=== PATIENT | female | born 1945 | race American Indian/Alaskan Native ===

== ENCOUNTER 2017-03-10 18:47 | Inpatient (IN) | payer OTHER ==
[2017-03-10] MEDS ORDERED: Albuterol-Ipratrop 3 mg / 0.5 (3 ml) UD ONE ×2 (18:58→19:31)
[2017-03-10] MEDS ORDERED: Albuterol-Ipratrop 3 mg / 0.5 (3 ml) UD INH STA ×2 (19:08→19:30)
[2017-03-10 19:22] LABS: BASO # 0.1 K/uL (0.0-0.2); BASO % 0.2 % (0.0-2.0); EOS # 0.1 K/uL (0.0-0.7); EOS % 0.3 % (0.0-4.0); HEMOGLOBIN 9.1 g/dL (11.0-16.0); LYMPH # 1.1 K/uL (1.0-4.3); LYMPH % 3.4 % (20.0-40.0); MEAN CELL VOLUME 91.9 fL (81.0-99.0); MEAN CORPUSCULAR HEMOGLOBIN 28.5 pg (27.0-31.0); MEAN CORPUSCULAR HGB CONC 31.1 g/dL (33.0-37.0); MEAN PLATELET VOLUME 8.1 fL (7.2-11.7); MONO # 0.3 K/uL (0.0-0.8); MONO % 0.9 % (0.0-10.0); NEUT # 30.1 K/uL (1.8-7.0); NEUT % 95.2 % (50.0-75.0); PLATELET COUNT 178 K/uL (130-400); RBC 3.19 Mil/uL (3.80-5.20); RED CELL DISTRIBUTION WIDTH 16.4 % (11.5-14.5)
[2017-03-10 19:26] LABS: ALBUMIN 3.5 g/dL (3.5-5.0); WHITE BLOOD COUNT 31.6 K/uL (4.8-10.8)
[2017-03-10 19:29] LABS: ALB/GLOB RATIO 1.3 (1.0-2.1); CALCIUM 8.7 mg/dl (8.6-10.4)
[2017-03-10 19:41] LABS: TROPONIN I 0.013 ng/mL (0.00-0.120)
[2017-03-10 20:24] LABS: ANISOCYTOSIS SLIGHT; BANDS 4 % (0-2); LYMPHOCYTE 3 % (20-40); MONOCYTE 1 % (0-10); NEUTROPHIL 92 % (50-75); PLATELET ESTIMATE NORMAL (NORMAL); TOTAL CELLS COUNTED 100
[2017-03-10 20:26] LABS: HYPOCHROMIC SLIGHT
[2017-03-10] MEDS ORDERED: Sodium Chloride 0.9% 1,000 ML IV ONE (21:30)
[2017-03-10] MEDS ORDERED: Sodium Chloride 0.9% 1,000 ML ONE (21:36)
[2017-03-10] MEDS ORDERED: Iodixanol 320 MG/ML 100 ML BOTTLE IV ONE (23:02)
[2017-03-10 23:21] LABS: SQUAMOUS EPITHIAL < 1 /hpf (0-5); URINE BACTERIA OCC (<OCC); URINE BILIRUBIN NEGATIVE (NEGATIVE); URINE BLOOD NEGATIVE (NEGATIVE); URINE CLARITY Clear (Clear); URINE COLOR Yellow (YELLOW); URINE GLUCOSE (UA) 3+ mg/dL (Normal); URINE LEUKOCYTE ESTERASE 1+ Leu/uL (Negative); URINE NITRATE NEGATIVE (NEGATIVE); URINE PROTEIN NEGATIVE (NEGATIVE); URINE UROBILINOGEN NORMAL mg/dL (0.2-1.0)
--- NOTE | 2017-03-11 00:10 | CT ---
EXAM: CT Angiography Chest With Intravenous Contrast CLINICAL HISTORY: 71 years old, female; Pain; Chest pain; Additional info: R lower lung ca, elev d-dimer, new SOB TECHNIQUE: Axial computed tomographic angiography images of the chest with intravenous contrast using pulmonary embolism protocol. This CT exam was performed using one or more of the following dose reduction techniques: automated exposure control, adjustment of the mA and/or kV according to patient size, and/or use of iterative reconstruction technique. MIP reconstructed images were created and reviewed. Coronal and sagittal reformatted images were created and reviewed. CONTRAST: 100 mL of [id number] administered intravenously. COMPARISON: No relevant prior studies available. FINDINGS: Pulmonary arteries: There is no evidence for large, central pulmonary embolism. Relatively poor opacification and motion artifact limit evaluation of medium and small branches. Aorta: Thoracic aorta is mildly atherosclerotic without aneurysm. Abdominal aorta demonstrates moderate atherosclerotic calcification is visualized. Lungs: There is an ovoid slightly ill-defined groundglass opacity in the right upper lobe measuring approximately 2.4 x 1.5 CM on series 3, image 35. This could represent mass or infiltrate. There are a few smaller ill-defined groundglass lesions that appear similar in the right lower lobe and the left upper lobe. Metastatic disease is not excluded. Please correlate clinically. There is mild to moderate underlying centrilobular emphysema and some paraseptal emphysema in the upper lung zones. There is linear atelectasis or scarring in the bases. Pleural space: No evidence for significant pleural effusion or pneumothorax. Heart: The heart is not enlarged. No significant pericardial effusion. No evidence of RV dysfunction. Mediastinum: The esophagus is normal. Thyroid: The thyroid is normal in size and position. Bones/joints: There are moderate degenerative changes present. There is mild diffuse osteopenia. No acute fracture. No dislocation. Soft tissues: Unremarkable. Lymph nodes: There is no axillary adenopathy. No mediastinal or hilar adenopathy. Adrenals: There is a 1.7 CM left adrenal mass which is incompletely characterized on this postcontrast study. Metastasis is not excluded. Upper abdomen: Scans through the upper abdomen demonstrate no definite acute abnormalities. Tubes, lines and devices: There is a right chemotherapy infusion port with catheter tip extending to the superior vena cava. IMPRESSION: 1. There is no evidence for large, central pulmonary embolism. Relatively poor opacification and motion artifact limit evaluation of medium and small branches. 2. There is an ovoid slightly ill-defined groundglass opacity in the right upper lobe measuring approximately 2.4 x 1.5 CM on series 3, image 35. This could represent mass or infiltrate. There are a few smaller ill-defined groundglass lesions that appear similar in the right lower lobe and the left upper lobe. Metastatic disease is not excluded. Please correlate clinically. 3. There is mild to moderate underlying centrilobular emphysema and some paraseptal emphysema in the upper lung zones. 4. There is a 1.7 CM left adrenal mass which is incompletely characterized on this postcontrast study. Metastasis is not excluded.
--- NOTE | 2017-03-11 00:19 | C.PDOC ---
History Of Present Illness 71 year old female who presents to the ER via EMS with a complaint of increasing SOB and wheezing. Patient has a Hx of COPD and quit smoking in August. Patient reports she has right lower lobe lung CA and states her most recent chemo radiation was earlier this week done by Dr. Ck Nails; her PMD is Dr. Amaya. Denies chest pain, nausea, or vomiting. Time Seen by Provider: 03/10/17 19:00 Chief Complaint (Nursing): Shortness Of Breath History Per: Patient History/Exam Limitations: no limitations Onset/Duration Of Symptoms: Hrs Current Symptoms Are (Timing): Still Present Initiating Event: Other (Not known) Current Respiratory Medications: See Home Med List Associated Symptoms: denies: Fever, Chills, Chest Pain Past Medical History Reviewed: Historical Data, Nursing Documentation, Vital Signs Vital Signs: Last Vital Signs Temp 97.4 F L 03/11/17 01:30 Pulse 99 H 03/11/17 01:30 Resp 20 03/11/17 01:30 BP 126/56 L 03/11/17 01:30 Pulse Ox 97 03/11/17 02:40 - Medical History PMH: Asthma, COPD, Emphysema, HTN Surgical History: No Surg Hx Family History: States: Unknown Family Hx - Social History Hx Alcohol Use: Yes Hx Substance Use: Yes - Immunization History Hx Tetanus Toxoid Vaccination: No Hx Influenza Vaccination: Yes Hx Pneumococcal Vaccination: Yes Review Of Systems Constitutional: Negative for: Fever, Chills Cardiovascular: Negative for: Chest Pain Gastrointestinal: Negative for: Nausea, Vomiting Physical Exam - Physical Exam Appears: Non-toxic Skin: Normal Color, Warm, Dry Head: Atraumatic, Normacephalic Oral Mucosa: Moist Chest: Symmetrical, No Tenderness Cardiovascular: Rhythm Regular, No Murmur Respiratory: Decreased Breath Sounds (Right side), No Rales, Rhonchi (Scattered) , Wheezing (Scattered), Other (Moderate respiratory distress) Gastrointestinal/Abdominal: Soft, No Tenderness Neurological/Psych: Oriented x3, Normal Speech, Normal Cognition ED Course And Treatment - Laboratory Results Result Diagrams: 03/10/17 19:14 03/10/17 19:14 Lab Interpretation: Abnormal (++ leukocytosis, and elev d-dimer 588) ECG: Interpreted By Pa ECG Rhythm: Sinus Tachycardia ECG Interpretation: Abnormal Rate From EC O2 Sat by Pulse Oximetry: 97 Pulse Ox Interpretation: Normal - Radiology CXR: Interpreted by Me CXR Interpretation: Yes: Other (? mass/infiltrate RLL) - CT Scan/US CTA Other Rad Studies (CT/US): Read By Radiologist, Radiology Report Reviewed CT/US Interpretation: IMPRESSION: 1. There is no evidence for large, central pulmonary embolism. Relatively poor opacification and. motion artifact limit evaluation of medium and small branches. 2. There is an ovoid slightly ill- defined groundglass opacity in the right upper lobe measuring. approximately 2.4 x 1.5 CM on series 3, image 35. This could represent mass or infiltrate. There are. a few smaller ill-defined groundglass lesions that appear similar in the right lower lobe and the left. upper lobe. Metastatic disease is not excluded. Please correlate clinically. 3. There is mild to moderate underlying centrilobular emphysema and some paraseptal emphysema. in the upper lung zones. 4. There is a 1.7 CM left adrenal mass which is incompletely characterized on this postcontrast. study. Metastasis is not excluded. Progress Note: IVF, steroids, nebs. Reevaluation Time: 00:18 Reassessment Condition: Unchanged (remains calm, cooperative) - Physician Consult Information Outcome Of Conversation: 0030: d/w Dr. Ramirze, covering Dr. Amaya's pt's, ok to tele obs. Medical Decision Making Medical Decision Making: COPD exacerbation after Chemo 2 days ago significant leukocytosis prob more related to recent chem and not infection as none noted on CTA- abx held. non-neutropenic. Disposition Doctor Will See Patient In The: Hospital Counseled Patient/Family Regarding: Studies Performed, Diagnosis - Disposition Disposition: HOSPITALIZED Disposition Time: 00:23 Condition: GOOD - Clinical Impression Clinical Impression: COPD exacerbation - Scribe Statement The provider has reviewed the documentation as recorded by the Scribkaitlynn De La Vega All medical record entries made by the Scribe were at my direction and personally dictated by me. I have reviewed the chart and agree that the record accurately reflects my personal performance of the history, physical exam, medical decision making, and the department course for this patient. I have also personally directed, reviewed, and agree with the discharge instructions and disposition.
--- NOTE | 2017-03-11 02:58 | CP.PCM.HP ---
<FloydChrissie Luis Armando - Last Filed: 03/11/17 05:11> History of Present Illness - History of Present Illness History of Present Illness: CC:shortness of breath HPI: Patient is a 71 year old female with a past medical history of DM, COPD, asthma, HTN, and lung cancer (diagnosed in 08/2016), who comes to the emergency room because she was having shortness of breath. Patient had an episode of shortness of breath in the morning which was mostly resolved after a nebulizer treatment. Then patient had shortness of breath and cough in the afternoon that was not resolving. Patient was diagnosed with lung cancer in August for which she has been getting chemo treatments since October. Patient had some mild nausea , 1 episode of vomiting water, and one loose bowel movement today which she attributes to the chemo. Patient denies headache, dizziness, chest pain, palpitations, urinary frequency, dysuria, leg pain, leg swelling. PMD: Dr. Eugene Amaya Heme/Onc: Dr. Ck Nails Pmhx: DM, COPD, asthma, HTN, and lung cancer (diagnosed in 08/2016) Fam hx: mother: DM Social: quit smoking cigarettes when she was diagnosed with lung cancer in August, before then smoked 1-1.5 packs a day for 50 years drinks alcohol once every 3-4 months, smokes marijuana, lives alone Present on Admission - Present on Admission Any Indicators Present on Admission: Yes History of DVT/PE: No History of Uncontrolled Diabetes: Yes Urinary Catheter: No Decubitus Ulcer Present: No Review of Systems - Constitutional Constitutional: absent: Chills, Daytime Sleepiness, Fatigue, Fever - EENT Eyes: absent: Blurred Vision, Diplopia Ears: absent: Decreased Hearing Nose/Mouth/Throat: absent: Nasal Congestion, Nasal Discharge, Post Nasal Drip - Cardiovascular Cardiovascular: Dyspnea. absent: Chest Pain, Diaphoresis, Edema - Respiratory Respiratory: Cough, Dyspnea, Wheezing - Gastrointestinal Gastrointestinal: Loose Stools, Vomiting. absent: Abdominal Pain, Constipation , Diarrhea - Genitourinary Genitourinary: absent: Change in Urinary Stream, Difficulty Urinating, Urinary Incontinence, Urinary Hesitance - Musculoskeletal Musculoskeletal: absent: Muscle Cramps, Muscle Weakness - Integumentary Integumentary: absent: Change in Pigmentation, Changing Lesions - Neurological Neurological: absent: Confusion, Dizziness, Numbness - Psychiatric Psychiatric: absent: Behavioral Changes, Confusion, Depression - Endocrine Endocrine: absent: Fatigue, Palpitations - Hematologic/Lymphatic Hematologic: absent: Easy Bleeding, Easy Bruising Past Patient History - Infectious Disease Hx of Infectious Diseases: None - Past Social History Smoking Status: Former Smoker - CARDIAC Hx Hypertension: Yes - PULMONARY Hx Asthma: Yes Hx Chronic Obstructive Pulmonary Disease (COPD): Yes Hx Emphysema: Yes - HEMATOLOGICAL/ONCOLOGICAL Hx Cancer: Yes (RIGHT LUNG LOWER LOBE) Other/Comment: CURRENT CHEMO PATIENT - PSYCHIATRIC Hx Substance Use: Yes - SURGICAL HISTORY Hx Surgeries: Yes Hx Tubal Ligation: Yes Other/Comment: HEMMROIDECOTMY - ANESTHESIA Hx Anesthesia: Yes Hx Anesthesia Reactions: No Meds Allergies/Adverse Reactions: Allergies Allergy/AdvReac Type Severity Reaction Status Date / Time Penicillins Allergy Verified 03/10/17 19:02 Physical Exam - Constitutional Appears: Well, Non-toxic, No Acute Distress - Head Exam Head Exam: ATRAUMATIC, NORMAL INSPECTION, NORMOCEPHALIC - Eye Exam Eye Exam: EOMI, Normal appearance, PERRL - ENT Exam ENT Exam: Mucous Membranes Moist, Normal Exam - Neck Exam Neck exam: Positive for: Normal Inspection Additional comments: right port - Respiratory Exam Respiratory Exam: Rhonchi, Wheezes - Cardiovascular Exam Cardiovascular Exam: REGULAR RHYTHM, RRR - GI/Abdominal Exam GI & Abdominal Exam: Normal Bowel Sounds, Soft. absent: Distended, Firm, Guarding - Extremities Exam Extremities exam: Positive for: normal inspection. Negative for: pedal edema - Back Exam Back exam: NORMAL INSPECTION - Neurological Exam Neurological exam: Alert, Oriented x3 - Psychiatric Exam Psychiatric exam: Normal Affect, Normal Mood - Skin Skin Exam: Intact, Normal Color, Warm Additional comments: right chest chemo port Results - Vital Signs Recent Vital Signs: Last Vital Signs Temp 97.4 F L 03/11/17 01:30 Pulse 99 H 03/11/17 01:30 Resp 20 03/11/17 01:30 BP 126/56 L 03/11/17 01:30 Pulse Ox 97 03/11/17 02:41 - Labs Result Diagrams: 03/10/17 19:14 03/10/17 19:14 Assessment & Plan - Assessment and Plan (Free Text) Assessment: 1. COPD Exacerbation Duoneb 3ml INH q6h Pulmicort .5mg INH q12h Prednisone 40 mg PO daily Doxycycline 100 mg PO q12h in ED CT chest: no evidence for PE, ovoid groundglass opacity in right upper lobe 2.4 x 1.5, few smaller ill defined groundglass lesions that appear similar in the right lower lobe and left upper lobe, mild to moderate underlying centrilobular emphysema and some paraseptal emphysema in upper lung zones, 1.7cm left adrenal mass 2. Diabetes ISS low dose Levemir 16 u SC HS hold metformin because patient received contrast Januvia 50 mg PO daily (lowered from 100 for renal dosing) accuchecks HgA1c 3. HTN Enalapril 2.5 mg PO BID plavix 75 mg- f/u with Dr. Amaya for indication 4. Chronic Anemia Feosol 325mg PO daily 5. Leukocytosis probably secondary to injection after chemo 6. Lung Cancer f/u with Dr. Ck Nails to obtain recent chest CT results 5. Prophylactic Measures Pepcid 20 mg PO daily Colace 100 mg PO daily <David Ramirez P - Last Filed: 03/11/17 06:41> Results - Vital Signs Recent Vital Signs: Last Vital Signs Temp 97.4 F L 03/11/17 01:30 Pulse 99 H 03/11/17 01:30 Resp 20 03/11/17 01:30 BP 126/56 L 03/11/17 01:30 Pulse Ox 97 03/11/17 02:41 - Labs Result Diagrams: 03/10/17 19:14 03/10/17 19:14 Attending/Attestation - Attestation I have personally seen and examined this patient.: Yes I have fully participated in the care of the patient.: Yes I have reviewed all pertinent clinical information: Yes Notes (Text): 03/11/17 06:36 SOB probably COPD exacerbation with improved with steroid, nebs treatment in the hospital, lung lesion noticed on the CT on the right side in mid lung zone likely site of original malignancy, PE negative, leucocytosis probably form post chemo colony proliferating agent, patient clinically not septic. Continue systemic steroid, emperic abx, neb including pulmicort, will try to get information on the lung lesion form the patients oncologist, Dr Ck Nails, continue home meds except metformin due to PE study, probably dc today or tomorrow.
[2017-03-11] MEDS: Albuterol-Ipratrop 3 mg / 0.5 (3 ml) UD INH SCH ×3 (08:00→19:35)
[2017-03-11] MEDS: Budesonide 0.5 mg/2 ml Inhal Susp UD INH SCH ×2 (08:00→19:35)
[2017-03-11] MEDS: (Novolin R) Insulin Human Regular 100 units/ml vial SC SCH ×4 (08:27→21:56)
--- NOTE | 2017-03-11 15:14 | RAD ---
PROCEDURE: CHEST RADIOGRAPH, 1 VIEW HISTORY: Shortness of breath. COMPARISON: This study was read in conjunction with CTA chest 03/10/2017 at 2338 hours. PE FINDINGS: LUNGS: Ovoid ground-glass opacity right upper lobe, mild right basilar atelectasis and centrilobular emphysema upper lobe predominance less well seen on this exam as compared to high-resolution CT scan. PLEURA: No pneumothorax or pleural fluid seen. CARDIOVASCULAR: Heart size normal. OSSEOUS STRUCTURES: No significant abnormalities. VISUALIZED UPPER ABDOMEN: Normal. OTHER FINDINGS: Right IJ MediPort with tip in the SVC again noted IMPRESSION: Ovoid ground-glass opacity right upper lobe, mild right basilar atelectasis and centrilobular emphysema upper lobe predominance less well seen on this exam as compared to high-resolution CT scan.
[2017-03-11] MEDS ORDERED: Albuterol-Ipratrop 3 mg / 0.5 (3 ml) UD INH STA (15:33)
[2017-03-11] MEDS: Insulin Detemir 100 units/ml Vial (Levemir) SC SCH (21:58)
[2017-03-12] MEDS: Albuterol-Ipratrop 3 mg / 0.5 (3 ml) UD INH SCH ×5 (02:34→19:07)
[2017-03-12] MEDS: Budesonide 0.5 mg/2 ml Inhal Susp UD INH SCH ×2 (07:35→19:07)
[2017-03-12] MEDS: (Novolin R) Insulin Human Regular 100 units/ml vial SC SCH ×4 (08:25→21:51)
--- NOTE | 2017-03-12 10:48 | RAD ---
HISTORY: shortness of breath COMPARISON: Comparison chest radiograph and CTA chest both dated 03/10/2017 FINDINGS: LUNGS: . Re- demonstrated is in situ right IJ MediPort tip in the SVC/brachiocephalic junction. Improved right basilar atelectasis. Hyperinflation consistent with underlying emphysema upper lobe predominance and ovoid ground-glass opacity right upper lobe poorly seen on this study as compared to high-resolution CTA chest. PLEURA: No significant pleural effusion identified, no pneumothorax apparent. CARDIOVASCULAR: Heart size is upper limits of normal unchanged. OSSEOUS STRUCTURES: No significant abnormalities. VISUALIZED UPPER ABDOMEN: Normal. OTHER FINDINGS: None. IMPRESSION: Improved right basilar atelectasis. Hyperinflation consistent with underlying emphysema upper lobe predominance and ovoid ground-glass opacity right upper lobe poorly seen on this study as compared to high-resolution CTA chest.
[2017-03-12 10:56] LABS: BASO % 0.1 % (0.0-2.0); EOS # 0.1 K/uL (0.0-0.7); EOS % 0.3 % (0.0-4.0); HEMOGLOBIN 8.2 g/dL (11.0-16.0); LYMPH % 3.7 % (20.0-40.0); MEAN CELL VOLUME 92.3 fL (81.0-99.0); MEAN CORPUSCULAR HEMOGLOBIN 28.8 pg (27.0-31.0); MEAN CORPUSCULAR HGB CONC 31.2 g/dL (33.0-37.0); MEAN PLATELET VOLUME 8.6 fL (7.2-11.7); MONO # 0.2 K/uL (0.0-0.8); MONO % 0.8 % (0.0-10.0); NEUT # 25.6 K/uL (1.8-7.0); NEUT % 95.1 % (50.0-75.0); RBC 2.84 Mil/uL (3.80-5.20); RED CELL DISTRIBUTION WIDTH 15.2 % (11.5-14.5)
[2017-03-12 11:00] LABS: PLATELET COUNT 112 K/uL (130-400)
[2017-03-12 11:02] LABS: ALBUMIN 3.4 g/dL (3.5-5.0)
[2017-03-12 11:05] LABS: ALB/GLOB RATIO 1.2 (1.0-2.1)
[2017-03-12 11:06] LABS: CALCIUM 8.8 mg/dl (8.6-10.4)
[2017-03-12 11:57] LABS: BANDS 2 % (0-2); LYMPHOCYTE 1 % (20-40); MONOCYTE 1 % (0-10); NEUTROPHIL 96 % (50-75); PLATELET ESTIMATE SLIGHTLY DECREASED (NORMAL); TOTAL CELLS COUNTED 100
[2017-03-12 11:58] LABS: ANISOCYTOSIS SLIGHT; HYPOCHROMIC SLIGHT; POLYCHROMIC SLIGHT
[2017-03-12 11:59] LABS: BURR CELLS SLIGHT; LARGE PLATELETS PRESENT; POIKILOCYTOSIS SLIGHT
[2017-03-12 14:20] LABS: ABG ALLEN TEST POS; ARTERIAL BLOOD GAS HCO3 24.6 mmol/L (21-28); ARTERIAL BLOOD GAS HEMOGLOBIN 8.7 g/dL (11.7-17.4); ARTERIAL BLOOD GAS O2 SAT 99.3 % (95-98); ARTERIAL BLOOD GAS PCO2 46 mm/Hg (35-45); ARTERIAL BLOOD GAS PH 7.35 (7.35-7.45); ARTERIAL BLOOD GAS PO2 71 mm/Hg (80-100); ARTERIAL BLOOD GAS TCO2 26.8 mmol/L (22-28)
[2017-03-12] MEDS: Vancomycin 1 gm/NS 200 ml 1 GM/200 ML BAG IVPB SCH ×2 (15:00→16:54)
--- NOTE | 2017-03-12 15:45 | CP.PCM.PN ---
<Clarissa Ness - Last Filed: 03/12/17 15:42> Subjective - Date & Time of Evaluation Date of Evaluation: 03/12/17 Time of Evaluation: 15:42 - Subjective Subjective: PGY2 progress note Pt is seen and examined at bedside. Patient is resting comfortably in bed. she states that she is not currently feeling short of breath. Still c/o productive cough. Denies having any CP, abd pain, N/V/D/C. 12 point ROS are negative except for the above mentioned. Objective - Vital Signs/Intake and Output Vital Signs (last 24 hours): Temp Pulse Resp BP Pulse Ox 98.4 F 84 22 170/65 H 100 03/11/17 15:00 03/12/17 07:05 03/11/17 15:00 03/12/17 09:37 03/11/17 15:00 Intake and Output: 03/12/17 03/12/17 06:59 18:59 Intake Total 600 Balance 600 - Medications Medications: Current Medications Albuterol/Ipratropium (Duoneb 3 Mg/0.5 Mg (3 Ml) Ud) 3 ml INH RQ6 [facility] Last Admin: 03/12/17 13:01 Dose: 3 ml Budesonide (Pulmicort Respules) 0.5 mg INH RQ12 [facility] Last Admin: 03/12/17 07:35 Dose: 0.5 mg Clopidogrel Bisulfate (Plavix) 75 mg PO DAILY [facility] Last Admin: 03/12/17 09:37 Dose: 75 mg Docusate Sodium (Colace) 100 mg PO DAILY [facility] Last Admin: 03/12/17 09:37 Dose: 100 mg Enalapril Maleate (Vasotec) 2.5 mg PO BID [facility] Last Admin: 03/12/17 09:37 Dose: 2.5 mg Famotidine (Pepcid) 20 mg PO DAILY [facility] Last Admin: 03/12/17 09:38 Dose: 20 mg Ferrous Sulfate (Feosol) 325 mg PO DAILY [facility] Last Admin: 03/12/17 09:38 Dose: 325 mg Heparin Sodium (Porcine) (Heparin) 5,000 units SC Q8 [facility] Last Admin: 03/12/17 14:30 Dose: 5,000 units Ceftriaxone Sodium 1 gm/ (Sodium Chloride) 100 mls @ 200 mls/hr IVPB DAILY [facility] Last Admin: 03/12/17 09:42 Dose: 200 mls/hr Vancomycin/Sodium Chloride (Vancocin) 1 gm in 200 mls @ 133.333 mls/hr IVPB Q24H [facility] Insulin Detemir (Levemir) 16 unit SC HS [facility] Last Admin: 03/11/17 21:58 Dose: 16 unit Insulin Human Regular (Novolin R) 0 unit SC ACHS [facility] PRN Reason: Protocol Last Admin: 03/12/17 12:30 Dose: 3 unit Prednisone (Prednisone Tab) 40 mg PO DAILY [facility] Last Admin: 03/12/17 09:38 Dose: 40 mg Sitagliptin Phosphate (Januvia) 50 mg PO DAILY [facility] Last Admin: 03/12/17 09:38 Dose: 50 mg - Labs Labs: 03/12/17 10:30 03/12/17 10:30 - Constitutional Appears: Non-toxic, No Acute Distress - Head Exam Head Exam: ATRAUMATIC - Eye Exam Eye Exam: EOMI - ENT Exam ENT Exam: Mucous Membranes Moist - Respiratory Exam Respiratory Exam: Clear to Ausculation Bilateral, Wheezes. absent: Accessory Muscle Use, Rales, Rhonchi, Respiratory Distress - Cardiovascular Exam Cardiovascular Exam: REGULAR RHYTHM, +S1, +S2. absent: Gallop, Rubs, Murmur - GI/Abdominal Exam GI & Abdominal Exam: Soft, Normal Bowel Sounds. absent: Firm, Guarding, Rigid, Tenderness, Organomegaly - Extremities Exam Extremities Exam: absent: Pedal Edema, Tenderness - Neurological Exam Neurological Exam: Alert, Awake, Oriented x3 - Psychiatric Exam Psychiatric exam: Normal Affect, Normal Mood - Skin Skin Exam: Dry, Intact, Normal Color, Warm Assessment and Plan - Assessment and Plan (Free Text) Assessment: 71 year old female with past medical history of small cell lung cancer on chemo therapy carboplastin, tobracyte and Neulasta is admitted for shortness of breath likely 2/2 COPD exacerbation vs. PNA. CT of chest on admission was negative for PE, ovoid groundglass opacity in right upper lobe 2.4 x 1.5, few smaller ill defined ground glass lesions that appear similar in the right lower lobe and left upper lobe, mild to moderate underlying centrilobular emphysema and some paraseptal emphysema in upper lung zones, 1.7cm left adrenal mass. 1. SOB likely due to COPD exacerbation vs. PNA Blood cultures from port cath site grew gram positive cocci coag negative Will repeat blood cultures today from port cath site and then start patient on vancomycin Continue rocephin 1 gm IV Q24 ID, Dr. Walter is consulted ABG done today showed 99 O2 saturation on RA Duoneb 3ml INH q6h Pulmicort .5mg INH q12h Prednisone 40 mg PO daily on day 2 out of day 5 2. Diabetes ISS low dose Levemir 16 u SC HS hold metformin because patient received contrast Januvia 50 mg PO daily (lowered from 100 for renal dosing) accuchecks HgA1c 3. HTN Enalapril 2.5 mg PO BID plavix 75 mg- f/u with Dr. Amaya for indication 4. Chronic Anemia Feosol 325mg PO daily 5. Leukocytosis Likely due to Neulasta Downtrending. will continue to monitor 6. Small cell lung Cancer - Patient to follow up with heme/onc specialist, Dr. Nails upon discharge. - Discussed the reslts of CT findings with Dr. Nails 5. Prophylactic Measures Pepcid 20 mg PO daily Colace 100 mg PO daily Heparin SC Case discussed with attending, Dr. Pepper <Kaylie Pepper V - Last Filed: 03/12/17 23:17> Objective - Vital Signs/Intake and Output Vital Signs (last 24 hours): Temp Pulse Resp BP Pulse Ox 98.3 F 101 H 20 147/89 99 03/12/17 15:46 03/12/17 16:00 03/12/17 15:46 03/12/17 17:39 03/12/17 15:46 Intake and Output: 03/12/17 03/13/17 18:59 06:59 Intake Total 500 820 Balance 500 820 - Medications Medications: Current Medications Albuterol/Ipratropium (Duoneb 3 Mg/0.5 Mg (3 Ml) Ud) 3 ml INH RQ6 [facility] Last Admin: 03/12/17 19:07 Dose: 3 ml Budesonide (Pulmicort Respules) 0.5 mg INH RQ12 [facility] Last Admin: 03/12/17 19:07 Dose: 0.5 mg Clopidogrel Bisulfate (Plavix) 75 mg PO DAILY [facility] Last Admin: 03/12/17 09:37 Dose: 75 mg Docusate Sodium (Colace) 100 mg PO DAILY [facility] Last Admin: 03/12/17 09:37 Dose: 100 mg Enalapril Maleate (Vasotec) 2.5 mg PO BID [facility] Last Admin: 03/12/17 17:39 Dose: 2.5 mg Famotidine (Pepcid) 20 mg PO DAILY [facility] Last Admin: 03/12/17 09:38 Dose: 20 mg Ferrous Sulfate (Feosol) 325 mg PO DAILY [facility] Last Admin: 03/12/17 09:38 Dose: 325 mg Heparin Sodium (Porcine) (Heparin) 5,000 units SC Q8 [facility] Last Admin: 03/12/17 21:51 Dose: 5,000 units Vancomycin/Sodium Chloride (Vancocin) 1 gm in 200 mls @ 133.333 mls/hr IVPB Q24H [facility] Last Admin: 03/12/17 16:54 Dose: 133.333 mls/hr Cefepime HCl (Maxipime Iv 2 Gm Premix) 2 gm in 100 mls @ 200 mls/hr IVPB Q12H [facility] Stop: 03/17/17 19:31 Last Admin: 03/12/17 20:50 Dose: 200 mls/hr Insulin Detemir (Levemir) 16 unit SC HS [facility] Last Admin: 03/12/17 21:51 Dose: 16 unit Insulin Human Regular (Novolin R) 0 unit SC ACHS [facility] PRN Reason: Protocol Last Admin: 03/12/17 21:51 Dose: 2 unit Prednisone (Prednisone Tab) 40 mg PO DAILY [facility] Last Admin: 03/12/17 09:38 Dose: 40 mg Sitagliptin Phosphate (Januvia) 50 mg PO DAILY [facility] Last Admin: 03/12/17 09:38 Dose: 50 mg - Labs Labs: 03/12/17 10:30 03/12/17 10:30 Attending/Attestation - Attestation I have personally seen and examined this patient.: Yes I have fully participated in the care of the patient.: Yes I have reviewed all pertinent clinical information, including history, physical exam and plan: Yes Notes (Text): Patient seen, examined, and case discussed with day-time resident. Patient has history of small cell lung cancer, had undergone 5 rounds of chemotherapy. Patient reports after her dose of Monday medication (Neuralasta?) she felt like she could not breathing, was panting, and felt like she need oxygen. Patient does not use oxygen normally. Patient is a former smoker, quit this year. CT results were discussed with resident and patient's heme-onc, patient to follow-up outpatient for adrenal lesion. Noted: patient had blood cultures that grew out from port-cath site today. Ordered for repeat culture r/o contaminant. When I saw the patient, there was no discharge, no swelling and plastic dressing over the the port-a cath this morning. Patient currently on Rocephin IV and Doxy PO combination; denies allergy type symptoms. Will ask assistance from ID and repeat cultures from the port-a cath Assessment/Plan 1. Dyspnea * Contributing factors: small cell lung cancer (on chemotherapy), emphysema, and pneumonia, and bactremia * CT chest: no evidence for PE, ovoid groundglass opacity in right upper lobe 2.4 x 1.5, few smaller ill defined groundglass lesions that appear similar in the right lower lobe and left upper lobe, mild to moderate underlying centrilobular emphysema and some paraseptal emphysema in upper lung zones, 1.7cm left adrenal mass * ABG done today showed 99 O2 saturation on RA * Duoneb 3ml INH q6h * Pulmicort .5mg INH q12h * Prednisone 40 mg PO daily on day 2 out of day 5 2. Bacteremia * Blood culture (03/11) from port a cath: gram positive cocci coag negative ( unclear if contaminant or not) * Blood culture (03/11) peripheral: no growth X 24 hours * Repeat blood cultures from the port-cath (prior to vancomycin) and peripheral blood were repeat r/o bactermia * Infectious Disease (Dr. Walter) on the case-->help appreciated * d/c rocephin 1 gm IV Q24 per ID; patient started on Cefepime 2gram IV Q12 hours (active since 03/12/17) * Vancomycin 1gram IVQ 24 hours (active since 03/12/17) * Given dose of Gentamcin by ID * Ordered for echocardiogram by ID * 1/2 NS 50cc/hr * Florastor 250mg PO bid 3. Diabetes * ISS low dose * Levemir 16 u SC HS * hold metformin because patient received contrast * Renal dose Januvia 25 mg PO daily (lowered from 100 for renal dosing) * accuchecks QAC and HS * HgA1c pending * d/c Enalapril 2.5 mg PO BID secondary to BRENDA and hyperkalemia 3. Hypertension * d/c Enalapril 2.5 mg PO BID secondary to BRENDA and hyperkalemia * start Norvasc 5mg PO daily 4. Chronic Anemia * Feosol 325mg PO daily 5. Leukocytosis * Likely due to Neulasta * Downtrending. will continue to monitor * Note plan for Bacteremia and Small cell lung cancer 6. Small cell lung Cancer * CT chest: no evidence for PE, ovoid groundglass opacity in right upper lobe 2.4 x 1.5, few smaller ill defined groundglass lesions that appear similar in the right lower lobe and left upper lobe, mild to moderate underlying centrilobular emphysema and some paraseptal emphysema in upper lung zones, 1.7cm left adrenal mass * Patient to follow up with heme/onc specialist, Dr. Nails upon discharge. * Resident spoke results of CT findings with Dr. Ck Nails, heme-onc * Patient is on active chemo therapy and Neulasta 7. Emphysema * CT chest: no evidence for PE, ovoid groundglass opacity in right upper lobe 2.4 x 1.5, few smaller ill defined groundglass lesions that appear similar in the right lower lobe and left upper lobe, mild to moderate underlying centrilobular emphysema and some paraseptal emphysema in upper lung zones, 1.7cm left adrenal mass * ABG done today; 99 O2 saturation on RA * Duoneb 3ml INH q6h * Pulmicort .5mg INH q12h * Prednisone 40 mg PO daily on day 2 out of day 5 8. Acute Renal Insufficiency * held enalapril secondary to hyperkalemia and BRENDA * Metformin held secondary to contrast CT * Januvia adjusted to renal dose * gentle IV hydration 9. Thrombocytopenia * held Heparin secondary to thrombocytopenia 10. Prophylactic Measures * Pepcid 20 mg PO daily * Colace 100 mg PO daily * d/c Heparin 5000 units SC [id number] secondary to thrombocytopenia * PT eval
[2017-03-12] MEDS ORDERED: Gentamicin 160 MG in Sodium Chloride 0.9% 100 ML IVPB ONE (19:26)
[2017-03-12] MEDS: Cefepime IV 2 gm in Dextrose 2 GM/100 ML BAG IVPB SCH (20:50)
[2017-03-12] MEDS: Insulin Detemir 100 units/ml Vial (Levemir) SC SCH (21:51)
[2017-03-13] MEDS: Sodium Chloride 0.45% 1,000 ML IV SCH (00:06)
[2017-03-13] MEDS: Albuterol-Ipratrop 3 mg / 0.5 (3 ml) UD INH SCH ×4 (01:00→19:10)
[2017-03-13] MEDS: Cefepime IV 2 gm in Dextrose 2 GM/100 ML BAG IVPB SCH ×2 (06:47→19:24)
[2017-03-13 07:36] LABS: ALBUMIN 3.5 g/dL (3.5-5.0)
[2017-03-13 07:39] LABS: ALB/GLOB RATIO 1.2 (1.0-2.1); CALCIUM 9.1 mg/dl (8.6-10.4); MAGNESIUM 1.3 mg/dL (1.6-2.3)
[2017-03-13 07:48] LABS: BASO % 0.2 % (0.0-2.0); EOS # 0.1 K/uL (0.0-0.7); EOS % 0.6 % (0.0-4.0); HEMOGLOBIN 8.3 g/dL (11.0-16.0); LYMPH # 1.6 K/uL (1.0-4.3); LYMPH % 7.8 % (20.0-40.0); MEAN CORPUSCULAR HEMOGLOBIN 29.4 pg (27.0-31.0); MEAN CORPUSCULAR HGB CONC 31.9 g/dL (33.0-37.0); MEAN PLATELET VOLUME 8.9 fL (7.2-11.7); MONO # 0.4 K/uL (0.0-0.8); MONO % 1.8 % (0.0-10.0); NEUT # 18.5 K/uL (1.8-7.0); NEUT % 89.6 % (50.0-75.0); RBC 2.83 Mil/uL (3.80-5.20); RED CELL DISTRIBUTION WIDTH 15.3 % (11.5-14.5); WHITE BLOOD COUNT 20.6 K/uL (4.8-10.8)
[2017-03-13 07:51] LABS: PLATELET COUNT 91 K/uL (130-400)
[2017-03-13] MEDS: (Novolin R) Insulin Human Regular 100 units/ml vial SC SCH ×4 (08:12→21:39)
[2017-03-13 08:36] LABS: BANDS 1 % (0-2); LYMPHOCYTE 7 % (20-40); MONOCYTE 1 % (0-10); NEUTROPHIL 91 % (50-75); TOTAL CELLS COUNTED 100
[2017-03-13 08:37] LABS: ANISOCYTOSIS SLIGHT; HYPOCHROMIC SLIGHT; PLATELET ESTIMATE DECREASED (NORMAL)
[2017-03-13] MEDS: Budesonide 0.5 mg/2 ml Inhal Susp UD INH SCH ×2 (09:51→19:10)
[2017-03-13] MEDS ORDERED: Magnesium Sulfate 1 gm in D5W 1 GM/100 ML BAG IVPB ONE ×2 (10:30→13:10)
[2017-03-13] MEDS ORDERED: Sod Polystyrene Sulf 15 gm/60 ml Oral Susp PO ONE ×3 (10:30→22:37)
[2017-03-13] MEDS: Saccharomyces Boulardi 250 mg Cap PO SCH ×2 (10:44→17:59)
--- NOTE | 2017-03-13 12:32 | CARD ---
APPROVED REPORT EKG Measurement Heart [id number] <Conclusion> Sinus tachycardia with fusion complexes Biatrial enlargement Rightward axis Pulmonary disease pattern Septal infarct, age undetermined Abnormal ECG
[2017-03-13 13:02] LABS: N MENINGITIS ACY/W135 NEGATIVE (NEGATIVE); N MENINGITIS B/ECOLI K1 NEGATIVE (NEGATIVE); STREP PNEUMONIAE NEGATIVE (NEGATIVE); STREPTOCOCCUS B NEGATIVE (NEGATIVE)
[2017-03-13] MEDS: Vancomycin 1 gm/NS 200 ml 1 GM/200 ML BAG IVPB SCH (14:07)
--- NOTE | 2017-03-13 16:04 | CP.PCM.PN ---
<Chrissie Barrientos - Last Filed: 03/13/17 16:01> Subjective - Date & Time of Evaluation Date of Evaluation: 03/13/17 Time of Evaluation: 08:00 - Subjective Subjective: PGY-1 Medicine Note- Dr. Pepper's Service Patient seen and examined at bedside today with complaints of shortness of breath and productive cough. Patient experiences intermittent shortness of breath when walking and when speaking for long periods of time. SOB began this past Monday and states that treatment of oxygen is helpful. Patient complains of intermittent productive cough with white sputum that began last week during a cold. She denies any exacerbating or remitting factors. Complains of night sweats that she has had for an extended period of time, last episode was 5 days ago. Patient denies chest pain, headaches, dizziness, changes in vision and hearing, tinnitus, dysphagia, abdominal pain, nausea, vomiting, abdominal pain, diarrhea, constipation, fever, chills, leg pain, numbness or tingling at distal extremities. Objective - Vital Signs/Intake and Output Vital Signs (last 24 hours): Temp Pulse Resp BP Pulse Ox 97.9 F 92 H 22 146/67 100 03/13/17 15:45 03/13/17 15:45 03/13/17 15:45 03/13/17 15:45 03/13/17 15:45 Intake and Output: 03/13/17 03/13/17 06:59 18:59 Intake Total 820 Balance 820 - Medications Medications: Current Medications Albuterol/Ipratropium (Duoneb 3 Mg/0.5 Mg (3 Ml) Ud) 3 ml INH RQ6 [facility] Last Admin: 03/13/17 13:40 Dose: 3 ml Amlodipine Besylate (Norvasc) 5 mg PO DAILY [facility] Last Admin: 03/13/17 10:44 Dose: 5 mg Budesonide (Pulmicort Respules) 0.5 mg INH RQ12 [facility] Last Admin: 03/13/17 09:51 Dose: 0.5 mg Clopidogrel Bisulfate (Plavix) 75 mg PO DAILY [facility] Last Admin: 03/13/17 10:44 Dose: 75 mg Docusate Sodium (Colace) 100 mg PO DAILY [facility] Last Admin: 03/13/17 10:44 Dose: 100 mg Famotidine (Pepcid) 20 mg PO DAILY [facility] Last Admin: 03/13/17 10:44 Dose: 20 mg Ferrous Sulfate (Feosol) 325 mg PO DAILY [facility] Last Admin: 03/13/17 10:42 Dose: 325 mg Vancomycin/Sodium Chloride (Vancocin) 1 gm in 200 mls @ 133.333 mls/hr IVPB Q24H [facility] Last Admin: 03/13/17 14:07 Dose: 133.333 mls/hr Cefepime HCl (Maxipime Iv 2 Gm Premix) 2 gm in 100 mls @ 200 mls/hr IVPB Q12H [facility] Stop: 03/17/17 19:31 Last Admin: 03/13/17 06:47 Dose: 200 mls/hr Sodium Chloride (Sodium Chloride 0.45%) 1,000 mls @ 50 mls/hr IV .Q20H [facility] Last Admin: 03/13/17 00:06 Dose: 50 mls/hr Insulin Detemir (Levemir) 16 unit SC HS [facility] Last Admin: 03/12/17 21:51 Dose: 16 unit Insulin Human Regular (Novolin R) 0 unit SC ACHS [facility] PRN Reason: Protocol Last Admin: 03/13/17 12:05 Dose: 1 unit [facility] Prednisone (Prednisone Tab) 40 mg PO DAILY [facility] Last Admin: 03/13/17 10:45 Dose: 40 mg Saccharomyces Boulardii (Florastor) 250 mg PO BID [facility] Last Admin: 03/13/17 10:44 Dose: 250 mg Sitagliptin Phosphate (Januvia) 25 mg PO DAILY [facility] Last Admin: 03/13/17 10:44 Dose: 25 mg - Labs Labs: 03/13/17 07:10 03/13/17 07:10 - Constitutional Appears: Well, Non-toxic, No Acute Distress - Head Exam Head Exam: ATRAUMATIC, NORMAL INSPECTION, NORMOCEPHALIC - Eye Exam Eye Exam: EOMI, Normal appearance, PERRL - ENT Exam ENT Exam: Mucous Membranes Moist, Normal Exam - Neck Exam Neck Exam: Full ROM, Normal Inspection - Respiratory Exam Respiratory Exam: Wheezes, NORMAL BREATHING PATTERN Additional comments: expiratory wheezing in upper and lower lobes bilaterally - Cardiovascular Exam Cardiovascular Exam: REGULAR RHYTHM, RRR. absent: Gallop, JVD, Rubs, Murmur - GI/Abdominal Exam GI & Abdominal Exam: Soft, Normal Bowel Sounds. absent: Distended, Firm, Guarding, Rigid, Tenderness - Extremities Exam Extremities Exam: Full ROM, Normal Inspection - Back Exam Back Exam: NORMAL INSPECTION. absent: rash noted - Neurological Exam Neurological Exam: Alert, Awake, Oriented x3 - Psychiatric Exam Psychiatric exam: Normal Affect, Normal Mood - Skin Skin Exam: Intact, Normal Color, Warm Assessment and Plan - Assessment and Plan (Free Text) Assessment: 1. SOB secondary to COPD exacerbation vs. PNA Blood cultures from port cath site grew gram positive cocci coag negative, f/u repeat blood cultures Vancomycin 1 gm daily Continue rocephin 1 gm IV Q24 ID, Dr. Walter is consulted ABG done on 03/12 showed 99 O2 saturation on RA Duoneb 3ml INH q6h Pulmicort .5mg INH q12h Prednisone 40 mg PO daily (day 3 of ) f/u echo 2. Diabetes ISS low dose Levemir 16 u SC HS Metformin 1,000 PO BID restarted 03/13 Januvia 50 mg PO daily (lowered from 100 for renal dosing) accuchecks HgA1c 3. HTN Enalapril 2.5 mg PO BID Plavix 75 mg- f/u with Dr. Amaya for indication 4. Electrolyte Imbalance K+ 6.1 on 03/13, Kayexalate given Mg 1.3- 2 bags of 1 gm in 100 ml D5W given BMP: 5. Chronic Anemia Feosol 325mg PO daily 6. Leukocytosis Likely due to Neulasta Downtrending. will continue to monitor 7. Urinary Frequency f/u urine culture U/A on 03/10: 3+ glucose, 1+ leuk esterase, 9 wbcs 8. Small cell lung Cancer - Patient to follow up with heme/onc specialist, Dr. Nails upon discharge 9. Prophylactic Measures Pepcid 20 mg PO daily Colace 100 mg PO daily Heparin SC <Kaylie Pepper V - Last Filed: 03/13/17 18:11> Objective - Vital Signs/Intake and Output Vital Signs (last 24 hours): Temp Pulse Resp BP Pulse Ox 97.9 F 92 H 22 146/67 100 03/13/17 15:45 03/13/17 15:45 03/13/17 15:45 03/13/17 15:45 03/13/17 15:45 Intake and Output: 03/13/17 03/13/17 06:59 18:59 Intake Total 820 640 Balance 820 640 - Medications Medications: Current Medications Albuterol/Ipratropium (Duoneb 3 Mg/0.5 Mg (3 Ml) Ud) 3 ml INH RQ6 [facility] Last Admin: 03/13/17 13:40 Dose: 3 ml Amlodipine Besylate (Norvasc) 5 mg PO DAILY [facility] Last Admin: 03/13/17 10:44 Dose: 5 mg Budesonide (Pulmicort Respules) 0.5 mg INH RQ12 [facility] Last Admin: 03/13/17 09:51 Dose: 0.5 mg Clopidogrel Bisulfate (Plavix) 75 mg PO DAILY [facility] Last Admin: 03/13/17 10:44 Dose: 75 mg Docusate Sodium (Colace) 100 mg PO DAILY [facility] Last Admin: 03/13/17 10:44 Dose: 100 mg Famotidine (Pepcid) 20 mg PO DAILY [facility] Last Admin: 03/13/17 10:44 Dose: 20 mg Ferrous Sulfate (Feosol) 325 mg PO DAILY [facility] Last Admin: 03/13/17 10:42 Dose: 325 mg Vancomycin/Sodium Chloride (Vancocin) 1 gm in 200 mls @ 133.333 mls/hr IVPB Q24H [facility] Last Admin: 03/13/17 14:07 Dose: 133.333 mls/hr Cefepime HCl (Maxipime Iv 2 Gm Premix) 2 gm in 100 mls @ 200 mls/hr IVPB Q12H [facility] Stop: 03/17/17 19:31 Last Admin: 03/13/17 06:47 Dose: 200 mls/hr Sodium Chloride (Sodium Chloride 0.45%) 1,000 mls @ 50 mls/hr IV .Q20H [facility] Last Admin: 03/13/17 00:06 Dose: 50 mls/hr Insulin Detemir (Levemir) 16 unit SC HS [facility] Last Admin: 03/12/17 21:51 Dose: 16 unit Insulin Human Regular (Novolin R) 0 unit SC ACHS [facility] PRN Reason: Protocol Last Admin: 03/13/17 17:11 Dose: 5 unit Metformin HCl (Glucophage) 1,000 mg PO BIDCC [facility] Last Admin: 03/13/17 17:10 Dose: 1,000 mg Prednisone (Prednisone Tab) 40 mg PO DAILY [facility] Last Admin: 03/13/17 10:45 Dose: 40 mg Saccharomyces Boulardii (Florastor) 250 mg PO BID [facility] Last Admin: 03/13/17 10:44 Dose: 250 mg Sitagliptin Phosphate (Januvia) 25 mg PO DAILY [facility] Last Admin: 03/13/17 10:44 Dose: 25 mg - Labs Labs: 03/13/17 07:10 03/13/17 07:10 Attending/Attestation - Attestation I have personally seen and examined this patient.: Yes I have fully participated in the care of the patient.: Yes I have reviewed all pertinent clinical information, including history, physical exam and plan: Yes Notes (Text): Patient seen, examined, and case discussed with day-time resident. Patient reports breathing is about the same. Patient reporting productive cough. Explained to the patient she had abnormal blood culture finding involving her port-cath, and repeat blood cultures were done. Also, explained to the patient she is currently on stronger IV abx to cover for pneumonia given she is on active chemotherapy. Patient denies chest pain, denies palpitations and reports she has not had a bowel movement for three days since being at the hospital. Patien ordered for repeat EKG given hyperkalemia and f/u BMP for later this evening. Patient completed Kaxeylate at bedside. Repeat EKG normal. Patient refuses peripheral blood cultures; discussed with nursing staff. patient 's repeat culture from port-cath with clean needle. Echocardiogram completed pending official read Assessment/Plan 1. Dyspnea * Contributing factors: small cell lung cancer (on chemotherapy), emphysema, and pneumonia, and bactremia * CT chest: no evidence for PE, ovoid groundglass opacity in right upper lobe 2.4 x 1.5, few smaller ill defined groundglass lesions that appear similar in the right lower lobe and left upper lobe, mild to moderate underlying centrilobular emphysema and some paraseptal emphysema in upper lung zones, 1.7cm left adrenal mass * ABG done today showed 99 O2 saturation on RA * Duoneb 3ml INH q6h * Pulmicort .5mg INH q12h * Prednisone 40 mg PO daily on day 3 out of day 5 2. Bacteremia * Infectious Disease (Dr. Walter) on the case-->help appreciated * Blood culture (03/11) from port a cath: gram positive cocci coag negative ( unclear if contaminant or not) * Blood culture (03/11) peripheral: no growth X 24 hours * Blood culture (03/12) from port a cath: no growth X 24hours X2 * d/c rocephin 1 gm IV Q24 per ID; patient started on Cefepime 2gram IV Q12 hours (active since 03/12/17) * Vancomycin 1gram IVQ 24 hours (active since 03/12/17) * Given dose of Gentamcin by ID (03/12 and 03/13) * Ordered for echocardiogram by ID-->pending official read * 08/22 NS 50cc/hr * Florastor 250mg PO bid 3. Diabetes * ISS low dose * Levemir 16 u SC HS * hold metformin because patient received contrast * Renal dose Januvia 25 mg PO daily (lowered from 100 for renal dosing) * accuchecks QAC and HS * HgA1c 6.5 (controlled) * d/c Enalapril 2.5 mg PO BID secondary to BRENDA and hyperkalemia 3. Hypertension * d/c Enalapril 2.5 mg PO BID secondary to BRENDA and hyperkalemia * start Norvasc 5mg PO daily 4. Chronic Anemia * Feosol 325mg PO daily 5. Leukocytosis * Likely due to Neulasta * Downtrending. will continue to monitor * Note plan for Bacteremia and Small cell lung cancer 6. Small cell lung Cancer * CT chest: no evidence for PE, ovoid groundglass opacity in right upper lobe 2.4 x 1.5, few smaller ill defined groundglass lesions that appear similar in the right lower lobe and left upper lobe, mild to moderate underlying centrilobular emphysema and some paraseptal emphysema in upper lung zones, 1.7cm left adrenal mass * Patient to follow up with heme/onc specialist, Dr. Nails upon discharge. * Resident spoke results of CT findings with Dr. Ck Nails, heme-onc * Patient is on active chemo therapy and Neulasta 7. Emphysema * CT chest: no evidence for PE, ovoid groundglass opacity in right upper lobe 2.4 x 1.5, few smaller ill defined groundglass lesions that appear similar in the right lower lobe and left upper lobe, mild to moderate underlying centrilobular emphysema and some paraseptal emphysema in upper lung zones, 1.7cm left adrenal mass * ABG done today; 99 O2 saturation on RA * Duoneb 3ml INH q6h * Pulmicort .5mg INH q12h * Prednisone 40 mg PO daily on day 3 out of day 5 8. Acute Renal Insufficiency * held enalapril secondary to hyperkalemia and BRENDA * Metformin held secondary to contrast CT * Januvia adjusted to renal dose * gentle IV hydration 9. Thrombocytopenia * held Heparin secondary to thrombocytopenia 10. Prophylactic Measures * Pepcid 20 mg PO daily * Colace 100 mg PO daily * d/c Heparin 5000 units SC [id number] secondary to thrombocytopenia * PT eval * Patient refuses subacute rehab
[2017-03-13 18:39] LABS: CALCIUM 8.6 mg/dl (8.6-10.4)
[2017-03-13] MEDS ORDERED: Albuterol-Ipratrop 3 mg / 0.5 (3 ml) UD INH STA ×2 (18:57→23:59)
--- NOTE | 2017-03-13 20:23 | CP.PCM.CON ---
History of Present Illness - History of Present Illness History of Present Illness: 71y old female with history of HTN,DM,COPD, LUNG cancer on chemo last mon,, and monday came with shortness of breath and palpitations she denies any fever but has cough and was bringing thick whitish secretions. She also has a sandra cath ,Shee deneis any pain at sandra cath site,no chest pain,feels little better pmhx: DM, COPD, asthma, HTN, and lung cancer (diagnosed in 08/2016) Fam hx: mother: DM Social: quit smoking cigarettes when she was diagnosed with lung cancer in August, before then smoked 1-1.5 packs a day for 50 years drinks alcohol once every 3-4 months, smokes marijuana, lives alone Review of Systems - Review of Systems Systems not reviewed;Unavailable: Respiratory Distress - Constitutional Constitutional: absent: As Per HPI, Anorexia, Chills, Daytime Sleepiness, Excessive Sweating, Fatigue, Fever, Frequent Falls, Headache, Increased Appetite , Lethargy, Malaise, Night Sweats, Snoring, Sleep Apnea, Weight Gain, Weight Loss, Weakness, Other - EENT Eyes: absent: As Per HPI, Blind Spots, Blurred Vision, Change in Vision, Decreased Night Vision, Diplopia, Discharge, Dry Eye, Exophthalmos, Floaters, Irritation, Itchy Eyes, Loss of Peripheral Vision, Pain, Photophobia, Requires Corrective Lenses, Sees Flashes, Spots in Vision, Tunnel Vision, Other Visual Disturbances, Loss of Vision, Other Nose/Mouth/Throat: absent: As Per HPI, Epistaxis, Nasal Congestion, Nasal Discharge, Nasal Obstruction, Nasal Trauma, Nose Pain, Post Nasal Drip, Sinus Pain, Sinus Pressure, Bleeding Gums, Change in Voice, Dental Pain, Dry Mouth, Dysphagia, Halitosis, Hoarsness, Lip Swelling, Mouth Lesions, Mouth Pain, Odynophagia, Sore Throat, Throat Swelling, Tongue Swelling, Facial Pain, Neck Pain, Neck Mass, Other - Cardiovascular Cardiovascular: Palpitations. absent: As Per HPI, Acrocyanosis, Chest Pain, Chest Pain at Rest, Chest Pain with Activity, Claudication, Diaphoresis, Dyspnea , Dyspnea on Exertion, Edema, Irregular Heart Rhythm, Pain Radiating to Arm/Neck /Jaw, Leg Edema, Leg Ulcers, Lightheadedness, Orthopnea, Paroxysmal Nocturnal Dyspnea, Pedal Edema, Radiating Pain, Rapid Heart Rate, Slow Heart Rate, Syncope , Other - Respiratory Respiratory: Cough, Dyspnea, Wheezing, Excessive Mucous Production. absent: As Per HPI, Hemoptysis, Dyspnea on Exertion, Snoring, Stridor, Pain on Inspiration , Chest Congestion, Change in Mucous Color, Pain with Coughing, Other - Gastrointestinal Gastrointestinal: absent: As Per HPI, Abdominal Pain, Belching, Bloating, Change in Bowel Habits, Change in Stool Character, Coffee Ground Emesis, Constipation, Cramping, Diarrhea, Dyspepsia, Dysphagia, Early Satiety, Excessive Flatus, Fecal Incontinence, Heartburn, Hematemesis, Hematochezia, Loose Stools, Melena, Nausea, Odynophagia, Temesmus, Vomiting, Other - Musculoskeletal Musculoskeletal: absent: As Per HPI, Abnormal Gait, Arthralgias, Atrophy, Back Pain, Deformity, Joint Swelling, Limited Range of Motion, Loss of Height, Muscle Cramps, Muscle Weakness, Myalgias, Neck Pain, Numbness, Radiating Pain into Limb, Stiffness, Tingling, Other - Integumentary Integumentary: absent: As Per HPI, Acne, Alopecia, Bleeding Lesions, Change in Hair, Change in Nails, Change in Pigmentation, Changing Lesions, Dry Skin, Erythema, Furuncle, Hirsutism, Lesions, New Lesions, Non-Healing Lesions, Photosensitivity, Pruritus, Rash, Skin Pain, Skin Ulcer, Sores, Striae, Swelling , Unusual Bruising, Wounds, Jaundice, Other - Neurological Neurological: absent: As Per HPI, Abnormal Gait, Abnormal Hearing, Abnormal Movements, Abnormal Speech, Behavioral Changes, Burning Sensations, Confusion, Convulsions, Disequilibrium, Dizziness, Numbness, Focal Weakness, Frequent Falls , Headaches, Lack of Coordination, Loss of Vision, Memory Loss, Paresthesias, Radicular Pain, Restless Legs, Sensory Deficit, Syncope, Tingling, Tremor, Vertigo, Weakness, Other Visual Disturbances, Other - Psychiatric Psychiatric: absent: As Per HPI, Abnormal Sleep Pattern, Anhedonia, Anxiety, Auditory Hallucinations, Behavioral Changes, Change in Appetite, Change in Libido, Confusion, Depression, Difficulty Concentrating, Hallucinations, Homicidal Ideation, Hopelessness, Irritability, Memory Loss, Mood Swings, Panic Attacks, Paranoia, Suicidal Ideation, Visual Hallucinations, Tactile Hallucinations, Other - Endocrine Endocrine: absent: As Per HPI, Change in Body Appearance, Change in Libido, Cold Intolorance, Deepening of Voice, Excessive Sweating, Fatigue, Flushing, Heat Intolorance, Increase in Ring/Shoe/Hat Size, Palpitations, Polydipsia, Polyphagia, Polyuria, Other Past Patient History - Infectious Disease Hx of Infectious Diseases: None - Past Medical History & Family History Past Medical History?: Yes - Past Social History Smoking Status: Former Smoker - CARDIAC Hx Hypertension: Yes - PULMONARY Hx Asthma: Yes Hx Chronic Obstructive Pulmonary Disease (COPD): Yes Hx Emphysema: Yes - NEUROLOGICAL Hx Neurological Disorder: No - HEENT Hx HEENT Problems: No - RENAL Hx Chronic Kidney Disease: No - ENDOCRINE/METABOLIC Hx Endocrine Disorders: Yes Hx Diabetes Mellitus Type 2: Yes - HEMATOLOGICAL/ONCOLOGICAL Hx Cancer: Yes (RIGHT LUNG LOWER LOBE) Other/Comment: CURRENT CHEMO PATIENT - INTEGUMENTARY Hx Dermatological Problems: No - MUSCULOSKELETAL/RHEUMATOLOGICAL Hx Falls: No - GASTROINTESTINAL Hx Gastrointestinal Disorders: No - GENITOURINARY/GYNECOLOGICAL Hx Genitourinary Disorders: No - PSYCHIATRIC Hx Substance Use: Yes - SURGICAL HISTORY Hx Surgeries: Yes Hx Tubal Ligation: Yes Other/Comment: HEMMROIDECOTMY - ANESTHESIA Hx Anesthesia: Yes Hx Anesthesia Reactions: No Meds Allergies/Adverse Reactions: Allergies Allergy/AdvReac Type Severity Reaction Status Date / Time Penicillins Allergy Verified 03/10/17 19:02 - Medications Medications: Current Medications Albuterol/Ipratropium (Duoneb 3 Mg/0.5 Mg (3 Ml) Ud) 3 ml INH RQ6 COUNTS INCLUDE 234 BEDS AT [facility] Last Admin: 03/13/17 19:10 Dose: 3 ml Amlodipine Besylate (Norvasc) 5 mg PO DAILY COUNTS INCLUDE 234 BEDS AT THE [facility] Last Admin: 03/13/17 10:44 Dose: 5 mg Budesonide (Pulmicort Respules) 0.5 mg INH RQ12 COUNTS INCLUDE 234 BEDS AT THE [facility] Last Admin: 03/13/17 19:10 Dose: 0.5 mg Clopidogrel Bisulfate (Plavix) 75 mg PO DAILY COUNTS INCLUDE 234 BEDS AT THE [facility] Last Admin: 03/13/17 10:44 Dose: 75 mg Docusate Sodium (Colace) 100 mg PO DAILY COUNTS INCLUDE 234 BEDS AT THE [facility] Last Admin: 03/13/17 10:44 Dose: 100 mg Famotidine (Pepcid) 20 mg PO DAILY COUNTS INCLUDE 234 BEDS AT THE [facility] Last Admin: 03/13/17 10:44 Dose: 20 mg Ferrous Sulfate (Feosol) 325 mg PO DAILY COUNTS INCLUDE 234 BEDS AT THE [facility] Last Admin: 03/13/17 10:42 Dose: 325 mg Vancomycin/Sodium Chloride (Vancocin) 1 gm in 200 mls @ 133.333 mls/hr IVPB Q24H COUNTS INCLUDE 234 BEDS AT THE [facility] Last Admin: 03/13/17 14:07 Dose: 133.333 mls/hr Cefepime HCl (Maxipime Iv 2 Gm Premix) 2 gm in 100 mls @ 200 mls/hr IVPB Q12H COUNTS INCLUDE 234 BEDS AT THE [facility] Stop: 03/17/17 19:31 Last Admin: 03/13/17 19:24 Dose: 200 mls/hr Sodium Chloride (Sodium Chloride 0.45%) 1,000 mls @ 50 mls/hr IV .Q20H COUNTS INCLUDE 234 BEDS AT THE [facility] Last Admin: 03/13/17 00:06 Dose: 50 mls/hr Insulin Detemir (Levemir) 16 unit SC HS COUNTS INCLUDE 234 BEDS AT THE [facility] Last Admin: 03/12/17 21:51 Dose: 16 unit Insulin Human Regular (Novolin R) 0 unit SC ACHS COUNTS INCLUDE 234 BEDS AT THE [facility] PRN Reason: Protocol Last Admin: 03/13/17 17:11 Dose: 5 unit Prednisone (Prednisone Tab) 40 mg PO DAILY COUNTS INCLUDE 234 BEDS AT THE [facility] Stop: 03/16/17 10:01 Last Admin: 03/13/17 10:45 Dose: 40 mg Saccharomyces Boulardii (Florastor) 250 mg PO BID COUNTS INCLUDE 234 BEDS AT THE [facility] Last Admin: 03/13/17 17:59 Dose: 250 mg Sitagliptin Phosphate (Januvia) 25 mg PO DAILY COUNTS INCLUDE 234 BEDS AT THE [facility] Last Admin: 03/13/17 10:44 Dose: 25 mg Physical Exam - Constitutional Appears: No Acute Distress - Head Exam Head Exam: ATRAUMATIC, NORMOCEPHALIC - Eye Exam Eye Exam: Normal appearance. absent: Conjunctival injection, EOMI, Nystagmus, Periorbital swelling, Periorbital tenderness, PERRL, Scleral icterus - ENT Exam ENT Exam: Mucous Membranes Moist. absent: Mucous Membranes Dry, Normal Exam, Normal External Ear Exam, Normal Oropharynx, TM's Normal Bilaterally - Neck Exam Neck exam: Negative for: Full Rom, Lymphadenopathy, Meningismus, Normal Inspection, Tenderness, Thyromegaly - Respiratory Exam Respiratory Exam: Decreased Breath Sounds, Clear to Auscultation Bilateral, Prolonged Expiratory Phase. absent: Accessory Muscle Use, Chest Wall Tenderness , Rales, Rhonchi, Wheezes, Respiratory Distress, Stridor, NORMAL BREATHING PATTERN - Cardiovascular Exam Cardiovascular Exam: REGULAR RHYTHM. absent: Bradycardia, Tachycardia, Clicks, Diastolic murmur, Gallop, Irregular Rhythm, JVD, RRR, Rubs, +S1, +S2, +S4, Systolic Murmur - GI/Abdominal Exam GI & Abdominal Exam: Normal Bowel Sounds, Soft - Extremities Exam Extremities exam: Positive for: normal inspection - Back Exam Back exam: NORMAL INSPECTION - Neurological Exam Neurological exam: CN II-XII Intact, Oriented x3 - Skin Skin Exam: Dry, Intact, Normal Color, Warm Results - Vital Signs Recent Vital Signs: Last Vital Signs Temp 97.9 F 03/13/17 15:45 Pulse 92 H 03/13/17 15:45 Resp 22 03/13/17 15:45 BP 146/67 03/13/17 15:45 Pulse Ox 100 03/13/17 15:45 - Labs Result Diagrams: 03/13/17 07:10 03/13/17 18:25 Labs: Laboratory Results - last 24 hr 03/12/17 03/12/17 03/12/17 19:16 21:00 21:21 WBC RBC Hgb Hct MCV MCH MCHC RDW Plt Count MPV Neut % (Auto) Lymph % (Auto) [place] % (Auto) Eos % (Auto) Baso % (Auto) Neut # Lymph # [place] # Eos # Baso # Neutrophils % (Manual) Band Neutrophils % Lymphocytes % (Manual) Monocytes % (Manual) Platelet Estimate Hypochromasia (manual) Anisocytosis (manual) Sodium Potassium Chloride Carbon Dioxide Anion Gap BUN Creatinine Est GFR ( Amer) Est GFR (Non-Af Amer) POC Glucose (mg/dL) 367 H Random Glucose Calcium Magnesium Total Bilirubin AST ALT Alkaline Phosphatase Total Protein Albumin Globulin Albumin/Globulin Ratio H.influenzae Type B Ag Negative Ur L.pneumophila Ag Negative N.meningitidis ACY/W135 Negative N.meningi B/E.coli K1 Ag Negative Group B Strep Antigen Negative S. pneumoniae Antigen Negative 03/13/17 03/13/17 03/13/17 02:24 06:25 07:10 WBC 20.6 H RBC 2.83 L Hgb 8.3 L Hct 26.0 L MCV 92.0 MCH 29.4 MCHC 31.9 L RDW 15.3 H Plt Count 91 L D MPV 8.9 Neut % (Auto) 89.6 H Lymph % (Auto) 7.8 L [place] % (Auto) 1.8 Eos % (Auto) 0.6 Baso % (Auto) 0.2 Neut # 18.5 H Lymph # 1.6 Sheridan # 0.4 Eos # 0.1 Baso # 0.0 Neutrophils % (Manual) 91 H Band Neutrophils % 1 Lymphocytes % (Manual) 7 L Monocytes % (Manual) 1 Platelet Estimate Decreased L Hypochromasia (manual) Slight Anisocytosis (manual) Slight Sodium Potassium Chloride Carbon Dioxide Anion Gap BUN Creatinine Est GFR ( Amer) Est GFR (Non-Af Amer) POC Glucose (mg/dL) 190 H 207 H Random Glucose Calcium Magnesium Total Bilirubin AST ALT Alkaline Phosphatase Total Protein Albumin Globulin Albumin/Globulin Ratio H.influenzae Type B Ag Ur L.pneumophila Ag N.meningitidis ACY/W135 N.meningi B/E.coli K1 Ag Group B Strep Antigen S. pneumoniae Antigen 03/13/17 03/13/17 03/13/17 07:10 11:22 16:45 WBC RBC Hgb Hct MCV MCH MCHC RDW Plt Count MPV Neut % (Auto) Lymph % (Auto) [place] % (Auto) Eos % (Auto) Baso % (Auto) Neut # Lymph # [place] # Eos # Baso # Neutrophils % (Manual) Band Neutrophils % Lymphocytes % (Manual) Monocytes % (Manual) Platelet Estimate Hypochromasia (manual) Anisocytosis (manual) Sodium 135 Potassium 6.1 H Chloride 101 Carbon Dioxide 25 Anion Gap 16 BUN 29 H Creatinine 1.4 H Est GFR ( Amer) 45 Est GFR (Non-Af Amer) 37 POC Glucose (mg/dL) 191 H 392 H Random Glucose 159 H Calcium 9.1 Magnesium 1.3 L Total Bilirubin 0.4 AST 15 ALT 21 Alkaline Phosphatase 98 Total Protein 6.4 Albumin 3.5 Globulin 2.8 Albumin/Globulin Ratio 1.2 H.influenzae Type B Ag Ur L.pneumophila Ag N.meningitidis ACY/W135 N.meningi B/E.coli K1 Ag Group B Strep Antigen S. pneumoniae Antigen 03/13/17 18:25 WBC RBC Hgb Hct MCV MCH MCHC RDW Plt Count MPV Neut % (Auto) Lymph % (Auto) [place] % (Auto) Eos % (Auto) Baso % (Auto) Neut # Lymph # [place] # Eos # Baso # Neutrophils % (Manual) Band Neutrophils % Lymphocytes % (Manual) Monocytes % (Manual) Platelet Estimate Hypochromasia (manual) Anisocytosis (manual) Sodium 133 Potassium 7.1 H* Chloride 99 Carbon Dioxide 23 Anion Gap 18 BUN 27 H Creatinine 1.3 H Est GFR ( Amer) 49 Est GFR (Non-Af Amer) 40 POC Glucose (mg/dL) Random Glucose 412 H* D Calcium 8.6 Magnesium Total Bilirubin AST ALT Alkaline Phosphatase Total Protein Albumin Globulin Albumin/Globulin Ratio H.influenzae Type B Ag Ur L.pneumophila Ag N.meningitidis ACY/W135 N.meningi B/E.coli K1 Ag Group B Strep Antigen S. pneumoniae Antigen - Imaging and Cardiology Chest x-ray Status: Report reviewed by me CT scan - chest Status: Report reviewed by me Assessment & Plan (1) Hyperkalemia Status: Acute (2) COPD exacerbation Status: Acute (3) Lung cancer Status: Acute (4) Staphylococcus epidermidis bacteremia Assessment and Plan: r/o sandra cath sepsis to find out if cultures were peripheral or thru sandra cath will continue Vancomycin and genta and maxipime for now Status: Acute (5) Leucocytosis Status: Acute
[2017-03-13] MEDS: Insulin Detemir 100 units/ml Vial (Levemir) SC SCH (21:43)
--- NOTE | 2017-03-13 22:22 | CARD ---
APPROVED REPORT EXAM: Two-dimensional and M-mode echocardiogram with Doppler and color Doppler. Other Information Quality : GoodRhythm : NSR INDICATION Dyspnea COPD LUNG CANCER; R/O ENDOCARDITIS RISK FACTORS Hypertension Diabetes M-Mode DIMENSIONS RVDd1.53 (2.1-3.2cm)Left Atrium (MM)2.98 (2.5-4.0cm) IVSd0.83 (0.7-1.1cm)Aortic Root2.57 (2.2-3.7cm) LVDd4.44 (4.0-5.6cm)Aortic Cusp Exc.1.15 (1.5-2.0cm) PWd1.70 (0.7-1.1cm)FS (%) 33 % LVDs2.98 (2.0-3.8cm)LVEF (%)61 (>50%) Aortic Valve AoV Peak Pmojzhzd689.5cm/Patsy Peak GR.14mmHgLVOT Peak Qohdxamo430.6cm/s Mitral Valve MV E Xuxbmjqn90.6cm/sMV A Qrmzfdvi77.3cm/sE/A ratio0.9 TDI E/Lateral E'0.0E/Medial E'0.0 Pulmonary Valve PV Peak [place]592.5cm/sPV Peak Grad.5mmHg Tricuspid Valve TR Peak Mrugevna133uu/sTR Peak Gr.[id number] LEFT VENTRICLE The left ventricle is normal size. There is normal left ventricular wall thickness. Left ventricle systolic function is normal. The Ejection Fraction is 60-65%. There is normal LV segmental wall motion. Tissue Doppler imaging reveals abnormal left ventricular diastolic dysfunction. RIGHT VENTRICLE The right ventricle is normal size. There is normal right ventricular wall thickness. The right ventricular systolic function is normal. ATRIA The left atrium size is normal. The right atrium size is normal. The interatrial septum is intact with no evidence for an atrial septal defect. AORTIC VALVE The aortic valve is normal in structure. No aortic regurgitation is present. There is no aortic valvular stenosis. MITRAL VALVE The mitral valve is normal in structure. There is no evidence of mitral valve prolapse. There is no mitral valve stenosis. There is no mitral valve regurgitation noted. TRICUSPID VALVE The tricuspid valve is normal in structure. There is mild tricuspid regurgitation. Right ventricular systolic pressure is estimated at 30-40 mmHg. There is mild pulmonary hypertension. PULMONIC VALVE The pulmonic valve is not well visualized. There is no pulmonic valvular regurgitation. GREAT VESSELS The aortic root is normal in size. PERICARDIAL EFFUSION There is no significant pericardial effusion. <Conclusion> Left ventricle systolic function is normal. The Ejection Fraction is 60-65%. Diastolic dysfunction. No aortic regurgitation is present. There is no mitral valve regurgitation noted. There is mild tricuspid regurgitation. There is mild pulmonary hypertension. There is no pulmonic valvular regurgitation.
[2017-03-13 22:29] LABS: CALCIUM 8.6 mg/dl (8.6-10.4)
[2017-03-14] MEDS: Albuterol-Ipratrop 3 mg / 0.5 (3 ml) UD INH SCH ×4 (01:18→19:51)
[2017-03-14 04:12] LABS: ALB/GLOB RATIO 1.1 (1.0-2.1)
[2017-03-14 04:13] LABS: CALCIUM 8.3 mg/dl (8.6-10.4)
[2017-03-14] MEDS: Cefepime IV 2 gm in Dextrose 2 GM/100 ML BAG IVPB SCH ×2 (06:39→19:00)
[2017-03-14] MEDS: Sodium Chloride 0.45% 1,000 ML IV SCH (06:44)
[2017-03-14] MEDS: (Novolin R) Insulin Human Regular 100 units/ml vial SC SCH ×4 (07:30→21:27)
[2017-03-14] MEDS: Budesonide 0.5 mg/2 ml Inhal Susp UD INH SCH ×2 (07:38→19:51)
[2017-03-14 08:38] LABS: RBC 2.49 Mil/uL (3.80-5.20); WHITE BLOOD COUNT 5.1 K/uL (4.8-10.8)
[2017-03-14 08:42] LABS: HEMOGLOBIN 7.4 g/dL (11.0-16.0); MEAN CELL VOLUME 90.7 fL (81.0-99.0); MEAN CORPUSCULAR HEMOGLOBIN 29.9 pg (27.0-31.0); MEAN PLATELET VOLUME 8.4 fL (7.2-11.7); RED CELL DISTRIBUTION WIDTH 14.8 % (11.5-14.5)
[2017-03-14 08:50] LABS: ALBUMIN 3.1 g/dL (3.5-5.0)
[2017-03-14 08:54] LABS: ALB/GLOB RATIO 1.1 (1.0-2.1); CALCIUM 8.5 mg/dl (8.6-10.4)
[2017-03-14 08:55] LABS: MAGNESIUM 1.3 mg/dL (1.6-2.3)
[2017-03-14 09:30] LABS: EOS % 1.3 % (0.0-4.0); LYMPH % 24.3 % (20.0-40.0); MONO % 4.4 % (0.0-10.0)
[2017-03-14 09:31] LABS: BASO % 0.7 % (0.0-2.0); EOS # 0.1 K/uL (0.0-0.7); LYMPH # 1.2 K/uL (1.0-4.3); MONO # 0.2 K/uL (0.0-0.8); NEUT # 3.5 K/uL (1.8-7.0); NEUT % 69.3 % (50.0-75.0)
--- NOTE | 2017-03-14 10:18 | CP.PCM.PN ---
Subjective - Date & Time of Evaluation Date of Evaluation: 03/14/17 Time of Evaluation: 07:00 - Subjective Subjective: PGY-1- Medicine Note- Dr. Blake's Service Patient seen and examined at bedside and in no acute distress. Patient says she is comfortable and only feels short of breath when walking to the bathroom. If she is resting in bed she feels her breathing is okay. Patient had 4 episodes of watery stools yesterday. Patient denies headache, chest pain, abdominal pain , nausea, vomiting. Objective - Vital Signs/Intake and Output Vital Signs (last 24 hours): Temp Pulse Resp BP Pulse Ox 97.7 F 88 20 149/70 100 03/14/17 08:09 03/14/17 08:09 03/14/17 08:09 03/14/17 08:09 03/14/17 08:09 Intake and Output: 03/14/17 03/14/17 06:59 18:59 Intake Total 650 Balance 650 - Medications Medications: Current Medications Albuterol/Ipratropium (Duoneb 3 Mg/0.5 Mg (3 Ml) Ud) 3 ml INH RQ6 [facility] Last Admin: 03/14/17 07:38 Dose: 3 ml Amlodipine Besylate (Norvasc) 5 mg PO DAILY [facility] Last Admin: 03/13/17 10:44 Dose: 5 mg Budesonide (Pulmicort Respules) 0.5 mg INH RQ12 [facility] Last Admin: 03/14/17 07:38 Dose: 0.5 mg Clopidogrel Bisulfate (Plavix) 75 mg PO DAILY [facility] Last Admin: 03/13/17 10:44 Dose: 75 mg Docusate Sodium (Colace) 100 mg PO DAILY [facility] Last Admin: 03/13/17 10:44 Dose: 100 mg Famotidine (Pepcid) 20 mg PO DAILY [facility] Last Admin: 03/13/17 10:44 Dose: 20 mg Ferrous Sulfate (Feosol) 325 mg PO DAILY [facility] Last Admin: 03/13/17 10:42 Dose: 325 mg Vancomycin/Sodium Chloride (Vancocin) 1 gm in 200 mls @ 133.333 mls/hr IVPB Q24H [facility] Last Admin: 03/13/17 14:07 Dose: 133.333 mls/hr Cefepime HCl (Maxipime Iv 2 Gm Premix) 2 gm in 100 mls @ 200 mls/hr IVPB Q12H [facility] Stop: 03/17/17 19:31 Last Admin: 03/14/17 06:39 Dose: 200 mls/hr Sodium Chloride (Sodium Chloride 0.45%) 1,000 mls @ 50 mls/hr IV .Q20H [facility] Last Admin: 03/14/17 06:44 Dose: 50 mls/hr Insulin Detemir (Levemir) 16 unit SC HS [facility] Last Admin: 03/13/17 21:43 Dose: 16 unit Insulin Human Regular (Novolin R) 0 unit SC ACHS [facility] PRN Reason: Protocol Last Admin: 03/14/17 07:30 Dose: Not Given Prednisone (Prednisone Tab) 40 mg PO DAILY [facility] Stop: 03/16/17 10:01 Last Admin: 03/13/17 10:45 Dose: 40 mg Saccharomyces Boulardii (Florastor) 250 mg PO BID [facility] Last Admin: 03/13/17 17:59 Dose: 250 mg Sitagliptin Phosphate (Januvia) 25 mg PO DAILY [facility] Last Admin: 03/13/17 10:44 Dose: 25 mg - Labs Labs: 03/14/17 08:33 03/14/17 08:33 - Constitutional Appears: Non-toxic, No Acute Distress - Head Exam Head Exam: ATRAUMATIC, NORMAL INSPECTION, NORMOCEPHALIC - Eye Exam Eye Exam: EOMI, Normal appearance, PERRL - ENT Exam ENT Exam: Mucous Membranes Moist - Neck Exam Neck Exam: Full ROM - Respiratory Exam Respiratory Exam: Wheezes, NORMAL BREATHING PATTERN Additional comments: expiratory wheezing in all 4 quadrants - Cardiovascular Exam Cardiovascular Exam: REGULAR RHYTHM, RRR. absent: Gallop, Rubs, Murmur - GI/Abdominal Exam GI & Abdominal Exam: Soft, Normal Bowel Sounds. absent: Distended, Firm - Extremities Exam Extremities Exam: Full ROM, Normal Inspection. absent: Pedal Edema, Tenderness - Back Exam Back Exam: NORMAL INSPECTION. absent: rash noted - Neurological Exam Neurological Exam: Alert, Awake, Oriented x3 - Psychiatric Exam Psychiatric exam: Normal Affect, Normal Mood - Skin Skin Exam: Intact, Normal Color, Warm Assessment and Plan - Assessment and Plan (Free Text) Assessment: 1. SOB secondary to COPD exacerbation vs. PNA CT chest: no evidence for PE, ovoid groundglass opacity in right upper lobe 2.4 x 1.5, few smaller ill defined groundglass lesions that appear similar in the right lower lobe and left upper lobe, mild to moderate underlying centrilobular emphysema and some paraseptal emphysema in upper lung zones, 1.7cm left adrenal mass ABG done on 03/12 showed 99 O2 saturation on RA Duoneb 3ml INH q6h Pulmicort .5mg INH q12h Prednisone 40 mg PO daily (day 4 of ) 2. Bacteremia Blood cultures from port cath site grew gram positive cocci coag negative, repeat blood cultures from sandra cath site negative 24 hours (03/14) as per Dr. Walter, continue Vancomycin 1 gm daily Maxipime 2 gm q 12h 1 dose of gentamicin given 03/12 and one 03/13, held on 03/14 for trough ID, Dr. Walter is consulted echo (03/12/27): Left ventricle systolic function is normal. Ejection fraction is 60-65%, diastolic dysfunction, no aortic regurgitation is present, no mitral valve regurg noted, mild tricuspid regurg, mild pulm htn, no pulmonic valvular regurg 3. 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 Diabetes ISS low dose Levemir 16 u SC HS Metformin 1,000 PO BID restarted 03/13 Januvia 50 mg PO daily (lowered from 100 for renal dosing) accuchecks HgA1c: 6.5 5. HTN Enalapril 2.5 mg PO BID Plavix 75 mg- f/u with Dr. Amaya for indication 6. Electrolyte Imbalance K+ 6.1 on 03/13, Kayexalate given Mg 1.3- 2 bags of 1 gm in 100 ml D5W given BMP: on 03/13 K increased to 7.1 then decreased to 6.9 then 03/14 decreased to 4.6 -- total of 90 gm Kayexalate given monitor K+ closely 7. Chronic Anemia Feosol 325mg PO daily 8. Leukocytosis Likely due to Neulasta Downtrending. 5.1 on 03/14 will continue to monitor 9. Urinary Frequency f/u urine culture U/A on 03/10: 3+ glucose, 1+ leuk esterase, 9 wbcs 10. Small cell lung Cancer - Patient to follow up with heme/onc specialist, Dr. Nails upon discharge 11. Prophylactic Measures Pepcid 20 mg PO daily Colace 100 mg PO daily Heparin SC
[2017-03-14] MEDS: Saccharomyces Boulardi 250 mg Cap PO SCH ×2 (10:50→17:04)
[2017-03-14 14:27] LABS: CREATININE, RANDOM URINE 68.1 mg/dL
[2017-03-14 14:30] LABS: SQUAMOUS EPITHIAL < 1 /hpf (0-5); URINE BILIRUBIN NEGATIVE (NEGATIVE); URINE BLOOD NEGATIVE (NEGATIVE); URINE CLARITY Clear (Clear); URINE COLOR Yellow (YELLOW); URINE GLUCOSE (UA) 2+ mg/dL (Normal); URINE LEUKOCYTE ESTERASE NEG Leu/uL (Negative); URINE NITRATE NEGATIVE (NEGATIVE); URINE PROTEIN NEGATIVE (NEGATIVE); URINE UROBILINOGEN NORMAL mg/dL (0.2-1.0)
--- NOTE | 2017-03-14 19:23 | CP.PCM.CON ---
History of Present Illness - History of Present Illness History of Present Illness: 71 yo F w/ pmh of DM, htn, COPD and small cell lung Ca, presented 4 days ago with shortness of breath that didn't resolve at home with nebulizer treatment; admitted for COPD excerbation; hospital course complicated by marked hyperkalemia and mild renal insufficiency for which nephrology service being consulted; Patient has been on chemo (with etoposide and carbaplatin?), last dose being last ___; she reports having had some nausea and mild vomiting on day of presentation but otherwise has been tolerating diet well while here; patient reports eating plenty of bananas, kiwis and mangos, and also drinking orange juice during current admission; She otherwise denies any difficulty urinating; has not been on any oupatient antibiotics lately; Records indicate patient also on enalapril until 03/12; not on heparin; Review of Systems - Constitutional Constitutional: absent: Chills, Fever - EENT Eyes: absent: Change in Vision Nose/Mouth/Throat: absent: Sore Throat - Cardiovascular Cardiovascular: Palpitations. absent: Chest Pain, Leg Edema - Respiratory Respiratory: Dyspnea - Gastrointestinal Gastrointestinal: As Per HPI - Genitourinary Genitourinary: As Per HPI - Psychiatric Psychiatric: absent: Depression - Hematologic/Lymphatic Hematologic: Easy Bruising Past Patient History - Infectious Disease Hx of Infectious Diseases: None - Past Medical History & Family History Past Medical History?: Yes Pertinent Family History: Mother and brother with DM; - Past Social History Smoking Status: Former Smoker - CARDIAC Hx Hypertension: Yes - PULMONARY Hx Chronic Obstructive Pulmonary Disease (COPD): Yes - NEUROLOGICAL Hx Neurological Disorder: No - HEENT Hx HEENT Problems: No - RENAL Hx Chronic Kidney Disease: No - ENDOCRINE/METABOLIC Hx Endocrine Disorders: Yes Hx Diabetes Mellitus Type 2: Yes - HEMATOLOGICAL/ONCOLOGICAL Hx Cancer: Yes (RIGHT LUNG LOWER LOBE) Other/Comment: CURRENT CHEMO PATIENT - INTEGUMENTARY Hx Dermatological Problems: No - MUSCULOSKELETAL/RHEUMATOLOGICAL Hx Falls: No - GASTROINTESTINAL Hx Gastrointestinal Disorders: No - GENITOURINARY/GYNECOLOGICAL Hx Genitourinary Disorders: No - PSYCHIATRIC Hx Substance Use: Yes - SURGICAL HISTORY Hx Surgeries: Yes Hx Tubal Ligation: Yes Other/Comment: HEMMROIDECOTMY - ANESTHESIA Hx Anesthesia: Yes Hx Anesthesia Reactions: No Meds Allergies/Adverse Reactions: Allergies Allergy/AdvReac Type Severity Reaction Status Date / Time Penicillins Allergy Verified 03/10/17 19:02 - Medications Medications: Current Medications Albuterol/Ipratropium (Duoneb 3 Mg/0.5 Mg (3 Ml) Ud) 3 ml INH RQ6 [facility] Last Admin: 03/14/17 13:07 Dose: 3 ml Amlodipine Besylate (Norvasc) 5 mg PO DAILY [facility] Last Admin: 03/14/17 10:49 Dose: 5 mg Budesonide (Pulmicort Respules) 0.5 mg INH RQ12 [facility] Last Admin: 03/14/17 07:38 Dose: 0.5 mg Famotidine (Pepcid) 20 mg PO DAILY [facility] Last Admin: 03/14/17 10:48 Dose: 20 mg Ferric Sodium Gluconate Complex (Ferrlecit) 125 mg IVPB DAILY [facility] Stop: 03/18/17 10:01 Ferrous Sulfate (Feosol) 325 mg PO DAILY [facility] Last Admin: 03/14/17 10:49 Dose: 325 mg Vancomycin/Sodium Chloride (Vancocin) 1 gm in 200 mls @ 133.333 mls/hr IVPB Q24H [facility] Last Admin: 03/13/17 14:07 Dose: 133.333 mls/hr Cefepime HCl (Maxipime Iv 2 Gm Premix) 2 gm in 100 mls @ 200 mls/hr IVPB Q12H [facility] Stop: 03/17/17 19:31 Last Admin: 03/14/17 06:39 Dose: 200 mls/hr Sodium Chloride (Sodium Chloride 0.45%) 1,000 mls @ 50 mls/hr IV .Q20H [facility] Last Admin: 03/14/17 06:44 Dose: 50 mls/hr Gentamicin Sulfate 120 mg/ (Sodium Chloride) 103 mls @ 100 mls/hr IVPB Q24H [facility] Insulin Detemir (Levemir) 16 unit SC HS [facility] Last Admin: 03/13/17 21:43 Dose: 16 unit Insulin Human Regular (Novolin R) 0 unit SC ACHS [facility] PRN Reason: Protocol Last Admin: 03/14/17 17:04 Dose: 5 unit Prednisone (Prednisone Tab) 40 mg PO DAILY [facility] Stop: 03/16/17 10:01 Last Admin: 03/14/17 10:48 Dose: 40 mg Saccharomyces Boulardii (Florastor) 250 mg PO BID [facility] Last Admin: 03/14/17 17:04 Dose: 250 mg Sitagliptin Phosphate (Januvia) 25 mg PO DAILY [facility] Last Admin: 03/14/17 10:49 Dose: 25 mg Physical Exam - Constitutional Appears: Well, No Acute Distress - Head Exam Head Exam: NORMOCEPHALIC - Eye Exam Eye Exam: absent: Scleral icterus - ENT Exam ENT Exam: Mucous Membranes Moist - Respiratory Exam Respiratory Exam: NORMAL BREATHING PATTERN. absent: Decreased Breath Sounds Additional comments: Mild exp wheezes - Cardiovascular Exam Cardiovascular Exam: RRR, +S1, +S2 - GI/Abdominal Exam GI & Abdominal Exam: Soft. absent: Distended - Extremities Exam Extremities exam: Positive for: normal inspection, pedal pulses present. Negative for: pedal edema - Neurological Exam Neurological exam: Alert - Psychiatric Exam Psychiatric exam: Normal Affect, Normal Mood - Skin Skin Exam: Normal Color, Warm Results - Vital Signs Recent Vital Signs: Last Vital Signs Temp 98.3 F 03/14/17 15:25 Pulse 93 H 03/14/17 15:25 Resp 20 03/14/17 15:25 BP 146/63 03/14/17 15:25 Pulse Ox 100 03/14/17 15:25 - Labs Result Diagrams: 03/14/17 08:33 03/14/17 08:33 Labs: Laboratory Results - last 24 hr 03/13/17 03/13/17 03/14/17 21:11 22:06 02:36 WBC RBC Hgb Hct MCV MCH MCHC RDW Plt Count MPV Neut % (Auto) Lymph % (Auto) [place] % (Auto) Eos % (Auto) Baso % (Auto) Neut # Lymph # [place] # Eos # Baso # Sodium 134 Potassium 6.9 H* Chloride 98 Carbon Dioxide 24 Anion Gap 19 BUN 29 H Creatinine 1.3 H Est GFR ( Amer) 49 Est GFR (Non-Af Amer) 40 POC Glucose (mg/dL) 365 H 148 H Random Glucose 332 H Calcium 8.6 Phosphorus Magnesium Total Bilirubin AST ALT Alkaline Phosphatase Total Protein Albumin Globulin Albumin/Globulin Ratio Urine Color Urine Clarity Urine pH Ur Specific [place] Urine Protein Urine Glucose (UA) Urine Ketones Urine Blood Urine Nitrate Urine Bilirubin Urine Urobilinogen Ur Leukocyte Esterase Urine WBC (Auto) Urine RBC (Auto) Ur Squamous Epith Cells Urine Osmolality Ur Random Creatinine Ur Random Sodium Ur Random Potassium 07/25/17 07/25/17 07/25/17 04:04 06:43 08:33 WBC 5.1 D RBC 2.49 L Hgb 7.4 L Hct 22.6 L MCV 90.7 MCH 29.9 MCHC 33.0 RDW 14.8 H Plt Count 47 L D MPV 8.4 Neut % (Auto) 69.3 Lymph % (Auto) 24.3 [place] % (Auto) 4.4 Eos % (Auto) 1.3 Baso % (Auto) 0.7 Neut # 3.5 Lymph # 1.2 [place] # 0.2 Eos # 0.1 Baso # 0.0 Sodium 140 Potassium 4.8 Chloride 103 Carbon Dioxide 25 Anion Gap 16 BUN 28 H Creatinine 1.3 H Est GFR ( Amer) 49 Est GFR (Non-Af Amer) 40 POC Glucose (mg/dL) 147 H Random Glucose 124 H Calcium 8.3 L Phosphorus Magnesium Total Bilirubin 0.4 AST 20 ALT 25 Alkaline Phosphatase 82 Total Protein 5.8 L Albumin 3.0 L Globulin 2.7 Albumin/Globulin Ratio 1.1 Urine Color Urine Clarity Urine pH Ur Specific [place] Urine Protein Urine Glucose (UA) Urine Ketones Urine Blood Urine Nitrate Urine Bilirubin Urine Urobilinogen Ur Leukocyte Esterase Urine WBC (Auto) Urine RBC (Auto) Ur Squamous Epith Cells Urine Osmolality Ur Random Creatinine Ur Random Sodium Ur Random Potassium 03/14/17 03/14/17 03/14/17 08:33 10:57 14:14 WBC RBC Hgb Hct MCV MCH MCHC RDW Plt Count MPV Neut % (Auto) Lymph % (Auto) [place] % (Auto) Eos % (Auto) Baso % (Auto) Neut # Lymph # [place] # Eos # Baso # Sodium 138 Potassium 4.6 Chloride 102 Carbon Dioxide 25 Anion Gap 16 BUN 27 H Creatinine 1.3 H Est GFR ( Amer) 49 Est GFR (Non-Af Amer) 40 POC Glucose (mg/dL) 231 H Random Glucose 122 H Calcium 8.5 L Phosphorus 4.6 H Magnesium 1.3 L Total Bilirubin 0.4 AST 14 D ALT 23 Alkaline Phosphatase 84 Total Protein 5.8 L Albumin 3.1 L Globulin 2.7 Albumin/Globulin Ratio 1.1 Urine Color Urine Clarity Urine pH Ur Specific [place] Urine Protein Urine Glucose (UA) Urine Ketones Urine Blood Urine Nitrate Urine Bilirubin Urine Urobilinogen Ur Leukocyte Esterase Urine WBC (Auto) Urine RBC (Auto) Ur Squamous Epith Cells Urine Osmolality 603 Ur Random Creatinine 68.1 Ur Random Sodium Ur Random Potassium 03/14/17 03/14/17 03/14/17 14:14 14:14 16:15 WBC RBC Hgb Hct MCV MCH MCHC RDW Plt Count MPV Neut % (Auto) Lymph % (Auto) [place] % (Auto) Eos % (Auto) Baso % (Auto) Neut # Lymph # [place] # Eos # Baso # Sodium Potassium Chloride Carbon Dioxide Anion Gap BUN Creatinine Est GFR ( Amer) Est GFR (Non-Af Amer) POC Glucose (mg/dL) 371 H Random Glucose Calcium Phosphorus Magnesium Total Bilirubin AST ALT Alkaline Phosphatase Total Protein Albumin Globulin Albumin/Globulin Ratio Urine Color Yellow Urine Clarity Clear Urine pH 5.0 Ur Specific [place] 1.017 Urine Protein Negative Urine Glucose (UA) 2+ H Urine Ketones Trace Urine Blood Negative Urine Nitrate Negative Urine Bilirubin Negative Urine Urobilinogen Normal Ur Leukocyte Esterase Neg Urine WBC (Auto) 3 Urine RBC (Auto) 2 Ur Squamous Epith Cells < 1 Urine Osmolality Ur Random Creatinine Ur Random Sodium 151 Ur Random Potassium 18.5 Assessment & Plan (1) Hyperkalemia Assessment and Plan: Marked hyperkalemia likely representing 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 DM; exacerbated by being on ARB and with significant dietary indiscretion; however, why this occurred during current admission is unclear; no new meds identified that can be contributory; in the setting of recent chemo, need to check for some degree of tumor lysis syndrome (if present, likely mild since renal function relatively stable), mild hypocalcemia and hyperphosphatemia may be indicative of this condition; -low K diet (patient counseled in this regard) -continue to hold enalapril -avoid NSAIDS -checking uric acid and CK levels -continue IVF, change 1/2NS to NS at 50 cc/hr Status: Acute (2) CKD (chronic kidney disease) Assessment and Plan: Baseline renal function unknown; no overt albuminuria on dipstick UA; otherwise renal function stable during this admission; -checking random urine protein, microalbumin and creatinine; further workup if abnormal; Status: Chronic (3) Hypertension Assessment and Plan: BP mildly elevated but in setting of being on systemic steroids and IVF; on amlodipine 5 mg daily, continue same; Status: Acute (4) Diabetes Assessment and Plan: A1C has been at goal; checking urine for microalbuminuria while off AYAZ blockade ; if no microalbuminuria, should switch to BP agent other than CARMEN inhibitor/ ARB (if needed for additional BP control); Status: Chronic (5) Lung cancer Assessment and Plan: Apparently was on etoposide and carboplatin; not known to directly cause hyperkalemia although can cause some degree of renal insufficiency; need to monitor renal function periodically as outpatient; Status: Acute (6) Catheter-related bloodstream infection Assessment and Plan: Unclear if Coag neg staph from port-a-cath is a contaminant; currently getting vanco and gent q24h; holding dose until trough level obtained to avoid nephrotoxicity; on cefepime, agree with dosing at 2g q12h for CrCl 30-60 mL/min; Status: Acute
[2017-03-14] MEDS ORDERED: Sodium Chloride 0.9% 1,000 ML IV SCH (19:45)
[2017-03-14 20:07] LABS: VANCOMYCIN TROUGH 9.7 ug/mL (5.0-10.0)
--- NOTE | 2017-03-14 21:27 | US ---
EXAM: US Retroperitoneal Limited, Renal CLINICAL HISTORY: 71 years old, female; Signs and symptoms; Other: Renal insufficiency TECHNIQUE: Real-time ultrasound of the retroperitoneum (limited) with image documentation. COMPARISON: No relevant prior studies available. FINDINGS: Right kidney: Normal echogenicity. No calculi. No hydronephrosis. Left kidney: Normal echogenicity. No calculi. No hydronephrosis. IMPRESSION: 1.No acute findings. 2.Non-acute findings are described above.
--- NOTE | 2017-03-14 21:31 | CP.PCM.PN ---
Subjective - Date & Time of Evaluation Date of Evaluation: 03/14/17 Time of Evaluation: 03:00 - Subjective Subjective: Patient is having whitish cough and no fever,still with sob, no new complaints Objective - Vital Signs/Intake and Output Vital Signs (last 24 hours): Temp Pulse Resp BP Pulse Ox 98.3 F 93 H 20 146/63 100 03/14/17 15:25 03/14/17 15:25 03/14/17 15:25 03/14/17 15:25 03/14/17 15:25 Intake and Output: 03/14/17 03/15/17 18:59 06:59 Intake Total 880 Balance 880 - Medications Medications: Current Medications Albuterol/Ipratropium (Duoneb 3 Mg/0.5 Mg (3 Ml) Ud) 3 ml INH RQ6 [facility] Last Admin: 03/14/17 19:51 Dose: 3 ml Amlodipine Besylate (Norvasc) 5 mg PO DAILY [facility] Last Admin: 03/14/17 10:49 Dose: 5 mg Budesonide (Pulmicort Respules) 0.5 mg INH RQ12 [facility] Last Admin: 03/14/17 19:51 Dose: 0.5 mg Famotidine (Pepcid) 20 mg PO DAILY [facility] Last Admin: 03/14/17 10:48 Dose: 20 mg Ferric Sodium Gluconate Complex (Ferrlecit) 125 mg IVPB DAILY [facility] Stop: 03/18/17 10:01 Ferrous Sulfate (Feosol) 325 mg PO DAILY [facility] Last Admin: 03/14/17 10:49 Dose: 325 mg Vancomycin/Sodium Chloride (Vancocin) 1 gm in 200 mls @ 133.333 mls/hr IVPB Q24H [facility] Last Admin: 03/13/17 14:07 Dose: 133.333 mls/hr Cefepime HCl (Maxipime Iv 2 Gm Premix) 2 gm in 100 mls @ 200 mls/hr IVPB Q12H [facility] Stop: 03/17/17 19:31 Last Admin: 03/14/17 19:00 Dose: 200 mls/hr Gentamicin Sulfate 120 mg/ (Sodium Chloride) 103 mls @ 100 mls/hr IVPB Q24H [facility] Sodium Chloride (Sodium Chloride 0.9%) 1,000 mls @ 50 mls/hr IV .Q20H [facility] Last Admin: 03/14/17 20:06 Dose: 50 mls/hr Insulin Detemir (Levemir) 16 unit SC HS [facility] Last Admin: 03/13/17 21:43 Dose: 16 unit Insulin Human Regular (Novolin R) 0 unit SC ACHS [facility] PRN Reason: Protocol Last Admin: 03/14/17 21:27 Dose: Not Given Prednisone (Prednisone Tab) 40 mg PO DAILY [facility] Stop: 03/16/17 10:01 Last Admin: 03/14/17 10:48 Dose: 40 mg Saccharomyces Boulardii (Florastor) 250 mg PO BID [facility] Last Admin: 03/14/17 17:04 Dose: 250 mg Sitagliptin Phosphate (Januvia) 25 mg PO DAILY [facility] Last Admin: 03/14/17 10:49 Dose: 25 mg - Labs Labs: 03/14/17 08:33 03/14/17 19:44 - Constitutional Appears: No Acute Distress - Head Exam Head Exam: ATRAUMATIC, NORMOCEPHALIC Additional comments: on oxygen - Eye Exam Eye Exam: Normal appearance Pupil Exam: NORMAL ACCOMODATION - ENT Exam ENT Exam: Mucous Membranes Moist - Neck Exam Neck Exam: Normal Inspection - Respiratory Exam Respiratory Exam: Clear to Ausculation Bilateral, NORMAL BREATHING PATTERN. absent: Accessory Muscle Use, Chest Wall Tenderness, Decreased Breath Sounds, Prolonged Expiratory Phase, Rales, Rhonchi, Wheezes, Respiratory Distress, Stridor - Cardiovascular Exam Cardiovascular Exam: REGULAR RHYTHM, RRR - GI/Abdominal Exam GI & Abdominal Exam: Soft, Normal Bowel Sounds - Extremities Exam Extremities Exam: Normal Inspection - Back Exam Back Exam: NORMAL INSPECTION - Psychiatric Exam Psychiatric exam: Normal Affect - Skin Skin Exam: Warm Assessment and Plan (1) Hyperkalemia Status: Acute (2) COPD exacerbation Status: Acute (3) Lung cancer Status: Acute (4) Staphylococcus epidermidis bacteremia Assessment & Plan: repeat cultures are neagtive patient is on antibiotics day 3 will follow Status: Acute (5) Leucocytosis Status: Acute
[2017-03-14] MEDS: Insulin Detemir 100 units/ml Vial (Levemir) SC SCH (21:43)
--- NOTE | 2017-03-14 22:39 | CP.PCM.CON ---
History of Present Illness - History of Present Illness History of Present Illness: Oncology Consult Referred by Dr. Blake for h/o lung cancer HPI- She was seen earlier today. She is known to as outpatient. Ms Oakley is 71 y/o F with h/o HTN, DM, COPD, smoker who was recently diagnosed with small cell lung cancer. From her records, it appears she was found to have limited stage lung cancer and was started on chemotherapy with Carboplatin and Etoposide. Last chemotherapy was on 03/08 with neulasta on 03/09. She also was found to be anemic recently, requiring blood transfusions. No h/o bleeding. She was now admitted with shortness of breath and cough. CT Chest was performed that showed 2.4 cm mass in right upper lobe with few smaller ill defined ground glass lesions in RLLL and KEISHA. NO pleural effusion and no lymphadenopathy. There was a non- specific 1.7 cm left adrenal mass. She was treated for COPD exacerbation. Her initial blood cultures grew Staph coag negative but repeat cultures have been negative. She is on empiric antibiotics. Denies headaches, dizziness, vision changes. Denies weight loss, abdominal pain or altered bowel movements. Fam hx: mother: DM Social: quit smoking cigarettes when she was diagnosed with lung cancer in August, before then smoked 1-1.5 packs a day for 50 years drinks alcohol once every 3-4 months, smokes marijuana, lives alone Review of Systems - Review of Systems All systems: reviewed and no additional remarkable complaints except Review of Systems: as in HPI Past Patient History - Infectious Disease Hx of Infectious Diseases: None - Past Medical History & Family History Past Medical History?: Yes - Past Social History Smoking Status: Former Smoker - CARDIAC Hx Hypertension: Yes - PULMONARY Hx Asthma: Yes Hx Chronic Obstructive Pulmonary Disease (COPD): Yes Hx Emphysema: Yes - NEUROLOGICAL Hx Neurological Disorder: No - HEENT Hx HEENT Problems: No - RENAL Hx Chronic Kidney Disease: No - ENDOCRINE/METABOLIC Hx Endocrine Disorders: Yes Hx Diabetes Mellitus Type 2: Yes - HEMATOLOGICAL/ONCOLOGICAL Hx Cancer: Yes (RIGHT LUNG LOWER LOBE) Other/Comment: CURRENT CHEMO PATIENT - INTEGUMENTARY Hx Dermatological Problems: No - MUSCULOSKELETAL/RHEUMATOLOGICAL Hx Falls: No - GASTROINTESTINAL Hx Gastrointestinal Disorders: No - GENITOURINARY/GYNECOLOGICAL Hx Genitourinary Disorders: No - PSYCHIATRIC Hx Substance Use: Yes - SURGICAL HISTORY Hx Surgeries: Yes Hx Tubal Ligation: Yes Other/Comment: HEMMROIDECOTMY - ANESTHESIA Hx Anesthesia: Yes Hx Anesthesia Reactions: No Meds Allergies/Adverse Reactions: Allergies Allergy/AdvReac Type Severity Reaction Status Date / Time Penicillins Allergy Verified 03/10/17 19:02 - Medications Medications: Current Medications Albuterol/Ipratropium (Duoneb 3 Mg/0.5 Mg (3 Ml) Ud) 3 ml INH RQ6 [facility] Last Admin: 03/14/17 19:51 Dose: 3 ml Amlodipine Besylate (Norvasc) 5 mg PO DAILY [facility] Last Admin: 03/14/17 10:49 Dose: 5 mg Budesonide (Pulmicort Respules) 0.5 mg INH RQ12 [facility] Last Admin: 03/14/17 19:51 Dose: 0.5 mg Famotidine (Pepcid) 20 mg PO DAILY [facility] Last Admin: 03/14/17 10:48 Dose: 20 mg Ferric Sodium Gluconate Complex (Ferrlecit) 125 mg IVPB DAILY [facility] Stop: 03/18/17 10:01 Ferrous Sulfate (Feosol) 325 mg PO DAILY [facility] Last Admin: 03/14/17 10:49 Dose: 325 mg Vancomycin/Sodium Chloride (Vancocin) 1 gm in 200 mls @ 133.333 mls/hr IVPB Q24H [facility] Last Admin: 03/13/17 14:07 Dose: 133.333 mls/hr Cefepime HCl (Maxipime Iv 2 Gm Premix) 2 gm in 100 mls @ 200 mls/hr IVPB Q12H [facility] Stop: 03/17/17 19:31 Last Admin: 03/14/17 19:00 Dose: 200 mls/hr Gentamicin Sulfate 120 mg/ (Sodium Chloride) 103 mls @ 100 mls/hr IVPB Q24H [facility] Sodium Chloride (Sodium Chloride 0.9%) 1,000 mls @ 50 mls/hr IV .Q20H [facility] Last Admin: 03/14/17 20:06 Dose: 50 mls/hr Insulin Detemir (Levemir) 16 unit SC [facility] Last Admin: 03/14/17 21:43 Dose: 16 unit Insulin Human Regular (Novolin R) 0 unit SC ACHS [facility] PRN Reason: Protocol Last Admin: 03/14/17 21:27 Dose: Not Given Prednisone (Prednisone Tab) 40 mg PO DAILY [facility] Stop: 03/16/17 10:01 Last Admin: 03/14/17 10:48 Dose: 40 mg Saccharomyces Boulardii (Florastor) 250 mg PO BID [facility] Last Admin: 03/14/17 17:04 Dose: 250 mg Sitagliptin Phosphate (Januvia) 25 mg PO DAILY [facility] Last Admin: 03/14/17 10:49 Dose: 25 mg Physical Exam - Head Exam Head Exam: ATRAUMATIC, NORMAL INSPECTION - Eye Exam Eye Exam: EOMI, PERRL - Neck Exam Neck exam: Negative for: Lymphadenopathy - Respiratory Exam Respiratory Exam: Clear to Auscultation Bilateral, Wheezes - Cardiovascular Exam Cardiovascular Exam: REGULAR RHYTHM - GI/Abdominal Exam GI & Abdominal Exam: Normal Bowel Sounds, Soft. absent: Distended, Organomegaly , Tenderness - Extremities Exam Extremities exam: Negative for: pedal edema - Neurological Exam Neurological exam: Alert, Oriented x3 Results - Vital Signs Recent Vital Signs: Last Vital Signs Temp 98.3 F 03/14/17 15:25 Pulse 93 H 03/14/17 15:25 Resp 20 03/14/17 15:25 BP 146/63 03/14/17 15:25 Pulse Ox 100 03/14/17 15:25 - Labs Result Diagrams: 03/14/17 08:33 03/14/17 19:44 Labs: Laboratory Results - last 24 hr 03/13/17 03/14/17 03/14/17 22:06 02:36 04:04 WBC RBC Hgb Hct MCV MCH MCHC RDW Plt Count MPV Neut % (Auto) Lymph % (Auto) Mellette % (Auto) Eos % (Auto) Baso % (Auto) Neut # Lymph # Mellette # Eos # Baso # Sodium 134 140 Potassium 6.9 H* 4.8 Chloride 98 103 Carbon Dioxide 24 25 Anion Gap 19 16 BUN 29 H 28 H Creatinine 1.3 H 1.3 H Est GFR ( Amer) 49 49 Est GFR (Non-Af Amer) 40 40 POC Glucose (mg/dL) 148 H Random Glucose 332 H 124 H Serum Osmolality Uric Acid Calcium 8.6 8.3 L Phosphorus Magnesium Total Bilirubin 0.4 AST 20 ALT 25 Alkaline Phosphatase 82 Total Creatine Kinase Total Protein 5.8 L Albumin 3.0 L Globulin 2.7 Albumin/Globulin Ratio 1.1 Urine Color Urine Clarity Urine pH Ur Specific [place] Urine Protein Urine Glucose (UA) Urine Ketones Urine Blood Urine Nitrate Urine Bilirubin Urine Urobilinogen Ur Leukocyte Esterase Urine WBC (Auto) Urine RBC (Auto) Ur Squamous Epith Cells Urine Osmolality Ur Random Creatinine Ur Random Sodium Ur Random Potassium Gentamicin Trough Vancomycin Trough 03/14/17 03/14/17 03/14/17 06:43 08:33 08:33 WBC 5.1 D RBC 2.49 L Hgb 7.4 L Hct 22.6 L MCV 90.7 MCH 29.9 MCHC 33.0 RDW 14.8 H Plt Count 47 L D MPV 8.4 Neut % (Auto) 69.3 Lymph % (Auto) 24.3 Mellette % (Auto) 4.4 Eos % (Auto) 1.3 Baso % (Auto) 0.7 Neut # 3.5 Lymph # 1.2 Mellette # 0.2 Eos # 0.1 Baso # 0.0 Sodium 138 Potassium 4.6 Chloride 102 Carbon Dioxide 25 Anion Gap 16 BUN 27 H Creatinine 1.3 H Est GFR ( Amer) 49 Est GFR (Non-Af Amer) 40 POC Glucose (mg/dL) 147 H Random Glucose 122 H Serum Osmolality Uric Acid Calcium 8.5 L Phosphorus 4.6 H Magnesium 1.3 L Total Bilirubin 0.4 AST 14 D ALT 23 Alkaline Phosphatase 84 Total Creatine Kinase Total Protein 5.8 L Albumin 3.1 L Globulin 2.7 Albumin/Globulin Ratio 1.1 Urine Color Urine Clarity Urine pH Ur Specific [place] Urine Protein Urine Glucose (UA) Urine Ketones Urine Blood Urine Nitrate Urine Bilirubin Urine Urobilinogen Ur Leukocyte Esterase Urine WBC (Auto) Urine RBC (Auto) Ur Squamous Epith Cells Urine Osmolality Ur Random Creatinine Ur Random Sodium Ur Random Potassium Gentamicin Trough Vancomycin Trough 03/14/17 03/14/17 03/14/17 10:57 14:14 14:14 WBC RBC Hgb Hct MCV MCH MCHC RDW Plt Count MPV Neut % (Auto) Lymph % (Auto) Mellette % (Auto) Eos % (Auto) Baso % (Auto) Neut # Lymph # Mellette # Eos # Baso # Sodium Potassium Chloride Carbon Dioxide Anion Gap BUN Creatinine Est GFR ( Amer) Est GFR (Non-Af Amer) POC Glucose (mg/dL) 231 H Random Glucose Serum Osmolality Uric Acid Calcium Phosphorus Magnesium Total Bilirubin AST ALT Alkaline Phosphatase Total Creatine Kinase Total Protein Albumin Globulin Albumin/Globulin Ratio Urine Color Urine Clarity Urine pH Ur Specific [place] Urine Protein Urine Glucose (UA) Urine Ketones Urine Blood Urine Nitrate Urine Bilirubin Urine Urobilinogen Ur Leukocyte Esterase Urine WBC (Auto) Urine RBC (Auto) Ur Squamous Epith Cells Urine Osmolality 603 Ur Random Creatinine 68.1 Ur Random Sodium 151 Ur Random Potassium 18.5 Gentamicin Trough Vancomycin Trough 03/14/17 03/14/17 03/14/17 14:14 16:15 19:44 WBC RBC Hgb Hct MCV MCH MCHC RDW Plt Count MPV Neut % (Auto) Lymph % (Auto) Mellette % (Auto) Eos % (Auto) Baso % (Auto) Neut # Lymph # Mellette # Eos # Baso # Sodium Potassium Chloride Carbon Dioxide Anion Gap BUN Creatinine Est GFR ( Amer) Est GFR (Non-Af Amer) POC Glucose (mg/dL) 371 H Random Glucose Serum Osmolality Uric Acid Calcium Phosphorus Magnesium Total Bilirubin AST ALT Alkaline Phosphatase Total Creatine Kinase Total Protein Albumin Globulin Albumin/Globulin Ratio Urine Color Yellow Urine Clarity Clear Urine pH 5.0 Ur Specific [place] 1.017 Urine Protein Negative Urine Glucose (UA) 2+ H Urine Ketones Trace Urine Blood Negative Urine Nitrate Negative Urine Bilirubin Negative Urine Urobilinogen Normal Ur Leukocyte Esterase Neg Urine WBC (Auto) 3 Urine RBC (Auto) 2 Ur Squamous Epith Cells < 1 Urine Osmolality Ur Random Creatinine Ur Random Sodium Ur Random Potassium Gentamicin Trough 1.1 H Vancomycin Trough 9.7 03/14/17 03/14/17 03/14/17 19:44 19:44 21:21 WBC RBC Hgb Hct MCV MCH MCHC RDW Plt Count MPV Neut % (Auto) Lymph % (Auto) Mellette % (Auto) Eos % (Auto) Baso % (Auto) Neut # Lymph # Mellette # Eos # Baso # Sodium Potassium 6.1 H Chloride Carbon Dioxide Anion Gap BUN Creatinine Est GFR ( Amer) Est GFR (Non-Af Amer) POC Glucose (mg/dL) 293 H Random Glucose Serum Osmolality 303 H Uric Acid 4.0 Calcium Phosphorus Magnesium Total Bilirubin AST ALT Alkaline Phosphatase Total Creatine Kinase < 20 L Total Protein Albumin Globulin Albumin/Globulin Ratio Urine Color Urine Clarity Urine pH Ur Specific [place] Urine Protein Urine Glucose (UA) Urine Ketones Urine Blood Urine Nitrate Urine Bilirubin Urine Urobilinogen Ur Leukocyte Esterase Urine WBC (Auto) Urine RBC (Auto) Ur Squamous Epith Cells Urine Osmolality Ur Random Creatinine Ur Random Sodium Ur Random Potassium Gentamicin Trough Vancomycin Trough Assessment & Plan - Assessment and Plan (Free Text) Assessment: Small cell lung cancer On chemotherapy with Carboplatin and Etoposide. Current scan findings are concerning for metastatic disease (even though initial work up was negative for any mets. ) Consider adrenal imaging (preferably MRI adrenals with contrast if renal functions permit). Will start her on IV iron once daily while in hospital. Monitor Hb and transfuse prn (for symptomatic anemia). Initial leucocytosis could have been secondary to neulasta. WBC is normal now. Will f/u. Also thrombocytopenia is likely due to chemotherapy. Continue to monitor blood counts daily. Can transfuse platelets if bleeding and platelet count <50k Thank you for the consult Jose Dennis - Date & Time Date: 03/14/17 Time: 18:39
[2017-03-15] MEDS: Albuterol-Ipratrop 3 mg / 0.5 (3 ml) UD INH SCH ×4 (02:19→19:55)
[2017-03-15] MEDS: Cefepime IV 2 gm in Dextrose 2 GM/100 ML BAG IVPB SCH ×2 (06:44→18:35)
[2017-03-15] MEDS: Budesonide 0.5 mg/2 ml Inhal Susp UD INH SCH ×2 (07:24→19:55)
[2017-03-15 07:33] LABS: BASO % 1.2 % (0.0-2.0); EOS # 0.1 K/uL (0.0-0.7); EOS % 2.2 % (0.0-4.0); HEMOGLOBIN 7.2 g/dL (11.0-16.0); LYMPH # 1.3 K/uL (1.0-4.3); LYMPH % 44.8 % (20.0-40.0); MEAN CELL VOLUME 90.9 fL (81.0-99.0); MEAN CORPUSCULAR HEMOGLOBIN 29.9 pg (27.0-31.0); MEAN CORPUSCULAR HGB CONC 32.9 g/dL (33.0-37.0); MEAN PLATELET VOLUME 9.1 fL (7.2-11.7); MONO # 0.3 K/uL (0.0-0.8); MONO % 9.5 % (0.0-10.0); NEUT # 1.3 K/uL (1.8-7.0); NEUT % 42.3 % (50.0-75.0); NRBC % 0.1 % (0.0-2.0); RBC 2.41 Mil/uL (3.80-5.20); RED CELL DISTRIBUTION WIDTH 14.4 % (11.5-14.5)
[2017-03-15] MEDS: (Novolin R) Insulin Human Regular 100 units/ml vial SC SCH ×4 (07:46→21:26)
[2017-03-15 07:50] LABS: ALBUMIN 3.2 g/dL (3.5-5.0)
[2017-03-15 07:53] LABS: ALB/GLOB RATIO 1.2 (1.0-2.1)
[2017-03-15 07:54] LABS: CALCIUM 8.9 mg/dl (8.6-10.4); MAGNESIUM 1.1 mg/dL (1.6-2.3)
[2017-03-15 08:13] LABS: IRON 169 ug/dL (37-170)
[2017-03-15 08:22] LABS: % IRON SATURATION 88 (20-55); TOTAL IRON BINDING CAPACITY 191 ug/dL (250-450)
[2017-03-15] MEDS: Saccharomyces Boulardi 250 mg Cap PO SCH ×2 (09:49→17:30)
[2017-03-15] MEDS: Ferric Sodium Gluconat Complex 62.5 mg/5 ml Vial IVPB SCH (09:53)
[2017-03-15] MEDS: Vancomycin 1 gm/NS 200 ml 1 GM/200 ML BAG IVPB SCH (15:54)
--- NOTE | 2017-03-15 18:19 | CP.PCM.PN ---
Subjective - Date & Time of Evaluation Date of Evaluation: 03/15/17 Time of Evaluation: 07:00 - Subjective Subjective: PGY1- Medicine Note- Dr. Balke's Service Patient seen and examined an in no acute distress. Patient says she is feeling better but still has shortness of breath when she walks to the bathroom. Patient denies headache, chest pain, abdominal pain, nausea, vomiting, constipation, diarrhea. Objective - Vital Signs/Intake and Output Vital Signs (last 24 hours): Temp Pulse Resp BP Pulse Ox 98.2 F 97 H 20 123/66 97 03/15/17 15:10 03/15/17 15:10 03/15/17 15:10 03/15/17 15:10 03/15/17 15:10 Intake and Output: 03/15/17 03/15/17 06:59 18:59 Intake Total 300 800 Balance 300 800 - Medications Medications: Current Medications Albuterol/Ipratropium (Duoneb 3 Mg/0.5 Mg (3 Ml) Ud) 3 ml INH RQ6 [facility] Last Admin: 03/15/17 13:19 Dose: 3 ml Amlodipine Besylate (Norvasc) 5 mg PO DAILY [facility] Last Admin: 03/15/17 09:49 Dose: 5 mg Budesonide (Pulmicort Respules) 0.5 mg INH RQ12 [facility] Last Admin: 03/15/17 07:24 Dose: 0.5 mg Famotidine (Pepcid) 20 mg PO DAILY [facility] Last Admin: 03/15/17 09:49 Dose: 20 mg Ferric Sodium Gluconate Complex (Ferrlecit) 125 mg IVPB DAILY [facility] Stop: 03/18/17 10:01 Last Admin: 03/15/17 09:53 Dose: 125 mg Ferrous Sulfate (Feosol) 325 mg PO DAILY [facility] Last Admin: 03/15/17 09:49 Dose: 325 mg Vancomycin/Sodium Chloride (Vancocin) 1 gm in 200 mls @ 133.333 mls/hr IVPB Q24H [facility] Last Admin: 03/15/17 15:54 Dose: 133.333 mls/hr Cefepime HCl (Maxipime Iv 2 Gm Premix) 2 gm in 100 mls @ 200 mls/hr IVPB Q12H [facility] Stop: 03/17/17 19:31 Last Admin: 03/15/17 06:44 Dose: 200 mls/hr Gentamicin Sulfate 120 mg/ (Sodium Chloride) 103 mls @ 100 mls/hr IVPB Q24H [facility] Last Admin: 03/15/17 01:45 Dose: 100 mls/hr Sodium Chloride (Sodium Chloride 0.9%) 1,000 mls @ 50 mls/hr IV .Q20H [facility] Last Admin: 03/14/17 20:06 Dose: 50 mls/hr Insulin Detemir (Levemir) 16 unit SC HS [facility] Last Admin: 03/14/17 21:43 Dose: 16 unit Insulin Human Regular (Novolin R) 0 unit SC ACHS [facility] PRN Reason: Protocol Last Admin: 03/15/17 17:30 Dose: 6 unit Prednisone (Prednisone Tab) 40 mg PO DAILY [facility] Stop: 03/16/17 10:01 Last Admin: 03/15/17 09:48 Dose: 40 mg Saccharomyces Boulardii (Florastor) 250 mg PO BID [facility] Last Admin: 03/15/17 17:30 Dose: 250 mg Sitagliptin Phosphate (Januvia) 25 mg PO DAILY [facility] Last Admin: 03/15/17 09:49 Dose: 25 mg - Labs Labs: 03/15/17 06:53 03/15/17 06:53 - Constitutional Appears: Well, Non-toxic, No Acute Distress - Head Exam Head Exam: ATRAUMATIC, NORMAL INSPECTION, NORMOCEPHALIC - Eye Exam Eye Exam: EOMI, Normal appearance, PERRL - ENT Exam ENT Exam: Mucous Membranes Moist, Normal Exam - Neck Exam Neck Exam: Full ROM, Normal Inspection. absent: Lymphadenopathy - Respiratory Exam Respiratory Exam: Wheezes, NORMAL BREATHING PATTERN - Cardiovascular Exam Cardiovascular Exam: REGULAR RHYTHM, RRR. absent: Gallop, Rubs, Murmur - GI/Abdominal Exam GI & Abdominal Exam: Soft, Normal Bowel Sounds. absent: Firm, Guarding - Extremities Exam Extremities Exam: Full ROM, Normal Inspection - Back Exam Back Exam: NORMAL INSPECTION. absent: rash noted - Neurological Exam Neurological Exam: Alert, Awake, Oriented x3 - Psychiatric Exam Psychiatric exam: Normal Affect, Normal Mood - Skin Skin Exam: Intact, Normal Color, Warm Assessment and Plan - Assessment and Plan (Free Text) Assessment: 1. SOB secondary to COPD exacerbation vs. PNA CT chest: no evidence for PE, ovoid groundglass opacity in right upper lobe 2.4 x 1.5, few smaller ill defined groundglass lesions that appear similar in the right lower lobe and left upper lobe, mild to moderate underlying centrilobular emphysema and some paraseptal emphysema in upper lung zones, 1.7cm left adrenal mass ABG done on 03/12 showed 99 O2 saturation on RA Duoneb 3ml INH q6h Pulmicort .5mg INH q12h Prednisone 40 mg PO daily (day 4 of 5) 2. Bacteremia Blood cultures from port cath site grew gram positive cocci coag negative, repeat blood cultures from sandra cath site negative 24 hours (03/14) as per Dr. Walter, continue Vancomycin 1 gm daily Maxipime 2 gm q 12h 1 dose of gentamicin given 03/12 and one 03/13, held on 03/14 for trough ID, Dr. Walter is consulted echo (03/12/27): Left ventricle systolic function is normal. Ejection fraction is 60-65%, diastolic dysfunction, no aortic regurgitation is present, no mitral valve regurg noted, mild tricuspid regurg, mild pulm htn, no pulmonic valvular regurg 3. 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 Dennis (heme/onc) who recommends transfusing platelets if patient is actively bleeding or platelets go below 10,000. Also recommends restarting Plavix once platelets above 50,000 4. Diabetes ISS low dose Levemir 16 u SC HS Metformin 1,000 PO BID restarted 03/13 Januvia 50 mg PO daily (lowered from 100 for renal dosing) accuchecks HgA1c: 6.5 5. HTN Enalapril 2.5 mg PO BID Plavix 75 mg- f/u with Dr. Amaya for indication 6. Electrolyte Imbalance K+ 6.1 on 03/13, Kayexalate given Mg 1.3- 2 bags of 1 gm in 100 ml D5W given BMP: on 03/13 K increased to 7.1 then decreased to 6.9 then 03/14 decreased to 4.6 -- total of 90 gm Kayexalate given monitor K+ closely 7. Chronic Anemia Feosol 325mg PO daily patient to be transfused 2 units of PRBC on 03/15/17 8. Leukocytosis Likely due to Neulasta Downtrending. 3 on 03/15 5.1 on 03/14 will continue to monitor 9. Urinary Frequency urine culture (03/12): negative U/A on 03/10: 3+ glucose, 1+ leuk esterase, 9 wbcs 10. Small cell lung Cancer Patient to follow up with heme/onc specialist, Dr. Nails upon discharge adrenal mass which was shown on CT may be followed up with imaging as outpatient 11. Prophylactic Measures Pepcid 20 mg PO daily Colace 100 mg PO daily Heparin SC
--- NOTE | 2017-03-15 20:02 | CP.PCM.PN ---
Subjective - Date & Time of Evaluation Date of Evaluation: 03/15/17 Time of Evaluation: 05:40 - Subjective Subjective: dictated Objective - Vital Signs/Intake and Output Vital Signs (last 24 hours): Temp Pulse Resp BP Pulse Ox 98.2 F 97 H 20 123/66 97 03/15/17 15:10 03/15/17 15:10 03/15/17 15:10 03/15/17 15:10 03/15/17 15:10 Intake and Output: 03/15/17 03/16/17 18:59 06:59 Intake Total 800 Balance 800 - Medications Medications: Current Medications Albuterol/Ipratropium (Duoneb 3 Mg/0.5 Mg (3 Ml) Ud) 3 ml INH RQ6 [facility] Last Admin: 03/15/17 19:55 Dose: 3 ml Amlodipine Besylate (Norvasc) 5 mg PO DAILY [facility] Last Admin: 03/15/17 09:49 Dose: 5 mg Budesonide (Pulmicort Respules) 0.5 mg INH RQ12 [facility] Last Admin: 03/15/17 19:55 Dose: Not Given Famotidine (Pepcid) 20 mg PO DAILY [facility] Last Admin: 03/15/17 09:49 Dose: 20 mg Ferric Sodium Gluconate Complex (Ferrlecit) 125 mg IVPB DAILY [facility] Stop: 03/18/17 10:01 Last Admin: 03/15/17 09:53 Dose: 125 mg Ferrous Sulfate (Feosol) 325 mg PO DAILY [facility] Last Admin: 03/15/17 09:49 Dose: 325 mg Vancomycin/Sodium Chloride (Vancocin) 1 gm in 200 mls @ 133.333 mls/hr IVPB Q24H [facility] Last Admin: 03/15/17 15:54 Dose: 133.333 mls/hr Cefepime HCl (Maxipime Iv 2 Gm Premix) 2 gm in 100 mls @ 200 mls/hr IVPB Q12H [facility] Stop: 03/17/17 19:31 Last Admin: 03/15/17 18:35 Dose: 200 mls/hr Gentamicin Sulfate 120 mg/ (Sodium Chloride) 103 mls @ 100 mls/hr IVPB Q24H [facility] Last Admin: 03/15/17 01:45 Dose: 100 mls/hr Sodium Chloride (Sodium Chloride 0.9%) 1,000 mls @ 50 mls/hr IV .Q20H [facility] Last Admin: 03/14/17 20:06 Dose: 50 mls/hr Insulin Detemir (Levemir) 16 unit SC HS [facility] Last Admin: 03/14/17 21:43 Dose: 16 unit Insulin Human Regular (Novolin R) 0 unit SC ACHS [facility] PRN Reason: Protocol Last Admin: 03/15/17 17:30 Dose: 6 unit Prednisone (Prednisone Tab) 40 mg PO DAILY [facility] Stop: 03/16/17 10:01 Last Admin: 03/15/17 09:48 Dose: 40 mg Saccharomyces Boulardii (Florastor) 250 mg PO BID [facility] Last Admin: 03/15/17 17:30 Dose: 250 mg Sitagliptin Phosphate (Januvia) 25 mg PO DAILY [facility] Last Admin: 03/15/17 09:49 Dose: 25 mg - Labs Labs: 03/15/17 06:53 03/15/17 06:53 Assessment and Plan (1) Hyperkalemia Status: Acute (2) COPD exacerbation Status: Acute (3) Lung cancer Status: Acute (4) Staphylococcus epidermidis bacteremia Status: Acute (5) Leucocytosis Status: Acute
--- NOTE | 2017-03-15 20:08 | CP.PCM.PN ---
Subjective - Date & Time of Evaluation Date of Evaluation: 03/15/17 Time of Evaluation: 13:00 - Subjective Subjective: Patient reports breathing improved; tolerating diet; Objective - Vital Signs/Intake and Output Vital Signs (last 24 hours): Temp Pulse Resp BP Pulse Ox 98.2 F 97 H 20 123/66 97 03/15/17 15:10 03/15/17 15:10 03/15/17 15:10 03/15/17 15:10 03/15/17 15:10 Intake and Output: 03/15/17 03/16/17 18:59 06:59 Intake Total 800 Balance 800 - Medications Medications: Current Medications Albuterol/Ipratropium (Duoneb 3 Mg/0.5 Mg (3 Ml) Ud) 3 ml INH RQ6 [facility] Last Admin: 03/15/17 19:55 Dose: 3 ml Amlodipine Besylate (Norvasc) 5 mg PO DAILY [facility] Last Admin: 03/15/17 09:49 Dose: 5 mg Budesonide (Pulmicort Respules) 0.5 mg INH RQ12 [facility] Last Admin: 03/15/17 19:55 Dose: Not Given Famotidine (Pepcid) 20 mg PO DAILY [facility] Last Admin: 03/15/17 09:49 Dose: 20 mg Ferric Sodium Gluconate Complex (Ferrlecit) 125 mg IVPB DAILY [facility] Stop: 03/18/17 10:01 Last Admin: 03/15/17 09:53 Dose: 125 mg Ferrous Sulfate (Feosol) 325 mg PO DAILY [facility] Last Admin: 03/15/17 09:49 Dose: 325 mg Vancomycin/Sodium Chloride (Vancocin) 1 gm in 200 mls @ 133.333 mls/hr IVPB Q24H [facility] Last Admin: 03/15/17 15:54 Dose: 133.333 mls/hr Cefepime HCl (Maxipime Iv 2 Gm Premix) 2 gm in 100 mls @ 200 mls/hr IVPB Q12H [facility] Stop: 03/17/17 19:31 Last Admin: 03/15/17 18:35 Dose: 200 mls/hr Gentamicin Sulfate 120 mg/ (Sodium Chloride) 103 mls @ 100 mls/hr IVPB Q24H [facility] Last Admin: 03/15/17 01:45 Dose: 100 mls/hr Sodium Chloride (Sodium Chloride 0.9%) 1,000 mls @ 50 mls/hr IV .Q20H [facility] Last Admin: 03/14/17 20:06 Dose: 50 mls/hr Insulin Detemir (Levemir) 16 unit SC HS [facility] Last Admin: 03/14/17 21:43 Dose: 16 unit Insulin Human Regular (Novolin R) 0 unit SC ACHS [facility] PRN Reason: Protocol Last Admin: 03/15/17 17:30 Dose: 6 unit Prednisone (Prednisone Tab) 40 mg PO DAILY [facility] Stop: 03/16/17 10:01 Last Admin: 03/15/17 09:48 Dose: 40 mg Saccharomyces Boulardii (Florastor) 250 mg PO BID [facility] Last Admin: 03/15/17 17:30 Dose: 250 mg Sitagliptin Phosphate (Januvia) 25 mg PO DAILY [facility] Last Admin: 03/15/17 09:49 Dose: 25 mg - Labs Labs: 03/15/17 06:53 03/15/17 06:53 - Constitutional Appears: Well, No Acute Distress - Head Exam Head Exam: NORMAL INSPECTION - Eye Exam Eye Exam: Normal appearance - ENT Exam ENT Exam: Mucous Membranes Moist - Respiratory Exam Additional comments: Mild coarse exp wheezes; - Cardiovascular Exam Cardiovascular Exam: REGULAR RHYTHM, +S1, +S2 - GI/Abdominal Exam GI & Abdominal Exam: Soft. absent: Distended, Tenderness - Extremities Exam Additional comments: no leg edema; - Psychiatric Exam Psychiatric exam: Normal Affect, Normal Mood - Skin Skin Exam: Normal Color, Warm. absent: Cyanosis Assessment and Plan (1) Hyperkalemia Assessment & Plan: Resolved with withdrawal of ARB and on low K diet; need to maintain the same as outpatient; Status: Resolved (2) CKD (chronic kidney disease) Assessment & Plan: Baseline renal function unclear; has no microalbuminuria but does have mild non- albumin proteinuria (~500 mg/g); can be due to tubular injury in the setting of being on gentamicin; will check SPEP/immunofixation and serum free light chains as a precautionary measure; Status: Chronic (3) Hypertension Assessment & Plan: Currently normotensive, continue amlodipine 5 mg daily; Status: Acute (4) Diabetes Assessment & Plan: A1C at goal; need to maintain adequate glucose control to prevent diabetic nephropathy changes; Status: Chronic (5) Lung cancer Assessment & Plan: On etoposide and carboplatin; continue to monitor renal function periodically as outpatient while on these chemo agents; Status: Acute (6) Catheter-related bloodstream infection Status: Acute
[2017-03-15] MEDS: Insulin Detemir 100 units/ml Vial (Levemir) SC SCH (21:44)
--- NOTE | 2017-03-16 00:28 | PN ---
DATE: 03/15/2017 SUBJECTIVE: She says she is feeling okay. She has developed pancytopenia. She has history of small-cell CA and she was seen by the oncologist today and she has pneumonia and she has been treated. She says she is not producing any more staph. She is receiving antibiotics at this time. She was feeling slightly better; however, numbers were very bad. PHYSICAL EXAMINATION VITAL SIGNS: T-max 98.2, pulse 97, blood pressure 123/66 and respirations are 20. HEENT: Head is atraumatic and normocephalic. Tongue is moist. NECK: Supple. JVP is flat. LUNGS: Clear. No wheezing today. No rhonchi. HEART: S1 and S2, regular. ABDOMEN: Soft and nontender. No guarding. No rigidity present. EXTREMITIES: Has no edema, clubbing or cyanosis. LABORATORY DATA: Her white count, however, today was only 3, hemoglobin 7.2, hematocrit 21.9 and platelet count is 34, so she is pancytopenic right now. Sodium 137, potassium 4.6, chloride 100, CO2 is 24 and anion gap is 17, creatinine is 1.4. Her sugars are being monitored, but they have been running little high. Cultures overall negative. Sputum, she says she is not producing any, so she is on empiric therapy. However, one culture was coagulase negative, but repeat cultures have all been negative, so she is status post chemo with small cell CA with pneumonia and is on vancomycin and gentamicin and cefepime at this time and she continues to be afebrile. She is also on prednisone 40 mg daily. It was just started today. I will be away, but endorsed this patient to to cover as the patient is on IV antibiotics and pancytopenic. Katina Walter MD
[2017-03-16] MEDS: Albuterol-Ipratrop 3 mg / 0.5 (3 ml) UD INH SCH ×3 (01:22→19:26)
[2017-03-16] MEDS: Cefepime IV 2 gm in Dextrose 2 GM/100 ML BAG IVPB SCH ×2 (06:43→18:53)
[2017-03-16] MEDS: Budesonide 0.5 mg/2 ml Inhal Susp UD INH SCH ×2 (07:18→19:27)
[2017-03-16] MEDS: (Novolin R) Insulin Human Regular 100 units/ml vial SC SCH ×4 (08:15→22:00)
[2017-03-16] MEDS: Ferric Sodium Gluconat Complex 62.5 mg/5 ml Vial IVPB SCH (10:25)
[2017-03-16] MEDS: Saccharomyces Boulardi 250 mg Cap PO SCH ×2 (10:25→17:04)
[2017-03-16 11:27] LABS: EOS # 0.1 K/uL (0.0-0.7); MONO # 0.4 K/uL (0.0-0.8); NEUT # 1.9 K/uL (1.8-7.0); WHITE BLOOD COUNT 3.7 K/uL (4.8-10.8)
[2017-03-16 11:31] LABS: BASO # 0.1 K/uL (0.0-0.2); BASO % 1.5 % (0.0-2.0); EOS % 1.6 % (0.0-4.0); LYMPH # 1.3 K/uL (1.0-4.3); LYMPH % 34.9 % (20.0-40.0); MEAN CELL VOLUME 91.4 fL (81.0-99.0); MEAN CORPUSCULAR HEMOGLOBIN 29.8 pg (27.0-31.0); MEAN CORPUSCULAR HGB CONC 32.6 g/dL (33.0-37.0); MEAN PLATELET VOLUME 9.4 fL (7.2-11.7); MONO % 9.7 % (0.0-10.0); NEUT % 52.3 % (50.0-75.0); NRBC % 0.1 % (0.0-2.0); RBC 3.19 Mil/uL (3.80-5.20); RED CELL DISTRIBUTION WIDTH 13.7 % (11.5-14.5)
[2017-03-16 11:32] LABS: HEMOGLOBIN 9.5 g/dL (11.0-16.0)
[2017-03-16 11:38] LABS: ALBUMIN 2.7 g/dL (3.5-5.0)
[2017-03-16 11:41] LABS: CALCIUM 7.7 mg/dl (8.6-10.4)
[2017-03-16] MEDS: Magnesium Sulfate 1 gm in D5W 1 GM/100 ML BAG IVPB SCH ×2 (12:40→13:18)
[2017-03-16] MEDS: Vancomycin 1 gm/NS 200 ml 1 GM/200 ML BAG IVPB SCH (14:21)
--- NOTE | 2017-03-16 15:01 | CP.PCM.PN ---
Subjective - Date & Time of Evaluation Date of Evaluation: 03/16/17 Time of Evaluation: 07:00 - Subjective Subjective: PGY1- Medicine Note- Dr. Blake's Service Patient seen and examined an in no acute distress. Patient says she feels fine after being transfused to units of PRBCs overnight. Patient says she is feeling better but still has shortness of breath when she walks to the bathroom. Patient denies headache, chest pain, abdominal pain, nausea, vomiting, constipation, diarrhea. Objective - Vital Signs/Intake and Output Vital Signs (last 24 hours): Temp Pulse Resp BP Pulse Ox 97.8 F 81 20 148/64 97 03/16/17 07:30 03/16/17 07:30 03/16/17 07:30 03/16/17 13:25 03/16/17 07:30 Intake and Output: 03/16/17 03/16/17 06:59 18:59 Intake Total 175 840 Balance 175 840 - Medications Medications: Current Medications Amlodipine Besylate (Norvasc) 10 mg PO DAILY [facility] Budesonide (Pulmicort Respules) 0.5 mg INH RQ12 [facility] Last Admin: 03/16/17 07:18 Dose: 0.5 mg Famotidine (Pepcid) 20 mg PO DAILY [facility] Last Admin: 03/16/17 10:26 Dose: 20 mg Ferric Sodium Gluconate Complex (Ferrlecit) 125 mg IVPB DAILY [facility] Stop: 03/18/17 10:01 Last Admin: 03/16/17 10:25 Dose: 125 mg Ferrous Sulfate (Feosol) 325 mg PO DAILY [facility] Last Admin: 03/16/17 10:26 Dose: 325 mg Vancomycin/Sodium Chloride (Vancocin) 1 gm in 200 mls @ 133.333 mls/hr IVPB Q24H [facility] Last Admin: 03/16/17 14:21 Dose: 133.333 mls/hr Cefepime HCl (Maxipime Iv 2 Gm Premix) 2 gm in 100 mls @ 200 mls/hr IVPB Q12H [facility] Stop: 03/17/17 19:31 Last Admin: 03/16/17 06:43 Dose: 200 mls/hr Gentamicin Sulfate 120 mg/ (Sodium Chloride) 103 mls @ 100 mls/hr IVPB Q24H [facility] Last Admin: 03/16/17 13:28 Dose: 100 mls/hr Insulin Detemir (Levemir) 16 unit SC HS [facility] Last Admin: 03/15/17 21:44 Dose: 16 unit Insulin Human Regular (Novolin R) 0 unit SC ACHS [facility] PRN Reason: Protocol Last Admin: 03/16/17 12:15 Dose: 2 unit Saccharomyces Boulardii (Florastor) 250 mg PO BID [facility] Last Admin: 03/16/17 10:25 Dose: 250 mg Sitagliptin Phosphate (Januvia) 25 mg PO DAILY [facility] Last Admin: 03/16/17 10:25 Dose: 25 mg - Labs Labs: 03/16/17 11:20 03/16/17 11:20 - Constitutional Appears: Well, Non-toxic, No Acute Distress - Head Exam Head Exam: ATRAUMATIC, NORMAL INSPECTION, NORMOCEPHALIC - Eye Exam Eye Exam: EOMI, Normal appearance, PERRL - ENT Exam ENT Exam: Mucous Membranes Moist, Normal Exam - Neck Exam Neck Exam: Full ROM, Normal Inspection. absent: Lymphadenopathy - Respiratory Exam Respiratory Exam: Wheezes, NORMAL BREATHING PATTERN Additional comments: much less wheezing, only auscultated wheezing in right lower lobe - Cardiovascular Exam Cardiovascular Exam: REGULAR RHYTHM, RRR. absent: Gallop, Rubs, Murmur - GI/Abdominal Exam GI & Abdominal Exam: Soft, Normal Bowel Sounds. absent: Distended, Firm - Extremities Exam Extremities Exam: Full ROM, Normal Inspection. absent: Pedal Edema - Back Exam Back Exam: NORMAL INSPECTION. absent: rash noted - Neurological Exam Neurological Exam: Alert, Awake, Oriented x3 - Psychiatric Exam Psychiatric exam: Normal Affect, Normal Mood - Skin Skin Exam: Intact, Normal Color, Warm Assessment and Plan - Assessment and Plan (Free Text) Assessment: 1. SOB secondary to COPD exacerbation vs. PNA CT chest: no evidence for PE, ovoid groundglass opacity in right upper lobe 2.4 x 1.5, few smaller ill defined groundglass lesions that appear similar in the right lower lobe and left upper lobe, mild to moderate underlying centrilobular emphysema and some paraseptal emphysema in upper lung zones, 1.7cm left adrenal mass ABG done on 03/12 showed 99 O2 saturation on RA Duoneb 3ml INH q6h Pulmicort .5mg INH q12h Prednisone 40 mg PO daily (day 4 of 5) 2. Bacteremia Blood cultures from port cath site grew gram positive cocci coag negative, repeat blood cultures from sandra cath site negative 24 hours (03/14) as per Dr. Walter, continue Vancomycin 1 gm daily Maxipime 2 gm q 12h 1 dose of gentamicin given 03/12 and one 03/13, held on 03/14 for trough ID, Dr. Walter is consulted echo (03/12/27): Left ventricle systolic function is normal. Ejection fraction is 60-65%, diastolic dysfunction, no aortic regurgitation is present, no mitral valve regurg noted, mild tricuspid regurg, mild pulm htn, no pulmonic valvular regurg 3. 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 Dennis (heme/onc) who recommends transfusing platelets if patient is actively bleeding or platelets go below 10,000. Also recommends restarting Plavix once platelets above 50,000 03/16: Platelets 29 4. Diabetes ISS low dose Levemir 16 u SC HS Metformin 1,000 PO BID restarted 03/13 Januvia 50 mg PO daily (lowered from 100 for renal dosing) accuchecks HgA1c: 6.5 5. HTN Norvasc 10 mg daily Hydralazine 25 mg po q6h prn if sbp >160 lisinopril 10 mg po daily Plavix 75 mg- held due to low HgB and platelets 6. Electrolyte Imbalance K+ 6.1 on 03/13, Kayexalate given Mg 1.3- 2 bags of 1 gm in 100 ml D5W given BMP: on 03/13 K increased to 7.1 then decreased to 6.9 then 03/14 decreased to 4.6 -- total of 90 gm Kayexalate given monitor K+ closely Mg 1 on 03/16- 2 bags of 1 gm magnesium sulfate in 100 ml D5W 7. Chronic Anemia Feosol 325mg PO daily patient transfused 2 units of PRBC on 03/15/17 HgB increased to 9.5 8. Leukocytosis Likely due to Neulasta Downtrending. 3 on 03/15 5.1 on 03/14 will continue to monitor 9. Small cell lung Cancer Patient to follow up with heme/onc specialist, Dr. Nails upon discharge adrenal mass which was shown on CT -- MRI of abdomen w/wo contrast 10. Urinary Frequency Resolved urine culture (03/12): negative U/A on 03/10: 3+ glucose, 1+ leuk esterase, 9 wbcs 11. Prophylactic Measures Pepcid 20 mg PO daily Colace 100 mg PO daily Heparin SC
[2017-03-16] MEDS ORDERED: Albuterol-Ipratrop 3 mg / 0.5 (3 ml) UD INH STA (16:24)
--- NOTE | 2017-03-16 18:27 | CP.PCM.PN ---
Subjective - Date & Time of Evaluation Date of Evaluation: 03/16/17 Time of Evaluation: 13:00 - Subjective Subjective: Patient feels well; feels oxygen is helping her shortness of breath; still with sob on exertion; Objective - Vital Signs/Intake and Output Vital Signs (last 24 hours): Temp Pulse Resp BP Pulse Ox 98.3 F 83 20 138/68 93 L 03/16/17 15:44 03/16/17 16:00 03/16/17 15:44 03/16/17 15:44 03/16/17 15:44 Intake and Output: 03/16/17 03/16/17 06:59 18:59 Intake Total 175 840 Balance 175 840 - Medications Medications: Current Medications Albuterol/Ipratropium (Duoneb 3 Mg/0.5 Mg (3 Ml) Ud) 3 ml INH RQ6 [facility] Amlodipine Besylate (Norvasc) 10 mg PO DAILY [facility] Budesonide (Pulmicort Respules) 0.5 mg INH RQ12 [facility] Last Admin: 03/16/17 07:18 Dose: 0.5 mg Famotidine (Pepcid) 20 mg PO DAILY [facility] Last Admin: 03/16/17 10:26 Dose: 20 mg Ferric Sodium Gluconate Complex (Ferrlecit) 125 mg IVPB DAILY [facility] Stop: 03/18/17 10:01 Last Admin: 03/16/17 10:25 Dose: 125 mg Ferrous Sulfate (Feosol) 325 mg PO DAILY [facility] Last Admin: 03/16/17 10:26 Dose: 325 mg Hydralazine HCl (Apresoline) 25 mg PO Q6H PRN PRN Reason: Systolic Blood Pressure Vancomycin/Sodium Chloride (Vancocin) 1 gm in 200 mls @ 133.333 mls/hr IVPB Q24H [facility] Last Admin: 03/16/17 14:21 Dose: 133.333 mls/hr Cefepime HCl (Maxipime Iv 2 Gm Premix) 2 gm in 100 mls @ 200 mls/hr IVPB Q12H [facility] Stop: 03/17/17 19:31 Last Admin: 03/16/17 06:43 Dose: 200 mls/hr Gentamicin Sulfate 120 mg/ (Sodium Chloride) 103 mls @ 100 mls/hr IVPB Q24H [facility] Last Admin: 03/16/17 13:28 Dose: 100 mls/hr Insulin Detemir (Levemir) 8 unit SC [facility] Insulin Human Regular (Novolin R) 0 unit SC ACHS [facility] PRN Reason: Protocol Last Admin: 03/16/17 16:55 Dose: 5 unit Lisinopril (Zestril) 10 mg PO DAILY [facility] Last Admin: 03/16/17 16:55 Dose: 10 mg Prednisone (Prednisone Tab) 40 mg PO DAILY [facility] Saccharomyces Boulardii (Florastor) 250 mg PO BID [facility] Last Admin: 03/16/17 17:04 Dose: 250 mg Sitagliptin Phosphate (Januvia) 25 mg PO DAILY [facility] Last Admin: 03/16/17 10:25 Dose: 25 mg - Labs Labs: 03/16/17 11:20 03/16/17 11:20 - Constitutional Appears: Well, No Acute Distress - Head Exam Head Exam: NORMAL INSPECTION - Eye Exam Eye Exam: Normal appearance - ENT Exam ENT Exam: Mucous Membranes Moist - Respiratory Exam Respiratory Exam: Prolonged Expiratory Phase Additional comments: Bilateral coarse exp wheezes; - Cardiovascular Exam Cardiovascular Exam: REGULAR RHYTHM, +S1, +S2 - GI/Abdominal Exam GI & Abdominal Exam: Soft. absent: Distended, Tenderness - Extremities Exam Additional comments: minimal lower leg edema; - Neurological Exam Neurological Exam: Alert, Awake - Skin Skin Exam: Normal Color, Warm. 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; K was high in the setting of being on ARB and consuming high K diet; should avoid CARMEN inhibitor/ARB for BP control , see below; Status: Resolved (2) CKD (chronic kidney disease) Assessment & Plan: Mild, non-albuminuric kidney disease; renal function slightly improved; workup sent for possible plasma cell dysrasia due to presence of mild non-albumin proteinuria (which could simply be the result of tubular injury from chemo rather than something like multiple myeloma); will f/u; Status: Chronic (3) Hypertension Assessment & Plan: Markedly elevated BP readings seen overnight and earlier this morning; however, BP otherwise seems controlled; would avoid treating sporadically high readings; also, CARMEN inhibitor/ARB is not the best choice for her given her marked hyperkalemia on enalapril; no microalbuminuria that would necessitate re- starting these agents; -amlodipine increased to 10 mg daily Status: Acute (4) Diabetes Assessment & Plan: A1C at goal; needs more aggressive glucose control since now on steroids; Status: Chronic (5) Lung cancer Assessment & Plan: On etoposide and carboplatin regimen; needs periodic monitoring of renal function; Status: Acute (6) Catheter-related bloodstream infection Assessment & Plan: Coag neg staph from port-a-cath; on vanco and gent; repeat cultures negative; will obtain random levels; should d/c gent if high suspicion for blood culture being contaminant (to avoid nephrotoxicit); Status: Acute (7) Adrenal mass Assessment & Plan: Needs further biochemical evaluation; should screen for subclinical Cushings as well as hyperaldosteronism (despite hyperkalemia); -endocrine referral as outpatient; cannot check morning cortisol level reliably while is on prednisone; -checking plasma renin activity and aldosterone level Status: Acute
[2017-03-16] MEDS ORDERED: Insulin Detemir 100 units/ml Vial (Levemir) SC SCH (22:00)
[2017-03-17] MEDS: Albuterol-Ipratrop 3 mg / 0.5 (3 ml) UD INH SCH ×5 (01:37→19:20)
[2017-03-17 07:13] LABS: BASO % 0.5 % (0.0-2.0); EOS % 0.6 % (0.0-4.0); LYMPH # 1.7 K/uL (1.0-4.3); LYMPH % 20.8 % (20.0-40.0); MEAN CELL VOLUME 90.8 fL (81.0-99.0); MEAN CORPUSCULAR HEMOGLOBIN 29.8 pg (27.0-31.0); MEAN CORPUSCULAR HGB CONC 32.8 g/dL (33.0-37.0); MEAN PLATELET VOLUME 9.4 fL (7.2-11.7); MONO # 0.6 K/uL (0.0-0.8); MONO % 7.6 % (0.0-10.0); NEUT # 5.6 K/uL (1.8-7.0); NEUT % 70.5 % (50.0-75.0); NRBC % 0.1 % (0.0-2.0); RBC 3.36 Mil/uL (3.80-5.20)
[2017-03-17 07:24] LABS: ALBUMIN 3.4 g/dL (3.5-5.0)
[2017-03-17 07:28] LABS: CALCIUM 9.3 mg/dl (8.6-10.4); MAGNESIUM 1.4 mg/dL (1.6-2.3)
[2017-03-17 07:33] LABS: ALB/GLOB RATIO 1.3 (1.0-2.1)
[2017-03-17] MEDS: Budesonide 0.5 mg/2 ml Inhal Susp UD INH SCH ×2 (07:44→19:20)
[2017-03-17] MEDS: (Novolin R) Insulin Human Regular 100 units/ml vial SC SCH ×4 (08:02→21:27)
[2017-03-17] MEDS: Cefepime IV 2 gm in Dextrose 2 GM/100 ML BAG IVPB SCH ×2 (09:50→20:00)
[2017-03-17] MEDS ORDERED: Magnesium Sulfate 1 gm in D5W 1 GM/100 ML BAG IVPB ONE (10:05)
[2017-03-17] MEDS: Ferric Sodium Gluconat Complex 62.5 mg/5 ml Vial IVPB SCH (10:55)
[2017-03-17] MEDS: Saccharomyces Boulardi 250 mg Cap PO SCH ×2 (10:56→17:31)
--- NOTE | 2017-03-17 14:09 | CP.PCM.PN ---
<FloydChrissie L. - Last Filed: 03/17/17 14:56> Subjective - Date & Time of Evaluation Date of Evaluation: 03/17/17 Time of Evaluation: 07:00 - Subjective Subjective: PGY1- Medicine Note- Dr. Pepper's Service Patient seen and examined an in no acute distress. Patient says she is feeling better but still has shortness of breath when she walks to the bathroom. Patient unable to get abdominal MRI today because she could not hold her breath. Patient denies headache, chest pain, abdominal pain, nausea, vomiting, constipation, diarrhea. Objective - Vital Signs/Intake and Output Vital Signs (last 24 hours): Temp Pulse Resp BP Pulse Ox 98.0 F 88 20 156/71 H 99 03/17/17 07:14 03/17/17 11:01 03/17/17 07:14 03/17/17 11:01 03/17/17 07:14 Intake and Output: 03/17/17 03/17/17 06:59 18:59 Intake Total 240 Balance 240 - Medications Medications: Current Medications Albuterol/Ipratropium (Duoneb 3 Mg/0.5 Mg (3 Ml) Ud) 3 ml INH RQ6 [facility] Last Admin: 03/17/17 13:54 Dose: 3 ml Amlodipine Besylate (Norvasc) 10 mg PO DAILY [facility] Last Admin: 03/17/17 10:56 Dose: 10 mg Budesonide (Pulmicort Respules) 0.5 mg INH RQ12 [facility] Last Admin: 03/17/17 07:44 Dose: 0.5 mg Docusate Sodium (Colace) 100 mg PO BID [facility] Last Admin: 03/17/17 11:00 Dose: Not Given Famotidine (Pepcid) 20 mg PO DAILY [facility] Last Admin: 03/17/17 10:56 Dose: 20 mg Ferric Sodium Gluconate Complex (Ferrlecit) 125 mg IVPB DAILY [facility] Stop: 03/18/17 10:01 Last Admin: 03/17/17 10:55 Dose: 125 mg Ferrous Sulfate (Feosol) 325 mg PO DAILY [facility] Last Admin: 03/17/17 10:56 Dose: 325 mg Hydralazine HCl (Apresoline) 25 mg PO Q6H PRN PRN Reason: Systolic Blood Pressure Vancomycin/Sodium Chloride (Vancocin) 1 gm in 200 mls @ 133.333 mls/hr IVPB Q24H [facility] Last Admin: 03/16/17 14:21 Dose: 133.333 mls/hr Cefepime HCl (Maxipime Iv 2 Gm Premix) 2 gm in 100 mls @ 200 mls/hr IVPB Q12H [facility] Stop: 03/17/17 19:31 Last Admin: 03/17/17 09:50 Dose: 200 mls/hr Gentamicin Sulfate 120 mg/ (Sodium Chloride) 103 mls @ 100 mls/hr IVPB Q24H [facility] Last Admin: 03/17/17 13:20 Dose: 100 mls/hr Insulin Detemir (Levemir) 8 unit SC HS [facility] Last Admin: 03/16/17 22:31 Dose: 8 unit Insulin Human Regular (Novolin R) 0 unit SC ACHS [facility] PRN Reason: Protocol Last Admin: 03/17/17 13:16 Dose: 2 unit Saccharomyces Boulardii (Florastor) 250 mg PO BID [facility] Last Admin: 03/17/17 10:56 Dose: 250 mg Sitagliptin Phosphate (Januvia) 25 mg PO DAILY [facility] Last Admin: 03/17/17 11:00 Dose: 25 mg - Labs Labs: 03/17/17 06:42 03/17/17 06:38 - Constitutional Appears: Well, Non-toxic, No Acute Distress - Head Exam Head Exam: ATRAUMATIC, NORMAL INSPECTION, NORMOCEPHALIC - Eye Exam Eye Exam: EOMI, Normal appearance, PERRL - ENT Exam ENT Exam: Mucous Membranes Moist, Normal Exam - Neck Exam Neck Exam: Full ROM, Normal Inspection. absent: Lymphadenopathy - Respiratory Exam Respiratory Exam: Clear to Ausculation Bilateral, Wheezes, NORMAL BREATHING PATTERN. absent: Rales, Rhonchi, Respiratory Distress, Stridor Additional comments: expiratory wheezes bilaterally - Cardiovascular Exam Cardiovascular Exam: REGULAR RHYTHM, RRR. absent: Gallop, Rubs, Murmur - GI/Abdominal Exam GI & Abdominal Exam: Soft, Normal Bowel Sounds - Extremities Exam Extremities Exam: Full ROM, Normal Inspection - Back Exam Back Exam: NORMAL INSPECTION. absent: rash noted - Neurological Exam Neurological Exam: Alert, Awake, Oriented x3 - Psychiatric Exam Psychiatric exam: Normal Affect, Normal Mood - Skin Skin Exam: Intact, Normal Color, Warm Assessment and Plan - Assessment and Plan (Free Text) Assessment: 1. SOB secondary to COPD exacerbation vs. PNA CT chest: no evidence for PE, ovoid groundglass opacity in right upper lobe 2.4 x 1.5, few smaller ill defined groundglass lesions that appear similar in the right lower lobe and left upper lobe, mild to moderate underlying centrilobular emphysema and some paraseptal emphysema in upper lung zones, 1.7cm left adrenal mass ABG done on 03/12 showed 99 O2 saturation on RA Duoneb 3ml INH q6h Pulmicort .5mg INH q12h Prednisone 40 mg PO daily completed course on 03/17 2. Bacteremia Blood cultures from port cath site grew gram positive cocci coag negative, repeat blood cultures from sandra cath site negative 24 hours (03/14) as per Dr. Walter, continue Vancomycin 1 gm daily Maxipime 2 gm q 12h * continue until 03/18 then possibly switch to po antibiotics as per Dr. Wood 1 dose of gentamicin given 03/12 and one 03/13, held on 03/14 for trough * gentamicin stopped as per Dr. Wood on 03/17 ID, Dr. Walter is consulted, Dr. Wood covering as of 03/16 echo (03/12/27): Left ventricle systolic function is normal. Ejection fraction is 60-65%, diastolic dysfunction, no aortic regurgitation is present, no mitral valve regurg noted, mild tricuspid regurg, mild pulm htn, no pulmonic valvular regurg 3. 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 Dennis (heme/onc) who recommends transfusing platelets if patient is actively bleeding or platelets go below 10,000. Also recommends restarting Plavix once platelets above 50,000 03/16: Platelets 29 4. Diabetes ISS low dose Levemir 16 u SC HS Metformin 1,000 PO BID restarted 03/13 Januvia 50 mg PO daily (lowered from 100 for renal dosing) accuchecks HgA1c: 6.5 discussed with patient that she cannot eat fruits as often because of her unstable sugars 5. HTN Norvasc 10 mg daily Hydralazine 25 mg po q6h prn if sbp >160 lisinopril 10 mg po daily Plavix 75 mg- held due to low HgB and platelets 6. Electrolyte Imbalance K+ 6.1 on 03/13, Kayexalate given Mg 1.3- 2 bags of 1 gm in 100 ml D5W given BMP: on 03/13 K increased to 7.1 then decreased to 6.9 then 03/14 decreased to 4.6 -- total of 90 gm Kayexalate given monitor K+ closely Mg 1 on 03/16- 2 bags of 1 gm magnesium sulfate in 100 ml D5W 7. Chronic Anemia Feosol 325mg PO daily patient transfused 2 units of PRBC on 03/15/17 HgB increased from 7.2 to 9.5 (on 03/16) 03/17: HgB 10 8. Leukocytosis Likely due to Neulasta Downtrending. 8 on 03/17 3 on 03/15 5.1 on 03/14 will continue to monitor 9. Small cell lung Cancer Patient to follow up with heme/onc specialist, Dr. Nails upon discharge adrenal mass which was shown on CT -- MRI of abdomen w/wo contrast was unable to be done because patient could not hold her breath * patient to either get imaging as outpatient or CT of adrenals with and without contrast once creatinine decreases 10. Urinary Frequency Resolved urine culture (03/12): negative U/A on 03/10: 3+ glucose, 1+ leuk esterase, 9 wbcs 11. Prophylactic Measures Pepcid 20 mg PO daily Colace 100 mg PO daily Heparin SC <Kaylie Pepper V - Last Filed: 03/17/17 16:38> Objective - Vital Signs/Intake and Output Vital Signs (last 24 hours): Temp Pulse Resp BP Pulse Ox 97.6 F 95 H 20 149/74 99 03/17/17 15:46 03/17/17 15:46 03/17/17 15:46 03/17/17 15:46 03/17/17 15:46 Intake and Output: 03/17/17 03/17/17 06:59 18:59 Intake Total 240 900 Balance 240 900 - Medications Medications: Current Medications Albuterol/Ipratropium (Duoneb 3 Mg/0.5 Mg (3 Ml) Ud) 3 ml INH RQ6 [facility] Last Admin: 03/17/17 13:54 Dose: 3 ml Amlodipine Besylate (Norvasc) 10 mg PO DAILY [facility] Last Admin: 03/17/17 10:56 Dose: 10 mg Budesonide (Pulmicort Respules) 0.5 mg INH RQ12 [facility] Last Admin: 03/17/17 07:44 Dose: 0.5 mg Docusate Sodium (Colace) 100 mg PO BID [facility] Last Admin: 03/17/17 11:00 Dose: Not Given Famotidine (Pepcid) 20 mg PO DAILY [facility] Last Admin: 03/17/17 10:56 Dose: 20 mg Ferric Sodium Gluconate Complex (Ferrlecit) 125 mg IVPB DAILY [facility] Stop: 03/18/17 10:01 Last Admin: 03/17/17 10:55 Dose: 125 mg Ferrous Sulfate (Feosol) 325 mg PO DAILY [facility] Last Admin: 03/17/17 10:56 Dose: 325 mg Hydralazine HCl (Apresoline) 25 mg PO Q6H PRN PRN Reason: Systolic Blood Pressure Vancomycin/Sodium Chloride (Vancocin) 1 gm in 200 mls @ 133.333 mls/hr IVPB Q24H [facility] Last Admin: 03/17/17 15:00 Dose: 133.333 mls/hr Cefepime HCl (Maxipime Iv 2 Gm Premix) 2 gm in 100 mls @ 200 mls/hr IVPB Q12H [facility] Stop: 03/17/17 19:31 Last Admin: 03/17/17 09:50 Dose: 200 mls/hr Insulin Detemir (Levemir) 8 unit SC HS [facility] Last Admin: 03/16/17 22:31 Dose: 8 unit Insulin Human Regular (Novolin R) 0 unit SC ACHS [facility] PRN Reason: Protocol Last Admin: 03/17/17 13:16 Dose: 2 unit Saccharomyces Boulardii (Florastor) 250 mg PO BID [facility] Last Admin: 03/17/17 10:56 Dose: 250 mg Sitagliptin Phosphate (Januvia) 25 mg PO DAILY [facility] Last Admin: 03/17/17 11:00 Dose: 25 mg - Labs Labs: 03/17/17 06:42 03/17/17 06:38 Attending/Attestation - Attestation I have personally seen and examined this patient.: Yes I have fully participated in the care of the patient.: Yes I have reviewed all pertinent clinical information, including history, physical exam and plan: Yes Notes (Text): Patient seen, examined, and case discussed with day-time resident. Patient reports breathing is improved. Patient reports cough is minimal. Patient denies chest pain, denies palpitations and reports she has had a bowel movement. Patient denies any bleeding episodes, denies new rashes. Patient advised she needs to spread out her consumption of fruit because it drives her sugar numbers up. Infectious (Dr. wood) covering Dr. Walter-->f/u in terms of length of antibiotics. Monitor platelets; monitor for any bleeding episodes; Plavix d/c until plateletes possible secondary due to chemotherapy Monitor and replete electrolytes Patient unable to complete Abdominal MRI as requested by heme-onc unable to hold breath for procedure Assessment/Plan 1. Dyspnea * Contributing factors: small cell lung cancer (on chemotherapy), emphysema, and pneumonia, and bactremia * CT chest: no evidence for PE, ovoid groundglass opacity in right upper lobe 2.4 x 1.5, few smaller ill defined groundglass lesions that appear similar in the right lower lobe and left upper lobe, mild to moderate underlying centrilobular emphysema and some paraseptal emphysema in upper lung zones, 1.7cm left adrenal mass * ABG done today showed 99 O2 saturation on RA * Duoneb 3ml INH q6h * Pulmicort .5mg INH q12h * Prednisone 40 mg PO daily on day 5 out of day 5 2. Bacteremia * Infectious Disease (Dr. Walter) on the case-->help appreciated (Dr. Wood covering) * Blood culture (03/11) from port a cath: gram positive cocci coag negative ( unclear if contaminant or not) * Blood culture (03/11) peripheral: no growth X 5days * Blood culture (03/12) from port a cath: no growth X 4 days * Blood culture (03/12) from port a cath: no growth X 4 days * Blood culture (03/13/17): not from port a cath: no growth X4 days X2 * pending sputum * IV abx: Cefepime 2gram IV Q12 hours (active since 03/12/17; Day 6) * Vancomycin 1gram IVQ 24 hours (active since 03/12/17; Day 6) * Given dose of Gentamcin by ID (03/12 and 03/13); gentamcin discontinued today * Echocardiogram (03/13/17): left ventricle systolic function is normal, EF: 60- 65%, diastolic dysfunction, no aortic regurgitation is present. No mitral valve regurgitation noted; mild tricupside regurgitation, mild pulmonary regurgitation , no pulmonic valvuar regurgitation * 1/2 NS 50cc/hr * Florastor 250mg PO bid 3. Diabetes * ISS low dose * Levemir 16 u SC HS * hold metformin because patient received contrast * Renal dose Januvia 25 mg PO daily (lowered from 100 for renal dosing) * accuchecks QAC and HS * HgA1c 6.5 (controlled) * d/c Enalapril 2.5 mg PO BID secondary to BRENDA and hyperkalemia * Emphasized to space out fruit consumptiong 3. Hypertension * d/c Enalapril 2.5 mg PO BID secondary to BRENDA and hyperkalemia during hospitalization * Norvasc 10mg PO daily 4. Chronic Anemia * Heme-oncology (Dr. Dennis) on board-->help appreciated * held Feosol 325mg PO daily * Patient is on IV Ferriclet 125 IVPB daily (Active since 03/15/17) * Likely secondary to chemotherapy 5. Leukocytosis * Likely due to Neulasta * Normalized * Note plan for Bacteremia and Small cell lung cancer 6. Small cell lung Cancer * CT chest: no evidence for PE, ovoid groundglass opacity in right upper lobe 2.4 x 1.5, few smaller ill defined groundglass lesions that appear similar in the right lower lobe and left upper lobe, mild to moderate underlying centrilobular emphysema and some paraseptal emphysema in upper lung zones, 1.7cm left adrenal mass * Patient to follow up with heme/onc specialist, Dr. Nails upon discharge. * Patient is on active chemo therapy and Neulasta prior to admission * Patient unable to complete Abdominal MRI; unable to hold breath for MRI to workup adrenal lesion 7. Emphysema * CT chest: no evidence for PE, ovoid groundglass opacity in right upper lobe 2.4 x 1.5, few smaller ill defined groundglass lesions that appear similar in the right lower lobe and left upper lobe, mild to moderate underlying centrilobular emphysema and some paraseptal emphysema in upper lung zones, 1.7cm left adrenal mass * ABG done today; 99 O2 saturation on RA * Duoneb 3ml INH q6h * Pulmicort .5mg INH q12h * Prednisone 40 mg PO daily on day 5 out of day 5 8. Acute Renal Insufficiency * Nephrology (Dr. Montes) on board-->help appreciated * held enalapril secondary to hyperkalemia and BRENDA * Metformin held secondary to contrast CT * Januvia adjusted to renal dose * gentle IV hydration 9. Thrombocytopenia * held Heparin secondary to thrombocytopenia * Plavix held secondary to thrombocytopenia * Monitor platelets; transfuse if below <10,000k * Monitor for any bleeding episodes 10. Prophylactic Measures * Pepcid 20 mg PO daily * Colace 100 mg PO daily * d/c Heparin 5000 units SC [id number] secondary to thrombocytopenia * PT eval * Patient refuses subacute rehab
[2017-03-17] MEDS: Vancomycin 1 gm/NS 200 ml 1 GM/200 ML BAG IVPB SCH (15:00)
[2017-03-17] MEDS ORDERED: (Novolin R) Insulin Human Regular 100 units/ml vial SC ONE (16:53)
--- NOTE | 2017-03-17 17:38 | CP.PCM.PN ---
Subjective - Date & Time of Evaluation Date of Evaluation: 03/17/17 Time of Evaluation: 11:30 - Subjective Subjective: Patient reports still feeling short of breath and needing supplemental O2; Objective - Vital Signs/Intake and Output Vital Signs (last 24 hours): Temp Pulse Resp BP Pulse Ox 97.6 F 95 H 20 149/74 99 03/17/17 15:46 03/17/17 15:46 03/17/17 15:46 03/17/17 15:46 03/17/17 15:46 Intake and Output: 03/17/17 03/17/17 06:59 18:59 Intake Total 240 900 Balance 240 900 - Medications Medications: Current Medications Albuterol/Ipratropium (Duoneb 3 Mg/0.5 Mg (3 Ml) Ud) 3 ml INH RQ6 [facility] Last Admin: 03/17/17 13:54 Dose: 3 ml Amlodipine Besylate (Norvasc) 10 mg PO DAILY [facility] Last Admin: 03/17/17 10:56 Dose: 10 mg Budesonide (Pulmicort Respules) 0.5 mg INH RQ12 [facility] Last Admin: 03/17/17 07:44 Dose: 0.5 mg Docusate Sodium (Colace) 100 mg PO BID [facility] Last Admin: 03/17/17 17:31 Dose: 100 mg Famotidine (Pepcid) 20 mg PO DAILY [facility] Last Admin: 03/17/17 10:56 Dose: 20 mg Ferric Sodium Gluconate Complex (Ferrlecit) 125 mg IVPB DAILY [facility] Stop: 03/18/17 10:01 Last Admin: 03/17/17 10:55 Dose: 125 mg Ferrous Sulfate (Feosol) 325 mg PO DAILY [facility] Last Admin: 03/17/17 10:56 Dose: 325 mg Hydralazine HCl (Apresoline) 25 mg PO Q6H PRN PRN Reason: Systolic Blood Pressure Vancomycin/Sodium Chloride (Vancocin) 1 gm in 200 mls @ 133.333 mls/hr IVPB Q24H [facility] Last Admin: 03/17/17 15:00 Dose: 133.333 mls/hr Cefepime HCl (Maxipime Iv 2 Gm Premix) 2 gm in 100 mls @ 200 mls/hr IVPB Q12H [facility] Stop: 03/17/17 19:31 Last Admin: 03/17/17 09:50 Dose: 200 mls/hr Insulin Detemir (Levemir) 16 unit SC HS [facility] Insulin Human Regular (Novolin R) 0 unit SC ACHS [facility] PRN Reason: Protocol Saccharomyces Bogayedii (Florastor) 250 mg PO BID [facility] Last Admin: 03/17/17 17:31 Dose: 250 mg Sitagliptin Phosphate (Januvia) 25 mg PO DAILY [facility] Last Admin: 03/17/17 11:00 Dose: 25 mg - Labs Labs: 03/17/17 06:42 03/17/17 06:38 - Constitutional Appears: Well, No Acute Distress - Head Exam Head Exam: NORMAL INSPECTION - Eye Exam Eye Exam: Normal appearance - ENT Exam ENT Exam: Mucous Membranes Moist - Respiratory Exam Respiratory Exam: absent: Rales, Rhonchi Additional comments: Mild exp wheezes; - Cardiovascular Exam Cardiovascular Exam: REGULAR RHYTHM, +S1, +S2 - GI/Abdominal Exam GI & Abdominal Exam: Soft. absent: Distended, Tenderness - Extremities Exam Additional comments: Mild lower leg edema; - Neurological Exam Neurological Exam: Alert, Awake - Psychiatric Exam Psychiatric exam: Normal Affect, Normal Mood - Skin Skin Exam: Normal Color, Warm. absent: Cyanosis Assessment and Plan (1) Hyperkalemia Assessment & Plan: Resolved; need to avoid meds that would predispose to hyperkalemia (CARMEN-I/ARB, bactrim); Status: Resolved (2) CKD (chronic kidney disease) Assessment & Plan: Mild; non-proteinuric disease; being on chemo may be contributory; avoid nephrotoxic meds; if needs IV contrast study, should keep volume replete with isotonic saline for 12 hrs; Status: Chronic (3) Hypertension Assessment & Plan: Fluctuating BP control; amlodipine increased to 10 mg daily, will take a few days to have full effect; would avoid ACEI/ARB as mentioned above (no strong indication for it); Status: Acute (4) Diabetes Assessment & Plan: Had been having good glycemic control at home, need to ensure the same to avoid microvascular changes associated with DM; Status: Chronic (5) Lung cancer Assessment & Plan: On etoposide and carboplatin, monitor renal function periodically as outpatient; Status: Acute (6) Catheter-related bloodstream infection Assessment & Plan: Agree with discontinuing genta to avoid nephrotoxicity; will check vanco trough tomorrow; Status: Acute (7) Adrenal mass Assessment & Plan: Misael/renin level sent; doubt pheo; can obtain CT abd/pelvis w/ and w/o IV contrast for better visualization (patient was claustrophobic with MRI); Status: Acute
[2017-03-17] MEDS: Insulin Detemir 100 units/ml Vial (Levemir) SC SCH (21:57)
[2017-03-18] MEDS: Albuterol-Ipratrop 3 mg / 0.5 (3 ml) UD INH SCH ×4 (01:04→19:05)
[2017-03-18] MEDS: (Novolin R) Insulin Human Regular 100 units/ml vial SC SCH ×4 (07:01→21:47)
[2017-03-18 07:41] LABS: BASO # 0.1 K/uL (0.0-0.2); EOS # 0.1 K/uL (0.0-0.7); HEMOGLOBIN 9.7 g/dL (11.0-16.0)
[2017-03-18] MEDS: Budesonide 0.5 mg/2 ml Inhal Susp UD INH SCH ×2 (07:43→19:05)
[2017-03-18 07:52] LABS: BASO % 0.5 % (0.0-2.0); EOS % 0.4 % (0.0-4.0); MEAN CELL VOLUME 90.9 fL (81.0-99.0); MEAN CORPUSCULAR HEMOGLOBIN 29.8 pg (27.0-31.0); MEAN CORPUSCULAR HGB CONC 32.8 g/dL (33.0-37.0); MEAN PLATELET VOLUME 8.9 fL (7.2-11.7); MONO % 5.7 % (0.0-10.0); NEUT # 13.6 K/uL (1.8-7.0); NEUT % 81.4 % (50.0-75.0); RBC 3.26 Mil/uL (3.80-5.20); RED CELL DISTRIBUTION WIDTH 13.8 % (11.5-14.5)
[2017-03-18 07:53] LABS: WHITE BLOOD COUNT 16.7 K/uL (4.8-10.8)
[2017-03-18 07:59] LABS: ALBUMIN 3.2 g/dL (3.5-5.0)
[2017-03-18 08:02] LABS: ALB/GLOB RATIO 1.1 (1.0-2.1)
[2017-03-18 08:03] LABS: CALCIUM 9.3 mg/dl (8.6-10.4); MAGNESIUM 1.4 mg/dL (1.6-2.3)
[2017-03-18] MEDS: Ferric Sodium Gluconat Complex 62.5 mg/5 ml Vial IVPB SCH (09:02)
[2017-03-18] MEDS: Saccharomyces Boulardi 250 mg Cap PO SCH ×2 (09:06→17:51)
--- NOTE | 2017-03-18 09:14 | RAD ---
HISTORY: WBC increased, previous pneumonia COMPARISON: 03/12/2017 FINDINGS: The right Port-A-Cath terminates in the SVC. LUNGS: There is interval development of right lower lobe airspace disease. The left lung is clear. PLEURA: Suspect developing right pleural effusion. No significant left pleural effusion identified, no pneumothorax apparent. CARDIOVASCULAR: Normal. OSSEOUS STRUCTURES: No significant abnormalities. VISUALIZED UPPER ABDOMEN: Normal. OTHER FINDINGS: None. IMPRESSION: Suspect right lower lobe pneumonia and developing right pleural effusion. Follow-up is advised.
--- NOTE | 2017-03-18 10:03 | CP.PCM.PN ---
<NasreenMichelle Rose Mary - Last Filed: 03/18/17 11:11> Subjective - Date & Time of Evaluation Date of Evaluation: 03/18/17 Time of Evaluation: 08:30 - Subjective Subjective: PGY3- Medicine Note- Dr. Pepper's Service Patient seen and examined at bedside this AM. Patient says she is feeling better but still has shortness of breath when she walks to the bathroom and intermittent coughing. Patient reports urinary frequency and suprapubic pain when urinating. Patient denies headache, chest pain, abdominal pain, nausea, vomiting, constipation, diarrhea. Objective - Vital Signs/Intake and Output Vital Signs (last 24 hours): Temp Pulse Resp BP Pulse Ox 98.2 F 87 20 179/68 H 100 03/18/17 07:00 03/18/17 07:00 03/18/17 07:00 03/18/17 07:00 03/18/17 07:00 Intake and Output: 03/18/17 03/18/17 06:59 18:59 Intake Total 350 Balance 350 - Medications Medications: Current Medications Albuterol/Ipratropium (Duoneb 3 Mg/0.5 Mg (3 Ml) Ud) 3 ml INH RQ6 [facility] Last Admin: 03/18/17 07:43 Dose: 3 ml Amlodipine Besylate (Norvasc) 10 mg PO DAILY [facility] Last Admin: 03/18/17 09:06 Dose: 10 mg Budesonide (Pulmicort Respules) 0.5 mg INH RQ12 [facility] Last Admin: 03/18/17 07:43 Dose: 0.5 mg Docusate Sodium (Colace) 100 mg PO BID [facility] Last Admin: 03/18/17 09:06 Dose: 100 mg Famotidine (Pepcid) 20 mg PO DAILY [facility] Last Admin: 03/18/17 09:06 Dose: 20 mg Ferric Sodium Gluconate Complex (Ferrlecit) 125 mg IVPB DAILY [facility] Stop: 03/18/17 10:01 Last Admin: 03/18/17 09:02 Dose: 125 mg Ferrous Sulfate (Feosol) 325 mg PO DAILY [facility] Last Admin: 03/17/17 10:56 Dose: 325 mg Hydralazine HCl (Apresoline) 25 mg PO Q6H PRN PRN Reason: Systolic Blood Pressure Last Admin: 03/18/17 09:06 Dose: 25 mg Vancomycin/Sodium Chloride (Vancocin) 1 gm in 200 mls @ 133.333 mls/hr IVPB Q24H [facility] Last Admin: 03/17/17 15:00 Dose: 133.333 mls/hr Insulin Detemir (Levemir) 16 unit SC HS [facility] Last Admin: 03/17/17 21:57 Dose: 16 unit Insulin Human Regular (Novolin R) 0 unit SC ACHS [facility] PRN Reason: Protocol Last Admin: 03/18/17 07:01 Dose: Not Given Saccharomyces Boulardii (Florastor) 250 mg PO BID [facility] Last Admin: 03/18/17 09:06 Dose: 250 mg Sitagliptin Phosphate (Januvia) 25 mg PO DAILY [facility] Last Admin: 03/18/17 09:06 Dose: 25 mg - Labs Labs: 03/18/17 07:33 03/18/17 07:33 - Constitutional Appears: Non-toxic, No Acute Distress - Head Exam Head Exam: NORMAL INSPECTION - Eye Exam Eye Exam: EOMI - ENT Exam ENT Exam: Mucous Membranes Moist - Respiratory Exam Respiratory Exam: Rhonchi, Wheezes, NORMAL BREATHING PATTERN. absent: Rales - Cardiovascular Exam Cardiovascular Exam: REGULAR RHYTHM, +S1, +S2. absent: Gallop, Rubs, Murmur - GI/Abdominal Exam GI & Abdominal Exam: Soft, Tenderness (suprapubic tenderness), Normal Bowel Sounds - Extremities Exam Extremities Exam: absent: Pedal Edema - Back Exam Back Exam: absent: CVA tenderness (L), CVA tenderness (R) - Neurological Exam Neurological Exam: Alert, Awake, Oriented x3 - Psychiatric Exam Psychiatric exam: Normal Affect, Normal Mood - Skin Skin Exam: Normal Color, Warm Assessment and Plan - Assessment and Plan (Free Text) Assessment: 1. SOB secondary to COPD exacerbation vs. pneumonia WBC increased to 16.7 today with left shift F/U sputum culture CXR (03/18/17) - suspected right lower lobe pneumonia and developing right pleural effusion (please see full report) Azactam 1gm IVPB Q8H ordered per Dr. Wood CT chest (03/10/17): no evidence for PE, ovoid groundglass opacity in right upper lobe 2.4 x 1.5, few smaller ill defined groundglass lesions that appear similar in the right lower lobe and left upper lobe, mild to moderate underlying centrilobular emphysema and some paraseptal emphysema in upper lung zones, 1.7cm left adrenal mass (please see full report) ABG done on 03/12 showed 99 O2 saturation on RA Duoneb 3ml INH q6h Pulmicort .5mg INH q12h Prednisone 40 mg PO daily completed course on 03/17 2. Bacteremia WBC increased to 16.7 today from 8 yesterday + left shift, no bands CXR (03/18/17) - suspected right lower lobe pneumonia and developing right pleural effusion (please see full report) F/U repeat blood culture, sputum culture, UA, and urine culture ordered 03/18/17 Azactam 1gm IVPB Q8H added per Dr. Wood Previous blood cultures: 03/11: from port-a-cath: caog negative staph, from periphery: negative x 5 days 03/12: no growth from either site x 5 days 03/13: no growth from either site x [address] Walter, continue Vancomycin 1 gm daily - holding vancomycin today as the trouch is 21.2 1 dose of gentamicin given 03/12 and one 03/13, held on 03/14 for trough * gentamicin stopped as per Dr. Wood on 03/17 ID, Dr. Walter is consulted, Dr. Wood covering as of 03/16 echo (03/12/27): Left ventricle systolic function is normal. Ejection fraction is 60-65%, diastolic dysfunction, no aortic regurgitation is present, no mitral valve regurg noted, mild tricuspid regurg, mild pulm htn, no pulmonic valvular regurg 3. 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 Dennis (heme/onc) who recommends transfusing platelets if patient is actively bleeding or platelets go below 10,000. Also recommends restarting Plavix once platelets above 50,000 03/16: Platelets 29 4. Diabetes ISS low dose Levemir 16 u SC HS Metformin 1,000 PO BID restarted 03/13 Januvia 50 mg PO daily (lowered from 100 for renal dosing) accuchecks HgA1c: 6.5 discussed with patient that she cannot eat fruits as often because of her unstable sugars 5. HTN Norvasc 10 mg daily Hydralazine 25 mg po q6h prn if sbp >160 lisinopril 10 mg po daily Plavix 75 mg- held due to low HgB and platelets 6. Electrolyte Imbalance K+ 6.1 on 03/13, Kayexalate given Mg 1.3- 2 bags of 1 gm in 100 ml D5W given BMP: on 03/13 K increased to 7.1 then decreased to 6.9 then 03/14 decreased to 4.6 -- total of 90 gm Kayexalate given monitor K+ closely Mg 1 on 03/16- 2 bags of 1 gm magnesium sulfate in 100 ml D5W 7. Chronic Anemia Feosol 325mg PO daily patient transfused 2 units of PRBC on 03/15/17 HgB increased from 7.2 to 9.5 (on 03/16) 03/17: HgB 10 8. Leukocytosis Likely due to Neulasta 16.7 on 03/18 --> See SOB and bacteremia for plan 8 on 03/17 3 on 03/15 5.1 on 03/14 will continue to monitor 9. Small cell lung Cancer Patient to follow up with heme/onc specialist, Dr. Nails upon discharge adrenal mass which was shown on CT -- MRI of abdomen w/wo contrast was unable to be done because patient could not hold her breath * patient to either get imaging as outpatient or CT of adrenals with and without contrast once creatinine decreases 10. Urinary Frequency Returned possibly F/U UA and urine culture ordered 03/18/17 urine culture (03/12): negative U/A on 03/10: 3+ glucose, 1+ leuk esterase, 9 wbcs 11. Prophylactic Measures Pepcid 20 mg PO daily Colace 100 mg PO daily Heparin 5000U SC Q8 <Kaylie Pepper V - Last Filed: 03/18/17 11:30> Objective - Vital Signs/Intake and Output Vital Signs (last 24 hours): Temp Pulse Resp BP Pulse Ox 98.2 F 85 20 179/68 H 100 03/18/17 07:00 03/18/17 07:00 03/18/17 07:00 03/18/17 07:00 03/18/17 07:00 Intake and Output: 03/18/17 03/18/17 06:59 18:59 Intake Total 350 Balance 350 - Medications Medications: Current Medications Albuterol/Ipratropium (Duoneb 3 Mg/0.5 Mg (3 Ml) Ud) 3 ml INH RQ6 [facility] Last Admin: 03/18/17 07:43 Dose: 3 ml Amlodipine Besylate (Norvasc) 10 mg PO DAILY [facility] Last Admin: 03/18/17 09:06 Dose: 10 mg Budesonide (Pulmicort Respules) 0.5 mg INH RQ12 [facility] Last Admin: 03/18/17 07:43 Dose: 0.5 mg Docusate Sodium (Colace) 100 mg PO BID [facility] Last Admin: 03/18/17 09:06 Dose: 100 mg Famotidine (Pepcid) 20 mg PO DAILY [facility] Last Admin: 03/18/17 09:06 Dose: 20 mg Ferrous Sulfate (Feosol) 325 mg PO DAILY [facility] Last Admin: 03/17/17 10:56 Dose: 325 mg Heparin Sodium (Porcine) (Heparin) 5,000 units SC Q8 [facility] Hydralazine HCl (Apresoline) 25 mg PO Q6H PRN PRN Reason: Systolic Blood Pressure Last Admin: 03/18/17 09:06 Dose: 25 mg Vancomycin/Sodium Chloride (Vancocin) 1 gm in 200 mls @ 133.333 mls/hr IVPB Q24H [facility] Last Admin: 03/17/17 15:00 Dose: 133.333 mls/hr Aztreonam 1 gm/ Sodium (Chloride) 100 mls @ 200 mls/hr IVPB Q8H [facility] Insulin Detemir (Levemir) 16 unit SC HS [facility] Last Admin: 03/17/17 21:57 Dose: 16 unit Insulin Human Regular (Novolin R) 0 unit SC ACHS [facility] PRN Reason: Protocol Last Admin: 03/18/17 07:01 Dose: Not Given Saccharomyces Boulardii (Florastor) 250 mg PO BID [facility] Last Admin: 03/18/17 09:06 Dose: 250 mg Sitagliptin Phosphate (Januvia) 25 mg PO DAILY [facility] Last Admin: 03/18/17 09:06 Dose: 25 mg - Labs Labs: 03/18/17 07:33 03/18/17 07:33 Attending/Attestation - Attestation I have personally seen and examined this patient.: Yes I have fully participated in the care of the patient.: Yes I have reviewed all pertinent clinical information, including history, physical exam and plan: Yes Notes (Text): Patient seen, examined, and case discussed with day-time resident. Patient reports she feels like she needs the oxygen to help her breathing. patient reports her cough has worsened and is productive. Patient reports urinary frequency. Patient denies chest pain, denies palpitations and reports she has had a bowel movement. Patient denies any bleeding episodes, denies new rashes. Reviewed lab work: patient white count uptrended; resident spoke with infectious disease; patient started on Aztronem IV. Repeat blood and urine cultures. Repeat chest xray shows worsen infiltrate over the right lower lobe. patient given dose of Lasix IVX1. Platelets improved today. Vancomycin held secondary to elevated trough (21.2). Assessment/Plan 1. Dyspnea * Contributing factors: small cell lung cancer (on chemotherapy), emphysema, and pneumonia, and bactremia * CT chest: no evidence for PE, ovoid groundglass opacity in right upper lobe 2.4 x 1.5, few smaller ill defined groundglass lesions that appear similar in the right lower lobe and left upper lobe, mild to moderate underlying centrilobular emphysema and some paraseptal emphysema in upper lung zones, 1.7cm left adrenal mass * Duoneb 3ml INH q6h * Pulmicort .5mg INH q12h 2. Pneumonia * Infectious Disease (Dr. Walter) on the case-->help appreciated (Dr. Israel elizalde) * CT chest: no evidence for PE, ovoid groundglass opacity in right upper lobe 2.4 x 1.5, few smaller ill defined groundglass lesions that appear similar in the right lower lobe and left upper lobe, mild to moderate underlying centrilobular emphysema and some paraseptal emphysema in upper lung zones, 1.7cm left adrenal mass * Chest xray (03/18/17): suspect right lower lobe pneumonia and developing right pleural effusion * Patient started on Aztreonam 1 gram IV Q 8 hours (active since 03/18/17) 3. Bacteremia * Infectious Disease (Dr. Walter) on the case-->help appreciated (Dr. Israel elizalde) * Blood culture (03/11) from port a cath: gram positive cocci coag negative ( unclear if contaminant or not) * Blood culture (03/11) peripheral: no growth X 5days * Blood culture (03/12) from port a cath: no growth X 5 days * Blood culture (03/12) from port a cath: no growth X 6 days * Blood culture (03/13/17): not from port a cath: no growth X5 days X2 * pending sputum * Cefepime 2gram IV Q12 hours discontinued; secondary to elevated WBC on 03/18/17 * Vancomycin 1gram IVQ 24 hours (active since 03/12/17; held vancomycin today given elevated trough * Given dose of Gentamcin by ID (03/12 and 03/13); gentamcin discontinued 03/17/17 * Echocardiogram (03/13/17): left ventricle systolic function is normal, EF: 60- 65%, diastolic dysfunction, no aortic regurgitation is present. No mitral valve regurgitation noted; mild tricupside regurgitation, mild pulmonary regurgitation , no pulmonic valvuar regurgitation * 1/2 NS 50cc/hr * Florastor 250mg PO bid 4. Diabetes * ISS low dose * Levemir 16 u SC HS * hold metformin because patient received contrast * Renal dose Januvia 25 mg PO daily (lowered from 100 for renal dosing) * accuchecks QAC and HS * HgA1c 6.5 (controlled) * d/c Enalapril 2.5 mg PO BID secondary to BRENDA and hyperkalemia * Emphasized to patient she must eat her meals; patient was hypoglycemic this morning; but reports she only had 2 chocolate pudding cups 5. Hypertension * d/c Enalapril 2.5 mg PO BID secondary to BRENDA and hyperkalemia during hospitalization * Norvasc 10mg PO daily * monitor vital signs 6. Chronic Anemia * Heme-oncology (Dr. Dennis) on board-->help appreciated * held Feosol 325mg PO daily * Patient is on IV Ferriclet 125 IVPB daily (Active since 03/15/17) * Likely secondary to chemotherapy 7. Leukocytosis * Uptrending on 03/18; patient ordered for repeat cultures * Note plan for Bacteremia and Small cell lung cancer 8. Small cell lung Cancer * CT chest: no evidence for PE, ovoid groundglass opacity in right upper lobe 2.4 x 1.5, few smaller ill defined groundglass lesions that appear similar in the right lower lobe and left upper lobe, mild to moderate underlying centrilobular emphysema and some paraseptal emphysema in upper lung zones, 1.7cm left adrenal mass * Patient to follow up with heme/onc specialist, Dr. Nails upon discharge. * Patient is on active chemo therapy and Neulasta prior to admission * Patient unable to complete Abdominal MRI; unable to hold breath for MRI to workup adrenal lesion 9. Emphysema * CT chest: no evidence for PE, ovoid groundglass opacity in right upper lobe 2.4 x 1.5, few smaller ill defined groundglass lesions that appear similar in the right lower lobe and left upper lobe, mild to moderate underlying centrilobular emphysema and some paraseptal emphysema in upper lung zones, 1.7cm left adrenal mass * ABG done 99 O2 saturation on RA * Duoneb 3ml INH q6h * Pulmicort .5mg INH q12h 10. Acute Renal Insufficiency * Nephrology (Dr. Montes) on board-->help appreciated * held enalapril secondary to hyperkalemia and BRENDA * Metformin held secondary to contrast CT * Januvia adjusted to renal dose * gentle IV hydration 11. Thrombocytopenia * held Heparin secondary to thrombocytopenia * Plavix held secondary to thrombocytopenia * Monitor platelets; transfuse if below <10,000k * Monitor for any bleeding episodes * Improving 12. Prophylactic Measures * Pepcid 20 mg PO daily * Colace 100 mg PO daily * d/c Heparin 5000 units SC [id number] secondary to thrombocytopenia * PT eval * Patient refuses subacute rehab
--- NOTE | 2017-03-18 11:37 | CP.PCM.PN ---
Subjective - Date & Time of Evaluation Date of Evaluation: 03/18/17 Time of Evaluation: 10:00 - Subjective Subjective: Patient tolerating diet; Objective - Vital Signs/Intake and Output Vital Signs (last 24 hours): Temp Pulse Resp BP Pulse Ox 98.2 F 85 20 179/68 H 100 03/18/17 07:00 03/18/17 07:00 03/18/17 07:00 03/18/17 07:00 03/18/17 07:00 Intake and Output: 03/18/17 03/18/17 06:59 18:59 Intake Total 350 Balance 350 - Medications Medications: Current Medications Albuterol/Ipratropium (Duoneb 3 Mg/0.5 Mg (3 Ml) Ud) 3 ml INH RQ6 [facility] Last Admin: 03/18/17 07:43 Dose: 3 ml Amlodipine Besylate (Norvasc) 10 mg PO DAILY [facility] Last Admin: 03/18/17 09:06 Dose: 10 mg Budesonide (Pulmicort Respules) 0.5 mg INH RQ12 [facility] Last Admin: 03/18/17 07:43 Dose: 0.5 mg Docusate Sodium (Colace) 100 mg PO BID [facility] Last Admin: 03/18/17 09:06 Dose: 100 mg Famotidine (Pepcid) 20 mg PO DAILY [facility] Last Admin: 03/18/17 09:06 Dose: 20 mg Ferrous Sulfate (Feosol) 325 mg PO DAILY [facility] Last Admin: 03/17/17 10:56 Dose: 325 mg Heparin Sodium (Porcine) (Heparin) 5,000 units SC Q8 [facility] Hydralazine HCl (Apresoline) 25 mg PO Q6H PRN PRN Reason: Systolic Blood Pressure Last Admin: 03/18/17 09:06 Dose: 25 mg Vancomycin/Sodium Chloride (Vancocin) 1 gm in 200 mls @ 133.333 mls/hr IVPB Q24H [facility] Last Admin: 03/17/17 15:00 Dose: 133.333 mls/hr Aztreonam 1 gm/ Sodium (Chloride) 100 mls @ 200 mls/hr IVPB Q8H [facility] Magnesium Sulfate/Dextrose (Magnesium Sulfate 1 Gm/100 Ml D5w) 1 gm in 100 mls @ 300 mls/hr IVPB Q30M [facility] Stop: 03/18/17 12:19 Insulin Detemir (Levemir) 16 unit SC [facility] Last Admin: 03/17/17 21:57 Dose: 16 unit Insulin Human Regular (Novolin R) 0 unit SC [facility] PRN Reason: Protocol Last Admin: 03/18/17 07:01 Dose: Not Given Saccharomyces Boulardii (Florastor) 250 mg PO BID [facility] Last Admin: 03/18/17 09:06 Dose: 250 mg Sitagliptin Phosphate (Januvia) 25 mg PO DAILY [facility] Last Admin: 03/18/17 09:06 Dose: 25 mg - Labs Labs: 03/18/17 07:33 03/18/17 07:33 - Constitutional Appears: Well, No Acute Distress - Head Exam Head Exam: NORMAL INSPECTION - Eye Exam Eye Exam: Normal appearance - ENT Exam ENT Exam: Mucous Membranes Moist - Respiratory Exam Respiratory Exam: Clear to Ausculation Bilateral, NORMAL BREATHING PATTERN - Cardiovascular Exam Cardiovascular Exam: REGULAR RHYTHM, +S1, +S2 - GI/Abdominal Exam GI & Abdominal Exam: Soft. absent: Distended, Tenderness - Extremities Exam Additional comments: minimal leg edema; - Neurological Exam Neurological Exam: Alert, Awake - Psychiatric Exam Psychiatric exam: Normal Affect, Normal Mood - Skin Skin Exam: Normal Color, Warm. absent: Cyanosis Assessment and Plan (1) Hyperkalemia Assessment & Plan: Resolved; secondary to dietary indiscretion superimposed on likely distal tubular aldosterone insensitivity; continue to avoid meds predisoposing to hyperkalemia; Status: Resolved (2) CKD (chronic kidney disease) Assessment & Plan: Non-albuminuric kidney disease, may be due to chemo agents; mild BRENDA likely hemodynamically mediated; avoid nephrotoxic agents; f/u SPEP, serum free light chains; Status: Chronic (3) Hypertension Assessment & Plan: BP uncontrolled; no overt signs of volume excess on exam but does have R pleural effusion; given dose of IV lasix today; will start chlorthalidone 25 mg daily, continue norvasc 10 mg daily; Status: Acute (4) Diabetes Assessment & Plan: A1C at goal, continue adequate glycemic control; Status: Chronic (5) Lung cancer Assessment & Plan: On etoposide and carboplatin, monitor renal function periodically; Status: Acute (6) Catheter-related bloodstream infection Status: Acute (7) Adrenal mass Status: Acute (8) Pleural effusion Assessment & Plan: R pleural effusion; diastolic dysfunction per echo; if increases despite diuresis, should consider thoracentesis; Status: Acute
[2017-03-18] MEDS: Aztreonam 1 GM in Sodium Chloride 0.9% 100 ML IVPB SCH ×3 (12:00→19:26)
[2017-03-18 12:30] LABS: SQUAMOUS EPITHIAL 1 /hpf (0-5); URINE BACTERIA RARE (<OCC); URINE BILIRUBIN NEGATIVE (NEGATIVE); URINE BLOOD 1+ (NEGATIVE); URINE COLOR Straw (YELLOW); URINE GLUCOSE (UA) NORMAL (Normal); URINE LEUKOCYTE ESTERASE TRACE Leu/uL (Negative); URINE NITRATE NEGATIVE (NEGATIVE); URINE PROTEIN NEGATIVE (NEGATIVE); URINE UROBILINOGEN NORMAL mg/dL (0.2-1.0)
[2017-03-18 12:33] LABS: URINE CLARITY SLHAZY (Clear)
[2017-03-18] MEDS: Magnesium Sulfate 1 gm in D5W 1 GM/100 ML BAG IVPB SCH ×4 (15:38→16:29)
[2017-03-18] MEDS: Fluconazole IV 100mg/50 ml NS 50 ML IVPB SCH (17:51)
[2017-03-18] MEDS: Insulin Detemir 100 units/ml Vial (Levemir) SC SCH (22:02)
[2017-03-19] MEDS: Albuterol-Ipratrop 3 mg / 0.5 (3 ml) UD INH SCH ×4 (01:13→20:08)
[2017-03-19] MEDS: Aztreonam 1 GM in Sodium Chloride 0.9% 100 ML IVPB SCH ×3 (02:46→19:30)
[2017-03-19 06:55] LABS: BASO # 0.2 K/uL (0.0-0.2); BASO % 1.4 % (0.0-2.0); EOS # 0.1 K/uL (0.0-0.7); EOS % 0.6 % (0.0-4.0); HEMOGLOBIN 9.8 g/dL (11.0-16.0); LYMPH # 2.6 K/uL (1.0-4.3); LYMPH % 17.2 % (20.0-40.0); MEAN CELL VOLUME 91.1 fL (81.0-99.0); MEAN CORPUSCULAR HEMOGLOBIN 29.8 pg (27.0-31.0); MEAN CORPUSCULAR HGB CONC 32.7 g/dL (33.0-37.0); MEAN PLATELET VOLUME 8.7 fL (7.2-11.7); MONO # 0.7 K/uL (0.0-0.8); MONO % 5.1 % (0.0-10.0); NEUT # 11.2 K/uL (1.8-7.0); NEUT % 75.7 % (50.0-75.0); RBC 3.3 Mil/uL (3.80-5.20); WHITE BLOOD COUNT 14.8 K/uL (4.8-10.8)
[2017-03-19 07:03] LABS: ALBUMIN 3.2 g/dL (3.5-5.0)
[2017-03-19 07:07] LABS: ALB/GLOB RATIO 1.1 (1.0-2.1); CALCIUM 8.9 mg/dl (8.6-10.4)
[2017-03-19] MEDS: Budesonide 0.5 mg/2 ml Inhal Susp UD INH SCH ×2 (07:57→20:08)
[2017-03-19] MEDS: (Novolin R) Insulin Human Regular 100 units/ml vial SC SCH ×4 (08:13→22:09)
[2017-03-19] MEDS: Saccharomyces Boulardi 250 mg Cap PO SCH ×2 (09:53→17:38)
[2017-03-19] MEDS: Fluconazole IV 100mg/50 ml NS 50 ML IVPB SCH (09:54)
--- NOTE | 2017-03-19 10:05 | CP.PCM.PN ---
<Michelle Downey - Last Filed: 03/19/17 10:03> Subjective - Date & Time of Evaluation Date of Evaluation: 03/19/17 Time of Evaluation: 08:40 - Subjective Subjective: PGY3- Medicine Note- Dr. Pepper's Service Patient seen and examined at bedside this AM. Patient says she still feels short of breath and is coughing. Patient says suprapubic pain and urinary frequency have resolved since yesterday. Patient denies headache, chest pain, abdominal pain, nausea, vomiting, constipation, diarrhea. Objective - Vital Signs/Intake and Output Vital Signs (last 24 hours): Temp Pulse Resp BP Pulse Ox 98.1 F 87 20 132/62 94 L 03/19/17 07:00 03/19/17 07:00 03/19/17 07:00 03/19/17 07:00 03/19/17 07:00 - Medications Medications: Current Medications Albuterol/Ipratropium (Duoneb 3 Mg/0.5 Mg (3 Ml) Ud) 3 ml INH RQ6 [facility] Last Admin: 03/19/17 07:57 Dose: 3 ml Amlodipine Besylate (Norvasc) 10 mg PO DAILY [facility] [place] Last Admin: 03/19/17 09:53 Dose: 10 mg Budesonide (Pulmicort Respules) 0.5 mg INH RQ12 [facility] Last Admin: 03/19/17 07:57 Dose: 0.5 mg Chlorthalidone (Hygroton) 25 mg PO DAILY [facility] [place] Docusate Sodium (Colace) 100 mg PO BID [facility] Last Admin: 03/19/17 09:53 Dose: 100 mg Famotidine (Pepcid) 20 mg PO DAILY [facility] Last Admin: 03/19/17 09:53 Dose: 20 mg Ferrous Sulfate (Feosol) 325 mg PO DAILY [facility] [place] Last Admin: 03/17/17 10:56 Dose: 325 mg Heparin Sodium (Porcine) (Heparin) 5,000 units SC Q8 [facility] [place] Last Admin: 03/19/17 06:34 Dose: Not Given Hydralazine HCl (Apresoline) 25 mg PO Q6H PRN PRN Reason: Systolic Blood Pressure Last Admin: 03/19/17 09:53 Dose: 25 mg Vancomycin/Sodium Chloride (Vancocin) 1 gm in 200 mls @ 133.333 mls/hr IVPB Q24H [facility] [place] Last Admin: 03/17/17 15:00 Dose: 133.333 mls/hr Aztreonam 1 gm/ Sodium (Chloride) 100 mls @ 200 mls/hr IVPB Q8H [facility] [place] Last Admin: 03/19/17 02:46 Dose: 200 mls/hr Fluconazole (Diflucan Iv 100 Mg/50 Ml Ns) 50 mls @ 100 mls/hr IVPB DAILY [facility] [place] Last Admin: 03/19/17 09:54 Dose: 100 mls/hr Insulin Detemir (Levemir) 16 unit SC HS [facility] [place] Last Admin: 03/18/17 22:02 Dose: 16 unit Insulin Human Regular (Novolin R) 0 unit SC ACHS [facility] [place] PRN Reason: Protocol Last Admin: 03/19/17 08:13 Dose: Not Given Saccharomyces Boulardii (Florastor) 250 mg PO BID [facility] [place] Last Admin: 03/19/17 09:53 Dose: 250 mg Sitagliptin Phosphate (Januvia) 25 mg PO DAILY [facility] [place] Last Admin: 03/19/17 09:53 Dose: 25 mg - Labs Labs: 03/19/17 06:48 03/19/17 06:48 - Constitutional Appears: Non-toxic, No Acute Distress - Head Exam Head Exam: NORMAL INSPECTION - Eye Exam Eye Exam: EOMI - ENT Exam ENT Exam: Mucous Membranes Moist - Respiratory Exam Respiratory Exam: Rhonchi, Wheezes, NORMAL BREATHING PATTERN. absent: Accessory Muscle Use, Rales - Cardiovascular Exam Cardiovascular Exam: REGULAR RHYTHM, +S1, +S2. absent: Gallop, Rubs, Murmur - GI/Abdominal Exam GI & Abdominal Exam: Soft, Normal Bowel Sounds. absent: Tenderness - Extremities Exam Extremities Exam: Normal Capillary Refill. absent: Pedal Edema - Neurological Exam Neurological Exam: Alert, Awake, Oriented x3 - Psychiatric Exam Psychiatric exam: Normal Affect, Normal Mood - Skin Skin Exam: Normal Color, Warm Assessment and Plan - Assessment and Plan (Free Text) Assessment: 1. Pneumonia WBC 8 (03/17) --> 16.7 (03/18) --> 14.8 (03/19) with left shift Sputum culture - yeast species CXR (03/18/17) - suspected right lower lobe pneumonia and developing right pleural effusion (please see full report) Azactam 1gm IVPB Q8H ordered 03/18/[address] chest (03/10/17): no evidence for PE, ovoid groundglass opacity in right upper lobe 2.4 x 1.5, few smaller ill defined groundglass lesions that appear similar in the right lower lobe and left upper lobe, mild to moderate underlying centrilobular emphysema and some paraseptal emphysema in upper lung zones, 1.7cm left adrenal mass (please see full report) ABG done on 03/12 showed 99 O2 saturation on RA 2. Bacteremia WBC 8 (03/17) --> 16.7 (03/18) --> 14.8 (03/19) + left shift, no bands CXR (03/18/17) - suspected right lower lobe pneumonia and developing right pleural effusion (please see full report) F/U repeat blood culture, sputum culture, UA, and urine culture ordered 03/18/17 Azactam 1gm IVPB Q8H added per Dr. Wood Previous blood cultures: 03/11: from port-a-cath: caog negative staph, from periphery: negative x 5 days 03/12: no growth from either site x 5 days 03/13: no growth from either site x [address] Walter, continue Vancomycin 1 gm daily - held on 03/18/17 for vanco trough of 21.2 1 dose of gentamicin given 03/12 and one 03/13, held on 03/14 for trough * gentamicin stopped as per Dr. Wood on 03/17 ID, Dr. Walter is consulted, Dr. Wood covering as of 03/16 echo (03/12/27): Left ventricle systolic function is normal. Ejection fraction is 60-65%, diastolic dysfunction, no aortic regurgitation is present, no mitral valve regurg noted, mild tricuspid regurg, mild pulm htn, no pulmonic valvular regurg 3. 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 Dennis (heme/onc) who recommends transfusing platelets if patient is actively bleeding or platelets go below 10,000. Also recommends restarting Plavix once platelets above 50,000 03/19: Platelets 42 up from lowest level of 27 2 days ago 4. Diabetes ISS low dose Levemir 16 u SC HS Metformin 1,000 PO BID restarted 03/13 Januvia 50 mg PO daily (lowered from 100 for renal dosing) accuchecks HgA1c: 6.5 discussed with patient that she cannot eat fruits as often because of her unstable sugars 5. HTN Norvasc 10 mg daily Hydralazine 25 mg po q6h prn if sbp >160 lisinopril 10 mg po daily Plavix 75 mg- held due to low HgB and platelets 6. Electrolyte Imbalance Monitor Potassium and Magnesium daily K+ 6.1 on 03/13, Kayexalate given Mg 1.3- 2 bags of 1 gm in 100 ml D5W given BMP: on 03/13 K increased to 7.1 then decreased to 6.9 then 03/14 decreased to 4.6 -- total of 90 gm Kayexalate given monitor K+ closely Mg 1 on 03/16- 2 bags of 1 gm magnesium sulfate in 100 ml D5W 7. Chronic Anemia Feosol 325mg PO daily patient transfused 2 units of PRBC on 03/15/17 HgB increased from 7.2 to 9.5 (on 03/16) 03/19 Hgb 9.8 stable 8. Leukocytosis Likely due to Neulasta 14.8 on 03/19 16.7 on 03/18 --> See SOB and bacteremia for plan 8 on 03/17 3 on 03/15 5.1 on 03/14 will continue to monitor 9. COPD Duoneb 3ml INH q6h Pulmicort .5mg INH q12h Prednisone 40 mg PO daily completed course on 03/17 10. Small cell lung Cancer Patient to follow up with heme/onc specialist, Dr. Nails upon discharge adrenal mass which was shown on CT -- MRI of abdomen w/wo contrast was unable to be done because patient could not hold her breath * patient to either get imaging as outpatient or CT of adrenals with and without contrast once creatinine decreases 11. Urinary Frequency Symptoms resolved 03/19/1703/18 UA: 1+ blood, 17 WBC, 25 RBC 03/18 urine culture shows no growth urine culture (03/12): negative U/A on 03/10: 3+ glucose, 1+ leuk esterase, 9 wbcs 12. Prophylactic Measures Pepcid 20 mg PO daily Colace 100 mg PO daily Heparin 5000U SC Q8 <Kaylie Pepper V - Last Filed: 03/19/17 12:38> Objective - Vital Signs/Intake and Output Vital Signs (last 24 hours): Temp Pulse Resp BP Pulse Ox 98.1 F 87 20 132/62 94 L 03/19/17 07:00 03/19/17 07:00 03/19/17 07:00 03/19/17 07:00 03/19/17 07:00 - Medications Medications: Current Medications Albuterol/Ipratropium (Duoneb 3 Mg/0.5 Mg (3 Ml) Ud) 3 ml INH RQ6 [facility] Last Admin: 03/19/17 07:57 Dose: 3 ml Amlodipine Besylate (Norvasc) 10 mg PO DAILY [facility] [place] Last Admin: 03/19/17 09:53 Dose: 10 mg Budesonide (Pulmicort Respules) 0.5 mg INH RQ12 [facility] [place] Last Admin: 03/19/17 07:57 Dose: 0.5 mg Chlorthalidone (Hygroton) 25 mg PO DAILY [facility] [place] Docusate Sodium (Colace) 100 mg PO BID [facility] [place] Last Admin: 03/19/17 09:53 Dose: 100 mg Famotidine (Pepcid) 20 mg PO DAILY [facility] [place] Last Admin: 03/19/17 09:53 Dose: 20 mg Ferrous Sulfate (Feosol) 325 mg PO DAILY [facility] [place] Last Admin: 03/17/17 10:56 Dose: 325 mg Heparin Sodium (Porcine) (Heparin) 5,000 units SC Q8 [facility] [place] Last Admin: 03/19/17 06:34 Dose: Not Given Hydralazine HCl (Apresoline) 25 mg PO Q6H PRN PRN Reason: Systolic Blood Pressure Last Admin: 03/19/17 09:53 Dose: 25 mg Vancomycin/Sodium Chloride (Vancocin) 1 gm in 200 mls @ 133.333 mls/hr IVPB Q24H [facility] [place] Last Admin: 03/17/17 15:00 Dose: 133.333 mls/hr Aztreonam 1 gm/ Sodium (Chloride) 100 mls @ 200 mls/hr IVPB Q8H [facility] [place] Last Admin: 03/19/17 02:46 Dose: 200 mls/hr Fluconazole (Diflucan Iv 100 Mg/50 Ml Ns) 50 mls @ 100 mls/hr IVPB DAILY [facility] [place] Last Admin: 03/19/17 09:54 Dose: 100 mls/hr Insulin Detemir (Levemir) 16 unit SC HS [facility] [place] Last Admin: 03/18/17 22:02 Dose: 16 unit Insulin Human Regular (Novolin R) 0 unit SC ACHS [facility] [place] PRN Reason: Protocol Last Admin: 03/19/17 08:13 Dose: Not Given Saccharomyces Boulardii (Florastor) 250 mg PO BID [facility] [place] Last Admin: 03/19/17 09:53 Dose: 250 mg Sitagliptin Phosphate (Januvia) 25 mg PO DAILY [facility] [place] Last Admin: 03/19/17 09:53 Dose: 25 mg - Labs Labs: 03/19/17 06:48 03/19/17 06:48 Attending/Attestation - Attestation I have personally seen and examined this patient.: Yes I have fully participated in the care of the patient.: Yes I have reviewed all pertinent clinical information, including history, physical exam and plan: Yes Notes (Text): Patient seen, examined, and case discussed with day-time resident. patient reports her cough has mildly improved. Patient reports urinary frequency , but reports she did receive lasix yesterday. Patient denies any bleeding episodes, denies new rashes. Reviewed lab work: patient white count downtrending; Patient is on Day 2 of Diflucan and Aztreonam. Urine culture (03/18): no growth; f/u blood cultures from 03/18 Platelets improving Assessment/Plan 1. Dyspnea * Contributing factors: small cell lung cancer (on chemotherapy), emphysema, and pneumonia, and bactremia * CT chest: no evidence for PE, ovoid groundglass opacity in right upper lobe 2.4 x 1.5, few smaller ill defined groundglass lesions that appear similar in the right lower lobe and left upper lobe, mild to moderate underlying centrilobular emphysema and some paraseptal emphysema in upper lung zones, 1.7cm left adrenal mass * Duoneb 3ml INH q6h * Pulmicort .5mg INH q12h 2. Pneumonia * Infectious Disease (Dr. Walter) on the case-->help appreciated (Dr. Israel elizalde) * CT chest: no evidence for PE, ovoid groundglass opacity in right upper lobe 2.4 x 1.5, few smaller ill defined groundglass lesions that appear similar in the right lower lobe and left upper lobe, mild to moderate underlying centrilobular emphysema and some paraseptal emphysema in upper lung zones, 1.7cm left adrenal mass * Chest xray (03/18/17): suspect right lower lobe pneumonia and developing right pleural effusion * Patient started on Aztreonam 1 gram IV Q 8 hours (active since 03/18/17) and Diflucan 100mg IV Q daily (active since 03/18/17) 3. Bacteremia * Infectious Disease (Dr. Walter) on the case-->help appreciated (Dr. Israel elizalde) * Blood culture (03/11) from port a cath: gram positive cocci coag negative ( unclear if contaminant or not) * Blood culture (03/11) peripheral: no growth X 5days * Blood culture (03/12) from port a cath: no growth X 5 days * Blood culture (03/12) from port a cath: no growth X 5 days * Blood culture (03/13): not from port a cath: no growth X5 days X2 * Blood culture (03/18): pending * Urine culture (03/18): no growth * Patient started on Aztreonam 1 gram IV Q 8 hours (active since 03/18/17) and Diflucan 100mg IV Q daily (active since 03/18/17) * Prior IV abx: Cefepime 2gram IV Q12 hours discontinued; secondary to elevated WBC on 03/18/17 and Vancomycin 1gram IVQ 24 hours (active since 03/12/17; held vancomycin 03/19/17 * Given dose of Gentamcin by ID (03/12 and 03/13); gentamcin discontinued 03/17/17 * Echocardiogram (03/13/17): left ventricle systolic function is normal, EF: 60- 65%, diastolic dysfunction, no aortic regurgitation is present. No mitral valve regurgitation noted; mild tricupside regurgitation, mild pulmonary regurgitation , no pulmonic valvuar regurgitation * 1/2 NS 50cc/hr * Florastor 250mg PO bid 4. Diabetes * ISS low dose * Levemir 16 u SC HS * hold metformin because patient received contrast * Renal dose Januvia 25 mg PO daily (lowered from 100 for renal dosing) * accuchecks QAC and HS * HgA1c 6.5 (controlled) * d/c Enalapril 2.5 mg PO BID secondary to BRENDA and hyperkalemia * Emphasized to patient she must eat her meals; patient was hypoglycemic this morning; but reports she only had 2 chocolate pudding cups 5. Hypertension * d/c Enalapril 2.5 mg PO BID secondary to BRENDA and hyperkalemia during hospitalization * Norvasc 10mg PO daily * monitor vital signs-->controlled 6. Chronic Anemia * Heme-oncology (Dr. Dennis) on board-->help appreciated * held Feosol 325mg PO daily * Patient is on IV Ferriclet 125 IVPB daily (Active since 03/15/17) * Likely secondary to chemotherapy 7. Leukocytosis * Downtrending on 03/19; patient ordered for repeat cultures * Note plan for Bacteremia and Small cell lung cancer 8. Small cell lung Cancer * CT chest: no evidence for PE, ovoid groundglass opacity in right upper lobe 2.4 x 1.5, few smaller ill defined groundglass lesions that appear similar in the right lower lobe and left upper lobe, mild to moderate underlying centrilobular emphysema and some paraseptal emphysema in upper lung zones, 1.7cm left adrenal mass * Patient to follow up with heme/onc specialist, Dr. Nails upon discharge. * Patient is on active chemo therapy and Neulasta prior to admission * Patient unable to complete Abdominal MRI; unable to hold breath for MRI to workup adrenal lesion 9. Emphysema * CT chest: no evidence for PE, ovoid groundglass opacity in right upper lobe 2.4 x 1.5, few smaller ill defined groundglass lesions that appear similar in the right lower lobe and left upper lobe, mild to moderate underlying centrilobular emphysema and some paraseptal emphysema in upper lung zones, 1.7cm left adrenal mass * ABG done 99 O2 saturation on RA * Duoneb 3ml INH q6h * Pulmicort .5mg INH q12h 10. Acute Renal Insufficiency * Nephrology (Dr. Montes) on board-->help appreciated * held enalapril secondary to hyperkalemia and BRENDA * Metformin held secondary to contrast CT * Januvia adjusted to renal dose * gentle IV hydration 11. Thrombocytopenia * held Heparin secondary to thrombocytopenia * Plavix held secondary to thrombocytopenia * Monitor platelets; transfuse if below <10,000k * Monitor for any bleeding episodes * Improving 12. Prophylactic Measures * Pepcid 20 mg PO daily * Colace 100 mg PO daily * d/c Heparin 5000 units SC [id number] secondary to thrombocytopenia * PT eval (03/17): recommended for home with services * Patient refuses subacute rehab
[2017-03-19 12:58] LABS: SQUAMOUS EPITHIAL 1 /hpf (0-5); URINE BILIRUBIN NEGATIVE (NEGATIVE); URINE BLOOD NEGATIVE (NEGATIVE); URINE CLARITY Hazy (Clear); URINE COLOR Yellow (YELLOW); URINE GLUCOSE (UA) 2+ mg/dL (Normal); URINE LEUKOCYTE ESTERASE NEG Leu/uL (Negative); URINE NITRATE NEGATIVE (NEGATIVE); URINE PROTEIN 1+ mg/dL (NEGATIVE); URINE UROBILINOGEN NORMAL mg/dL (0.2-1.0)
[2017-03-19 13:13] LABS: MAGNESIUM 1.5 mg/dL (1.6-2.3)
--- NOTE | 2017-03-19 14:29 | CP.PCM.PN ---
Subjective - Date & Time of Evaluation Date of Evaluation: 03/19/17 Time of Evaluation: 13:00 - Subjective Subjective: Patient still reporting shortness of breath; denies difficulty urinating or dysuria but does admit to feeling of incomplete evacuation chronically; Objective - Vital Signs/Intake and Output Vital Signs (last 24 hours): Temp Pulse Resp BP Pulse Ox 98.1 F 87 20 132/62 94 L 03/19/17 07:00 03/19/17 07:00 03/19/17 07:00 03/19/17 07:00 03/19/17 07:00 - Medications Medications: Current Medications Albuterol/Ipratropium (Duoneb 3 Mg/0.5 Mg (3 Ml) Ud) 3 ml INH RQ6 [facility] Last Admin: 03/19/17 13:25 Dose: 3 ml Amlodipine Besylate (Norvasc) 10 mg PO DAILY [facility] Last Admin: 03/19/17 09:53 Dose: 10 mg Budesonide (Pulmicort Respules) 0.5 mg INH RQ12 [facility] Last Admin: 03/19/17 07:57 Dose: 0.5 mg Chlorthalidone (Hygroton) 25 mg PO DAILY [facility] Last Admin: 03/19/17 11:23 Dose: 25 mg Docusate Sodium (Colace) 100 mg PO BID [facility] Last Admin: 03/19/17 09:53 Dose: 100 mg Famotidine (Pepcid) 20 mg PO DAILY [facility] Last Admin: 03/19/17 09:53 Dose: 20 mg Ferrous Sulfate (Feosol) 325 mg PO DAILY [facility] Last Admin: 03/17/17 10:56 Dose: 325 mg Heparin Sodium (Porcine) (Heparin) 5,000 units SC Q8 [facility] Last Admin: 03/19/17 06:34 Dose: Not Given Hydralazine HCl (Apresoline) 25 mg PO Q6H PRN PRN Reason: Systolic Blood Pressure Last Admin: 03/19/17 09:53 Dose: 25 mg Vancomycin/Sodium Chloride (Vancocin) 1 gm in 200 mls @ 133.333 mls/hr IVPB Q24H [facility] Last Admin: 03/17/17 15:00 Dose: 133.333 mls/hr Aztreonam 1 gm/ Sodium (Chloride) 100 mls @ 200 mls/hr IVPB Q8H [facility] Last Admin: 03/19/17 11:00 Dose: 200 mls/hr Fluconazole (Diflucan Iv 100 Mg/50 Ml Ns) 50 mls @ 100 mls/hr IVPB DAILY [facility] Last Admin: 03/19/17 09:54 Dose: 100 mls/hr Insulin Detemir (Levemir) 16 unit SC HS [facility] Last Admin: 03/18/17 22:02 Dose: 16 unit Insulin Human Regular (Novolin R) 0 unit SC ACHS [facility] PRN Reason: Protocol Last Admin: 03/19/17 08:13 Dose: Not Given Saccharomyces Boulardii (Florastor) 250 mg PO BID [facility] Last Admin: 03/19/17 09:53 Dose: 250 mg Sitagliptin Phosphate (Januvia) 25 mg PO DAILY [facility] Last Admin: 03/19/17 09:53 Dose: 25 mg - Labs Labs: 03/19/17 06:48 03/19/17 06:48 - Constitutional Appears: Well, No Acute Distress - Head Exam Head Exam: NORMAL INSPECTION - Eye Exam Eye Exam: Normal appearance - ENT Exam ENT Exam: Mucous Membranes Moist - Respiratory Exam Respiratory Exam: NORMAL BREATHING PATTERN. absent: Respiratory Distress Additional comments: minimal exp wheezes; - Cardiovascular Exam Cardiovascular Exam: REGULAR RHYTHM, +S2 - GI/Abdominal Exam GI & Abdominal Exam: Soft. absent: Distended - Exam Exam: absent: Bladder Distension - Extremities Exam Additional comments: mild lower leg edema; - Neurological Exam Neurological Exam: Alert, Awake - Psychiatric Exam Psychiatric exam: Normal Affect, Normal Mood - Skin Skin Exam: Normal Color, Warm. absent: Cyanosis Assessment and Plan (1) BRENDA (acute kidney injury) Assessment & Plan: New worsening of renal function; repeat UA today relatively bland but on directly visualized micro does show some granular casts; likely mild ATN, possibly from gent (last dose given 2 days ago); doubt vanco toxicity as trough level yesterday was acceptable; UA yesterday showing significant number of wbc' s and rbc's, therefore cannot rule out AIN; Patient also has elevated post-void residual on bladder scan today (>300 cc) but without overt hydro, this is not the cause of BRENDA; -discontinue any meds that are not absolutely needed (famotidine) -If renal function continues to worsen, repeat renal US and official bladder US w/ post-void residual volume measurement; Status: Acute (2) Hyperkalemia Assessment & Plan: Mild, recurring in the setting of BRENDA; -low K diet -kayexalate prn Status: Acute (3) CKD (chronic kidney disease) Assessment & Plan: Mild, may be due to reflux nephropathy (see above) as well as chemo drugs; may need outpatient urology referral; Status: Chronic (4) Hypertension Assessment & Plan: Normotensive; recommend to avoid aggressive BP control; d/c prn hydralazine ( was given even though SBP only in 130's); continue amlodipine 10 mg daily; can start chlorthalidone 25 mg daily once daily if SBP consistently over 140; Status: Acute (5) Diabetes Status: Chronic (6) Lung cancer Status: Acute (7) Catheter-related bloodstream infection Assessment & Plan: On vanco; trough level acceptable, continue same dose; Status: Acute (8) Adrenal mass Assessment & Plan: Awaiting umesh/renin assay result; consider CT w/ and w/o contrast when renal function improves (can be done as outpatient); Status: Acute (9) Pleural effusion Assessment & Plan: Continue to monitor; doubt it is due to volume excess; Status: Acute
[2017-03-19] MEDS: Vancomycin 1 gm/NS 200 ml 1 GM/200 ML BAG IVPB SCH (15:12)
--- NOTE | 2017-03-19 16:37 | CP.PCM.CON ---
History of Present Illness - History of Present Illness History of Present Illness: referred for ID eval of recurrent fevers despite IV antibiotics had been on Vanco / Genta blood c/s + coag neg staph- likely contaminant c/o cough w/o hemoptysis has hx of lung CA 71 year old female with a past medical history of DM, COPD, asthma, HTN, and lung cancer (diagnosed in 08/2016), who comes to the emergency room because she was having shortness of breath. Patient had an episode of shortness of breath in the morning which was mostly resolved after a nebulizer treatment. Then patient had shortness of breath and cough in the afternoon that was not resolving. Patient was diagnosed with lung cancer in August for which she has been getting chemo treatments since October. Patient had some mild nausea, 1 episode of vomiting water, and one loose bowel movement today which she attributes to the chemo. Patient denies headache, dizziness, chest pain, palpitations, urinary frequency, dysuria, leg pain, leg swelling. PMD: Dr. Eugene Amaya Heme/Onc: Dr. Ck Nails Pmhx: DM, COPD, asthma, HTN, and lung cancer (diagnosed in 08/2016) Fam hx: mother: DM Social: quit smoking cigarettes when she was diagnosed with lung cancer in August, before then smoked 1-1.5 packs a day for 50 years drinks alcohol once every 3-4 months, smokes marijuana, lives alone Review of Systems - Review of Systems All systems: reviewed and no additional remarkable complaints except - Constitutional Constitutional: As Per HPI - EENT Eyes: absent: As Per HPI, Blind Spots, Blurred Vision, Change in Vision, Decreased Night Vision, Diplopia, Discharge, Dry Eye, Exophthalmos, Floaters, Irritation, Itchy Eyes, Loss of Peripheral Vision, Pain, Photophobia, Requires Corrective Lenses, Sees Flashes, Spots in Vision, Tunnel Vision, Other Visual Disturbances, Loss of Vision, Other Ears: absent: As Per HPI, Decreased Hearing, Ear Discharge, Ear Pain, Tinnitus, Abnormal Hearing, Disequilibrium, Dizziness, Other Nose/Mouth/Throat: absent: As Per HPI, Epistaxis, Nasal Congestion, Nasal Discharge, Nasal Obstruction, Nasal Trauma, Nose Pain, Post Nasal Drip, Sinus Pain, Sinus Pressure, Bleeding Gums, Change in Voice, Dental Pain, Dry Mouth, Dysphagia, Halitosis, Hoarsness, Lip Swelling, Mouth Lesions, Mouth Pain, Odynophagia, Sore Throat, Throat Swelling, Tongue Swelling, Facial Pain, Neck Pain, Neck Mass, Other - Breasts Breasts: absent: As Per HPI, Change in Shape, Mass, Pain, Nipple Discharge, Nipple Inversion, Skin Changes, Swelling, Other - Cardiovascular Cardiovascular: absent: As Per HPI, Acrocyanosis, Chest Pain, Chest Pain at Rest , Chest Pain with Activity, Claudication, Diaphoresis, Dyspnea, Dyspnea on Exertion, Edema, Irregular Heart Rhythm, Pain Radiating to Arm/Neck/Jaw, Leg Edema, Leg Ulcers, Lightheadedness, Orthopnea, Palpitations, Paroxysmal Nocturnal Dyspnea, Pedal Edema, Radiating Pain, Rapid Heart Rate, Slow Heart Rate, Syncope, Other - Respiratory Respiratory: As Per HPI, Cough. absent: Hemoptysis - Gastrointestinal Gastrointestinal: absent: As Per HPI, Abdominal Pain, Belching, Bloating, Change in Bowel Habits, Change in Stool Character, Coffee Ground Emesis, Constipation, Cramping, Diarrhea, Dyspepsia, Dysphagia, Early Satiety, Excessive Flatus, Fecal Incontinence, Heartburn, Hematemesis, Hematochezia, Loose Stools, Melena, Nausea, Odynophagia, Temesmus, Vomiting, Other - Genitourinary Genitourinary: absent: As Per HPI, Change in Urinary Stream, Difficulty Urinating, Dysuria, Flank Pain, Hematuria, Pyuria, Nocturia, Urinary Incontinence, Urinary Frequency, Urinary Hesitance, Urinary Urgency, Voiding Freq/Small Amts, Freq UTI, Hx Renal/Bladder Calculi, Hx /Renal Surgery, Bladder Distension, Other - Reproductive: Female Reproductive:Female: absent: As Per HPI, Amenorrhea, Amenorrhea/ Control, Currently Menstual, Cycle <21 Days, Cycle >35 Days, Cycle Variable, Menses 1-7 Days, Menses >/= 8 Days, Menses Variable, Cycle > 4 Weeks Between, No Menses for 6 Months, Heavy Menses, Light Menses, Normal Menses, Spotting Between Cycles , S/P Hysterectomy, Menopausal, Post Menopausal, Premenarche, Abnormal Vaginal Bleeding, Dysmenorrhea, Dyspareunia, Genital Lesions, Genital Pruritis, Pelvic Pain, Prolapse Symptoms, Sexual Dysfunction, Vaginal Discharge, Vaginal Dryness , Vaginal Odor, Vaginal Pruritis, Other - Menstruation Menstruation: absent: As Per HPI, Amenorrhea, Amenorrhea/ Control, Currently Menstual, Cycle <21 Days, Cycle >35 Days, Cycle Variable, Menses 1-7 Days, Menses >/= 8 Days, Menses Variable, Cycle > 4 Weeks Between, No Menses for 6 Months, Heavy Menses, Light Menses, Normal Menses, Spotting Between Cycles , S/P Hysterectomy, Menopausal, Post Menopausal, Premenarche, Abnormal Vaginal Bleeding, Dysmenorrhea, Other - Musculoskeletal Musculoskeletal: absent: As Per HPI, Abnormal Gait, Arthralgias, Atrophy, Back Pain, Deformity, Joint Swelling, Limited Range of Motion, Loss of Height, Muscle Cramps, Muscle Weakness, Myalgias, Neck Pain, Numbness, Radiating Pain into Limb, Stiffness, Tingling, Other - Integumentary Integumentary: absent: As Per HPI, Acne, Alopecia, Bleeding Lesions, Change in Hair, Change in Nails, Change in Pigmentation, Changing Lesions, Dry Skin, Erythema, Furuncle, Hirsutism, Lesions, New Lesions, Non-Healing Lesions, Photosensitivity, Pruritus, Rash, Skin Pain, Skin Ulcer, Sores, Striae, Swelling , Unusual Bruising, Wounds, Jaundice, Other - Neurological Neurological: absent: As Per HPI, Abnormal Gait, Abnormal Hearing, Abnormal Movements, Abnormal Speech, Behavioral Changes, Burning Sensations, Confusion, Convulsions, Disequilibrium, Dizziness, Numbness, Focal Weakness, Frequent Falls , Headaches, Lack of Coordination, Loss of Vision, Memory Loss, Paresthesias, Radicular Pain, Restless Legs, Sensory Deficit, Syncope, Tingling, Tremor, Vertigo, Weakness, Other Visual Disturbances, Other - Psychiatric Psychiatric: absent: As Per HPI, Abnormal Sleep Pattern, Anhedonia, Anxiety, Auditory Hallucinations, Behavioral Changes, Change in Appetite, Change in Libido, Confusion, Depression, Difficulty Concentrating, Hallucinations, Homicidal Ideation, Hopelessness, Irritability, Memory Loss, Mood Swings, Panic Attacks, Paranoia, Suicidal Ideation, Visual Hallucinations, Tactile Hallucinations, Other - Endocrine Endocrine: absent: As Per HPI, Change in Body Appearance, Change in Libido, Cold Intolorance, Deepening of Voice, Excessive Sweating, Fatigue, Flushing, Heat Intolorance, Increase in Ring/Shoe/Hat Size, Palpitations, Polydipsia, Polyphagia, Polyuria, Other - Hematologic/Lymphatic Hematologic: absent: As Per HPI, Easy Bleeding, Easy Bruising, Lymphadenopathy, Other Past Patient History - Infectious Disease Hx of Infectious Diseases: None - Past Medical History & Family History Past Medical History?: Yes - Past Social History Smoking Status: Former Smoker - CARDIAC Hx Hypertension: Yes - PULMONARY Hx Asthma: Yes Hx Chronic Obstructive Pulmonary Disease (COPD): Yes Hx Emphysema: Yes - NEUROLOGICAL Hx Neurological Disorder: No - HEENT Hx HEENT Problems: No - RENAL Hx Chronic Kidney Disease: No - ENDOCRINE/METABOLIC Hx Endocrine Disorders: Yes Hx Diabetes Mellitus Type 2: Yes - HEMATOLOGICAL/ONCOLOGICAL Hx Cancer: Yes (RIGHT LUNG LOWER LOBE) Other/Comment: CURRENT CHEMO PATIENT - INTEGUMENTARY Hx Dermatological Problems: No - MUSCULOSKELETAL/RHEUMATOLOGICAL Hx Falls: No - GASTROINTESTINAL Hx Gastrointestinal Disorders: No - GENITOURINARY/GYNECOLOGICAL Hx Genitourinary Disorders: No - PSYCHIATRIC Hx Substance Use: Yes - SURGICAL HISTORY Hx Surgeries: Yes Hx Tubal Ligation: Yes Other/Comment: HEMMROIDECOTMY - ANESTHESIA Hx Anesthesia: Yes Hx Anesthesia Reactions: No Meds Allergies/Adverse Reactions: Allergies Allergy/AdvReac Type Severity Reaction Status Date / Time Penicillins Allergy Verified 03/10/17 19:02 - Medications Medications: Current Medications Albuterol/Ipratropium (Duoneb 3 Mg/0.5 Mg (3 Ml) Ud) 3 ml INH RQ6 [facility] Last Admin: 03/19/17 13:25 Dose: 3 ml Amlodipine Besylate (Norvasc) 10 mg PO DAILY [facility] Last Admin: 03/19/17 09:53 Dose: 10 mg Budesonide (Pulmicort Respules) 0.5 mg INH RQ12 [facility] Last Admin: 03/19/17 07:57 Dose: 0.5 mg Chlorthalidone (Hygroton) 25 mg PO DAILY [facility] Last Admin: 03/19/17 11:23 Dose: 25 mg Docusate Sodium (Colace) 100 mg PO BID [facility] Last Admin: 03/19/17 09:53 Dose: 100 mg Famotidine (Pepcid) 20 mg PO DAILY [facility] Last Admin: 03/19/17 09:53 Dose: 20 mg Ferrous Sulfate (Feosol) 325 mg PO DAILY [facility] Last Admin: 03/17/17 10:56 Dose: 325 mg Heparin Sodium (Porcine) (Heparin) 5,000 units SC Q8 [facility] Last Admin: 03/19/17 14:25 Dose: 5,000 units Hydralazine HCl (Apresoline) 25 mg PO Q6H PRN PRN Reason: Systolic Blood Pressure Last Admin: 03/19/17 09:53 Dose: 25 mg Vancomycin/Sodium Chloride (Vancocin) 1 gm in 200 mls @ 133.333 mls/hr IVPB Q24H [facility] Last Admin: 03/19/17 15:12 Dose: 133.333 mls/hr Aztreonam 1 gm/ Sodium (Chloride) 100 mls @ 200 mls/hr IVPB Q8H [facility] Last Admin: 03/19/17 11:00 Dose: 200 mls/hr Fluconazole (Diflucan Iv 100 Mg/50 Ml Ns) 50 mls @ 100 mls/hr IVPB DAILY [facility] Last Admin: 03/19/17 09:54 Dose: 100 mls/hr Insulin Detemir (Levemir) 16 unit SC HS [facility] Last Admin: 03/18/17 22:02 Dose: 16 unit Insulin Human Regular (Novolin R) 0 unit SC ACHS [facility] PRN Reason: Protocol Last Admin: 03/19/17 12:00 Dose: 3 unit Saccharomyces Boulardii (Florastor) 250 mg PO BID [facility] Last Admin: 03/19/17 09:53 Dose: 250 mg Sitagliptin Phosphate (Januvia) 25 mg PO DAILY [facility] Last Admin: 03/19/17 09:53 Dose: 25 mg Physical Exam - Constitutional Appears: Non-toxic, Chronically Ill - Head Exam Head Exam: NORMOCEPHALIC - Eye Exam Eye Exam: PERRL. absent: Scleral icterus - ENT Exam ENT Exam: Mucous Membranes Dry, Normal External Ear Exam - Neck Exam Neck exam: Negative for: Lymphadenopathy, Thyromegaly - Respiratory Exam Respiratory Exam: Decreased Breath Sounds, Rhonchi - Cardiovascular Exam Cardiovascular Exam: REGULAR RHYTHM, +S1, +S2 - GI/Abdominal Exam GI & Abdominal Exam: Diminished Bowel Sounds, Soft. absent: Tenderness - Rectal Exam Rectal Exam: Deferred - Exam Exam: NORMAL INSPECTION - Extremities Exam Extremities exam: Positive for: pedal pulses present. Negative for: calf tenderness, pedal edema, tenderness - Back Exam Back exam: absent: CVA tenderness (L), CVA tenderness (R), paraspinal tenderness - Neurological Exam Neurological exam: Alert, CN II-XII Intact, Oriented x3, Reflexes Normal - Psychiatric Exam Psychiatric exam: Normal Mood - Skin Skin Exam: Dry, Intact Results - Vital Signs Recent Vital Signs: Last Vital Signs Temp 98.1 F 03/19/17 07:00 Pulse 87 03/19/17 07:00 Resp 20 03/19/17 07:00 BP 132/62 03/19/17 07:00 Pulse Ox 94 L 03/19/17 07:00 - Labs Result Diagrams: 03/19/17 06:48 03/19/17 06:48 Labs: Laboratory Results - last 24 hr 03/18/17 03/18/17 03/19/17 16:17 21:07 00:36 WBC RBC Hgb Hct MCV MCH MCHC RDW Plt Count MPV Neut % (Auto) Lymph % (Auto) [place] % (Auto) Eos % (Auto) Baso % (Auto) Neut # Lymph # [place] # Eos # Baso # Differential Comment Sodium Potassium Chloride Carbon Dioxide Anion Gap BUN Creatinine Est GFR ( Amer) Est GFR (Non-Af Amer) POC Glucose (mg/dL) 269 H 228 H 209 H Random Glucose Calcium Magnesium Total Bilirubin AST ALT Alkaline Phosphatase Total Protein Albumin Globulin Albumin/Globulin Ratio Urine Color Urine Clarity Urine pH Ur Specific [place] Urine Protein Urine Glucose (UA) Urine Ketones Urine Blood Urine Nitrate Urine Bilirubin Urine Urobilinogen Ur Leukocyte Esterase Urine WBC (Auto) Urine RBC (Auto) Ur Squamous Epith Cells Urine Osmolality Ur Random Sodium Ur Random Potassium Ur Random Urea Nitrogn 03/19/17 03/19/17 03/19/17 06:05 06:32 06:48 WBC 14.8 H RBC 3.30 L Hgb 9.8 L Hct 30.1 L MCV 91.1 MCH 29.8 MCHC 32.7 L RDW 14.0 Plt Count 42 L MPV 8.7 Neut % (Auto) 75.7 H Lymph % (Auto) 17.2 L [place] % (Auto) 5.1 Eos % (Auto) 0.6 Baso % (Auto) 1.4 Neut # 11.2 H Lymph # 2.6 [place] # 0.7 Eos # 0.1 Baso # 0.2 Differential Comment Sodium Potassium Chloride Carbon Dioxide Anion Gap BUN Creatinine Est GFR ( Amer) Est GFR (Non-Af Amer) POC Glucose (mg/dL) 60 L 110 Random Glucose Calcium Magnesium Total Bilirubin AST ALT Alkaline Phosphatase Total Protein Albumin Globulin Albumin/Globulin Ratio Urine Color Urine Clarity Urine pH Ur Specific [place] Urine Protein Urine Glucose (UA) Urine Ketones Urine Blood Urine Nitrate Urine Bilirubin Urine Urobilinogen Ur Leukocyte Esterase Urine WBC (Auto) Urine RBC (Auto) Ur Squamous Epith Cells Urine Osmolality Ur Random Sodium Ur Random Potassium Ur Random Urea Nitrogn 03/19/17 03/19/17 03/19/17 06:48 11:57 12:46 WBC RBC Hgb Hct MCV MCH MCHC RDW Plt Count MPV Neut % (Auto) Lymph % (Auto) [place] % (Auto) Eos % (Auto) Baso % (Auto) Neut # Lymph # [place] # Eos # Baso # Differential Comment Sodium 137 Potassium 5.3 H Chloride 97 L Carbon Dioxide 29 Anion Gap 16 BUN 26 H Creatinine 1.6 H Est GFR ( Amer) 39 Est GFR (Non-Af Amer) 32 POC Glucose (mg/dL) 203 H Random Glucose 125 H Calcium 8.9 Magnesium 1.5 L Total Bilirubin 0.3 AST 15 ALT 26 Alkaline Phosphatase 94 Total Protein 6.1 L Albumin 3.2 L Globulin 2.8 Albumin/Globulin Ratio 1.1 Urine Color Urine Clarity Urine pH Ur Specific [place] Urine Protein Urine Glucose (UA) Urine Ketones Urine Blood Urine Nitrate Urine Bilirubin Urine Urobilinogen Ur Leukocyte Esterase Urine WBC (Auto) Urine RBC (Auto) Ur Squamous Epith Cells Urine Osmolality 401 Ur Random Sodium Ur Random Potassium Ur Random Urea Nitrogn 03/19/17 03/19/17 03/19/17 12:46 12:50 15:00 WBC RBC Hgb Hct MCV MCH MCHC RDW Plt Count MPV Neut % (Auto) Lymph % (Auto) [place] % (Auto) Eos % (Auto) Baso % (Auto) Neut # Lymph # [place] # Eos # Baso # Differential Comment Sodium Potassium Chloride Carbon Dioxide Anion Gap BUN Creatinine Est GFR ( Amer) Est GFR (Non-Af Amer) POC Glucose (mg/dL) Random Glucose Calcium Magnesium Total Bilirubin AST ALT Alkaline Phosphatase Total Protein Albumin Globulin Albumin/Globulin Ratio Urine Color Yellow Urine Clarity Hazy Urine pH 5.0 Ur Specific [place] 1.012 Urine Protein 1+ H Urine Glucose (UA) 2+ H Urine Ketones Negative Urine Blood Negative Urine Nitrate Negative Urine Bilirubin Negative Urine Urobilinogen Normal Ur Leukocyte Esterase Neg Urine WBC (Auto) 5 Urine RBC (Auto) 2 Ur Squamous Epith Cells 1 Urine Osmolality Ur Random Sodium 80 Ur Random Potassium 33.0 Ur Random Urea Nitrogn 345 Assessment & Plan (1) BRENDA (acute kidney injury) Status: Acute (2) Adrenal mass Status: Acute (3) COPD exacerbation Status: Acute (4) Leucocytosis Status: Acute (5) Lung cancer Status: Acute (6) Staphylococcus epidermidis bacteremia Status: Acute (7) Diabetes Status: Chronic - Assessment and Plan (Free Text) Assessment: fever and leukocytosis likely due to post obstructive pneumonia positive blood c/s likely due to contaminant will switch from Vanco to clinda complete 7 days rx
[2017-03-19] MEDS ORDERED: Clindamycin 600mg/50ml D5W 600 MG/50 ML VIAL IVPB SCH (16:45)
--- NOTE | 2017-03-19 18:45 | CARD ---
APPROVED REPORT EKG Measurement Heart [id number] <Conclusion> Normal sinus rhythm with sinus arrhythmia Normal ECG
[2017-03-19] MEDS: Clindamycin 600mg/50ml NS 600 MG/50 ML BAG IVPB SCH (20:00)
[2017-03-19] MEDS: Insulin Detemir 100 units/ml Vial (Levemir) SC SCH (22:09)
[2017-03-20] MEDS: Albuterol-Ipratrop 3 mg / 0.5 (3 ml) UD INH SCH ×4 (01:13→19:23)
[2017-03-20] MEDS: Clindamycin 600mg/50ml NS 600 MG/50 ML BAG IVPB SCH ×3 (01:47→17:40)
[2017-03-20] MEDS: Aztreonam 1 GM in Sodium Chloride 0.9% 100 ML IVPB SCH ×3 (03:26→18:52)
[2017-03-20 06:26] LABS: BASO % 0.3 % (0.0-2.0); EOS # 0.1 K/uL (0.0-0.7); EOS % 0.5 % (0.0-4.0); HEMOGLOBIN 10.1 g/dL (11.0-16.0); LYMPH # 2.4 K/uL (1.0-4.3); LYMPH % 15.9 % (20.0-40.0); MEAN CELL VOLUME 91.2 fL (81.0-99.0); MEAN CORPUSCULAR HEMOGLOBIN 30.2 pg (27.0-31.0); MEAN CORPUSCULAR HGB CONC 33.1 g/dL (33.0-37.0); MEAN PLATELET VOLUME 7.7 fL (7.2-11.7); MONO # 0.8 K/uL (0.0-0.8); MONO % 5.1 % (0.0-10.0); NEUT # 11.7 K/uL (1.8-7.0); NEUT % 78.2 % (50.0-75.0); RBC 3.36 Mil/uL (3.80-5.20); RED CELL DISTRIBUTION WIDTH 14.1 % (11.5-14.5)
[2017-03-20 06:44] LABS: ALB/GLOB RATIO 1.5 (1.0-2.1); ALBUMIN 3.4 g/dL (3.5-5.0); ALT/SGPT 25 U/L (9-52); AST/SGOT 20 U/L (14-36); BLOOD UREA NITROGEN 28 mg/dL (7-17); CALCIUM 8.8 mg/dl (8.6-10.4); GFR AFRICAN-AMERICAN 36; GFR NON-AFRICAN AMERICAN 30; MAGNESIUM 1.4 mg/dL (1.6-2.3)
[2017-03-20] MEDS: Budesonide 0.5 mg/2 ml Inhal Susp UD INH SCH ×2 (07:26→19:23)
[2017-03-20] MEDS: (Novolin R) Insulin Human Regular 100 units/ml vial SC SCH ×4 (08:06→21:17)
[2017-03-20] MEDS ORDERED: Sod Polystyrene Sulf 15 gm/60 ml Oral Susp PO ONE ×2 (08:47→11:39)
[2017-03-20] MEDS: Saccharomyces Boulardi 250 mg Cap PO SCH ×2 (10:30→17:43)
--- NOTE | 2017-03-20 12:00 | US ---
PROCEDURE: Renal/urinary bladder ultrasound HISTORY: acute renal failure COMPARISON: Renal ultrasound performed 03/14/17 FINDINGS: RIGHT KIDNEY: Measures: 8.4 x 4.6 x 4.6 cm. Echogenic renal parenchyma. No obstructing calculus or hydronephrosis identified. LEFT KIDNEY: Measures: 9.8 x 5.4 x 6.1 cm. Echogenic renal parenchyma. No obstructing calculus or hydronephrosis identified. OTHER FINDINGS: Prevoid urinary bladder measures approximately 7.1 x 3.4 x 7.3 cm, calculated volume 90.4 mL. Postvoid urinary bladder volume measures approximately 3.7 x 2.4 x 3.0 cm, calculated volume 14.2 mL. Bilateral ureteral jets are identified. IMPRESSION: Mildly echogenic renal parenchyma bilaterally may be seen in the setting of medical renal disease. Prevoid urinary bladder volume measures approximately 90.4 mL. Postvoid urinary bladder volume measures approximately 14.2 mL.
--- NOTE | 2017-03-20 12:03 | CP.PCM.PN ---
Subjective - Date & Time of Evaluation Date of Evaluation: 03/20/17 Time of Evaluation: 05:00 - Subjective Subjective: has RLL pneumonia No available cultures may need thoracentesis? IV rx in progress- empiric- allergic to PCN Objective - Vital Signs/Intake and Output Vital Signs (last 24 hours): Temp Pulse Resp BP Pulse Ox 98.6 F 80 18 122/70 97 03/20/17 07:25 03/20/17 07:25 03/20/17 07:25 03/20/17 07:25 03/20/17 07:25 Intake and Output: 03/20/17 03/20/17 06:59 18:59 Intake Total 350 Balance 350 - Medications Medications: Current Medications Albuterol/Ipratropium (Duoneb 3 Mg/0.5 Mg (3 Ml) Ud) 3 ml INH RQ6 [facility] Last Admin: 03/20/17 07:26 Dose: 3 ml Amlodipine Besylate (Norvasc) 10 mg PO DAILY [facility] Last Admin: 03/19/17 09:53 Dose: 10 mg Budesonide (Pulmicort Respules) 0.5 mg INH RQ12 [facility] Last Admin: 03/20/17 07:26 Dose: 0.5 mg Docusate Sodium (Colace) 100 mg PO BID [facility] Last Admin: 03/19/17 17:38 Dose: 100 mg Ferrous Sulfate (Feosol) 325 mg PO DAILY [facility] Last Admin: 03/17/17 10:56 Dose: 325 mg Heparin Sodium (Porcine) (Heparin) 5,000 units SC Q8 [facility] Last Admin: 03/20/17 05:42 Dose: 5,000 units Hydralazine HCl (Apresoline) 25 mg PO Q6H PRN PRN Reason: Systolic Blood Pressure Last Admin: 03/19/17 09:53 Dose: 25 mg Aztreonam 1 gm/ Sodium (Chloride) 100 mls @ 200 mls/hr IVPB Q8H [facility] Last Admin: 03/20/17 03:26 Dose: 200 mls/hr Fluconazole (Diflucan Iv 100 Mg/50 Ml Ns) 50 mls @ 100 mls/hr IVPB DAILY [facility] Last Admin: 03/19/17 09:54 Dose: 100 mls/hr Clindamycin Phosphate (Cleocin In Normal Saline Addvantage) 600 mg in 50 mls @ 100 mls/hr IVPB Q8H [facility] Last Admin: 03/20/17 01:47 Dose: 100 mls/hr Insulin Detemir (Levemir) 16 unit SC HS [facility] Last Admin: 03/19/17 22:09 Dose: Not Given Insulin Human Regular (Novolin R) 0 unit SC ACHS [facility] PRN Reason: Protocol Last Admin: 03/20/17 08:06 Dose: 2 unit Saccharomyces Boulardii (Florastor) 250 mg PO BID [facility] Last Admin: 03/19/17 17:38 Dose: 250 mg Sitagliptin Phosphate (Januvia) 25 mg PO DAILY [facility] Last Admin: 03/19/17 09:53 Dose: 25 mg - Labs Labs: 03/20/17 06:06 03/20/17 06:06 Assessment and Plan (1) BRENDA (acute kidney injury) Status: Acute (2) Adrenal mass Status: Acute (3) COPD exacerbation Status: Acute (4) Leucocytosis Status: Acute (5) Lung cancer Status: Acute (6) Staphylococcus epidermidis bacteremia Status: Acute (7) Diabetes Status: Chronic
[2017-03-20] MEDS: Fluconazole IV 100mg/50 ml NS 50 ML IVPB SCH (12:21)
[2017-03-20 13:56] LABS: ALBUMIN (PEP) 3.3 g/dL (3.8-4.8); ALPHA-1-GLOBULIN (PEP) 0.3 g/dL (0.2-0.3)
[2017-03-20] MEDS: Magnesium Sulfate 1 gm in D5W 1 GM/100 ML BAG IVPB SCH ×4 (14:44→15:37)
--- NOTE | 2017-03-20 14:48 | CP.PCM.PN ---
<Kaylie Pepper V - Last Filed: 03/20/17 17:17> Objective - Vital Signs/Intake and Output Vital Signs (last 24 hours): Temp Pulse Resp BP Pulse Ox 97.4 F L 95 H 20 153/56 H 99 03/20/17 16:00 03/20/17 16:00 03/20/17 16:00 03/20/17 16:00 03/20/17 16:00 Intake and Output: 03/20/17 03/20/17 06:59 18:59 Intake Total 350 880 Balance 350 880 - Medications Medications: Current Medications Albuterol/Ipratropium (Duoneb 3 Mg/0.5 Mg (3 Ml) Ud) 3 ml INH RQ6 [facility] Last Admin: 03/20/17 13:03 Dose: Not Given Amlodipine Besylate (Norvasc) 10 mg PO DAILY [facility] Last Admin: 03/20/17 10:30 Dose: 10 mg Budesonide (Pulmicort Respules) 0.5 mg INH RQ12 [facility] Last Admin: 03/20/17 07:26 Dose: 0.5 mg Docusate Sodium (Colace) 100 mg PO BID [facility] Last Admin: 03/20/17 10:30 Dose: 100 mg Ferrous Sulfate (Feosol) 325 mg PO DAILY [facility] Last Admin: 03/17/17 10:56 Dose: 325 mg Heparin Sodium (Porcine) (Heparin) 5,000 units SC Q8 [facility] Last Admin: 03/20/17 14:56 Dose: Not Given Hydralazine HCl (Apresoline) 25 mg PO Q6H PRN PRN Reason: Systolic Blood Pressure Last Admin: 03/19/17 09:53 Dose: 25 mg Aztreonam 1 gm/ Sodium (Chloride) 100 mls @ 200 mls/hr IVPB Q8H [facility] Last Admin: 03/20/17 12:22 Dose: 200 mls/hr Fluconazole (Diflucan Iv 100 Mg/50 Ml Ns) 50 mls @ 100 mls/hr IVPB DAILY [facility] Last Admin: 03/20/17 12:21 Dose: 100 mls/hr Clindamycin Phosphate (Cleocin In Normal Saline Addvantage) 600 mg in 50 mls @ 100 mls/hr IVPB Q8H [facility] Last Admin: 03/20/17 12:21 Dose: 100 mls/hr Insulin Detemir (Levemir) 16 unit SC HS [facility] Last Admin: 03/19/17 22:09 Dose: Not Given Insulin Human Regular (Novolin R) 0 unit SC ACHS [facility] PRN Reason: Protocol Last Admin: 03/20/17 12:19 Dose: 2 unit Saccharomyces Boulardii (Florastor) 250 mg PO BID [facility] Last Admin: 03/20/17 10:30 Dose: 250 mg Sitagliptin Phosphate (Januvia) 25 mg PO DAILY [facility] Last Admin: 03/20/17 10:30 Dose: 25 mg - Labs Labs: 03/20/17 06:06 03/20/17 06:06 Attending/Attestation - Attestation I have personally seen and examined this patient.: Yes I have fully participated in the care of the patient.: Yes I have reviewed all pertinent clinical information, including history, physical exam and plan: Yes Notes (Text): Patient patrica, examined and case discussed with day-time resident. Patient seen in the afternoon during rounds. patient completed with renal US this morning. Patient reports she does not like the hospital food and wants to eat fruit. Advised patient to not eat high potassium rich fruits and space out her fruit because she is diabetic. Patient reports no change in shortness of breathe and reports she feels better on the oxygen. Electrolytes repleted Per ID, recommended for possible thoracentesis given right pleural effusion on . Will order for CT Chest w/o contrast to see if changed from CT Chest from 03/10/17 and consult pulm. Patient started on Clindamycin on 03/19/17 and on Aztronam on 03/18/17 will monitor white count and remains afebrile. Platelets improving no bleeding episode noted Assessment/Plan 1. Dyspnea * Contributing factors: small cell lung cancer (on chemotherapy), emphysema, and pneumonia, and bactremia * CT chest: no evidence for PE, ovoid groundglass opacity in right upper lobe 2.4 x 1.5, few smaller ill defined groundglass lesions that appear similar in the right lower lobe and left upper lobe, mild to moderate underlying centrilobular emphysema and some paraseptal emphysema in upper lung zones, 1.7cm left adrenal mass * Duoneb 3ml INH q6h * Pulmicort .5mg INH q12h 2. Pneumonia * Infectious Disease (Dr. Walter) on the case-->help appreciated (Dr. Israel elizalde) * CT chest: no evidence for PE, ovoid groundglass opacity in right upper lobe 2.4 x 1.5, few smaller ill defined groundglass lesions that appear similar in the right lower lobe and left upper lobe, mild to moderate underlying centrilobular emphysema and some paraseptal emphysema in upper lung zones, 1.7cm left adrenal mass * Chest xray (03/18/17): suspect right lower lobe pneumonia and developing right pleural effusion * Patient started on Aztreonam 1 gram IV Q 8 hours (active since 03/18/17), Diflucan 100mg IV Q daily (active since 03/18/17), and Clindamycin 600mg IV Q 8 hours (active since 03/19/17 * Sputum (03/16/17): yeast species * Pending repeat Sputum from 03/18/17 3. Bacteremia * Infectious Disease (Dr. Walter) on the case-->help appreciated (Dr. Israel elizalde) * Blood culture (03/11) from port a cath: gram positive cocci coag negative ( unclear if contaminant or not) * Blood culture (03/11) peripheral: no growth X 5days * Blood culture (03/12) from port a cath: no growth X 5 days * Blood culture (03/12) from port a cath: no growth X 5 days * Blood culture (03/13): not from port a cath: no growth X5 days X2 * Blood culture (03/18): no growth for 48 hours X2 * Urine culture (03/18): no growth * Patient started on Aztreonam 1 gram IV Q 8 hours (active since 03/18/17), Diflucan 100mg IV Q daily (active since 03/18/17), Clindamycin 600mg IV Q 8 hours (active since 03/19/17 * Prior IV abx: Cefepime 2gram IV Q12 hours discontinued; secondary to elevated WBC on 03/18/17 and Vancomycin 1gram IVQ 24 hours (active since 03/12/17; held vancomycin 03/19/17 * Given dose of Gentamcin by ID (03/12 and 03/13); gentamcin discontinued 03/17/17 * Echocardiogram (03/13/17): left ventricle systolic function is normal, EF: 60- 65%, diastolic dysfunction, no aortic regurgitation is present. No mitral valve regurgitation noted; mild tricupside regurgitation, mild pulmonary regurgitation , no pulmonic valvuar regurgitation * 1/2 NS 50cc/hr * Florastor 250mg PO bid 4. Diabetes * ISS low dose * Levemir 16 u SC HS * hold metformin because patient received contrast * Renal dose Januvia 25 mg PO daily (lowered from 100 for renal dosing) * accuchecks QAC and HS * HgA1c 6.5 (controlled) * d/c Enalapril 2.5 mg PO BID secondary to BRENDA and hyperkalemia * Emphasized to patient she must eat her meals-->patient only wants fruit; does not want hospital food; explained to patient that fruit is sugar 5. Hypertension * d/c Enalapril 2.5 mg PO BID secondary to BRENDA and hyperkalemia during hospitalization * Norvasc 10mg PO daily * monitor vital signs-->controlled 6. Chronic Anemia * Heme-oncology (Dr. Dennis) on board-->help appreciated * held Feosol 325mg PO daily * Patient is on IV Ferriclet 125 IVPB daily (Active since 03/15/17) * Likely secondary to chemotherapy 7. Leukocytosis * uptrending; repeat cultures are negative * Note plan for Bacteremia and Small cell lung cancer 8. Small cell lung Cancer * CT chest: no evidence for PE, ovoid groundglass opacity in right upper lobe 2.4 x 1.5, few smaller ill defined groundglass lesions that appear similar in the right lower lobe and left upper lobe, mild to moderate underlying centrilobular emphysema and some paraseptal emphysema in upper lung zones, 1.7cm left adrenal mass * Patient ordered for repeat CT Chest to see if changed from initial CT Chest given right pleural effusion fron 03/18/17 * Patient to follow up with heme/onc specialist, Dr. Nails upon discharge. * Patient is on active chemo therapy and Neulasta prior to admission * Patient unable to complete Abdominal MRI; unable to hold breath for MRI to workup adrenal lesion 9. Emphysema * CT chest: no evidence for PE, ovoid groundglass opacity in right upper lobe 2.4 x 1.5, few smaller ill defined groundglass lesions that appear similar in the right lower lobe and left upper lobe, mild to moderate underlying centrilobular emphysema and some paraseptal emphysema in upper lung zones, 1.7cm left adrenal mass * Patient ordered for repeat CT Chest to see if changed from initial CT Chest given right pleural effusion fron 03/18/17 * ABG done 99 O2 saturation on RA * Duoneb 3ml INH q6h * Pulmicort .5mg INH q12h 10. Acute Renal Insufficiency * Nephrology (Dr. Montes) on board-->help appreciated * held enalapril secondary to hyperkalemia and BRENDA * Metformin held secondary to contrast CT * Januvia adjusted to renal dose * gentle IV hydration 11. Thrombocytopenia * held Heparin secondary to thrombocytopenia * Plavix held secondary to thrombocytopenia * Monitor platelets; transfuse if below <10,000k * Monitor for any bleeding episodes * Improving 12. Prophylactic Measures * Pepcid 20 mg PO daily * Colace 100 mg PO daily * d/c Heparin 5000 units SC [id number] secondary to thrombocytopenia * PT eval (03/17): recommended for home with services * Patient refuses subacute rehab <Joaquin Krause - Last Filed: 03/20/17 18:50> Subjective - Date & Time of Evaluation Date of Evaluation: 03/20/17 Time of Evaluation: 08:45 - Subjective Subjective: PGY-[address] Pepper Patient seen and examined at bedside. Patient states that she is feeling generally fine. Patient denies SOB and cough at this time. Patient denies fevers , chills, CP, abdominal pain, n/v/c/d. Objective - Vital Signs/Intake and Output Vital Signs (last 24 hours): Temp Pulse Resp BP Pulse Ox 98.6 F 80 18 122/70 97 03/20/17 07:25 03/20/17 07:25 03/20/17 07:25 03/20/17 07:25 03/20/17 07:25 Intake and Output: 03/20/17 03/20/17 06:59 18:59 Intake Total 350 Balance 350 - Medications Medications: Current Medications Albuterol/Ipratropium (Duoneb 3 Mg/0.5 Mg (3 Ml) Ud) 3 ml INH RQ6 [facility] Last Admin: 03/20/17 13:03 Dose: Not Given Amlodipine Besylate (Norvasc) 10 mg PO DAILY [facility] Last Admin: 03/20/17 10:30 Dose: 10 mg Budesonide (Pulmicort Respules) 0.5 mg INH RQ12 [facility] Last Admin: 03/20/17 07:26 Dose: 0.5 mg Docusate Sodium (Colace) 100 mg PO BID [facility] Last Admin: 03/20/17 10:30 Dose: 100 mg Ferrous Sulfate (Feosol) 325 mg PO DAILY [facility] Last Admin: 03/17/17 10:56 Dose: 325 mg Heparin Sodium (Porcine) (Heparin) 5,000 units SC Q8 [facility] Last Admin: 03/20/17 05:42 Dose: 5,000 units Hydralazine HCl (Apresoline) 25 mg PO Q6H PRN PRN Reason: Systolic Blood Pressure Last Admin: 03/19/17 09:53 Dose: 25 mg Aztreonam 1 gm/ Sodium (Chloride) 100 mls @ 200 mls/hr IVPB Q8H [facility] Last Admin: 03/20/17 12:22 Dose: 200 mls/hr Fluconazole (Diflucan Iv 100 Mg/50 Ml Ns) 50 mls @ 100 mls/hr IVPB DAILY [facility] Last Admin: 03/20/17 12:21 Dose: 100 mls/hr Clindamycin Phosphate (Cleocin In Normal Saline Addvantage) 600 mg in 50 mls @ 100 mls/hr IVPB Q8H [facility] Last Admin: 03/20/17 12:21 Dose: 100 mls/hr Magnesium Sulfate/Dextrose (Magnesium Sulfate 1 Gm/100 Ml D5w) 1 gm in 100 mls @ 300 mls/hr IVPB Q30M [facility] Stop: 03/20/17 15:34 Insulin Detemir (Levemir) 16 unit SC HS [facility] Last Admin: 03/19/17 22:09 Dose: Not Given Insulin Human Regular (Novolin R) 0 unit SC ACHS [facility] PRN Reason: Protocol Last Admin: 03/20/17 12:19 Dose: 2 unit Saccharomyces Boulardii (Florastor) 250 mg PO BID [facility] Last Admin: 03/20/17 10:30 Dose: 250 mg Sitagliptin Phosphate (Januvia) 25 mg PO DAILY [facility] Last Admin: 03/20/17 10:30 Dose: 25 mg - Labs Labs: 03/20/17 06:06 03/20/17 06:06 - Constitutional Appears: No Acute Distress - Head Exam Head Exam: ATRAUMATIC, NORMAL INSPECTION, NORMOCEPHALIC - Eye Exam Eye Exam: EOMI, PERRL - ENT Exam ENT Exam: Mucous Membranes Moist - Respiratory Exam Additional comments: Decreased breath sounds on the right. Coarse breath sounds on left. Wheezing appreciated from the front. - Cardiovascular Exam Cardiovascular Exam: REGULAR RHYTHM, +S1, +S2 - GI/Abdominal Exam GI & Abdominal Exam: Soft, Normal Bowel Sounds - Neurological Exam Neurological Exam: Alert, Awake, Oriented x3 - Skin Skin Exam: Dry, Intact, Normal Color, Warm Assessment and Plan - Assessment and Plan (Free Text) Plan: 1. Pneumonia WBC 8 (03/17) --> 16.7 (03/18) --> 14.8 (03/19) --> 15(03/20) with left shift Sputum culture - yeast species CXR (03/18/17) - suspected right lower lobe pneumonia and developing right pleural effusion (please see full report) Azactam 1gm IVPB Q8H ordered 03/18/[address] chest (03/10/17): no evidence for PE, ovoid groundglass opacity in right upper lobe 2.4 x 1.5, few smaller ill defined groundglass lesions that appear similar in the right lower lobe and left upper lobe, mild to moderate underlying centrilobular emphysema and some paraseptal emphysema in upper lung zones, 1.7cm left adrenal mass (please see full report) ABG done on 03/12 showed 99 O2 saturation on RA F/u Repeat Chest CT to evaluate for developing right pleural effusion 2. Bacteremia WBC 8 (03/17) --> 16.7 (03/18) --> 14.8 (03/19)--> 15(03/20) + left shift, no bands CXR (03/18/17) - suspected right lower lobe pneumonia and developing right pleural effusion (please see full report) F/U repeat blood culture, sputum culture, UA, and urine culture ordered 03/18/17 Azactam 1gm IVPB Q8H added per Dr. Wood Clindamycin 600 mg Q8H added on 03/19 to replace vancomycin Previous blood cultures: 03/11: from port-a-cath: caog negative staph, from periphery: negative x 5 days 03/12: no growth from either site 03/13: no growth from either site as per Dr. Walter, continue Vancomycin 1 gm daily - held on 03/18/17 for vanco trough of 21.2 1 dose of gentamicin given 03/12 and one 03/13, held on 03/14 for trough * gentamicin stopped as per Dr. Wood on 03/17 ID, Dr. Walter is consulted, Dr. Wood covering as of 03/16 echo (03/12/27): Left ventricle systolic function is normal. Ejection fraction is 60-65%, diastolic dysfunction, no aortic regurgitation is present, no mitral valve regurg noted, mild tricuspid regurg, mild pulm htn, no pulmonic valvular regurg 3. 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 Dennis (heme/onc) who recommends transfusing platelets if patient is actively bleeding or platelets go below 10,000. Also recommends restarting Plavix once platelets above 50,000 03/19: Platelets 42 up from lowest level of 27 2 days ago 03/20: Platelets 63 but will hold off on plavix for now 4. Diabetes ISS low dose Levemir 16 u SC HS Metformin 1,000 PO BID restarted 03/13 Januvia 50 mg PO daily (lowered from 100 for renal dosing) accuchecks HgA1c: 6.5 5. HTN Norvasc 10 mg daily Hydralazine 25 mg po q6h prn if sbp >160 lisinopril 10 mg po daily Plavix 75 mg- held due to low HgB and platelets 6. Electrolyte Imbalance Monitor Potassium and Magnesium daily K+ 6.1 on 03/13, Kayexalate given Mg 1.3- 2 bags of 1 gm in 100 ml D5W given BMP: on 03/13 K increased to 7.1 then decreased to 6.9 then 03/14 decreased to 4.6 -- total of 90 gm Kayexalate given monitor K+ closely Mg 1 on 03/16- 2 bags of 1 gm magnesium sulfate in 100 ml D5W 03/20: Mag 1.4 so 1 gm mag sulfate given 7. Chronic Anemia Feosol 325mg PO daily patient transfused 2 units of PRBC on 03/15/17 HgB increased from 7.2 to 9.5 (on 03/16) 03/20 Hgb 10.1 03/19 Hgb 9.8 stable 8. Leukocytosis Likely due to Neulasta 15 on 03/20 14.8 on 03/19 16.7 on 03/18 --> See SOB and bacteremia for plan 8 on 03/17 3 on 03/15 5.1 on 03/14 will continue to monitor 9. COPD Duoneb 3ml INH q6h Pulmicort .5mg INH q12h Prednisone 40 mg PO daily completed course on 03/17 10. Small cell lung Cancer Patient to follow up with heme/onc specialist, Dr. Nails upon discharge adrenal mass which was shown on CT -- MRI of abdomen w/wo contrast was unable to be done because patient could not hold her breath * patient to either get imaging as outpatient or CT of adrenals with and without contrast once creatinine decreases 11. Urinary Frequency Symptoms resolved 03/19/1703/18 UA: 1+ blood, 17 WBC, 25 RBC 03/18 urine culture shows no growth urine culture (03/12): negative U/A on 03/10: 3+ glucose, 1+ leuk esterase, 9 wbcs 12. Prophylactic Measures Pepcid 20 mg PO daily Colace 100 mg PO daily Heparin 5000U SC Q8 Case discussed with Dr. Evgeny Krause PGY1
--- NOTE | 2017-03-20 17:26 | CP.PCM.PN ---
Subjective - Date & Time of Evaluation Date of Evaluation: 03/20/17 Time of Evaluation: 13:00 - Subjective Subjective: Patient still reporting shortness of breath; had banana yesterday because she feels naseous with hospital food; Objective - Vital Signs/Intake and Output Vital Signs (last 24 hours): Temp Pulse Resp BP Pulse Ox 97.4 F L 95 H 20 153/56 H 99 03/20/17 16:00 03/20/17 16:00 03/20/17 16:00 03/20/17 16:00 03/20/17 16:00 Intake and Output: 03/20/17 03/20/17 06:59 18:59 Intake Total 350 880 Balance 350 880 - Medications Medications: Current Medications Albuterol/Ipratropium (Duoneb 3 Mg/0.5 Mg (3 Ml) Ud) 3 ml INH RQ6 [facility] Last Admin: 03/20/17 13:03 Dose: Not Given Amlodipine Besylate (Norvasc) 10 mg PO DAILY [facility] Last Admin: 03/20/17 10:30 Dose: 10 mg Budesonide (Pulmicort Respules) 0.5 mg INH RQ12 [facility] Last Admin: 03/20/17 07:26 Dose: 0.5 mg Docusate Sodium (Colace) 100 mg PO BID [facility] Last Admin: 03/20/17 10:30 Dose: 100 mg Ferrous Sulfate (Feosol) 325 mg PO DAILY [facility] Last Admin: 03/17/17 10:56 Dose: 325 mg Heparin Sodium (Porcine) (Heparin) 5,000 units SC Q8 [facility] Last Admin: 03/20/17 14:56 Dose: Not Given Hydralazine HCl (Apresoline) 25 mg PO Q6H PRN PRN Reason: Systolic Blood Pressure Last Admin: 03/19/17 09:53 Dose: 25 mg Aztreonam 1 gm/ Sodium (Chloride) 100 mls @ 200 mls/hr IVPB Q8H [facility] Last Admin: 03/20/17 12:22 Dose: 200 mls/hr Fluconazole (Diflucan Iv 100 Mg/50 Ml Ns) 50 mls @ 100 mls/hr IVPB DAILY [facility] Last Admin: 03/20/17 12:21 Dose: 100 mls/hr Clindamycin Phosphate (Cleocin In Normal Saline Addvantage) 600 mg in 50 mls @ 100 mls/hr IVPB Q8H [facility] Last Admin: 03/20/17 12:21 Dose: 100 mls/hr Insulin Detemir (Levemir) 16 unit SC HS [facility] Last Admin: 03/19/17 22:09 Dose: Not Given Insulin Human Regular (Novolin R) 0 unit SC ACHS [facility] PRN Reason: Protocol Last Admin: 03/20/17 12:19 Dose: 2 unit Saccharomyces Boulardii (Florastor) 250 mg PO BID [facility] Last Admin: 03/20/17 10:30 Dose: 250 mg Sitagliptin Phosphate (Januvia) 25 mg PO DAILY [facility] Last Admin: 03/20/17 10:30 Dose: 25 mg - Labs Labs: 03/20/17 06:06 03/20/17 06:06 - Constitutional Appears: Non-toxic, No Acute Distress - Head Exam Head Exam: NORMAL INSPECTION - Eye Exam Eye Exam: Normal appearance. absent: Scleral icterus - ENT Exam ENT Exam: Mucous Membranes Moist - Neck Exam Neck Exam: Normal Inspection - Respiratory Exam Respiratory Exam: Clear to Ausculation Bilateral, NORMAL BREATHING PATTERN. absent: Rales, Rhonchi, Wheezes - Cardiovascular Exam Cardiovascular Exam: REGULAR RHYTHM, +S1, +S2 - GI/Abdominal Exam GI & Abdominal Exam: Soft. absent: Distended - Exam Exam: absent: Bladder Distension - Extremities Exam Additional comments: Mild lower leg edema; - Neurological Exam Neurological Exam: Alert, Awake - Skin Skin Exam: Normal Color, Warm. absent: Cyanosis Assessment and Plan (1) BRENDA (acute kidney injury) Assessment & Plan: Likely mild tubular injury from gentamicin, last dosed 03/17; may also be sensitive to hemodynamic changes; serum creatinine appears to be stabilizing; no hydronephrosis or bladder distention on US today (obtained due to high PVR volume on bladder scan yesterday); -avoid aggressive BP control Status: Acute (2) Hyperkalemia Assessment & Plan: Appears prone to hyperkalemia, likely due to distal tubular umesh insensitivity; hyperkalemia worsened now with BRENDA and also with dietary indiscretion; -kayexalate prn -low K diet Status: Acute (3) CKD (chronic kidney disease) Assessment & Plan: Mild renal insufficiency; possibility of renovascular disease with somewhat small R kidney as well as nephrotoxicity from chemo agents; monitor; avoid further nephrotoxic agents (gent, NSAIDS); Status: Chronic (4) Hypertension Assessment & Plan: Erratic BP control, from low/normal to hypertensive; avoid dropping SBP < 140; Status: Acute (5) Diabetes Status: Chronic (6) Lung cancer Status: Acute (7) Catheter-related bloodstream infection Assessment & Plan: Now off both gent and vanco for coag neg Staph; Status: Acute (8) Adrenal mass Assessment & Plan: f/u umesh/renin assay; Status: Acute (9) Pleural effusion Status: Acute - Assessment and Plan (Free Text) Assessment: SIRS/Leukocytosis - On aztreonam 1 g q8h, dose reduced for renal insufficiency; clinda started recently, no renal dose adjustment needed;
--- NOTE | 2017-03-20 18:52 | CT ---
PROCEDURE: CT Chest without contrast HISTORY: pleural effusion, pneumonia COMPARISON: 03/10/2017 TECHNIQUE: Contiguous axial images were obtained through the chest without intravenous contrast enhancement. Sagittal and coronal reconstructions were performed. Radiation dose (DLP): 328 mGy-cm. This CT exam was performed using one or more of the following dose reduction techniques: Automated exposure control, adjustment of the mA and/or kV according to patient size, and/or use of iterative reconstruction technique. FINDINGS: LUNGS: There is a ground-glass infiltrate in the right upper lobe measuring 17 x 22 mm. Image 39 series 3. This is unchanged. Small nodular densities probably representing scars can be seen in the right apex image 26 in the right lower lobe image 75. No interval change in the short time interval from the previous study MEDIASTINUM: Unremarkable thoracic aorta. No aneurysm. Normal sized heart. Main pulmonary artery unremarkable. No vascular congestion. No lymphadenopathy. PLEURA: No pleural fluid. No pneumothorax. BONES: No fracture. No destructive lesion. UPPER ABDOMEN: Grossly unremarkable. OTHER FINDINGS: None. IMPRESSION: No change in ground-glass infiltrate in the right upper lobe and no change in small nodular densities are scars. No acute findings
[2017-03-20] MEDS: Insulin Detemir 100 units/ml Vial (Levemir) SC SCH (22:48)
[2017-03-21] MEDS: Albuterol-Ipratrop 3 mg / 0.5 (3 ml) UD INH SCH ×4 (01:27→19:27)
[2017-03-21] MEDS: Clindamycin 600mg/50ml NS 600 MG/50 ML BAG IVPB SCH ×3 (01:45→17:27)
[2017-03-21] MEDS: Aztreonam 1 GM in Sodium Chloride 0.9% 100 ML IVPB SCH ×3 (03:40→18:45)
[2017-03-21] MEDS: Budesonide 0.5 mg/2 ml Inhal Susp UD INH SCH ×2 (07:18→19:27)
[2017-03-21] MEDS: (Novolin R) Insulin Human Regular 100 units/ml vial SC SCH ×4 (08:45→22:44)
[2017-03-21] MEDS: Fluconazole IV 100mg/50 ml NS 50 ML IVPB SCH (09:56)
[2017-03-21] MEDS: Saccharomyces Boulardi 250 mg Cap PO SCH ×2 (09:56→17:27)
[2017-03-21] MEDS ORDERED: Sod Polystyrene Sulf 15 gm/60 ml Oral Susp PO ONE (10:35)
--- NOTE | 2017-03-21 10:40 | CP.PCM.PN ---
Subjective - Date & Time of Evaluation Date of Evaluation: 03/21/17 Time of Evaluation: 08:00 - Subjective Subjective: awake and alert less cough and less sob denies chest pain Objective - Vital Signs/Intake and Output Vital Signs (last 24 hours): Temp Pulse Resp BP Pulse Ox 97.7 F 64 18 142/89 98 03/21/17 08:45 03/21/17 08:45 03/21/17 08:45 03/21/17 08:45 03/21/17 08:45 Intake and Output: 03/21/17 03/21/17 06:59 18:59 Intake Total 350 Balance 350 - Medications Medications: Current Medications Albuterol/Ipratropium (Duoneb 3 Mg/0.5 Mg (3 Ml) Ud) 3 ml INH RQ6 [facility] Last Admin: 03/21/17 07:18 Dose: 3 ml Amlodipine Besylate (Norvasc) 10 mg PO DAILY [facility] Last Admin: 03/21/17 09:56 Dose: 10 mg Budesonide (Pulmicort Respules) 0.5 mg INH RQ12 [facility] Last Admin: 03/21/17 07:18 Dose: 0.5 mg Docusate Sodium (Colace) 100 mg PO BID [facility] Last Admin: 03/21/17 09:56 Dose: 100 mg Ferrous Sulfate (Feosol) 325 mg PO DAILY [facility] Last Admin: 03/17/17 10:56 Dose: 325 mg Heparin Sodium (Porcine) (Heparin) 5,000 units SC Q8 [facility] Last Admin: 03/20/17 22:48 Dose: Not Given Hydralazine HCl (Apresoline) 25 mg PO Q6H PRN PRN Reason: Systolic Blood Pressure Last Admin: 03/19/17 09:53 Dose: 25 mg Aztreonam 1 gm/ Sodium (Chloride) 100 mls @ 200 mls/hr IVPB Q8H [facility] Last Admin: 03/21/17 03:40 Dose: 200 mls/hr Fluconazole (Diflucan Iv 100 Mg/50 Ml Ns) 50 mls @ 100 mls/hr IVPB DAILY [facility] Last Admin: 03/21/17 09:56 Dose: 100 mls/hr Clindamycin Phosphate (Cleocin In Normal Saline Addvantage) 600 mg in 50 mls @ 100 mls/hr IVPB Q8H [facility] Last Admin: 03/21/17 08:45 Dose: 100 mls/hr Insulin Detemir (Levemir) 16 unit SC HS [facility] Last Admin: 03/20/17 22:48 Dose: Not Given Insulin Human Regular (Novolin R) 0 unit SC ACHS [facility] PRN Reason: Protocol Last Admin: 03/21/17 08:45 Dose: 2 unit Saccharomyces Boulardii (Florastor) 250 mg PO BID [facility] Last Admin: 03/21/17 09:56 Dose: 250 mg Sitagliptin Phosphate (Januvia) 25 mg PO DAILY [facility] Last Admin: 03/21/17 09:56 Dose: 25 mg - Labs Labs: 03/20/17 06:06 03/20/17 06:06 - Constitutional Appears: Non-toxic, Cachectic, Chronically Ill - Head Exam Head Exam: NORMOCEPHALIC - Eye Exam Eye Exam: PERRL. absent: Scleral icterus - ENT Exam ENT Exam: Mucous Membranes Dry - Neck Exam Neck Exam: absent: Lymphadenopathy - Respiratory Exam Respiratory Exam: Decreased Breath Sounds, Prolonged Expiratory Phase, Rales - Cardiovascular Exam Cardiovascular Exam: REGULAR RHYTHM, +S1, +S2 - GI/Abdominal Exam GI & Abdominal Exam: Distended, Soft - Rectal Exam Rectal Exam: Deferred - Exam Exam: NORMAL INSPECTION - Extremities Exam Extremities Exam: absent: Calf Tenderness, Pedal Edema - Back Exam Back Exam: absent: CVA tenderness (L), CVA tenderness (R) - Neurological Exam Neurological Exam: Alert, Awake, Oriented x3 - Psychiatric Exam Psychiatric exam: Normal Mood - Skin Skin Exam: Dry Assessment and Plan (1) BRENDA (acute kidney injury) Status: Acute (2) Adrenal mass Status: Acute (3) COPD exacerbation Status: Acute (4) Leucocytosis Status: Acute (5) Lung cancer Status: Acute (6) Staphylococcus epidermidis bacteremia Status: Acute (7) Diabetes Status: Chronic - Assessment and Plan (Free Text) Assessment: staph epi bacteremia- likely a contaminant Vanco/ genta ( Dr Walter ) d/c'd as pt no longer neutropenic or febrile IV clinda/ azactam in progress - CT reviewed- no effusion or empyema suspected- consider de-escalation to PO Levaquin cont rx for 7 days follow up with HemeOnc and Pulm as out pt
[2017-03-21] MEDS ORDERED: Hydrocortisone 2.5% Rectal Cream(30 gm) PR PRN (13:43)
[2017-03-21 13:56] LABS: BASO % 0.3 % (0.0-2.0); EOS # 0.1 K/uL (0.0-0.7); EOS % 0.5 % (0.0-4.0); MEAN CELL VOLUME 92.3 fL (81.0-99.0); MEAN CORPUSCULAR HEMOGLOBIN 29.2 pg (27.0-31.0); MEAN CORPUSCULAR HGB CONC 31.6 g/dL (33.0-37.0); MONO # 0.8 K/uL (0.0-0.8); NEUT # 13.5 K/uL (1.8-7.0); NEUT % 82.2 % (50.0-75.0); RBC 3.43 Mil/uL (3.80-5.20); RED CELL DISTRIBUTION WIDTH 14.4 % (11.5-14.5); WHITE BLOOD COUNT 16.4 K/uL (4.8-10.8)
[2017-03-21 14:15] LABS: ALBUMIN 3.6 g/dL (3.5-5.0)
[2017-03-21 14:18] LABS: ALB/GLOB RATIO 1.2 (1.0-2.1)
[2017-03-21 14:19] LABS: CALCIUM 8.9 mg/dl (8.6-10.4); MAGNESIUM 1.7 mg/dL (1.6-2.3)
[2017-03-21 14:57] LABS: ALDO/PRA RATIO 4.3 Ratio (0.9-28.9)
--- NOTE | 2017-03-21 16:07 | CP.PCM.CON ---
History of Present Illness - History of Present Illness History of Present Illness: Reason for consult: Shortness of breath and possible pleural effusion. Patient is a 71 year old female with a past medical history of asthma, diabetes mellitus, hypertension, small cell lung cancer, (dx in August 2016) presents with shortness of breath. Chest x ray from 03/18/17 showed right lower lobe pneumonia and developing right sided pleural effusion. Chest Ct today showed only ground glass lesions that were chronic in nature. Today patient reports that she experienced dyspnea at rest yesterday when she was not wearing her nasal cannula. Today she was able to walk around the hospital floor with oxygen delivered via nasal cannula. Patient reports that dyspnea has improved since yesterday but still has a productive cough of white sputum. Patient denied chest pain, fever, chills, n/v/d/c. Med Hx: asthma, COPD, emphysema, hypertension, diabetes mellitus, small cell lung carcinoma (has received 4 rounds of chemo from Dr. Ck Nails, has one round left and then will get radiation treatment) Surgical Hx: none Family hx; mom has diabetes Social hx: previous smoking hx of 1-1.5ppd x 50 years, quit smoking this past August after dx of lung cancer, reports smoking marijuana, social ETOH use Allergies: Penicillin Past Patient History - Infectious Disease Hx of Infectious Diseases: None - Past Medical History & Family History Past Medical History?: Yes - Past Social History Smoking Status: Former Smoker - CARDIAC Hx Hypertension: Yes - PULMONARY Hx Asthma: Yes Hx Chronic Obstructive Pulmonary Disease (COPD): Yes Hx Emphysema: Yes - NEUROLOGICAL Hx Neurological Disorder: No - HEENT Hx HEENT Problems: No - RENAL Hx Chronic Kidney Disease: No - ENDOCRINE/METABOLIC Hx Endocrine Disorders: Yes Hx Diabetes Mellitus Type 2: Yes - HEMATOLOGICAL/ONCOLOGICAL Hx Cancer: Yes (RIGHT LUNG LOWER LOBE) Other/Comment: CURRENT CHEMO PATIENT - INTEGUMENTARY Hx Dermatological Problems: No - MUSCULOSKELETAL/RHEUMATOLOGICAL Hx Falls: No - GASTROINTESTINAL Hx Gastrointestinal Disorders: No - GENITOURINARY/GYNECOLOGICAL Hx Genitourinary Disorders: No - PSYCHIATRIC Hx Substance Use: Yes - SURGICAL HISTORY Hx Surgeries: Yes Hx Tubal Ligation: Yes Other/Comment: HEMMROIDECOTMY - ANESTHESIA Hx Anesthesia: Yes Hx Anesthesia Reactions: No Meds Allergies/Adverse Reactions: Allergies Allergy/AdvReac Type Severity Reaction Status Date / Time Penicillins Allergy Verified 03/10/17 19:02 - Medications Medications: Current Medications Albuterol/Ipratropium (Duoneb 3 Mg/0.5 Mg (3 Ml) Ud) 3 ml INH RQ6 [facility] Last Admin: 03/21/17 13:53 Dose: Not Given Amlodipine Besylate (Norvasc) 10 mg PO DAILY [facility] Last Admin: 03/21/17 09:56 Dose: 10 mg Budesonide (Pulmicort Respules) 0.5 mg INH RQ12 [facility] Last Admin: 03/21/17 07:18 Dose: 0.5 mg Docusate Sodium (Colace) 100 mg PO BID [facility] Last Admin: 03/21/17 09:56 Dose: 100 mg Ferrous Sulfate (Feosol) 325 mg PO DAILY [facility] Last Admin: 03/17/17 10:56 Dose: 325 mg Hydralazine HCl (Apresoline) 25 mg PO Q6H PRN PRN Reason: Systolic Blood Pressure Last Admin: 03/19/17 09:53 Dose: 25 mg Hydrocortisone (Anusol-Hc) 0 gm NM BID PRN PRN Reason: Other Aztreonam 1 gm/ Sodium (Chloride) 100 mls @ 200 mls/hr IVPB Q8H [facility] Last Admin: 03/21/17 13:13 Dose: 200 mls/hr Fluconazole (Diflucan Iv 100 Mg/50 Ml Ns) 50 mls @ 100 mls/hr IVPB DAILY [facility] Last Admin: 03/21/17 09:56 Dose: 100 mls/hr Clindamycin Phosphate (Cleocin In Normal Saline Addvantage) 600 mg in 50 mls @ 100 mls/hr IVPB Q8H [facility] Last Admin: 03/21/17 08:45 Dose: 100 mls/hr Insulin Detemir (Levemir) 16 unit SC HS [facility] Last Admin: 03/20/17 22:48 Dose: Not Given Insulin Human Regular (Novolin R) 0 unit SC ACHS [facility] PRN Reason: Protocol Last Admin: 03/21/17 13:13 Dose: 2 unit Saccharomyces Boulardii (Florastor) 250 mg PO BID [facility] Last Admin: 03/21/17 09:56 Dose: 250 mg Sitagliptin Phosphate (Januvia) 25 mg PO DAILY [facility] Last Admin: 03/21/17 09:56 Dose: 25 mg Physical Exam - Head Exam Head Exam: ATRAUMATIC, NORMOCEPHALIC - Eye Exam Eye Exam: Normal appearance - ENT Exam ENT Exam: Mucous Membranes Moist - Neck Exam Neck exam: Positive for: Normal Inspection - Respiratory Exam Respiratory Exam: Clear to Auscultation Bilateral Results - Vital Signs Recent Vital Signs: Last Vital Signs Temp 97.7 F 03/21/17 08:45 Pulse 64 03/21/17 08:45 Resp 18 03/21/17 08:45 BP 142/89 03/21/17 08:45 Pulse Ox 98 03/21/17 08:45 - Labs Result Diagrams: 03/21/17 13:50 03/21/17 13:50 Labs: Laboratory Results - last 24 hr 03/16/17 03/17/17 03/20/17 11:20 06:38 16:31 WBC RBC Hgb Hct MCV MCH MCHC RDW Plt Count MPV Neut % (Auto) Lymph % (Auto) Gentry % (Auto) Eos % (Auto) Baso % (Auto) Neut # Lymph # Gentry # Eos # Baso # Sodium Potassium Chloride Carbon Dioxide Anion Gap BUN Creatinine Est GFR ( Amer) Est GFR (Non-Af Amer) POC Glucose (mg/dL) 285 H Random Glucose Calcium Phosphorus Magnesium Total Bilirubin AST ALT Alkaline Phosphatase Total Protein Albumin Globulin Albumin/Globulin Ratio Renin 0.70 Aldosterone 3 Aldosterone/Renin Ratio 4.3 Serum Immunofixation Detected H 03/20/17 03/21/17 03/21/17 21:12 06:38 11:56 WBC RBC Hgb Hct MCV MCH MCHC RDW Plt Count MPV Neut % (Auto) Lymph % (Auto) Gentry % (Auto) Eos % (Auto) Baso % (Auto) Neut # Lymph # Gentry # Eos # Baso # Sodium Potassium Chloride Carbon Dioxide Anion Gap BUN Creatinine Est GFR ( Amer) Est GFR (Non-Af Amer) POC Glucose (mg/dL) 220 H 173 H 165 H Random Glucose Calcium Phosphorus Magnesium Total Bilirubin AST ALT Alkaline Phosphatase Total Protein Albumin Globulin Albumin/Globulin Ratio Renin Aldosterone Aldosterone/Renin Ratio Serum Immunofixation 03/21/17 03/21/17 13:50 13:50 WBC 16.4 H RBC 3.43 L Hgb 10.0 L Hct 31.7 L MCV 92.3 MCH 29.2 MCHC 31.6 L RDW 14.4 Plt Count 113 L D MPV 8.0 Neut % (Auto) 82.2 H Lymph % (Auto) 12.0 L Gentry % (Auto) 5.0 Eos % (Auto) 0.5 Baso % (Auto) 0.3 Neut # 13.5 H Lymph # 2.0 Gentry # 0.8 Eos # 0.1 Baso # 0.0 Sodium 137 Potassium 5.0 Chloride 96 L Carbon Dioxide 32 H Anion Gap 14 BUN 30 H Creatinine 1.7 H Est GFR ( Amer) 36 Est GFR (Non-Af Amer) 30 POC Glucose (mg/dL) Random Glucose 149 H Calcium 8.9 Phosphorus 4.2 Magnesium 1.7 Total Bilirubin 0.3 AST 27 ALT 36 Alkaline Phosphatase 135 H D Total Protein 6.7 Albumin 3.6 Globulin 3.1 Albumin/Globulin Ratio 1.2 Renin Aldosterone Aldosterone/Renin Ratio Serum Immunofixation Assessment & Plan (1) Lung infiltrate on CT Status: Acute Comment: CAT scan of the chest consistent with groundglass lung infiltrate with no significant change from the previous CAT scan. No pleural effusion noted. On antibiotics. Procacitonin level (2) COPD exacerbation Status: Acute (3) Lung cancer Status: Acute
--- NOTE | 2017-03-21 17:24 | CP.PCM.PN ---
<Joaquin Krause - Last Filed: 03/21/17 21:35> Subjective - Date & Time of Evaluation Date of Evaluation: 03/21/17 Time of Evaluation: 07:45 - Subjective Subjective: PGY-[address] Pepper: Patient seen and examined this morning. Patient states improving cough and SOB. States that she only gets SOB with exertion. Patient complains of diarrhea due to kayexcelate use. Patient denies fevers, chills, nausea, vomiting, chest pain , abdominal pain, dysuria. Objective - Vital Signs/Intake and Output Vital Signs (last 24 hours): Temp Pulse Resp BP Pulse Ox 97.5 F L 80 20 145/60 99 03/21/17 16:15 03/21/17 16:15 03/21/17 16:15 03/21/17 16:15 03/21/17 16:15 Intake and Output: 03/21/17 03/21/17 06:59 18:59 Intake Total 350 Balance 350 - Medications Medications: Current Medications Albuterol/Ipratropium (Duoneb 3 Mg/0.5 Mg (3 Ml) Ud) 3 ml INH RQ6 [facility] Last Admin: 03/21/17 13:53 Dose: Not Given Amlodipine Besylate (Norvasc) 10 mg PO DAILY [facility] Last Admin: 03/21/17 09:56 Dose: 10 mg Budesonide (Pulmicort Respules) 0.5 mg INH RQ12 [facility] Last Admin: 03/21/17 07:18 Dose: 0.5 mg Docusate Sodium (Colace) 100 mg PO BID [facility] Last Admin: 03/21/17 09:56 Dose: 100 mg Ferrous Sulfate (Feosol) 325 mg PO DAILY [facility] Last Admin: 03/17/17 10:56 Dose: 325 mg Hydralazine HCl (Apresoline) 25 mg PO Q6H PRN PRN Reason: Systolic Blood Pressure Last Admin: 03/19/17 09:53 Dose: 25 mg Hydrocortisone (Anusol-Hc) 0 gm PA BID PRN PRN Reason: Other Aztreonam 1 gm/ Sodium (Chloride) 100 mls @ 200 mls/hr IVPB Q8H [facility] Last Admin: 03/21/17 13:13 Dose: 200 mls/hr Fluconazole (Diflucan Iv 100 Mg/50 Ml Ns) 50 mls @ 100 mls/hr IVPB DAILY [facility] Last Admin: 03/21/17 09:56 Dose: 100 mls/hr Clindamycin Phosphate (Cleocin In Normal Saline Addvantage) 600 mg in 50 mls @ 100 mls/hr IVPB Q8H [facility] Last Admin: 03/21/17 08:45 Dose: 100 mls/hr Insulin Detemir (Levemir) 16 unit SC HS [facility] Last Admin: 03/20/17 22:48 Dose: Not Given Insulin Human Regular (Novolin R) 0 unit SC ACHS [facility] PRN Reason: Protocol Last Admin: 03/21/17 13:13 Dose: 2 unit Saccharomyces Boulardii (Florastor) 250 mg PO BID [facility] Last Admin: 03/21/17 09:56 Dose: 250 mg Sitagliptin Phosphate (Januvia) 25 mg PO DAILY [facility] Last Admin: 03/21/17 09:56 Dose: 25 mg - Labs Labs: 03/21/17 13:50 03/21/17 13:50 - Constitutional Appears: No Acute Distress - Head Exam Head Exam: ATRAUMATIC, NORMAL INSPECTION, NORMOCEPHALIC - Eye Exam Eye Exam: EOMI, PERRL - ENT Exam ENT Exam: Mucous Membranes Moist - Respiratory Exam Additional comments: Coarse breath sounds bilaterally and diminished breath sounds right lower lobe - Cardiovascular Exam Cardiovascular Exam: REGULAR RHYTHM, +S1, +S2 - Extremities Exam Extremities Exam: absent: Pedal Edema, Tenderness - Neurological Exam Neurological Exam: Alert, Awake, Oriented x3 - Skin Skin Exam: Dry, Intact, Normal Color, Warm Assessment and Plan - Assessment and Plan (Free Text) Plan: 1. Dyspnea WBC 8 (03/17) --> 16.7 (03/18) --> 14.8 (03/19) --> 15(03/20) --> 16.4(03/21) with left shift Sputum culture - yeast species CXR (03/18/17) - suspected right lower lobe pneumonia and developing right pleural effusion (please see full report) Azactam 1gm IVPB Q8H ordered 03/18/[address] chest (03/10/17): no evidence for PE, ovoid groundglass opacity in right upper lobe 2.4 x 1.5, few smaller ill defined groundglass lesions that appear similar in the right lower lobe and left upper lobe, mild to moderate underlying centrilobular emphysema and some paraseptal emphysema in upper lung zones, 1.7cm left adrenal mass (please see full report) CT chest (03/20/17): Right upper lobe lesions same from previous study. No pleural effusion. ABG done on 03/12 showed 99 O2 saturation on RA F/u Repeat Chest CT to evaluate for developing right pleural effusion Pulm Dr. Lagos consulted, help appreciated 2. Bacteremia WBC 8 (03/17) --> 16.7 (03/18) --> 14.8 (03/19)--> 15(03/20)--> 16 (03/21) + left shift, no bands CXR (03/18/17) - suspected right lower lobe pneumonia and developing right pleural effusion (please see full report) F/U repeat blood culture, sputum culture, UA, and urine culture ordered 03/18/17 Azactam 1gm IVPB Q8H added per Dr. Wood Clindamycin 600 mg Q8H added on 03/19 to replace vancomycin Previous blood cultures: 03/11: from port-a-cath: caog negative staph, from periphery: negative x 5 days 03/12: no growth from either site 03/13: no growth from either site as per Dr. Walter, continue Vancomycin 1 gm daily - held on 03/18/17 for vanco trough of 21.2 1 dose of gentamicin given 03/12 and one 03/13, held on 03/14 for trough * gentamicin stopped as per Dr. Wood on 03/17 ID, Dr. Walter is consulted, Dr. Wood covering as of 03/16 echo (03/12/27): Left ventricle systolic function is normal. Ejection fraction is 60-65%, diastolic dysfunction, no aortic regurgitation is present, no mitral valve regurg noted, mild tricuspid regurg, mild pulm htn, no pulmonic valvular regurg 3. 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 Dennis (heme/onc) who recommends transfusing platelets if patient is actively bleeding or platelets go below 10,000. Also recommends restarting Plavix once platelets above 50,000 03/19: Platelets 42 up from lowest level of 27 2 days ago 03/20: Platelets 63 but will hold off on plavix for now 03/21: Platelets 113 4. Diabetes ISS low dose Levemir 16 u SC HS Metformin 1,000 PO BID restarted 03/13 Januvia 50 mg PO daily (lowered from 100 for renal dosing) accuchecks HgA1c: 6.5 5. HTN Norvasc 10 mg daily Hydralazine 25 mg po q6h prn if sbp >160 lisinopril 10 mg po daily Plavix 75 mg- held due to low HgB and platelets 6. Electrolyte Imbalance Monitor Potassium and Magnesium daily K+ 6.1 on 03/13, Kayexalate given Mg 1.3- 2 bags of 1 gm in 100 ml D5W given BMP: on 03/13 K increased to 7.1 then decreased to 6.9 then 03/14 decreased to 4.6 -- total of 90 gm Kayexalate given monitor K+ closely Mg 1 on 03/16- 2 bags of 1 gm magnesium sulfate in 100 ml D5W 03/20: Mag 1.4 so 1 gm mag sulfate given 7. Chronic Anemia Feosol 325mg PO daily patient transfused 2 units of PRBC on 03/15/17 HgB increased from 7.2 to 9.5 (on 03/16) 03/21 10 03/20 Hgb 10.1 03/19 Hgb 9.8 stable 8. Leukocytosis Likely due to Neulasta 16.4 on 03/21 15 on 03/20 14.8 on 03/19 16.7 on 03/18 --> See SOB and bacteremia for plan 8 on 03/17 3 on 03/15 5.1 on 03/14 will continue to monitor 9. COPD Duoneb 3ml INH q6h Pulmicort .5mg INH q12h Prednisone 40 mg PO daily completed course on 03/17 10. Small cell lung Cancer Patient to follow up with heme/onc specialist, Dr. Nails upon discharge adrenal mass which was shown on CT -- MRI of abdomen w/wo contrast was unable to be done because patient could not hold her breath * patient to either get imaging as outpatient or CT of adrenals with and without contrast once creatinine decreases 11. Urinary Frequency Symptoms resolved 03/19/1703/18 UA: 1+ blood, 17 WBC, 25 RBC 7/29 urine culture shows no growth urine culture (03/12): negative U/A on 03/10: 3+ glucose, 1+ leuk esterase, 9 wbcs 12. Prophylactic Measures Pepcid 20 mg PO daily Colace 100 mg PO daily Heparin 5000U SC Q8 Case discussed with Dr. Evgeny Krause PGY1 <Kaylie Pepper V - Last Filed: 03/21/17 22:09> Objective - Vital Signs/Intake and Output Vital Signs (last 24 hours): Temp Pulse Resp BP Pulse Ox 97.5 F L 80 20 145/60 99 03/21/17 16:15 03/21/17 16:15 03/21/17 16:15 03/21/17 16:15 03/21/17 16:15 Intake and Output: 03/21/17 03/22/17 18:59 06:59 Intake Total 1050 Balance 1050 - Medications Medications: Current Medications Amlodipine Besylate (Norvasc) 10 mg PO DAILY [facility] Last Admin: 03/21/17 09:56 Dose: 10 mg Budesonide (Pulmicort Respules) 0.5 mg INH RQ12 [facility] Last Admin: 03/21/17 19:27 Dose: 0.5 mg Docusate Sodium (Colace) 100 mg PO BID [facility] Last Admin: 03/21/17 17:27 Dose: 100 mg Ferrous Sulfate (Feosol) 325 mg PO DAILY [facility] Last Admin: 03/17/17 10:56 Dose: 325 mg Hydralazine HCl (Apresoline) 25 mg PO Q6H PRN PRN Reason: Systolic Blood Pressure Last Admin: 03/19/17 09:53 Dose: 25 mg Hydrocortisone (Anusol-Hc) 0 gm PA BID PRN PRN Reason: Other Aztreonam 1 gm/ Sodium (Chloride) 100 mls @ 200 mls/hr IVPB Q8H [facility] Last Admin: 03/21/17 18:45 Dose: 200 mls/hr Fluconazole (Diflucan Iv 100 Mg/50 Ml Ns) 50 mls @ 100 mls/hr IVPB DAILY [facility] Last Admin: 03/21/17 09:56 Dose: 100 mls/hr Clindamycin Phosphate (Cleocin In Normal Saline Addvantage) 600 mg in 50 mls @ 100 mls/hr IVPB Q8H [facility] Last Admin: 03/21/17 17:27 Dose: 100 mls/hr Insulin Detemir (Levemir) 16 unit SC HS [facility] Last Admin: 03/20/17 22:48 Dose: Not Given Insulin Human Regular (Novolin R) 0 unit SC ACHS [facility] PRN Reason: Protocol Last Admin: 03/21/17 17:27 Dose: 3 unit Saccharomyces Boulardii (Florastor) 250 mg PO BID [facility] Last Admin: 03/21/17 17:27 Dose: 250 mg Sitagliptin Phosphate (Januvia) 25 mg PO DAILY [facility] Last Admin: 03/21/17 09:56 Dose: 25 mg - Labs Labs: 03/21/17 13:50 03/21/17 13:50 Attending/Attestation - Attestation I have personally seen and examined this patient.: Yes I have fully participated in the care of the patient.: Yes I have reviewed all pertinent clinical information, including history, physical exam and plan: Yes Notes (Text): Patient seen, examined and case discussed with day-time resident. Patient seen in the morning during rounds. Repeat CT chest does not show change from prior CT chest nor shows pleural effusion. Pulmonary consult help appreciated Patient started on Clindamycin on 03/19/17 and on Aztronam on 03/18/17 will monitor white count and remains afebrile. Patient refused blood work and lost peripheral access Platelets improving no bleeding episode noted Discussed with ID, possible to transfer patient's antibiotics to PO; will see white count trend. Assessment/Plan 1. Dyspnea * Contributing factors: small cell lung cancer (on chemotherapy), emphysema, and pneumonia, and bactremia * CT chest: no evidence for PE, ovoid groundglass opacity in right upper lobe 2.4 x 1.5, few smaller ill defined groundglass lesions that appear similar in the right lower lobe and left upper lobe, mild to moderate underlying centrilobular emphysema and some paraseptal emphysema in upper lung zones, 1.7cm left adrenal mass * Duoneb 3ml INH q6h * Pulmicort .5mg INH q12h 2. Pneumonia * Infectious Disease (Dr. Waletr) on the case-->help appreciated (Dr. Israel elizalde) * CT chest: no evidence for PE, ovoid groundglass opacity in right upper lobe 2.4 x 1.5, few smaller ill defined groundglass lesions that appear similar in the right lower lobe and left upper lobe, mild to moderate underlying centrilobular emphysema and some paraseptal emphysema in upper lung zones, 1.7cm left adrenal mass * Chest xray (03/18/17): suspect right lower lobe pneumonia and developing right pleural effusion * Patient started on Aztreonam 1 gram IV Q 8 hours (active since 03/18/17), Diflucan 100mg IV Q daily (active since 03/18/17), and Clindamycin 600mg IV Q 8 hours (active since 03/19/17 * Sputum (03/16/17): yeast species * Sputum (03/18/17): normal oral dora 3. Bacteremia * Infectious Disease (Dr. Walter) on the case-->help appreciated (Dr. Israel elizalde) * Blood culture (03/11) from port a cath: gram positive cocci coag negative ( unclear if contaminant or not) * Blood culture (03/11) peripheral: no growth X 5days * Blood culture (03/12) from port a cath: no growth X 5 days * Blood culture (03/12) from port a cath: no growth X 5 days * Blood culture (03/13): not from port a cath: no growth X5 days X2 * Blood culture (03/18): no growth for 3 days X2 * Urine culture (03/18): no growth * Patient started on Aztreonam 1 gram IV Q 8 hours (active since 03/18/17), Diflucan 100mg IV Q daily (active since 03/18/17), Clindamycin 600mg IV Q 8 hours (active since 03/19/17 * Prior IV abx: Cefepime 2gram IV Q12 hours discontinued; secondary to elevated WBC on 03/18/17 and Vancomycin 1gram IVQ 24 hours (active since 03/12/17; held vancomycin 03/19/17 * Given dose of Gentamcin by ID (03/12 and 03/13); gentamcin discontinued 03/17/17 * Echocardiogram (03/13/17): left ventricle systolic function is normal, EF: 60- 65%, diastolic dysfunction, no aortic regurgitation is present. No mitral valve regurgitation noted; mild tricupside regurgitation, mild pulmonary regurgitation , no pulmonic valvuar regurgitation * 1/2 NS 50cc/hr * Florastor 250mg PO bid 4. Diabetes * ISS low dose * Levemir 16 u SC HS * hold metformin because patient received contrast * Renal dose Januvia 25 mg PO daily (lowered from 100 for renal dosing) * accuchecks QAC and HS * HgA1c 6.5 (controlled) * d/c Enalapril 2.5 mg PO BID secondary to BRENDA and hyperkalemia * Emphasized to patient she must eat her meals-->patient only wants fruit; does not want hospital food; explained to patient that fruit is sugar 5. Hypertension * d/c Enalapril 2.5 mg PO BID secondary to BRENDA and hyperkalemia during hospitalization * Norvasc 10mg PO daily * monitor vital signs-->controlled 6. Chronic Anemia * Heme-oncology (Dr. Dennis) on board-->help appreciated * held Feosol 325mg PO daily * Patient is on IV Ferriclet 125 IVPB daily (Active since 03/15/17) * Likely secondary to chemotherapy 7. Leukocytosis * uptrending; repeat cultures are negative; refused blood work this AM * Note plan for Bacteremia and Small cell lung cancer 8. Small cell lung Cancer * CT chest: no evidence for PE, ovoid groundglass opacity in right upper lobe 2.4 x 1.5, few smaller ill defined groundglass lesions that appear similar in the right lower lobe and left upper lobe, mild to moderate underlying centrilobular emphysema and some paraseptal emphysema in upper lung zones, 1.7cm left adrenal mass * repeat CT Chest unchanged to see if changed from initial CT Chest; no effusion * Patient to follow up with heme/onc specialist, Dr. Nails upon discharge. * Patient is on active chemo therapy and Neulasta prior to admission * Patient unable to complete Abdominal MRI; unable to hold breath for MRI to workup adrenal lesion 9. Emphysema * CT chest: no evidence for PE, ovoid groundglass opacity in right upper lobe 2.4 x 1.5, few smaller ill defined groundglass lesions that appear similar in the right lower lobe and left upper lobe, mild to moderate underlying centrilobular emphysema and some paraseptal emphysema in upper lung zones, 1.7cm left adrenal mass * repeat CT Chest unchanged from initial CT Chest given right pleural effusion fron 03/18/17; no effusion * ABG done 99 O2 saturation on RA * Duoneb 3ml INH q6h * Pulmicort .5mg INH q12h 10. Acute Renal Insufficiency * Nephrology (Dr. Montes) on board-->help appreciated * held enalapril secondary to hyperkalemia and BRENDA * Metformin held secondary to contrast CT * Januvia adjusted to renal dose * gentle IV hydration 11. Thrombocytopenia * held Heparin secondary to thrombocytopenia * Plavix held secondary to thrombocytopenia * Monitor platelets; transfuse if below <10,000k * Monitor for any bleeding episodes * Improving 12. Prophylactic Measures * Pepcid 20 mg PO daily * Colace 100 mg PO daily * d/c Heparin 5000 units SC [id number] secondary to thrombocytopenia * PT eval (03/17): recommended for home with services * Patient refuses subacute rehab
--- NOTE | 2017-03-21 21:34 | CP.PCM.PN ---
Objective - Vital Signs/Intake and Output Vital Signs (last 24 hours): Temp Pulse Resp BP Pulse Ox 97.5 F L 80 20 145/60 99 03/21/17 16:15 03/21/17 16:15 03/21/17 16:15 03/21/17 16:15 03/21/17 16:15 Intake and Output: 03/21/17 03/22/17 18:59 06:59 Intake Total 1050 Balance 1050 - Medications Medications: Current Medications Amlodipine Besylate (Norvasc) 10 mg PO DAILY [facility] Last Admin: 03/21/17 09:56 Dose: 10 mg Budesonide (Pulmicort Respules) 0.5 mg INH RQ12 [facility] Last Admin: 03/21/17 19:27 Dose: 0.5 mg Docusate Sodium (Colace) 100 mg PO BID [facility] Last Admin: 03/21/17 17:27 Dose: 100 mg Ferrous Sulfate (Feosol) 325 mg PO DAILY [facility] Last Admin: 03/17/17 10:56 Dose: 325 mg Hydralazine HCl (Apresoline) 25 mg PO Q6H PRN PRN Reason: Systolic Blood Pressure Last Admin: 03/19/17 09:53 Dose: 25 mg Hydrocortisone (Anusol-Hc) 0 gm [place] BID PRN PRN Reason: Other Aztreonam 1 gm/ Sodium (Chloride) 100 mls @ 200 mls/hr IVPB Q8H [facility] Last Admin: 03/21/17 18:45 Dose: 200 mls/hr Fluconazole (Diflucan Iv 100 Mg/50 Ml Ns) 50 mls @ 100 mls/hr IVPB DAILY [facility] Last Admin: 03/21/17 09:56 Dose: 100 mls/hr Clindamycin Phosphate (Cleocin In Normal Saline Addvantage) 600 mg in 50 mls @ 100 mls/hr IVPB Q8H [facility] Last Admin: 03/21/17 17:27 Dose: 100 mls/hr Insulin Detemir (Levemir) 16 unit SC HS [facility] Last Admin: 03/20/17 22:48 Dose: Not Given Insulin Human Regular (Novolin R) 0 unit SC ACHS [facility] PRN Reason: Protocol Last Admin: 03/21/17 17:27 Dose: 3 unit Saccharomyces Boulardii (Florastor) 250 mg PO BID [facility] Last Admin: 03/21/17 17:27 Dose: 250 mg Sitagliptin Phosphate (Januvia) 25 mg PO DAILY [facility] Last Admin: 03/21/17 09:56 Dose: 25 mg - Labs Labs: 03/21/17 13:50 03/21/17 13:50 Assessment and Plan (1) BRENDA (acute kidney injury) Status: Acute (2) Hyperkalemia Status: Acute (3) CKD (chronic kidney disease) Status: Chronic (4) Hypertension Status: Acute (5) Diabetes Status: Chronic (6) Lung cancer Status: Acute (7) Catheter-related bloodstream infection Status: Acute (8) Adrenal mass Status: Acute (9) Pleural effusion Status: Acute
[2017-03-21] MEDS: Insulin Detemir 100 units/ml Vial (Levemir) SC SCH (22:22)
[2017-03-22] MEDS: Clindamycin 600mg/50ml NS 600 MG/50 ML BAG IVPB SCH ×3 (00:58→18:17)
[2017-03-22] MEDS: Aztreonam 1 GM in Sodium Chloride 0.9% 100 ML IVPB SCH ×3 (02:22→19:10)
[2017-03-22 06:51] LABS: BASO % 0.2 % (0.0-2.0); EOS # 0.1 K/uL (0.0-0.7); EOS % 0.4 % (0.0-4.0); HEMOGLOBIN 9.1 g/dL (11.0-16.0); LYMPH # 2.1 K/uL (1.0-4.3); MEAN CELL VOLUME 91.6 fL (81.0-99.0); MEAN CORPUSCULAR HEMOGLOBIN 29.4 pg (27.0-31.0); MEAN CORPUSCULAR HGB CONC 32.1 g/dL (33.0-37.0); MEAN PLATELET VOLUME 7.3 fL (7.2-11.7); MONO # 0.8 K/uL (0.0-0.8); MONO % 5.4 % (0.0-10.0); NEUT # 12.2 K/uL (1.8-7.0); RBC 3.11 Mil/uL (3.80-5.20); RED CELL DISTRIBUTION WIDTH 14.2 % (11.5-14.5); WHITE BLOOD COUNT 15.3 K/uL (4.8-10.8)
[2017-03-22 07:07] LABS: ALB/GLOB RATIO 1.3 (1.0-2.1); ALBUMIN 3.2 g/dL (3.5-5.0); CALCIUM 8.2 mg/dl (8.6-10.4)
[2017-03-22] MEDS: Budesonide 0.5 mg/2 ml Inhal Susp UD INH SCH ×2 (07:17→19:17)
[2017-03-22] MEDS: (Novolin R) Insulin Human Regular 100 units/ml vial SC SCH ×4 (08:30→22:04)
[2017-03-22] MEDS: Saccharomyces Boulardi 250 mg Cap PO SCH ×2 (10:32→18:17)
[2017-03-22] MEDS: Fluconazole IV 100mg/50 ml NS 50 ML IVPB SCH (10:35)
[2017-03-22 14:02] LABS: SQUAMOUS EPITHIAL 1 /hpf (0-5); URINE BILIRUBIN NEGATIVE (NEGATIVE); URINE BLOOD NEGATIVE (NEGATIVE); URINE CLARITY Clear (Clear); URINE COLOR Straw (YELLOW); URINE GLUCOSE (UA) NORMAL (Normal); URINE LEUKOCYTE ESTERASE NEG Leu/uL (Negative); URINE NITRATE NEGATIVE (NEGATIVE); URINE PROTEIN 1+ mg/dL (NEGATIVE); URINE UROBILINOGEN NORMAL mg/dL (0.2-1.0)
--- NOTE | 2017-03-22 16:28 | CP.PCM.PN ---
<Joaquin Krause - Last Filed: 03/22/17 22:46> Subjective - Date & Time of Evaluation Date of Evaluation: 03/22/17 Time of Evaluation: 07:45 - Subjective Subjective: PGY-[address] Pepper Patient seen and examined at bedside. Patient reports feeling well with decreased coughs and no SOB. Patient denies fevers, chills, chest pain, SOB, abdominal pain, dysuria. Objective - Vital Signs/Intake and Output Vital Signs (last 24 hours): Temp Pulse Resp BP Pulse Ox 98.2 F 87 20 148/66 99 03/22/17 16:08 03/22/17 16:08 03/22/17 16:08 03/22/17 16:08 03/22/17 16:08 - Medications Medications: Current Medications Amlodipine Besylate (Norvasc) 10 mg PO DAILY [facility] Last Admin: 03/21/17 09:56 Dose: 10 mg Budesonide (Pulmicort Respules) 0.5 mg INH RQ12 [facility] Last Admin: 03/22/17 07:17 Dose: Not Given Docusate Sodium (Colace) 100 mg PO BID [facility] Last Admin: 03/22/17 10:32 Dose: 100 mg Ferrous Sulfate (Feosol) 325 mg PO DAILY [facility] Last Admin: 03/17/17 10:56 Dose: 325 mg Hydralazine HCl (Apresoline) 25 mg PO Q6H PRN PRN Reason: Systolic Blood Pressure Last Admin: 03/19/17 09:53 Dose: 25 mg Hydrocortisone (Anusol-Hc) [address] BID PRN PRN Reason: Other Last Admin: 03/21/17 22:26 Dose: 1 applic Aztreonam 1 gm/ Sodium (Chloride) 100 mls @ 200 mls/hr IVPB Q8H [facility] Last Admin: 03/22/17 10:36 Dose: 200 mls/hr Fluconazole (Diflucan Iv 100 Mg/50 Ml Ns) 50 mls @ 100 mls/hr IVPB DAILY [facility] Last Admin: 03/22/17 10:35 Dose: 100 mls/hr Clindamycin Phosphate (Cleocin In Normal Saline Addvantage) 600 mg in 50 mls @ 100 mls/hr IVPB Q8H [facility] Last Admin: 03/22/17 10:30 Dose: 100 mls/hr Insulin Detemir (Levemir) 16 unit SC HS [facility] Last Admin: 03/21/17 22:22 Dose: 16 unit Insulin Human Regular (Novolin R) 0 unit SC ACHS [facility] PRN Reason: Protocol Last Admin: 03/22/17 11:40 Dose: Not Given Saccharomyces Boulardii (Florastor) 250 mg PO BID [facility] Last Admin: 03/22/17 10:32 Dose: 250 mg Sitagliptin Phosphate (Januvia) 25 mg PO DAILY [facility] Last Admin: 03/22/17 10:32 Dose: 25 mg - Labs Labs: 03/22/17 06:33 03/22/17 06:33 - Constitutional Appears: Non-toxic, No Acute Distress - Head Exam Head Exam: ATRAUMATIC, NORMAL INSPECTION, NORMOCEPHALIC - Eye Exam Eye Exam: EOMI, PERRL - ENT Exam ENT Exam: Mucous Membranes Moist - Respiratory Exam Additional comments: Coarse breath sounds bilaterally with decreased breath sounds on right lower lobe - Cardiovascular Exam Cardiovascular Exam: REGULAR RHYTHM, +S1, +S2 - GI/Abdominal Exam GI & Abdominal Exam: Soft, Normal Bowel Sounds - Extremities Exam Extremities Exam: absent: Pedal Edema, Tenderness - Neurological Exam Neurological Exam: Alert, Awake, Oriented x3 - Skin Skin Exam: Dry, Intact, Normal Color, Warm Assessment and Plan - Assessment and Plan (Free Text) Plan: 1. Dyspnea * Contributing factors: small cell lung cancer (on chemotherapy), emphysema, and pneumonia, and bactremia * CT chest: no evidence for PE, ovoid groundglass opacity in right upper lobe 2.4 x 1.5, few smaller ill defined groundglass lesions that appear similar in the right lower lobe and left upper lobe, mild to moderate underlying centrilobular emphysema and some paraseptal emphysema in upper lung zones, 1.7cm left adrenal mass * Duoneb 3ml INH q6h * Pulmicort .5mg INH q12h 2. Pneumonia * Infectious Disease (Dr. Walter) on the case-->help appreciated (Dr. Israel elizalde) * CT chest: no evidence for PE, ovoid groundglass opacity in right upper lobe 2.4 x 1.5, few smaller ill defined groundglass lesions that appear similar in the right lower lobe and left upper lobe, mild to moderate underlying centrilobular emphysema and some paraseptal emphysema in upper lung zones, 1.7cm left adrenal mass * Chest xray (03/18/17): suspect right lower lobe pneumonia and developing right pleural effusion * Patient started on Aztreonam 1 gram IV Q 8 hours (active since 03/18/17), Diflucan 100mg IV Q daily (active since 03/18/17), and Clindamycin 600mg IV Q 8 hours (active since 03/19/17 * Sputum (03/16/17): yeast species * Sputum (03/18/17): normal oral dora 3. Bacteremia * Infectious Disease (Dr. Walter) on the case-->help appreciated (Dr. Israel elizalde) * Blood culture (03/11) from port a cath: gram positive cocci coag negative ( unclear if contaminant or not) * Blood culture (03/11) peripheral: no growth X 5days * Blood culture (03/12) from [facility] cath: no growth X 5 days * Blood culture (03/12) from [facility]: no growth X 5 days * Blood culture (03/13): not from port a cath: no growth X5 days X2 * Blood culture (03/18): no growth for 3 days X2 * Urine culture (03/18): no growth * Patient started on Aztreonam 1 gram IV Q 8 hours (active since 03/18/17), Diflucan 100mg IV Q daily (active since 03/18/17), Clindamycin 600mg IV Q 8 hours (active since 03/19/17 * Prior IV abx: Cefepime 2gram IV Q12 hours discontinued; secondary to elevated WBC on 03/18/17 and Vancomycin 1gram IVQ 24 hours (active since 03/12/17; held vancomycin 03/19/17 * Given dose of Gentamcin by ID (03/12 and 03/13); gentamcin discontinued 03/17/17 * Echocardiogram (03/13/17): left ventricle systolic function is normal, EF: 60- 65%, diastolic dysfunction, no aortic regurgitation is present. No mitral valve regurgitation noted; mild tricupside regurgitation, mild pulmonary regurgitation , no pulmonic valvuar regurgitation * 1/2 NS 50cc/hr * Florastor 250mg PO bid 4. Diabetes * ISS low dose * Levemir 16 u SC HS * hold metformin because patient received contrast * Renal dose Januvia 25 mg PO daily (lowered from 100 for renal dosing) * accuchecks QAC and HS * HgA1c 6.5 (controlled) * d/c Enalapril 2.5 mg PO BID secondary to BRENDA and hyperkalemia * Emphasized to patient she must eat her meals-->patient only wants fruit; does not want hospital food; explained to patient that fruit is sugar 5. Hypertension * d/c Enalapril 2.5 mg PO BID secondary to BRENDA and hyperkalemia during hospitalization * Norvasc 10mg PO daily * monitor vital signs-->controlled 6. Chronic Anemia * Heme-oncology (Dr. Dennis) on board-->help appreciated * held Feosol 325mg PO daily * Patient is on IV Ferriclet 125 IVPB daily (Active since 03/15/17) * Likely secondary to chemotherapy 7. Leukocytosis * uptrending; repeat cultures are negative; refused blood work this AM * Note plan for Bacteremia and Small cell lung cancer 8. Small cell lung Cancer * CT chest: no evidence for PE, ovoid groundglass opacity in right upper lobe 2.4 x 1.5, few smaller ill defined groundglass lesions that appear similar in the right lower lobe and left upper lobe, mild to moderate underlying centrilobular emphysema and some paraseptal emphysema in upper lung zones, 1.7cm left adrenal mass * repeat CT Chest unchanged to see if changed from initial CT Chest; no effusion * Patient to follow up with heme/onc specialist, Dr. Nails upon discharge. * Patient is on active chemo therapy and Neulasta prior to admission * Patient unable to complete Abdominal MRI; unable to hold breath for MRI to workup adrenal lesion 9. Emphysema * CT chest: no evidence for PE, ovoid groundglass opacity in right upper lobe 2.4 x 1.5, few smaller ill defined groundglass lesions that appear similar in the right lower lobe and left upper lobe, mild to moderate underlying centrilobular emphysema and some paraseptal emphysema in upper lung zones, 1.7cm left adrenal mass * repeat CT Chest unchanged from initial CT Chest given right pleural effusion fron 03/18/17; no effusion * ABG done 99 O2 saturation on RA * Duoneb 3ml INH q6h * Pulmicort .5mg INH q12h 10. Acute Renal Insufficiency * Nephrology (Dr. Montes) on board-->help appreciated * Patient NPO for Renal Arterial Doppler in AM to r/o renal vein thrombus * held enalapril secondary to hyperkalemia and BRENDA * Metformin held secondary to contrast CT * Januvia adjusted to renal dose * gentle IV hydration 11. Thrombocytopenia * held Heparin secondary to thrombocytopenia * Plavix held secondary to thrombocytopenia * Monitor platelets; transfuse if below <10,000k * Monitor for any bleeding episodes * Improving 12. Prophylactic Measures * Pepcid 20 mg PO daily * Colace 100 mg PO daily * d/c Heparin 5000 units SC [id number] secondary to thrombocytopenia * PT eval (03/17): recommended for home with services * Patient refuses subacute rehab Case discussed with Dr. Evgeny Krause PGY1 <Kaylie Pepper V - Last Filed: 03/23/17 07:33> Objective - Vital Signs/Intake and Output Vital Signs (last 24 hours): Temp Pulse Resp BP Pulse Ox 98.1 F 85 20 125/62 96 03/22/17 23:10 03/23/17 04:00 03/22/17 23:10 03/22/17 23:10 03/22/17 23:10 - Medications Medications: Current Medications Amlodipine Besylate (Norvasc) 10 mg PO DAILY [facility] Last Admin: 03/21/17 09:56 Dose: 10 mg Budesonide (Pulmicort Respules) 0.5 mg INH RQ12 [facility] Last Admin: 03/23/17 07:11 Dose: Not Given Docusate Sodium (Colace) 100 mg PO BID [facility] Last Admin: 03/22/17 18:17 Dose: 100 mg Ferrous Sulfate (Feosol) 325 mg PO DAILY [facility] Last Admin: 03/17/17 10:56 Dose: 325 mg Hydralazine HCl (Apresoline) 25 mg PO Q6H PRN PRN Reason: Systolic Blood Pressure Last Admin: 03/19/17 09:53 Dose: 25 mg Hydrocortisone (Anusol-Hc) [address] BID PRN PRN Reason: Other Last Admin: 03/21/17 22:26 Dose: 1 applic Aztreonam 1 gm/ Sodium (Chloride) 100 mls @ 200 mls/hr IVPB Q8H [facility] Last Admin: 03/23/17 02:55 Dose: 200 mls/hr Fluconazole (Diflucan Iv 100 Mg/50 Ml Ns) 50 mls @ 100 mls/hr IVPB DAILY [facility] Last Admin: 03/22/17 10:35 Dose: 100 mls/hr Clindamycin Phosphate (Cleocin In Normal Saline Addvantage) 600 mg in 50 mls @ 100 mls/hr IVPB Q8H [facility] Last Admin: 03/23/17 01:45 Dose: 100 mls/hr Insulin Detemir (Levemir) 16 unit SC HS [facility] Last Admin: 03/22/17 22:03 Dose: Not Given Insulin Human Regular (Novolin R) 0 unit SC ACHS [facility] PRN Reason: Protocol Last Admin: 03/22/17 22:04 Dose: Not Given Saccharomyces Boulardii (Florastor) 250 mg PO BID [facility] Last Admin: 03/22/17 18:17 Dose: 250 mg Sitagliptin Phosphate (Januvia) 25 mg PO DAILY [facility] Last Admin: 03/22/17 10:32 Dose: 25 mg - Labs Labs: 03/22/17 06:33 03/22/17 06:33 Attending/Attestation - Attestation I have personally seen and examined this patient.: Yes I have fully participated in the care of the patient.: Yes I have reviewed all pertinent clinical information, including history, physical exam and plan: Yes Notes (Text): This is late computer entry 03/22/17 Patient seen, examined and case discussed with day-time resident. Patient seen in the afternoon during rounds. Patient reports she is feeling better. Patient eager to go home. Pulmonary consult help appreciated Patient started on Clindamycin on 03/19/17 and on Aztronam on 03/18/17 will monitor white count and remains afebrile. Platelets improving no bleeding episode noted. Patient's white count mildy downtrending. Creatinine jessie. Per nephrology, will try to get renal artery duplex r/o renal thrombosis. Patient affirms she does not want subacute rehab. Patient wants to be able to PO antibiotics and to go home for discharge planning.
--- NOTE | 2017-03-22 21:37 | CP.PCM.PN ---
Subjective - Date & Time of Evaluation Date of Evaluation: 03/22/17 Time of Evaluation: 21:35 - Subjective Subjective: Reports breathing is better; denies any new back pain; Objective - Vital Signs/Intake and Output Vital Signs (last 24 hours): Temp Pulse Resp BP Pulse Ox 98.2 F 87 20 148/66 99 03/22/17 16:08 03/22/17 16:08 03/22/17 16:08 03/22/17 16:08 03/22/17 16:08 Intake and Output: 03/22/17 03/23/17 18:59 06:59 Intake Total 880 Balance 880 - Medications Medications: Current Medications Amlodipine Besylate (Norvasc) 10 mg PO DAILY [facility] Last Admin: 03/21/17 09:56 Dose: 10 mg Budesonide (Pulmicort Respules) 0.5 mg INH RQ12 [facility] Last Admin: 03/22/17 19:17 Dose: 0.5 mg Docusate Sodium (Colace) 100 mg PO BID [facility] Last Admin: 03/22/17 18:17 Dose: 100 mg Ferrous Sulfate (Feosol) 325 mg PO DAILY [facility] Last Admin: 03/17/17 10:56 Dose: 325 mg Hydralazine HCl (Apresoline) 25 mg PO Q6H PRN PRN Reason: Systolic Blood Pressure Last Admin: 03/19/17 09:53 Dose: 25 mg Hydrocortisone (Anusol-Hc) 0 gm [place] BID PRN PRN Reason: Other Last Admin: 03/21/17 22:26 Dose: 1 applic Aztreonam 1 gm/ Sodium (Chloride) 100 mls @ 200 mls/hr IVPB Q8H [facility] Last Admin: 03/22/17 19:10 Dose: 200 mls/hr Fluconazole (Diflucan Iv 100 Mg/50 Ml Ns) 50 mls @ 100 mls/hr IVPB DAILY [facility] Last Admin: 03/22/17 10:35 Dose: 100 mls/hr Clindamycin Phosphate (Cleocin In Normal Saline Addvantage) 600 mg in 50 mls @ 100 mls/hr IVPB Q8H [facility] Last Admin: 03/22/17 18:17 Dose: 100 mls/hr Insulin Detemir (Levemir) 16 unit SC HS [facility] Last Admin: 03/21/17 22:22 Dose: 16 unit Insulin Human Regular (Novolin R) 0 unit SC ACHS [facility] PRN Reason: Protocol Last Admin: 03/22/17 18:17 Dose: 2 unit Saccharomyces Boulardii (Florastor) 250 mg PO BID [facility] Last Admin: 03/22/17 18:17 Dose: 250 mg Sitagliptin Phosphate (Januvia) 25 mg PO DAILY [facility] Last Admin: 03/22/17 10:32 Dose: 25 mg - Labs Labs: 03/22/17 06:33 03/22/17 06:33 - Constitutional Appears: Well, No Acute Distress - Head Exam Head Exam: NORMAL INSPECTION - Eye Exam Eye Exam: Normal appearance - ENT Exam ENT Exam: Mucous Membranes Moist - Respiratory Exam Respiratory Exam: NORMAL BREATHING PATTERN. absent: Rales, Rhonchi Additional comments: Mild scattered exp wheezes - Cardiovascular Exam Cardiovascular Exam: REGULAR RHYTHM, +S1, +S2 - GI/Abdominal Exam GI & Abdominal Exam: Soft. absent: Distended Additional comments: Mild superficial lower abd tenderness; - Exam Exam: absent: Bladder Distension - Extremities Exam Additional comments: Minimal leg edema; - Neurological Exam Neurological Exam: Alert, Awake - Psychiatric Exam Psychiatric exam: Normal Affect, Normal Mood - Skin Skin Exam: Normal Color, Warm. absent: Cyanosis Assessment and Plan (1) BRENDA (acute kidney injury) Assessment & Plan: BRENDA on CKD; etiology unclear; previously suspicion for ATN from gent but last dose given 5 days ago and serum creat rising again today; AIN still in the differential and may require biopsy to confirm; however, inciting drug unclear; sitagliptin has been mentioned in case reports; Renal vein thrombosis being considered but is usually seen in setting of nephrotic syndrome; Low/normal BP may also be contributory if patient has underlying renal artery stenosis; -will obtain renal artery duplex (to look for venous thrombosis also) Status: Acute (2) Hyperkalemia Assessment & Plan: Still high/normal K; -kayexalate prn -low K diet (handout being given to patient on low K foods) Status: Acute (3) CKD (chronic kidney disease) Assessment & Plan: Underlying etiology unclear; non-proteinuric disease; may be due to renovascular disease, contribution from chemo drugs; -avoid further nephrotoxic meds Status: Chronic (4) Hypertension Assessment & Plan: Fluctuating BP; given co-morbidities and age, should aim to keep SBP < 150 chronically; avoid treating isolated elevated BP readings unless persistently high; holding BP meds to improve renal perfusion; Status: Acute (5) Diabetes Assessment & Plan: May need to consider changing sitagliptin to another med if renal function continues to worsen; Status: Chronic (6) Lung cancer Status: Acute (7) Catheter-related bloodstream infection Status: Resolved (8) Adrenal mass Assessment & Plan: No hyperaldo; can get am cortisol level to screen for sub-clinical Cushings now that off prednisone; further imaging at some point; Status: Acute (9) Leucocytosis Assessment & Plan: On clinda for post-obstructive PNA; also fluconazole and aztreonam; no further renal dose adjustment needed; Status: Acute
[2017-03-22] MEDS: Insulin Detemir 100 units/ml Vial (Levemir) SC SCH (22:03)
[2017-03-23] MEDS: Clindamycin 600mg/50ml NS 600 MG/50 ML BAG IVPB SCH ×3 (01:45→18:32)
[2017-03-23] MEDS: Aztreonam 1 GM in Sodium Chloride 0.9% 100 ML IVPB SCH ×3 (02:55→18:37)
[2017-03-23] MEDS: Budesonide 0.5 mg/2 ml Inhal Susp UD INH SCH ×2 (07:11→19:17)
[2017-03-23] MEDS: (Novolin R) Insulin Human Regular 100 units/ml vial SC SCH ×4 (07:30→21:39)
--- NOTE | 2017-03-23 09:31 | CP.PCM.PN ---
<Joaquin Krause - Last Filed: 03/23/17 21:56> Subjective - Date & Time of Evaluation Date of Evaluation: 03/23/17 Time of Evaluation: 07:50 - Subjective Subjective: PGY-[address] Pepper Patient seen and examined at bedside. Patient reports feeling generally weak due to NPO status for renal vein duplex. Patient stated that she refused lab work this morning due to weakness but endorsed that fingerstick glucose was 160. Objective - Vital Signs/Intake and Output Vital Signs (last 24 hours): Temp Pulse Resp BP Pulse Ox 98.1 F 86 18 133/68 96 03/23/17 08:50 03/23/17 08:50 03/23/17 08:50 03/23/17 08:50 03/22/17 23:10 - Medications Medications: Current Medications Amlodipine Besylate (Norvasc) 10 mg PO DAILY [facility] Last Admin: 03/21/17 09:56 Dose: 10 mg Budesonide (Pulmicort Respules) 0.5 mg INH RQ12 [facility] Last Admin: 03/23/17 07:11 Dose: Not Given Docusate Sodium (Colace) 100 mg PO BID [facility] Last Admin: 03/22/17 18:17 Dose: 100 mg Ferrous Sulfate (Feosol) 325 mg PO DAILY [facility] Last Admin: 03/17/17 10:56 Dose: 325 mg Hydralazine HCl (Apresoline) 25 mg PO Q6H PRN PRN Reason: Systolic Blood Pressure Last Admin: 03/19/17 09:53 Dose: 25 mg Hydrocortisone (Anusol-Hc) 0 gm IN BID PRN PRN Reason: Other Last Admin: 03/21/17 22:26 Dose: 1 applic Aztreonam 1 gm/ Sodium (Chloride) 100 mls @ 200 mls/hr IVPB Q8H [facility] Last Admin: 03/23/17 02:55 Dose: 200 mls/hr Fluconazole (Diflucan Iv 100 Mg/50 Ml Ns) 50 mls @ 100 mls/hr IVPB DAILY [facility] Last Admin: 03/22/17 10:35 Dose: 100 mls/hr Clindamycin Phosphate (Cleocin In Normal Saline Addvantage) 600 mg in 50 mls @ 100 mls/hr IVPB Q8H [facility] Last Admin: 08/03/17 01:45 Dose: 100 mls/hr Insulin Detemir (Levemir) 16 unit SC HS [facility] Last Admin: 03/22/17 22:03 Dose: Not Given Insulin Human Regular (Novolin R) 0 unit SC ACHS [facility] PRN Reason: Protocol Last Admin: 03/22/17 22:04 Dose: Not Given Saccharomyces Boulardii (Florastor) 250 mg PO BID [facility] Last Admin: 03/22/17 18:17 Dose: 250 mg Sitagliptin Phosphate (Januvia) 25 mg PO DAILY [facility] Last Admin: 03/22/17 10:32 Dose: 25 mg - Labs Labs: 03/22/17 06:33 03/22/17 06:33 - Constitutional Appears: No Acute Distress - Head Exam Head Exam: ATRAUMATIC, NORMAL INSPECTION, NORMOCEPHALIC - Eye Exam Eye Exam: EOMI, PERRL - ENT Exam ENT Exam: Mucous Membranes Moist - Respiratory Exam Respiratory Exam: Clear to Ausculation Bilateral - Cardiovascular Exam Cardiovascular Exam: REGULAR RHYTHM, +S1, +S2 - GI/Abdominal Exam GI & Abdominal Exam: Soft, Normal Bowel Sounds - Extremities Exam Extremities Exam: absent: Pedal Edema, Tenderness - Neurological Exam Neurological Exam: Alert, Awake, Oriented x3 - Skin Skin Exam: Dry, Intact, Normal Color, Warm Assessment and Plan - Assessment and Plan (Free Text) Plan: 1. Dyspnea * Contributing factors: small cell lung cancer (on chemotherapy), emphysema, and pneumonia, and bacteremia * CT chest: no evidence for PE, ovoid groundglass opacity in right upper lobe 2.4 x 1.5, few smaller ill defined groundglass lesions that appear similar in the right lower lobe and left upper lobe, mild to moderate underlying centrilobular emphysema and some paraseptal emphysema in upper lung zones, 1.7cm left adrenal mass * Duoneb 3ml INH q6h * Pulmicort .5mg INH q12h 2. Pneumonia * Infectious Disease (Dr. Walter) on the case-->help appreciated (Dr. Israel elizalde) * CT chest: no evidence for PE, ovoid groundglass opacity in right upper lobe 2.4 x 1.5, few smaller ill defined groundglass lesions that appear similar in the right lower lobe and left upper lobe, mild to moderate underlying centrilobular emphysema and some paraseptal emphysema in upper lung zones, 1.7cm left adrenal mass * Chest xray (03/18/17): suspect right lower lobe pneumonia and developing right pleural effusion * Patient started on Aztreonam 1 gram IV Q 8 hours (active since 03/18/17), Diflucan 100mg IV Q daily (active since 03/18/17), and Clindamycin 600mg IV Q 8 hours (active since 03/19/17) * Sputum (03/16/17): yeast species * Sputum (03/18/17): normal oral dora 3. Bacteremia * Infectious Disease (Dr. Walter) on the case-->help appreciated (Dr. Israel elizalde) * Blood culture (03/11) from port a cath: gram positive cocci coag negative ( unclear if contaminant or not) * Blood culture (03/11) peripheral: no growth X 5days * Blood culture (03/12) from [facility] cath: no growth X 5 days * Blood culture (03/12) from [facility]: no growth X 5 days * Blood culture (03/13): not from port a cath: no growth X5 days X2 * Blood culture (03/18): no growth for 3 days X2 * Urine culture (03/18): no growth * Patient started on Aztreonam 1 gram IV Q 8 hours (active since 03/18/17), Diflucan 100mg IV Q daily (active since 03/18/17), Clindamycin 600mg IV Q 8 hours (active since 03/19/17 * Prior IV abx: Cefepime 2gram IV Q12 hours discontinued; secondary to elevated WBC on 03/18/17 and Vancomycin 1gram IVQ 24 hours (active since 03/12/17; held vancomycin 03/19/17 * Given dose of Gentamcin by ID (03/12 and 03/13); gentamcin discontinued 03/17/17 * Echocardiogram (03/13/17): left ventricle systolic function is normal, EF: 60- 65%, diastolic dysfunction, no aortic regurgitation is present. No mitral valve regurgitation noted; mild tricupside regurgitation, mild pulmonary regurgitation , no pulmonic valvuar regurgitation * 1/2 NS 50cc/hr * Florastor 250mg PO bid 4. Diabetes * ISS low dose * Levemir 16 u SC HS HELD 03/23/17 due to episodes of AM hypoglycemia * hold metformin because patient received contrast * Renal dose Januvia 25 mg PO daily (lowered from 100 for renal dosing) HELD 03/23 due to episodes of AM hypoglycemia * accuchecks QAC and HS * HgA1c 6.5 (controlled) * d/c Enalapril 2.5 mg PO BID secondary to BRENDA and hyperkalemia * Emphasized to patient she must eat her meals-->patient only wants fruit; does not want hospital food; explained to patient that fruit is sugar 5. Hypertension * d/c Enalapril 2.5 mg PO BID secondary to BRENDA and hyperkalemia during hospitalization * Norvasc 10mg PO daily * monitor vital signs-->controlled 6. Chronic Anemia * Heme-oncology (Dr. Dennis) on board-->help appreciated * held Feosol 325mg PO daily * Patient is on IV Ferriclet 125 IVPB daily (Active since 03/15/17) * Likely secondary to chemotherapy 7. Leukocytosis * cultures are negative; refused blood work this AM * Note plan for Bacteremia and Small cell lung cancer 8. Small cell lung Cancer * CT chest: no evidence for PE, ovoid groundglass opacity in right upper lobe 2.4 x 1.5, few smaller ill defined groundglass lesions that appear similar in the right lower lobe and left upper lobe, mild to moderate underlying centrilobular emphysema and some paraseptal emphysema in upper lung zones, 1.7cm left adrenal mass * repeat CT Chest unchanged to see if changed from initial CT Chest; no effusion * Patient to follow up with heme/onc specialist, Dr. Nails upon discharge. * Patient is on active chemo therapy and Neulasta prior to admission * Patient unable to complete Abdominal MRI; unable to hold breath for MRI to workup adrenal lesion 9. Emphysema * CT chest: no evidence for PE, ovoid groundglass opacity in right upper lobe 2.4 x 1.5, few smaller ill defined groundglass lesions that appear similar in the right lower lobe and left upper lobe, mild to moderate underlying centrilobular emphysema and some paraseptal emphysema in upper lung zones, 1.7cm left adrenal mass * repeat CT Chest unchanged from initial CT Chest given right pleural effusion fron 03/18/17; no effusion * ABG done 99 O2 saturation on RA * Duoneb 3ml INH q6h * Pulmicort .5mg INH q12h 10. Acute Renal Insufficiency * Nephrology (Dr. Montes) on board-->help appreciated * Renal Arterial Doppler showing unlikely renal vein thrombosis on 03/23/17 * If worsening renal function in bloodwork then consider renal biopsy * held enalapril secondary to hyperkalemia and BRENDA * Metformin held secondary to contrast CT * Januvia adjusted to renal dose but HELD 03/23/17 due to episodes of AM hypoglycemia * gentle IV hydration NS 75 cc/hr 11. Thrombocytopenia * held Heparin secondary to thrombocytopenia * Plavix held secondary to thrombocytopenia * Monitor platelets; transfuse if below <10,000k * Monitor for any bleeding episodes * Improving 12. Prophylactic Measures * Pepcid 20 mg PO daily * Colace 100 mg PO daily * d/c Heparin 5000 units SC [id number] secondary to thrombocytopenia * PT eval (03/17): recommended for home with services * Patient refuses subacute rehab Patient refuses IMEDLA for continuation of IV antibiotics. If WBC improves, we can consider switching the patient to PO antibiotics and discharge home. Case discussed with Dr. Evgeny Krause PGY1 <Kaylie Pepper V - Last Filed: 03/25/17 23:32> Objective - Vital Signs/Intake and Output Vital Signs (last 24 hours): Temp Pulse Resp BP Pulse Ox 98.3 F 78 20 126/70 95 03/25/17 15:49 03/25/17 16:00 03/25/17 15:49 03/25/17 15:49 03/25/17 15:49 Intake and Output: 03/25/17 03/26/17 18:59 06:59 Intake Total 1080 Balance 1080 - Labs Labs: 03/24/17 07:09 03/24/17 07:09 Attending/Attestation - Attestation I have personally seen and examined this patient.: Yes I have fully participated in the care of the patient.: Yes I have reviewed all pertinent clinical information, including history, physical exam and plan: Yes Notes (Text): This is late computer entry for 03/23/17. Patient seen, examined, and case discussed with day-time resident. Patient seen in the morning upon completion of renal vein duplex per nephrology. Patient refused labwork this morning but reports she will allow them to take later on. Patient is currently on IV abx to cover for pneumonia; monitor white count to see if improving. Patient's platelets are improving. Patient refuses IMELDA; wants to go home with PO antibiotics.
[2017-03-23] MEDS: Fluconazole IV 100mg/50 ml NS 50 ML IVPB SCH (09:47)
[2017-03-23] MEDS: Saccharomyces Boulardi 250 mg Cap PO SCH ×2 (09:48→18:31)
--- NOTE | 2017-03-23 15:38 | VASCLAB ---
PROCEDURE: Ultrasonography renal arterial evaluation HISTORY: rule out renal vein thrombosis COMPARISON: None available. TECHNIQUE: Real-time ultrasonography evaluation of the renal arteries were performed. Comparison is made to the aorta. Report prepared by MEGHA Wu, RVT FINDINGS: AORTA: Patent. Peak systolic velocity 93 centimeters/second RIGHT RENAL ARTERY: Renal artery to aorta ratio: 1.6 * Proximal segment: Patent. Peak systolic velocity 151 centimeters/second * Mid segment: Patent. Peak systolic velocity 136 centimeters/second * Distal segment: Patent. Peak systolic velocity 138 centimeters/second Other findings: Right Kidney measures approximately 8.59 centimeters. Although limited in evaluation, right renal vein appears patent. LEFT RENAL ARTERY: Renal artery to aorta ratio: 1.9 * Proximal segment: Patent. Peak systolic velocity 161 centimeters/second * Mid segment: Patent. Peak systolic velocity 159 centimeters/second * Distal segment: Patent. Peak systolic velocity 180 centimeters/second Other findings: Left Kidney measures approximately 10.52 centimeters. Although limited in evaluation, left renal vein appears patent. IMPRESSION: No definite hemodynamically significant stenosis involving the renal arteries as visualized. Follow-up CT with IV contrast in venous phase can be obtained if there are no contraindications to evaluate for renal vein thrombosis.
[2017-03-23 17:21] VITALS: RESP 20
[2017-03-23] MEDS: Sodium Chloride 0.9% 1,000 ML IV SCH (18:32)
--- NOTE | 2017-03-23 19:15 | CP.PCM.PN ---
Subjective - Date & Time of Evaluation Date of Evaluation: 03/23/17 Time of Evaluation: 18:45 - Subjective Subjective: Patient reports headaches earlier today while NPO; Objective - Vital Signs/Intake and Output Vital Signs (last 24 hours): Temp Pulse Resp BP Pulse Ox 98.3 F 86 20 100/66 96 03/23/17 15:30 03/23/17 15:30 03/23/17 15:30 03/23/17 15:30 03/23/17 15:30 Intake and Output: 03/23/17 03/24/17 18:59 06:59 Intake Total 680 Balance 680 - Medications Medications: Current Medications Amlodipine Besylate (Norvasc) 10 mg PO DAILY [facility] Last Admin: 03/21/17 09:56 Dose: 10 mg Budesonide (Pulmicort Respules) 0.5 mg INH RQ12 [facility] Last Admin: 03/23/17 07:11 Dose: Not Given Docusate Sodium (Colace) 100 mg PO BID [facility] Last Admin: 03/23/17 18:31 Dose: 100 mg Ferrous Sulfate (Feosol) 325 mg PO DAILY [facility] Last Admin: 03/17/17 10:56 Dose: 325 mg Hydralazine HCl (Apresoline) 25 mg PO Q6H PRN PRN Reason: Systolic Blood Pressure Last Admin: 03/19/17 09:53 Dose: 25 mg Hydrocortisone (Anusol-Hc) 0 gm MT BID PRN PRN Reason: Other Last Admin: 03/21/17 22:26 Dose: 1 applic Aztreonam 1 gm/ Sodium (Chloride) 100 mls @ 200 mls/hr IVPB Q8H [facility] Last Admin: 03/23/17 18:37 Dose: 200 mls/hr Fluconazole (Diflucan Iv 100 Mg/50 Ml Ns) 50 mls @ 100 mls/hr IVPB DAILY [facility] Last Admin: 03/23/17 09:47 Dose: 100 mls/hr Clindamycin Phosphate (Cleocin In Normal Saline Addvantage) 600 mg in 50 mls @ 100 mls/hr IVPB Q8H [facility] Last Admin: 03/23/17 18:32 Dose: 100 mls/hr Sodium Chloride (Sodium Chloride 0.9%) 1,000 mls @ 75 mls/hr IV .[id number] [facility] Last Admin: 03/23/17 18:32 Dose: 75 mls/hr Insulin Detemir (Levemir) 16 unit SC HS [facility] Last Admin: 03/22/17 22:03 Dose: Not Given Insulin Human Regular (Novolin R) 0 unit SC ACHS [facility] PRN Reason: Protocol Last Admin: 03/23/17 17:55 Dose: Not Given Saccharomyces Boulardii (Florastor) 250 mg PO BID [facility] Last Admin: 03/23/17 18:31 Dose: 250 mg Sitagliptin Phosphate (Januvia) 25 mg PO DAILY [facility] Last Admin: 03/22/17 10:32 Dose: 25 mg - Labs Labs: 03/22/17 06:33 03/22/17 06:33 - Constitutional Appears: Well, No Acute Distress - Head Exam Head Exam: NORMAL INSPECTION - Eye Exam Eye Exam: Normal appearance. absent: Scleral icterus - ENT Exam ENT Exam: Mucous Membranes Moist - Respiratory Exam Respiratory Exam: NORMAL BREATHING PATTERN. absent: Rales, Rhonchi Additional comments: Mild exp wheezes; - Cardiovascular Exam Cardiovascular Exam: REGULAR RHYTHM, +S1, +S2 - GI/Abdominal Exam GI & Abdominal Exam: Soft. absent: Distended, Tenderness - Extremities Exam Additional comments: Minimal leg edema; - Neurological Exam Neurological Exam: Alert, Awake - Psychiatric Exam Psychiatric exam: Normal Affect, Normal Mood - Skin Skin Exam: Normal Color, Warm. absent: Cyanosis Assessment and Plan (1) BRENDA (acute kidney injury) Assessment & Plan: BRENDA on CKD; etiology still unclear; AIN secondary to drug reaction is a possibility but no clear offending drug identified; renal duplex not indicative of renal vein thrombosis (not ideal study but RVT unlikely anyway); -awaiting labs from today -if labs tomorrow morning showing further significant decline in renal function , should obtain renal biopsy Status: Acute (2) Hyperkalemia Assessment & Plan: Awaiting labs from today; patient given handout on low K foods as she is likely prone to compromised renal potassium handling at baseline; -low K diet Status: Acute (3) CKD (chronic kidney disease) Assessment & Plan: Relatively mild disease; chemo may play a role as can renovascular disease; -avoid further nephrotoxic agents; Status: Chronic (4) Hypertension Assessment & Plan: Erratic BP control, may indicate underlying renovascular disease; holding BP meds; starting NS at 75 cc/hr to avoid drops in BP; Status: Acute (5) Diabetes Status: Chronic (6) Lung cancer Assessment & Plan: On etoposide and carboplatin, 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
[2017-03-23 21:35] LABS: BASO % 0.3 % (0.0-2.0); EOS % 0.3 % (0.0-4.0); HEMOGLOBIN 9.4 g/dL (11.0-16.0); LYMPH # 1.7 K/uL (1.0-4.3); LYMPH % 11.4 % (20.0-40.0); MEAN CORPUSCULAR HEMOGLOBIN 29.5 pg (27.0-31.0); MEAN PLATELET VOLUME 7.2 fL (7.2-11.7); MONO # 0.7 K/uL (0.0-0.8); MONO % 4.9 % (0.0-10.0); NEUT # 12.6 K/uL (1.8-7.0); NEUT % 83.1 % (50.0-75.0); NRBC % 0.1 % (0.0-2.0); RBC 3.18 Mil/uL (3.80-5.20); RED CELL DISTRIBUTION WIDTH 14.3 % (11.5-14.5); WHITE BLOOD COUNT 15.2 K/uL (4.8-10.8)
[2017-03-23 21:49] LABS: ALBUMIN 3.5 g/dL (3.5-5.0)
[2017-03-23 21:52] LABS: ALB/GLOB RATIO 1.3 (1.0-2.1); CALCIUM 8.3 mg/dl (8.6-10.4)
[2017-03-24] MEDS: Clindamycin 600mg/50ml NS 600 MG/50 ML BAG IVPB SCH ×3 (01:58→17:06)
[2017-03-24] MEDS: Aztreonam 1 GM in Sodium Chloride 0.9% 100 ML IVPB SCH ×4 (02:26→22:22)
[2017-03-24 07:39] LABS: BASO % 0.2 % (0.0-2.0); EOS % 0.3 % (0.0-4.0); HEMOGLOBIN 9.3 g/dL (11.0-16.0); LYMPH # 1.5 K/uL (1.0-4.3); LYMPH % 10.6 % (20.0-40.0); MEAN CELL VOLUME 92.1 fL (81.0-99.0); MEAN CORPUSCULAR HEMOGLOBIN 29.6 pg (27.0-31.0); MEAN CORPUSCULAR HGB CONC 32.1 g/dL (33.0-37.0); MEAN PLATELET VOLUME 7.6 fL (7.2-11.7); MONO # 0.6 K/uL (0.0-0.8); NEUT # 11.9 K/uL (1.8-7.0); NEUT % 84.9 % (50.0-75.0); RBC 3.15 Mil/uL (3.80-5.20); RED CELL DISTRIBUTION WIDTH 14.2 % (11.5-14.5)
[2017-03-24] MEDS: (Novolin R) Insulin Human Regular 100 units/ml vial SC SCH ×4 (07:51→22:19)
[2017-03-24] MEDS: Budesonide 0.5 mg/2 ml Inhal Susp UD INH SCH ×2 (07:59→19:35)
[2017-03-24 08:19] LABS: ALBUMIN 3.2 g/dL (3.5-5.0)
[2017-03-24 08:23] LABS: ALB/GLOB RATIO 1.1 (1.0-2.1); CALCIUM 8.3 mg/dl (8.6-10.4)
[2017-03-24] MEDS: Sodium Chloride 0.9% 1,000 ML IV SCH (08:30)
[2017-03-24 08:35] LABS: CORTISOL AM 8.5 ug/dL (4.46-22.7)
[2017-03-24] MEDS: Saccharomyces Boulardi 250 mg Cap PO SCH ×2 (10:35→17:09)
[2017-03-24] MEDS ORDERED: Fluconazole IV 200mg/100 ml NS 100 MG in Premixed IV 1 EA IVPB SCH (15:00)
--- NOTE | 2017-03-24 19:10 | CP.PCM.PN ---
Subjective - Date & Time of Evaluation Date of Evaluation: 03/24/17 Time of Evaluation: 19:00 - Subjective Subjective: Denies any complaints; cognizant of need for low K diet (went through handout given to her earlier); Objective - Vital Signs/Intake and Output Vital Signs (last 24 hours): Temp Pulse Resp BP Pulse Ox 98.2 F 80 20 161/77 H 96 03/24/17 15:26 03/24/17 15:26 03/24/17 15:26 03/24/17 15:26 03/24/17 15:26 Intake and Output: 03/24/17 03/25/17 18:59 06:59 Intake Total 1040 Balance 1040 - Medications Medications: Current Medications Amlodipine Besylate (Norvasc) 10 mg PO DAILY [facility] Last Admin: 03/21/17 09:56 Dose: 10 mg Budesonide (Pulmicort Respules) 0.5 mg INH RQ12 [facility] Last Admin: 03/24/17 07:59 Dose: 0.5 mg Clopidogrel Bisulfate (Plavix) 75 mg PO DAILY [facility] Last Admin: 03/24/17 17:08 Dose: 75 mg Docusate Sodium (Colace) 100 mg PO BID [facility] Last Admin: 03/24/17 17:09 Dose: 100 mg Ferrous Sulfate (Feosol) 325 mg PO DAILY [facility] Last Admin: 03/17/17 10:56 Dose: 325 mg Hydralazine HCl (Apresoline) 25 mg PO Q6H PRN PRN Reason: Systolic Blood Pressure Last Admin: 03/19/17 09:53 Dose: 25 mg Hydrocortisone (Anusol-Hc) 0 gm SD BID PRN PRN Reason: Other Last Admin: 03/21/17 22:26 Dose: 1 applic Clindamycin Phosphate (Cleocin In Normal Saline Addvantage) 600 mg in 50 mls @ 100 mls/hr IVPB Q8H [facility] Last Admin: 03/24/17 17:06 Dose: 100 mls/hr Sodium Chloride (Sodium Chloride 0.9%) 1,000 mls @ 75 mls/hr IV .[id number] [facility] Last Admin: 03/24/17 08:30 Dose: 75 mls/hr Aztreonam 1 gm/ Sodium (Chloride) 100 mls @ 200 mls/hr IVPB Q8H [facility] Last Admin: 03/24/17 17:04 Dose: 200 mls/hr Fluconazole 100 mg/ (Miscellaneous) 50 mls @ 50 mls/hr IVPB Q24H [facility] Last Admin: 03/24/17 16:30 Dose: 50 mls/hr Insulin Detemir (Levemir) 16 unit SC HS [facility] Last Admin: 03/22/17 22:03 Dose: Not Given Insulin Human Regular (Novolin R) 0 unit SC ACHS [facility] PRN Reason: Protocol Last Admin: 03/24/17 17:10 Dose: Not Given Metronidazole (Flagyl) 500 mg PO Q8H [facility] Last Admin: 03/24/17 17:08 Dose: 500 mg Saccharomyces Boulardii (Florastor) 250 mg PO BID [facility] Last Admin: 03/24/17 17:09 Dose: 250 mg Sitagliptin Phosphate (Januvia) 25 mg PO DAILY [facility] Last Admin: 03/22/17 10:32 Dose: 25 mg - Labs Labs: 03/24/17 07:09 03/24/17 07:09 - Constitutional Appears: Well, No Acute Distress - Head Exam Head Exam: NORMAL INSPECTION - Eye Exam Eye Exam: Normal appearance. absent: Scleral icterus - ENT Exam ENT Exam: Mucous Membranes Moist - Respiratory Exam Respiratory Exam: absent: Rales, Rhonchi, Respiratory Distress Additional comments: Mild scattered exp wheezes; - Cardiovascular Exam Cardiovascular Exam: REGULAR RHYTHM, +S1, +S2 - GI/Abdominal Exam GI & Abdominal Exam: Soft. absent: Distended, Tenderness - Extremities Exam Additional comments: mild lower leg edema; - Neurological Exam Neurological Exam: Alert, Awake - Skin Skin Exam: Normal Color, Warm. absent: Cyanosis Assessment and Plan (1) BRENDA (acute kidney injury) Assessment & Plan: Resolving; likely multifactorial; partly hemodynamically mediated with fluctuating BP likely indicative of some degree of underlying renovascular disease; cannot rule out AIN (famotidine or vanco possible culprits?); gent induced ATN may also be contibutory; -avoid tight BP control Status: Acute (2) Hyperkalemia Assessment & Plan: Improved; needs to be on low K diet (patient aware); avoid AYAZ blockade; Status: Acute (3) CKD (chronic kidney disease) Assessment & Plan: Likely due to some degree of renovascular disease, chemo may be contributory; avoid nephrotoxic meds; Status: Chronic (4) Hypertension Assessment & Plan: Recommend to not be on meds unless SBP consistently over 150; for her overall condition (with lung CA and also with predilection for BRENDA), would follow [id number] recs to target SBP < 150 for elderly patients; Status: Acute (5) Diabetes Status: Chronic (6) Lung cancer Status: Acute (7) Catheter-related bloodstream infection Status: Resolved (8) Adrenal mass Status: Chronic (9) Leucocytosis Assessment & Plan: No renal dose adjustment needed for flagyl, clinda or diflucan; consider increasing aztreonam to 2 g q8h as renal function improved; Status: Acute
--- NOTE | 2017-03-24 19:51 | CP.PCM.PN ---
Subjective - Date & Time of Evaluation Date of Evaluation: 03/24/17 Time of Evaluation: 07:00 - Subjective Subjective: PGY-[address] Blake Patient seen and examined at bedside. Patient complaining of throat congestion. Patient is not currently short of breath but states that she will become dyspneic if she tries to cough the sputum out. Patient denies fevers, chills, chest pain, abdominal pain, pain with urination. Objective - Vital Signs/Intake and Output Vital Signs (last 24 hours): Temp Pulse Resp BP Pulse Ox 98.2 F 80 20 161/77 H 96 03/24/17 15:26 03/24/17 15:26 03/24/17 15:26 03/24/17 15:26 03/24/17 15:26 Intake and Output: 03/24/17 03/25/17 18:59 06:59 Intake Total 1040 Balance 1040 - Medications Medications: Current Medications Amlodipine Besylate (Norvasc) 10 mg PO DAILY [facility] Last Admin: 03/21/17 09:56 Dose: 10 mg Budesonide (Pulmicort Respules) 0.5 mg INH RQ12 [facility] Last Admin: 03/24/17 19:35 Dose: Not Given Clopidogrel Bisulfate (Plavix) 75 mg PO DAILY [facility] Last Admin: 03/24/17 17:08 Dose: 75 mg Docusate Sodium (Colace) 100 mg PO BID [facility] Last Admin: 03/24/17 17:09 Dose: 100 mg Ferrous Sulfate (Feosol) 325 mg PO DAILY [facility] Last Admin: 03/17/17 10:56 Dose: 325 mg Hydralazine HCl (Apresoline) 25 mg PO Q6H PRN PRN Reason: Systolic Blood Pressure Last Admin: 03/19/17 09:53 Dose: 25 mg Hydrocortisone (Anusol-Hc) 0 gm ID BID PRN PRN Reason: Other Last Admin: 03/21/17 22:26 Dose: 1 applic Clindamycin Phosphate (Cleocin In Normal Saline Addvantage) 600 mg in 50 mls @ 100 mls/hr IVPB Q8H [facility] Last Admin: 03/24/17 17:06 Dose: 100 mls/hr Aztreonam 1 gm/ Sodium (Chloride) 100 mls @ 200 mls/hr IVPB Q8H [facility] Last Admin: 03/24/17 17:04 Dose: 200 mls/hr Fluconazole 100 mg/ (Miscellaneous) 50 mls @ 50 mls/hr IVPB Q24H [facility] Last Admin: 03/24/17 16:30 Dose: 50 mls/hr Insulin Detemir (Levemir) 16 unit SC HS [facility] Last Admin: 03/22/17 22:03 Dose: Not Given Insulin Human Regular (Novolin R) 0 unit SC ACHS [facility] PRN Reason: Protocol Last Admin: 03/24/17 17:10 Dose: Not Given Metronidazole (Flagyl) 500 mg PO Q8H [facility] Last Admin: 03/24/17 17:08 Dose: 500 mg Saccharomyces Boulardii (Florastor) 250 mg PO BID [facility] Last Admin: 03/24/17 17:09 Dose: 250 mg Sitagliptin Phosphate (Januvia) 25 mg PO DAILY [facility] Last Admin: 03/22/17 10:32 Dose: 25 mg - Labs Labs: 03/24/17 07:09 03/24/17 07:09 - Constitutional Appears: No Acute Distress - Head Exam Head Exam: ATRAUMATIC, NORMAL INSPECTION, NORMOCEPHALIC - Eye Exam Eye Exam: EOMI, PERRL - ENT Exam ENT Exam: Mucous Membranes Moist - Respiratory Exam Respiratory Exam: Decreased Breath Sounds. absent: Rales, Rhonchi, Wheezes - GI/Abdominal Exam GI & Abdominal Exam: Soft, Normal Bowel Sounds. absent: Tenderness - Extremities Exam Extremities Exam: absent: Pedal Edema, Tenderness - Neurological Exam Neurological Exam: Alert, Awake, Oriented x3 - Skin Skin Exam: Dry, Intact, Normal Color, Warm Assessment and Plan - Assessment and Plan (Free Text) Plan: 1. Dyspnea * Contributing factors: small cell lung cancer (on chemotherapy), emphysema, and pneumonia, and bacteremia * CT chest: no evidence for PE, ovoid groundglass opacity in right upper lobe 2.4 x 1.5, few smaller ill defined groundglass lesions that appear similar in the right lower lobe and left upper lobe, mild to moderate underlying centrilobular emphysema and some paraseptal emphysema in upper lung zones, 1.7cm left adrenal mass * Pulmicort .5mg INH q12h 2. Pneumonia * Infectious Disease (Dr. Walter) on the case-->help appreciated (Dr. Israel elizalde) * CT chest: no evidence for PE, ovoid groundglass opacity in right upper lobe 2.4 x 1.5, few smaller ill defined groundglass lesions that appear similar in the right lower lobe and left upper lobe, mild to moderate underlying centrilobular emphysema and some paraseptal emphysema in upper lung zones, 1.7cm left adrenal mass * Chest xray (03/18/17): suspect right lower lobe pneumonia and developing right pleural effusion * Patient started on Aztreonam 1 gram IV Q 8 hours (active since 03/18/17), Diflucan 100mg IV Q daily (active since 03/18/17), and Clindamycin 600mg IV Q 8 hours (active since 03/19/17) * Sputum (03/16/17): yeast species * Sputum (03/18/17): normal oral dora 3. Bacteremia * Infectious Disease (Dr. Walter) on the case-->help appreciated (Dr. Israel elizalde) * Blood culture (03/11) from port a cath: gram positive cocci coag negative ( unclear if contaminant or not) * Blood culture (03/11) peripheral: no growth X 5days * Blood culture (03/12) from port a cath: no growth X 5 days * Blood culture (03/12) from port a cath: no growth X 5 days * Blood culture (03/13): not from port a cath: no growth X5 days X2 * Blood culture (03/18): no growth for 3 days X2 * Urine culture (03/18): no growth * Patient started on Aztreonam 1 gram IV Q 8 hours (active since 03/18/17), Diflucan 100mg IV Q daily (active since 03/18/17), Clindamycin 600mg IV Q 8 hours (active since 03/19/17) * Prior IV abx: Cefepime 2gram IV Q12 hours discontinued; secondary to elevated WBC on 03/18/17 and Vancomycin 1gram IVQ 24 hours (active since 03/12/17; held vancomycin 03/19/17 * Given dose of Gentamcin by ID (03/12 and 03/13); gentamcin discontinued 03/17/17 * Echocardiogram (03/13/17): left ventricle systolic function is normal, EF: 60- 65%, diastolic dysfunction, no aortic regurgitation is present. No mitral valve regurgitation noted; mild tricupside regurgitation, mild pulmonary regurgitation , no pulmonic valvuar regurgitation * 1/2 NS 50cc/hr * Florastor 250mg PO bid 4. Diabetes * ISS low dose * Levemir 16 u SC HS HELD 03/23/17 due to episodes of AM hypoglycemia * Renal dose Januvia 25 mg PO daily (lowered from 100 for renal dosing) HELD 03/23 due to episodes of AM hypoglycemia * accuchecks QAC and HS * HgA1c 6.5 (controlled) * d/c Enalapril 2.5 mg PO BID secondary to BRENDA and hyperkalemia * Emphasized to patient she must eat her meals-->patient only wants fruit; does not want hospital food; explained to patient that fruit is sugar 5. Hypertension * d/c Enalapril 2.5 mg PO BID secondary to BRENDA and hyperkalemia during hospitalization * Norvasc 10mg PO daily * monitor vital signs-->controlled 6. Chronic Anemia * Heme-oncology (Dr. Dennis) on board-->help appreciated * held Feosol 325mg PO daily * Patient is on IV Ferriclet 125 IVPB daily (Active since 03/15/17) * Likely secondary to chemotherapy 7. Leukocytosis * cultures are negative; refused blood work this AM * Note plan for Bacteremia and Small cell lung cancer * Flagyl 500 mg PO Q8 started on 03/24/17 8. Small cell lung Cancer * CT chest: no evidence for PE, ovoid groundglass opacity in right upper lobe 2.4 x 1.5, few smaller ill defined groundglass lesions that appear similar in the right lower lobe and left upper lobe, mild to moderate underlying centrilobular emphysema and some paraseptal emphysema in upper lung zones, 1.7cm left adrenal mass * repeat CT Chest unchanged to see if changed from initial CT Chest; no effusion * Patient to follow up with heme/onc specialist, Dr. Nails upon discharge. * Patient is on active chemo therapy and Neulasta prior to admission * Patient unable to complete Abdominal MRI; unable to hold breath for MRI to workup adrenal lesion 9. Emphysema * CT chest: no evidence for PE, ovoid groundglass opacity in right upper lobe 2.4 x 1.5, few smaller ill defined groundglass lesions that appear similar in the right lower lobe and left upper lobe, mild to moderate underlying centrilobular emphysema and some paraseptal emphysema in upper lung zones, 1.7cm left adrenal mass * repeat CT Chest unchanged from initial CT Chest given right pleural effusion fron 03/18/17; no effusion * ABG done 99 O2 saturation on RA * Pulmicort .5mg INH q12h 10. Acute Renal Insufficiency * Nephrology (Dr. Montes) on board-->help appreciated * Renal Arterial Doppler showing unlikely renal vein thrombosis on 03/23/17 * If worsening renal function in bloodwork then consider renal biopsy * held enalapril secondary to hyperkalemia and BRENDA * Metformin held secondary to contrast CT * Januvia adjusted to renal dose but HELD 03/23/17 due to episodes of AM hypoglycemia * gentle IV hydration NS 75 cc/hr 11. Thrombocytopenia * held Heparin secondary to thrombocytopenia * Plavix restarted * Monitor platelets; transfuse if below <10,000k * Monitor for any bleeding episodes * Improving 12. Prophylactic Measures * Pepcid 20 mg PO daily * Colace 100 mg PO daily * d/c Heparin 5000 units SC [id number] secondary to thrombocytopenia * PT eval (03/17): recommended for home with services * Patient refuses subacute rehab Dr. Dennis was called 03/24/17 and he stated that the persistent elevated white blood cell count is something that can be trended and followed as an outpatient. It is likely due to chemotherapy in his opinion. Case discussed with Dr. Hayden Krause PGY1
[2017-03-25] MEDS: Clindamycin 600mg/50ml NS 600 MG/50 ML BAG IVPB SCH ×2 (00:30→08:48)
[2017-03-25] MEDS: Aztreonam 1 GM in Sodium Chloride 0.9% 100 ML IVPB SCH ×2 (06:01→14:35)
[2017-03-25] MEDS: Budesonide 0.5 mg/2 ml Inhal Susp UD INH SCH (07:26)
[2017-03-25] MEDS: (Novolin R) Insulin Human Regular 100 units/ml vial SC SCH ×2 (08:11→12:49)
[2017-03-25] MEDS ORDERED: guaiFENesin 600 mg ER Tab PO SCH (10:45)
[2017-03-25] MEDS: Saccharomyces Boulardi 250 mg Cap PO SCH (11:02)
--- NOTE | 2017-03-25 14:48 | CP.PCM.DIS ---
Provider - Provider Date of Admission: 03/11/17 00:24 Attending physician: Kaylie Pepper DO Time Spent in preparation of Discharge (in minutes): 50 Diagnosis - Discharge Diagnosis (1) Dyspnea Status: Acute (2) Pneumonia Status: Acute (3) Bacteremia Status: Acute (4) Small cell lung cancer Status: Chronic (5) Emphysema of lung Status: Chronic (6) Thrombocytopenia Status: Acute (7) Prophylactic measure Status: Acute (8) BRENDA (acute kidney injury) Status: Acute (9) COPD exacerbation Status: Acute (10) Hyperkalemia Status: Acute (11) Hypertension Status: Chronic (12) Leucocytosis Status: Acute (13) CKD (chronic kidney disease) Status: Chronic (14) Diabetes Status: Chronic Hospital Course - Lab Results Lab Results: Micro Results 03/18/17 12:10 Blood-Thru Central Line Blood Culture - Final NO GROWTH AFTER 5 DAYS 03/18/17 12:10 Blood-Thru Central Line Gram Stain - Final 03/18/17 12:00 Blood-Thru Central Line Blood Culture - Final NO GROWTH AFTER 5 DAYS 03/18/17 12:00 Blood-Thru Central Line Gram Stain - Final TEST NOT PERFORMED 03/18/17 Unknown Sputum Gram Stain - Final 03/18/17 Unknown Sputum Sputum Culture - Final NORMAL ORAL ROBERT 03/16/17 10:51 Sputum Gram Stain - Final 03/16/17 10:51 Sputum Sputum Culture - Final Yeast Species 03/18/17 Unknown Urine Urine Culture - Final No Growth (<1,000 CFU/ML) 03/13/17 09:20 Blood Blood Culture - Final NO GROWTH AFTER 5 DAYS 03/13/17 09:20 Blood Gram Stain - Final 03/13/17 09:20 Blood Blood Culture - Final NO GROWTH AFTER 5 DAYS 03/13/17 09:20 Blood Gram Stain - Final TEST NOT PERFORMED 03/12/17 18:00 Blood Blood Culture - Final NO GROWTH AFTER 5 DAYS 03/12/17 18:00 Blood Gram Stain - Final TEST NOT PERFORMED 03/12/17 17:15 Blood Blood Culture - Final NO GROWTH AFTER 5 DAYS 03/12/17 17:15 Blood Gram Stain - Final TEST NOT PERFORMED 03/11/17 16:00 Blood Blood Culture - Final NO GROWTH AFTER 5 DAYS 03/11/17 16:00 Blood Gram Stain - Final TEST NOT PERFORMED 03/12/17 20:30 Urine,Clean Catch Urine Culture - Final No Growth (<1,000 CFU/ML) 03/11/17 16:00 Blood S.aureus & Coag-Neg Staph PNA FISH - Final 03/11/17 16:00 Blood Blood Culture - Final Coagulase Neg Staphylococcus 03/11/17 16:00 Blood Gram Stain - Final Most Recent Lab Values WBC 14.0 K/uL (4.8-10.8) H 03/24/17 07:09 RBC 3.15 Mil/uL (3.80-5.20) L 03/24/17 07:09 Hgb 9.3 g/dL (11.0-16.0) L 03/24/17 07:09 Hct 29.0 % (34.0-47.0) L 03/24/17 07:09 MCV 92.1 fL (81.0-99.0) 03/24/17 07:09 MCH 29.6 pg (27.0-31.0) 03/24/17 07:09 MCHC 32.1 g/dL (33.0-37.0) L 03/24/17 07:09 RDW 14.2 % (11.5-14.5) 03/24/17 07:09 Plt Count 224 K/uL (130-400) 03/24/17 07:09 MPV 7.6 fL (7.2-11.7) 03/24/17 07:09 Neut % (Auto) 84.9 % (50.0-75.0) H 03/24/17 07:09 Lymph % (Auto) 10.6 % (20.0-40.0) L 03/24/17 07:09 [place] % (Auto) 4.0 % (0.0-10.0) 03/24/17 07:09 Eos % (Auto) 0.3 % (0.0-4.0) 03/24/17 07:09 Baso % (Auto) 0.2 % (0.0-2.0) 03/24/17 07:09 Neut # 11.9 K/uL (1.8-7.0) H 03/24/17 07:09 Lymph # 1.5 K/uL (1.0-4.3) 03/24/17 07:09 [place] # 0.6 K/uL (0.0-0.8) 03/24/17 07:09 Eos # 0.0 K/uL (0.0-0.7) 03/24/17 07:09 Baso # 0.0 K/uL (0.0-0.2) 03/24/17 07:09 Neutrophils % (Manual) 91 % (50-75) H 03/13/17 07:10 Band Neutrophils % 1 % (0-2) 03/13/17 07:10 Lymphocytes % (Manual) 7 % (20-40) L 03/13/17 07:10 Monocytes % (Manual) 1 % (0-10) 03/13/17 07:10 Differential Comment 03/19/17 06:48 Platelet Estimate Decreased (NORMAL) L 03/13/17 07:10 Large Platelets Present 03/12/17 10:30 Polychromasia Slight 03/12/17 10:30 Hypochromasia (manual) Slight 03/13/17 07:10 Poikilocytosis (manual Slight 03/12/17 10:30 Anisocytosis (manual) Slight 03/13/17 07:10 Ruiz Cells Slight 03/12/17 10:30 D-Dimer, Quantitative 588 ng/mlDDU (0-243) H 03/10/17 19:14 Hep-Ayanna Thrombocytopen Negative (Negative) 03/14/17 19:44 Puncture Site Rr 03/12/17 14:15 pCO2 46 mm/Hg (35-45) H 03/12/17 14:15 pO2 71 mm/Hg (80-100) L 03/12/17 14:15 HCO3 24.6 mmol/L (21-28) 03/12/17 14:15 ABG pH 7.35 (7.35-7.45) 03/12/17 14:15 ABG Total CO2 26.8 mmol/L (22-28) 03/12/17 14:15 ABG O2 Saturation 99.3 % (95-98) H 03/12/17 14:15 ABG Base Excess -0.4 mmol/L (-2.0-3.0) 03/12/17 14:15 ABG Hemoglobin 8.7 g/dL (11.7-17.4) L 03/12/17 14:15 ABG Carboxyhemoglobin 3.3 % (0.5-1.5) H 03/12/17 14:15 POC ABG HHb (Measured) 0.7 % (0.0-5.0) 03/12/17 14:15 ABG Methemoglobin 1.6 % (0.0-3.0) 03/12/17 14:15 Higinio Test Pos 03/12/17 14:15 A-a O2 Difference 21.0 mm/Hg 03/12/17 14:15 Respiratory Index 0.3 03/12/17 14:15 Hgb O2 Saturation 94.3 % (95.0-98.0) L 03/12/17 14:15 FiO2 21.0 % 03/12/17 14:15 Sodium 138 mmol/L (132-148) 03/24/17 07:09 Potassium 5.1 mmol/L (3.6-5.2) 03/24/17 07:09 Chloride 103 mmol/L (98-107) 03/24/17 07:09 Carbon Dioxide 26 mmol/L (22-30) 03/24/17 07:09 Anion Gap 15 (10-20) 03/24/17 07:09 BUN 27 mg/dL (7-17) H 03/24/17 07:09 Creatinine 1.4 MG/DL (0.7-1.2) H 03/24/17 07:09 Est GFR ( Amer) 45 03/24/17 07:09 Est GFR (Non-Af Amer) 37 03/24/17 07:09 POC Glucose (mg/dL) 168 mg/dL (65-110) H 03/25/17 11:56 Random Glucose 135 mg/dL (65-105) H 03/24/17 07:09 Hemoglobin A1c 6.5 % (4.2-6.5) 03/11/17 05:13 Serum Osmolality 303 mosm/kg (272-300) H 03/14/17 19:44 Uric Acid 4.0 mg/dL (2.2-7.5) 03/14/17 19:44 Calcium 8.3 mg/dl (8.6-10.4) L 03/24/17 07:09 Phosphorus 4.2 mg/dL (2.5-4.5) 03/21/17 13:50 Magnesium 1.7 mg/dL (1.6-2.3) 03/21/17 13:50 Iron 169 ug/dL (37-170) 03/15/17 06:53 TIBC 191 ug/dL (250-450) L 03/15/17 06:53 % Saturation 88 (20-55) H 03/15/17 06:53 Ferritin 569.0 ng/mL 03/15/17 06:53 Total Bilirubin 0.3 mg/dL (0.2-1.3) 03/24/17 07:09 AST 84 U/L (14-36) H 03/24/17 07:09 ALT 118 U/L (9-52) H 03/24/17 07:09 Alkaline Phosphatase 114 U/L (38-126) 03/24/17 07:09 Total Creatine Kinase < 20 U/L (30-135) L 03/14/17 19:44 Troponin I 0.0130 ng/mL (0.00-0.120) 03/10/17 19:14 NT-Pro-B Natriuret Pep 121 pg/mL (0-900) 03/10/17 19:14 Total Protein 6.0 g/dL (6.3-8.3) L 03/24/17 07:09 Total Protein (PEP) 5.6 g/dL (6.1-8.1) L 03/16/17 11:20 Albumin 3.2 g/dL (3.5-5.0) L 03/24/17 07:09 Albumin (PEP) 3.3 g/dL (3.8-4.8) L 03/16/17 11:20 Globulin 2.8 gm/dL (2.2-3.9) 03/24/17 07:09 Albumin/Globulin Ratio 1.1 (1.0-2.1) 03/24/17 07:09 Zwlja-2-Wlxxtdave 0.3 g/dL (0.2-0.3) 03/16/17 11:20 Oxpfk-3-Bsmxxeuqa 0.7 g/dL (0.5-0.9) 03/16/17 11:20 Qozh-8-Ycgkdgns 0.3 g/dL (0.4-0.6) L 03/16/17 11:20 Pflm-7-Ypyprgvn 0.3 g/dL (0.2-0.5) 03/16/17 11:20 Gamma Globulins 0.7 g/dL (0.8-1.7) L 03/16/17 11:20 Abnorm Protein Band 1 TEST NOT PERFORMED 03/16/17 11:20 Abnorm Protein Band 2 TEST NOT PERFORMED 03/16/17 11:20 Abnorm Protein Band 3 TEST NOT PERFORMED 03/16/17 11:20 Renin 0.70 ng/mL/h (0.25-5.82) 03/17/17 06:38 Aldosterone 3 ng/dL 03/17/17 06:38 Aldosterone/Renin Ratio 4.3 Ratio (0.9-28.9) 03/17/17 06:38 Procalcitonin 0.25 NG/ML (0.19-0.49) 03/18/17 12:20 Cortisol AM Sample 8.5 ug/dL (4.46-22.7) 03/24/17 07:09 Urine Color Straw (YELLOW) 03/22/17 13:39 Urine Clarity Clear (Clear) 03/22/17 13:39 Urine pH 7.0 (5.0-8.0) 03/22/17 13:39 Ur Specific [place] 1.013 (1.003-1.030) 03/22/17 13:39 Urine Protein 1+ mg/dL (NEGATIVE) H 03/22/17 13:39 Urine Glucose (UA) Normal mg/dL (Normal) 03/22/17 13:39 Urine Ketones Negative mg/dL (NEGATIVE) 03/22/17 13:39 Urine Blood Negative (NEGATIVE) 03/22/17 13:39 Urine Nitrate Negative (NEGATIVE) 03/22/17 13:39 Urine Bilirubin Negative (NEGATIVE) 03/22/17 13:39 Urine Urobilinogen Normal mg/dL (0.2-1.0) 03/22/17 13:39 Ur Leukocyte Esterase Neg Parrish/uL (Negative) 03/22/17 13:39 Urine WBC (Auto) 5 /hpf (0-5) 03/22/17 13:39 Urine RBC (Auto) 2 /hpf (0-3) 03/22/17 13:39 Ur Squamous Epith Cells 1 /hpf (0-5) 03/22/17 13:39 Urine Bacteria Rare (<OCC) 03/18/17 12:20 Urine Osmolality 401 mosm/kg (300-1000) 03/19/17 12:46 Ur Random Creatinine 70.4 mg/dL 03/22/17 13:39 U Random Total Protein 21.0 mg/dL (0.0-12.0) H 03/15/17 08:40 Ur Random Sodium 117 mmol/L 03/22/17 13:29 Ur Random Potassium 33.0 mmol/L 03/19/17 12:46 Ur Random Urea Nitrogn 345 mg/dL 03/19/17 15:00 Urine Microalbumin 28.6 mg/L (0.0-16.6) H 03/15/17 06:36 Gentamicin Trough 1.1 ug/mL (0.0-0.9) H 03/14/17 19:44 Vancomycin Trough 15.0 ug/mL (5.0-10.0) H 03/18/17 15:11 SILVERIO & SPEP Interp See note 03/16/17 11:20 Serum Immunofixation Detected (Not Detected) H 03/16/17 11:20 TRAN UFH Low Dose 0.1 0 % Release 03/14/17 19:44 TRAN UFH Low Dose 0.5 0 % Release 03/14/17 19:44 TRAN UFH High Dose 100 0 % Release 03/14/17 19:44 [place]/Lambda Light Chain (()) 03/16/17 11:20 Free [place] Light Chains 27.0 mg/L (3.3-19.4) H 03/16/17 11:20 Free Lambda Light Chain 17.4 mg/L (5.7-26.3) 03/16/17 11:20 Free [place]/Lambda Ratio 1.55 (0.26-1.65) 03/16/17 11:20 H.influenzae Type B Ag Negative (NEGATIVE) 03/12/17 19:16 Ur L.pneumophila Ag Negative (NEGATIVE) 03/12/17 21:00 N.meningitidis ACY/W135 Negative (NEGATIVE) 03/12/17 19:16 N.meningi B/E.coli K1 Ag Negative (NEGATIVE) 03/12/17 19:16 Group B Strep Antigen Negative (NEGATIVE) 03/12/17 19:16 S. pneumoniae Antigen Negative (NEGATIVE) 03/12/17 19:16 Blood Type B POSITIVE 03/15/17 13:19 Blood Type Confirm B POSITIVE 03/15/17 13:19 Antibody Screen Negative 03/15/17 13:19 - Hospital Course Hospital Course: On admission: "Patient is a 71 year old female with a past medical history of DM, COPD, asthma , HTN, and lung cancer (diagnosed in 08/2016), who comes to the emergency room because she was having shortness of breath. Patient had an episode of shortness of breath in the morning which was mostly resolved after a nebulizer treatment. Then patient had shortness of breath and cough in the afternoon that was not resolving. Patient was diagnosed with lung cancer in August for which she has been getting chemo treatments since October. Patient had some mild nausea, 1 episode of vomiting water, and one loose bowel movement today which she attributes to the chemo. Patient denies headache, dizziness, chest pain, palpitations, urinary frequency, dysuria, leg pain, leg swelling. " Hospital course: Patient admitted for shortness of breath and productive cough. Chest xray (03/18/17): suspect right lower lobe pneumonia and developing right pleural effusion CT chest (03/10/17) showed ill defined groundglass lesions in right lower lobe, left upper lobe, mild to moderate underlying centrilobular emphysema and some paraseptal emphysema in upper lung zones. Incidental 1.7 cm left adrenal mass which was recommended to follow up with outpatient. Patient originally on Vancomycin and Maxipime but was ended on 03/18/17 due to elevated WBC and elevated Vancomycin trough. Azactam 1 gm IV Q8 and Clindamycin 600 mg Q8 were used instead. Sputum cultures grew yeast so Diflucan 100 mg IV qD started on 03/18/17. Cultures from [facility] were negative. WBC initially downtrended with antibiotics but then remained persistently elevated despite antibiotic treatment. Dr. Chaney consulted who said that this is likely due to chemotherapy treatment. Due to persistent WBC count and having been on Clindamycin, Flagyl 500 mg PO was started and prescribed to be continued for 7 days as an outpatient. Per Dr. Wood (ID) patient was de-escalated to Levaquin 500 mg PO daily for 7 days as an outpatient. Patient's Kidney function studies worsened during hospital stay. Enalapril and Metformin home meds were held and fluids started. Blood pressure medications replaced by Norvasc. Patient's BP fluctuated during this admission leading to workup for renal artery thrombosis. Renal artery ultrasound did not reveal evidence of renal vein thrombosis. Dr. Donovan advised against aggressive control of BP and recommended just keeping it below SBP 150 mmHg. Patient advised to follow up with Dr. Donovan (nephro) as an outpatient. Patient's blood glucose was labile during hospital stay. Patient had poor appetite and did not like hospital food in general. Levemir was adjusted or held at various points during the hospital stay. AM hypoglycemia noted on a couple of occasions. Echocardiogram (03/13/17): left ventricle systolic function is normal, EF: 60-65% , diastolic dysfunction, no aortic regurgitation is present. No mitral valve regurgitation noted; mild tricuspid regurgitation, mild pulmonary regurgitation , no pulmonic valvular regurgitation Patient instructed to follow up with PMD (Dr. Amaya), Heme/Onc (Dr. Chaney), Pulm (Dr. Lagos), Nephro (Dr. Donovan) as an outpatient. This is a brief summary of the hospital stay. For more information, please consult the medical records. - Date & Time of H&P Date of H&P: 03/25/17 Time of H&P: 17:15 Discharge Exam - Head Exam Head Exam: ATRAUMATIC, NORMAL INSPECTION, NORMOCEPHALIC - Eye Exam Eye Exam: EOMI, PERRL - ENT Exam ENT Exam: Mucous Membranes Moist - Respiratory Exam Respiratory Exam: Clear to PA & Lateral, NORMAL BREATHING PATTERN - Cardiovascular Exam Cardiovascular Exam: REGULAR RHYTHM, +S1, +S2 - GI/Abdominal Exam GI & Abdominal Exam: Normal Bowel Sounds, Soft. absent: Tenderness - Neurological Exam Neurological exam: Alert, CN II-XII Intact, Oriented x3 - Skin Skin Exam: Dry, Intact, Normal Color, Warm Discharge Plan - Discharge Medications Prescriptions: Albuterol 0.083% [Albuterol 0.083% Inhal Jie (2.5 mg/3 ml) UD] 3 ml IH Q4H PRN # 1 inhaler PRN Reason: Shortness Of Breath amLODIPine [Norvasc] 5 mg PO DAILY #30 tab Budesonide/Formoterol Fumarate [Symbicort] 1 aer IH DAILY #1 aer Clopidogrel [Plavix] 75 mg PO DAILY #30 Docusate Sodium [Stool Softener] 100 mg PO DAILY #30 Ferrous Sulfate [Feosol] 325 mg PO DAILY #30 Hydrocortisone 2.5% (Rectal) [Anusol-Hc] 0 gm MA BID PRN #1 PRN Reason: Other Insulin Detemir [Levemir] 8 unit SC HS #1 vial Levofloxacin [Levaquin] 500 mg PO DAILY #7 tablet metroNIDAZOLE [Flagyl] 500 mg PO Q8H #24 tab Mv,Min10/Folic Acid/D3/Ala/Lut [Strovite One Caplet] 1 tab PO DAILY #30 Omeprazole 20 mg PO DAILY #30 Saccharomyces Boulardi [Florastor] 250 mg PO BID #60 cap SITagliptin [Januvia] 25 mg PO DAILY #30 tab Tiotropium [Spiriva] 18 mcg IH DAILY #1 cap - Follow Up Plan Condition: GOOD Disposition: HOME/ ROUTINE Instructions: Corticosteroids (On the skin), Amlodipine (By mouth), Budesonide (By breathing), Ipratropium/Albuterol (By breathing), Docusate (Into the rectum) , Pulmonary Edema (DC), Acute Kidney Injury (DC), COPD (Chronic Obstructive Pulmonary Disease) (DC), How Your Lungs Work (DC) Additional Instructions: Please take Levaquin 500 mg by mouth once daily for 7 days. Please take Flagyl 500 mg by mouth every 8 hours for 7 days. Your blood pressure medication was changed to Amlodipine 5 mg by mouth daily in the meantime until you see your primary care doctor. Stop taking enalapril due to kidney side effects. Levemir has been adjusted to 8 units taken daily. Keep taking Januvia 25 mg by mouth once daily. Stop taking Metformin due to kidney side effects. Take Albuterol inhaler every 4 hours as need if you are short of breath. Take Symbicort 1 puff once a day. Take Spiriva 18mcg 1 puff once a day. Take Plavix 75 mg once a day. Take Ferrous sulfate (iron) 325 mg by mouth once daily. Take Strovite by mouth once daily. Take the Anusol cream if there is skin irritation around the anus. Take Colace 100 mg by mouth once daily. Take Florastor by mouth 250 mg by mouth two times daily. Please follow up with Dr. Amaya within 1 week of discharge. Please follow up with Dr. Chaney in order to manage your lung cancer and track your white blood count. Please follow up with Dr. Lagos (lung doctor) for asthma and other respiratory complaints. Please follow up with Dr. Saunders (kidney doctor) for your kidney function studies. If there are any emergency symptoms such as severe pounding headaches, chest pain, shortness of breath, please return to the emergency room. Referrals: Ancelmo Lagos MD [Staff Provider] - Eugene Amaya MD [Medical Doctor] - Jacob Donovan MD [Staff Provider] - Jose Dennis MD, MD [Staff Provider] -
[2017-03-25] MEDS ORDERED: Fluconazole IV 100mg/50 ml NS 50 ML IVPB SCH (15:00)
[2017-03-25 15:49] VITALS: BP 126/70; TEMP 98.3; O2SAT 95
[2017-03-25 17:40] VITALS: PULSE 78
== END 2017-03-25 17:44 | disposition home or self-care (01) | DRG 190 ==
LOC: C.ER 18:47 → C.6T 03-11 00:24
PROVIDERS: ADMIT Hospitalist; ATTEND Hospitalist
DX: J44.1 Chronic obstructive pulmonary disease with (acute) exacerbation (principal); J18.9 Pneumonia, unspecified organism; N17.9 Acute kidney failure, unspecified; D61.818 Other pancytopenia; J90 Pleural effusion, not elsewhere classified; E11.22 Type 2 diabetes mellitus with diabetic chronic kidney disease; C34.31 Malignant neoplasm of lower lobe, right bronchus or lung; B95.7 Other staphylococcus as the cause of diseases classified elsewhere; R78.81 Bacteremia; R06.02 Shortness of breath; J44.0 Chronic obstructive pulmonary disease with (acute) lower respiratory infection; E11.649 Type 2 diabetes mellitus with hypoglycemia without coma; D69.59 Other secondary thrombocytopenia; E27.8 Other specified disorders of adrenal gland; E83.39 Other disorders of phosphorus metabolism; T45.1X5A Adverse effect of antineoplastic and immunosuppressive drugs, initial encounter; E83.51 Hypocalcemia; E87.5 Hyperkalemia; F12.90 Cannabis use, unspecified, uncomplicated; I12.9 Hypertensive chronic kidney disease with stage 1 through stage 4 chronic kidney disease, or unspecified chronic kidney disease; J43.2 Centrilobular emphysema; N18.9 Chronic kidney disease, unspecified; T45.8X5A Adverse effect of other primarily systemic and hematological agents, initial encounter; Z53.20 Procedure and treatment not carried out because of patient's decision for unspecified reasons; Z79.4 Long term (current) use of insulin; Z87.891 Personal history of nicotine dependence; Z88.0 Allergy status to penicillin; Z98.51 Tubal ligation status

== ENCOUNTER 2018-09-26 05:27 | Inpatient (IN) | payer OTHER ==
--- NOTE | 2018-09-26 05:59 | C.PDOC ---
Time Seen by Provider: 09/26/18 05:57 Chief Complaint (Nursing): Shortness Of Breath Past Medical History Vital Signs: Last Vital Signs Temp 102.2 F H 09/26/18 05:37 Pulse 111 H 09/26/18 05:37 Resp 24 09/26/18 05:37 BP 162/70 H 09/26/18 05:37 Pulse Ox 100 09/26/18 05:37 - Medical History PMH: Arthritis, Asthma, COPD, Emphysema, HTN Denies: Chronic Kidney Disease Family History: States: Unknown Family Hx - Social History Hx Alcohol Use: No Hx Substance Use: No - Immunization History Hx Tetanus Toxoid Vaccination: No Hx Influenza Vaccination: Yes Hx Pneumococcal Vaccination: No ED Course And Treatment ECG: Interpreted By Me, Viewed By Me ECG Rhythm: Sinus Rhythm (104), Nonspecific Changes O2 Sat by Pulse Oximetry: 100 Pulse Ox Interpretation: Normal - Radiology CXR: Interpreted by Me, Viewed By Me Disposition - Disposition
[2018-09-26] MEDS ORDERED: Azithromycin 500 MG in Sodium Chloride 0.9% 250 ML IVPB STA (06:01)
[2018-09-26] MEDS ORDERED: Albuterol-Ipratrop 3 mg / 0.5 (3 ml) UD INH STA ×2 (06:02→17:20)
[2018-09-26] MEDS ORDERED: Vancomycin 1 gm/NS 200 ml 1 GM/200 ML BAG IVPB STA (06:02)
--- NOTE | 2018-09-26 06:04 | C.PDOC ---
History Of Present Illness 73 year old female, whose past medical history includes lung cancer (due for chemotherapy today, last session was one week ago in [facility]) is brought to the ED by daughter for evaluation. As per daughter, patient has been lethargic, showing decrease in appetite and sleeping more than usual over the past few days. Patient did not appear well tonight, appearing like she was grasping for breath, which prompted daughter to bring her to the ED for evaluation. Daughter denies fever, chills, vomiting on patient's behalf. Patient is on home oxygen. <Ana M Deleon - Last Filed: 09/26/18 07:35> History Per: Family History/Exam Limitations: no limitations Onset/Duration Of Symptoms: Days Current Symptoms Are (Timing): Still Present Current Respiratory Medications: See Home Med List Associated Symptoms: denies: Fever, Chills <Ana M Deleon - Last Filed: 09/26/18 07:35> <Doreen Mott - Last Filed: 09/26/18 20:23> Time Seen by Provider: 09/26/18 05:57 Chief Complaint (Nursing): Shortness Of Breath Past Medical History Reviewed: Historical Data, Nursing Documentation, Vital Signs Vital Signs: Last Vital Signs Temp 102.2 F H 09/26/18 05:37 Pulse 111 H 09/26/18 05:37 Resp 24 09/26/18 05:37 BP 162/70 H 09/26/18 05:37 Pulse Ox 100 09/26/18 05:37 - Medical History PMH: Arthritis, Asthma, COPD, Emphysema, HTN Denies: Chronic Kidney Disease Surgical History: No Surg Hx Family History: States: Unknown Family Hx - Social History Hx Alcohol Use: No Hx Substance Use: No - Immunization History Hx Tetanus Toxoid Vaccination: No Hx Influenza Vaccination: Yes Hx Pneumococcal Vaccination: No <Ana M Deleon - Last Filed: 09/26/18 07:35> Vital Signs: Last Vital Signs Temp 102.2 F H 09/26/18 05:37 Pulse 111 H 09/26/18 05:37 Resp 24 09/26/18 05:50 BP 162/70 H 09/26/18 05:37 Pulse Ox 100 09/26/18 06:37 <Doreen Mott - Last Filed: 09/26/18 20:23> Review Of Systems Constitutional: Positive for: Other (lethargy, decreased appetite, increased sleepiness ). Negative for: Fever, Chills Eyes: Negative for: Vision Change ENT: Negative for: Throat Pain Cardiovascular: Negative for: Chest Pain, Palpitations Respiratory: Negative for: Cough, Shortness of Breath Gastrointestinal: Negative for: Nausea, Vomiting, Abdominal Pain, Diarrhea Genitourinary: Negative for: Dysuria, Frequency, Hematuria Musculoskeletal: Negative for: Back Pain Skin: Negative for: Rash Neurological: Negative for: Weakness, Numbness <Ana M Deleon - Last Filed: 09/26/18 07:35> Physical Exam - Physical Exam Appears: Non-toxic, No Acute Distress, Chronically Ill, Other Skin: Warm, Dry, Pale, Other (febrile, temperature 102.2) Head: Atraumatic, Normacephalic Eye(s): bilateral: PERRL, EOMI, Other (pale conjunctiva ) Oral Mucosa: Moist Neck: Supple Chest: Symmetrical, No Deformity, No Tenderness Cardiovascular: Rhythm Regular, No Murmur, Other (tachycardia ) Respiratory: No Rales, Rhonchi, No Wheezing Gastrointestinal/Abdominal: Soft, No Tenderness, No Guarding, No Rebound Extremity: Normal ROM, Capillary Refill (less than 2 seconds ) Neurological/Psych: Other (awake, alert ) <Ana M Deleon - Last Filed: 09/26/18 07:35> - Physical Exam Appears: Non-toxic, In Acute Distress, Chronically Ill Chest: Other (port right chest) Cardiovascular: Other Gastrointestinal/Abdominal: Soft, No Distention, No Guarding Back: Normal Inspection Extremity: Bilateral: Atraumatic Pulses: Left Dorsalis Pedis: Normal, Right Dorsalis Pedis: Normal Neurological/Psych: Oriented x3, Normal Cognition, Other Gait: Unable To Assess <Doreen Mott - Last Filed: 09/26/18 20:23> ED Course And Treatment - Laboratory Results Result Diagrams: 09/26/18 06:16 09/26/18 06:16 ECG: Interpreted By Me, Viewed By Me ECG Rhythm: Sinus Rhythm, Nonspecific Changes Rate From EC O2 Sat by Pulse Oximetry: 100 Pulse Ox Interpretation: Normal <Ana M Deleon - Last Filed: 09/26/18 07:35> - Laboratory Results Result Diagrams: 09/26/18 06:16 09/26/18 06:16 Lab Results: PT 12.1 SECONDS (9.7-12.2) 09/26/18 06:16 INR 1.1 09/26/18 06:16 APTT 24 SECONDS (21-34) 09/26/18 06:16 Pulse Ox Interpretation: Normal - Radiology CXR: Interpreted by Me, Viewed By Me CXR Interpretation: Yes: Infiltrates, Other (rll mass vs infiltrate, port right chest). No: Fracture, Cardiomegaly Progress Note: ivf at 30cc/kg not given due to her respiratory status/chf <Doreen Mott - Last Filed: 09/26/18 20:23> Critical Care Time - Critical Care Note Total Time (in mins): 60 Documented critical care: time excludes all time spent performing seperately billable procedures. <Ana M Deleon - Last Filed: 09/26/18 07:35> - Critical Care Note Total Time (in mins): 30 Documented critical care: time excludes all time spent performing seperately billable procedures. <Doreen Mott - Last Filed: 09/26/18 20:23> Medical Decision Making Medical Decision Making: Impression: 73 year old female with lethargy, decreased appetite, increased sleepiness, cough Progress: Bloodwork, urinalysis, CXR, EKG, flu swab ordered. Albuterol INH, Tylenol PO, Zithromax IVP and Vancomycin IVP given. 0637: Case discussed with Dr. Ramirez (hospitalist). 0642: Case discussed with Dr. Levy (ICU). pt not being given 30 ml/kg of iv fluids secondary to respiratory status. [address] Lagos, accepted to ICU <Ana M Deleon - Last Filed: 09/26/18 07:35> Disposition Discussed With : David Ramirez Doctor Will See Patient In The: Hospital - Disposition Disposition Time: 07:32 <Ana M Deleon - Last Filed: 09/26/18 07:35> <Doreen Mott - Last Filed: 09/26/18 20:23> - Disposition Disposition: HOSPITALIZED Condition: SERIOUS - Clinical Impression Clinical Impression: Pneumonia, Anemia, Hypomagnesemia, Renal failure, Lung cancer, Thrombocytopenia - PA / [employer] / Resident Statement MD/DO has reviewed & agrees with the documentation as recorded. - Scribe Statement The provider has reviewed the documentation as recorded by the Scribe (Philly Nails) All medical record entries made by the Scribe were at my direction and personally dictated by me. I have reviewed the chart and agree that the record accurately reflects my personal performance of the history, physical exam, medical decision making, and the department course for this patient. I have also personally directed, reviewed, and agree with the discharge instructions and disposition. <Ana M Deleon - Last Filed: 09/26/18 07:35> Decision To Admit - Pt Status Changed To: Hospital Disposition Of: Inpatient - Admit Certification Admit to Inpatient:: After my assessment, the patient will require hospitalization for at least two midnights. This is because of the severity of symptoms shown, intensity of services needed, and/or the medical risk in this patient being treated as an outpatient. - InPatient: Physician Admission Certification: I certify that this patient requires 2 or more midnights of care for the following reason:: penumonia, anemiam needs iv antobitocs, transfusions - . Bed Request Type: ICU <Ana M Deleon - Last Filed: 09/26/18 07:35> <Doreen Mott - Last Filed: 09/26/18 20:23> - . Patient Diagnosis: Pneumonia, Anemia, Hypomagnesemia, Renal failure, Lung cancer, Thrombocytopenia
[2018-09-26] MEDS ORDERED: Azithromycin 500mg/250ML NS 500 MG/250 ML BAG IVPB ONE (06:19)
[2018-09-26 06:22] LABS: EOS # 2.5 K/uL (0.0-0.7); EOS % 3.5 % (0.0-4.0); LYMPH # 3.5 K/uL (1.0-4.3); LYMPH % 4.9 % (20.0-40.0); MEAN CELL VOLUME 87.8 fL (81.0-99.0); MEAN CORPUSCULAR HGB CONC 31.9 g/dL (33.0-37.0); MEAN PLATELET VOLUME 10.7 fL (7.2-11.7); MONO # 64.1 K/uL (0.0-0.8); MONO % 90.5 % (0.0-10.0); NEUT # 0.8 K/uL (1.8-7.0); NEUT % 1.1 % (50.0-75.0); NRBC % 0.3 % (0.0-2.0); RBC 2.09 Mil/uL (3.80-5.20); RED CELL DISTRIBUTION WIDTH 15.3 % (11.5-14.5)
[2018-09-26 06:34] LABS: HEMOGLOBIN 5.9 g/dL (11.0-16.0); PLATELET COUNT 12 K/uL (130-400); WHITE BLOOD COUNT 70.8 K/uL (4.8-10.8)
[2018-09-26 06:36] LABS: INR 1.1; PROTHROMBIN TIME 12.1 SECONDS (9.7-12.2)
[2018-09-26 06:43] LABS: ALB/GLOB RATIO 1.2 (1.0-2.1); ALBUMIN 3.4 g/dL (3.5-5.0); CALCIUM 7.1 mg/dl (8.6-10.4)
[2018-09-26 06:51] LABS: TROPONIN I 0.058 ng/mL (0.00-0.120)
[2018-09-26] MEDS ORDERED: Albuterol-Ipratrop 3 mg / 0.5 (3 ml) UD ONE (07:00)
[2018-09-26 07:10] LABS: ABG ALLEN TEST YES; ARTERIAL BLOOD GAS HCO3 24.8 mmol/L (21-28); ARTERIAL BLOOD GAS O2 SAT 90.7 % (95-98); ARTERIAL BLOOD GAS PCO2 55 mm/Hg (35-45); ARTERIAL BLOOD GAS PH 7.31 (7.35-7.45); ARTERIAL BLOOD GAS PO2 50 mm/Hg (80-100); ARTERIAL BLOOD GAS TCO2 29.4 mmol/L (22-28)
[2018-09-26] MEDS ORDERED: Aztreonam 1 GM in Sodium Chloride 0.9% 100 ML IVPB ONE (07:28)
[2018-09-26] MEDS: Magnesium Sulfate 1 gm in D5W 1 GM/100 ML BAG IVPB SCH ×2 (08:10→08:41)
[2018-09-26 08:12] LABS: URINE AMORPHOUS SEDIMENT OCC /ul (<OCC); URINE BACTERIA OCC (<OCC); URINE BILIRUBIN NEGATIVE (NEGATIVE); URINE BLOOD 3+ (NEGATIVE); URINE CLARITY Hazy (Clear); URINE COLOR Yellow (YELLOW); URINE GLUCOSE (UA) NORMAL (Normal); URINE LEUKOCYTE ESTERASE NEG Leu/uL (Negative); URINE PROTEIN 2+ mg/dL (NEGATIVE); URINE UROBILINOGEN NORMAL mg/dL (0.2-1.0)
--- NOTE | 2018-09-26 08:20 | CP.PCM.CON ---
<Michael Joshua - Last Filed: 09/26/18 16:29> History of Present Illness - History of Present Illness History of Present Illness: PGY-1 ICU consult note for Dr Demond curtis Patient is a 73 year old female with PMHx of Lung Cancer on chemotherapy, Asthma, HTN, DM, and COPD, who presented to the ED early this morning for weakness, confusion, and shortness of breath. Per patients daughter, patients last chemotherapy tx was 1 month ago. Patients daughter states pt receives Neupogen therapy every week, last dose was Monday. Patients daughter states patient has not been eating much lately and has been feeling weak. Patient complains of shortness of breath and feeling hot. Patient denies chest pain, abdominal pain, nausea, and vomiting. Onco: Dr. Keagan Nails PMD: Dr. Zuleta Medical HX: Lung Cancer on Chemotherapy, Asthma, HTN, COPD, DM Allergies: PCN Medications: per EMR Surgical HX: Right chest permacath Social Hx: Current smoker. Past Patient History - Infectious Disease Hx of Infectious Diseases: None - Past Medical History & Family History Past Medical History?: Yes - Past Social History Smoking Status: Light Smoker < 10 Cigarettes Daily - CARDIAC Hx Hypertension: Yes - PULMONARY Hx Asthma: Yes Hx Chronic Obstructive Pulmonary Disease (COPD): Yes Hx Emphysema: Yes - NEUROLOGICAL Hx Neurological Disorder: No - HEENT Hx HEENT Problems: No - RENAL Hx Chronic Kidney Disease: No - ENDOCRINE/METABOLIC Hx Endocrine Disorders: Yes Hx Diabetes Mellitus Type 2: Yes - HEMATOLOGICAL/ONCOLOGICAL Hx Cancer: Yes (RIGHT LUNG LOWER LOBE) Hx Chemotherapy: Yes Other/Comment: CURRENT CHEMO PATIENT - INTEGUMENTARY Hx Dermatological Problems: No - MUSCULOSKELETAL/RHEUMATOLOGICAL Hx Arthritis: Yes - GASTROINTESTINAL Hx Gastrointestinal Disorders: No - GENITOURINARY/GYNECOLOGICAL Hx Genitourinary Disorders: No - PSYCHIATRIC Hx Substance Use: No - SURGICAL HISTORY Hx Surgeries: Yes Hx Tubal Ligation: Yes Other/Comment: HEMMROIDECOTMY - ANESTHESIA Hx Anesthesia: Yes Hx Anesthesia Reactions: No Meds Allergies/Adverse Reactions: Allergies Allergy/AdvReac Type Severity Reaction Status Date / Time Penicillins Allergy Verified 09/26/18 05:44 Physical Exam - Constitutional Appears: Non-toxic, No Acute Distress - Head Exam Head Exam: ATRAUMATIC, NORMAL INSPECTION, NORMOCEPHALIC - Eye Exam Eye Exam: EOMI, Normal appearance - ENT Exam ENT Exam: Mucous Membranes Moist, Normal Exam - Respiratory Exam Respiratory Exam: Clear to Auscultation Bilateral, Wheezes, NORMAL BREATHING PATTERN - Cardiovascular Exam Cardiovascular Exam: REGULAR RHYTHM, +S1, +S2 - GI/Abdominal Exam GI & Abdominal Exam: Normal Bowel Sounds - Neurological Exam Neurological exam: Alert, Oriented x3 - Psychiatric Exam Psychiatric exam: Normal Affect, Normal Mood - Skin Skin Exam: Dry, Intact, Normal Color, Warm Results - Vital Signs Recent Vital Signs: Last Vital Signs Temp 100.9 F H 09/26/18 08:11 Pulse 112 H 09/26/18 08:11 Resp 28 H 09/26/18 08:11 BP 113/51 L 09/26/18 08:11 Pulse Ox 95 09/26/18 08:11 - Labs Result Diagrams: 09/26/18 06:16 09/26/18 06:16 Labs: Laboratory Results - last 24 hr 09/26/18 09/26/18 09/26/18 06:16 06:16 06:16 WBC 70.8 H* D RBC 2.09 L Hgb 5.9 L* D Hct 18.4 L MCV 87.8 D MCH 28.0 MCHC 31.9 L RDW 15.3 H Plt Count 12 L* D MPV 10.7 Neut % (Auto) 1.1 L Lymph % (Auto) 4.9 L Gates % (Auto) 90.5 H Eos % (Auto) 3.5 Baso % (Auto) 0.0 Neut # (Auto) 0.8 L Lymph # (Auto) 3.5 Gates # (Auto) 64.1 H Eos # (Auto) 2.5 H Baso # (Auto) 0.0 PT INR APTT Puncture Site pCO2 pO2 HCO3 ABG pH ABG Total CO2 ABG O2 Saturation ABG Base Excess Higinio Test ABG Potassium A-a O2 Difference Respiratory Index Glucose Lactate FiO2 Sodium 138 Potassium 4.3 Chloride 101 Carbon Dioxide 27 Anion Gap 14 BUN 53 H Creatinine 3.9 H Est GFR ( Amer) 14 Est GFR (Non-Af Amer) 11 Random Glucose 223 H D Calcium 7.1 L Phosphorus 6.1 H Magnesium 0.7 L* D Total Bilirubin 0.4 AST 26 ALT 16 Alkaline Phosphatase 65 Troponin I 0.0580 NT-Pro-B Natriuret Pep 6450 H Total Protein 6.2 L Albumin 3.4 L Globulin 2.9 Albumin/Globulin Ratio 1.2 Arterial Blood Potassium Urine Color Urine Clarity Urine pH Ur Specific [place] Urine Protein Urine Glucose (UA) Urine Ketones Urine Blood Urine Nitrate Urine Bilirubin Urine Urobilinogen Ur Leukocyte Esterase Urine WBC (Auto) Urine RBC (Auto) Amorphous Sediment Urine Bacteria Influenza Typ A,B (EIA) Negative for flu a/b Blood Type Antibody Screen 09/26/18 09/26/18 09/26/18 06:16 06:16 06:56 WBC RBC Hgb Hct MCV MCH MCHC RDW Plt Count MPV Neut % (Auto) Lymph % (Auto) Gates % (Auto) Eos % (Auto) Baso % (Auto) Neut # (Auto) Lymph # (Auto) Gates # (Auto) Eos # (Auto) Baso # (Auto) PT 12.1 INR 1.1 APTT 24 Puncture Site Rb pCO2 55 H pO2 50 L HCO3 24.8 ABG pH 7.31 L ABG Total CO2 29.4 H ABG O2 Saturation 90.7 L ABG Base Excess 0.4 Higinio Test Yes ABG Potassium 4.3 A-a O2 Difference 81.0 Respiratory Index 1.6 Glucose 227 H Lactate 1.8 FiO2 28.0 Sodium 141.0 Potassium Chloride 107.0 Carbon Dioxide Anion Gap BUN Creatinine Est GFR ( Amer) Est GFR (Non-Af Amer) Random Glucose Calcium Phosphorus Magnesium Total Bilirubin AST ALT Alkaline Phosphatase Troponin I NT-Pro-B Natriuret Pep Total Protein Albumin Globulin Albumin/Globulin Ratio Arterial Blood Potassium 4.3 Urine Color Urine Clarity Urine pH Ur Specific [place] Urine Protein Urine Glucose (UA) Urine Ketones Urine Blood Urine Nitrate Urine Bilirubin Urine Urobilinogen Ur Leukocyte Esterase Urine WBC (Auto) Urine RBC (Auto) Amorphous Sediment Urine Bacteria Influenza Typ A,B (EIA) Blood Type B POSITIVE Antibody Screen Negative 09/26/18 07:42 WBC RBC Hgb Hct MCV MCH MCHC RDW Plt Count MPV Neut % (Auto) Lymph % (Auto) Gates % (Auto) Eos % (Auto) Baso % (Auto) Neut # (Auto) Lymph # (Auto) Gates # (Auto) Eos # (Auto) Baso # (Auto) PT INR APTT Puncture Site pCO2 pO2 HCO3 ABG pH ABG Total CO2 ABG O2 Saturation ABG Base Excess Higinio Test ABG Potassium A-a O2 Difference Respiratory Index Glucose Lactate FiO2 Sodium Potassium Chloride Carbon Dioxide Anion Gap BUN Creatinine Est GFR ( Amer) Est GFR (Non-Af Amer) Random Glucose Calcium Phosphorus Magnesium Total Bilirubin AST ALT Alkaline Phosphatase Troponin I NT-Pro-B Natriuret Pep Total Protein Albumin Globulin Albumin/Globulin Ratio Arterial Blood Potassium Urine Color Yellow Urine Clarity Hazy Urine pH 5.0 Ur Specific [place] 1.014 Urine Protein 2+ H Urine Glucose (UA) Normal Urine Ketones Negative Urine Blood 3+ H Urine Nitrate Negative Urine Bilirubin Negative Urine Urobilinogen Normal Ur Leukocyte Esterase Neg Urine WBC (Auto) 11 H Urine RBC (Auto) 408 H Amorphous Sediment Occ H Urine Bacteria Occ H Influenza Typ A,B (EIA) Blood Type Antibody Screen Assessment & Plan - Assessment and Plan (Free Text) Plan: Patient is a 73 year old female with PMHx of Lung Cancer on unspecified chemotherapy, Asthma, HTN, DM, and COPD, who presented to the ED for weakness, confusion, and SOB, was found to have acute anemia, severe leukocytosis, and thrombocytopenia and was subsequently admitted to ICU for close management. Neuro - AAOx3 - no current issues Cardiac - Tachycardic - EKG 09/26: sinus tachycardia - ProBNP 6450 - monitor vitals Pulm - Dyspnea, improved - hx of COPD - ABG 7.31/pCO2 55/pO2 50 - Duoneb Q6H PRN - consult Pulm - Dr Lagos GI - start Protonix for GI ppx - Heart Healthy Diet - fecal occult positive - consult GI - Dr Graf/Eduardo Renal - Hypomagnesia (0.9) - Magnesium Sulfate 1gm administered in ED - BUN/Cr elevated 53/3.9 - repeat CMP - monitor I&O - consult Nephro - Dr Goyal/Juan Pablo Endo - Hx of DMstart ISS - Accucheck Q2 Heme/Onc - Anemia (Hb 5.9) - Transfuse 2 units PRBC - Thrombocytopenia (plt count 12) - Transfuse 1 unit platelets - Leukocytosis - Hx of Lung Cancercurrently receiving Chemotherapy - Dr Cam Wong - consult Heme/Onc - repeat CBC follow transfusions ID - Leukocytosis (70.8) - possible due to neurogen shot after chemotherapy for bone marrow stimulation - Febrile Tmax 102F - Blood cx/urine cx - start Aztreonam, one dose given in ER - consult ID - Dr Walter PPX - Tylenol PRN for Fever - DVT ppx- SCDs, c/i for anticoagulation due to thrombocytopenia - GI ppx- protonix daily - Palliative c/s for goals of care Plan discussed with Dr Demond Joshua, PGY-1 - Date & Time Date: 09/26/18 Time: 07:30 <Ancelmo Lagos S - Last Filed: 09/26/18 17:16> Meds - Medications Medications: Current Medications Acetaminophen (Tylenol 325mg Tab) 650 mg PO Q6 PRN PRN Reason: Fever >100.4 F Albuterol/Ipratropium (Duoneb 3 Mg/0.5 Mg (3 Ml) Ud) 3 ml INH RQ6 [facility] Calcium Acetate (Phoslo) 667 mg PO TID [facility] Dextrose (Dextrose 50% Inj) 0 ml IV STAT PRN; Protocol PRN Reason: Hypoglycemia Protocol Dextrose (Glutose 15) 0 gm PO ONCE PRN; Protocol PRN Reason: Hypoglycemia Protocol Glucagon (Glucagen Diagnostic Kit) 0 mg IM STAT PRN; Protocol PRN Reason: Hypoglycemia Protocol Dextrose (Dextrose 5% In Water 1000 Ml) 1,000 mls @ 0 mls/hr IV .Q0M PRN; Protocol PRN Reason: Hypoglycemia Protocol Aztreonam 1 gm/ Sodium (Chloride) 100 mls @ 200 mls/hr IVPB Q12H [facility]; Protocol Sodium Chloride (Sodium Chloride 0.9%) 1,000 mls @ 75 mls/hr IV .[id number] [facility] Insulin Human Regular (Novolin R) 0 unit SC ACHS [facility]; Protocol Last Admin: 09/26/18 13:16 Dose: Not Given Pantoprazole Sodium (Protonix Inj) 40 mg IVP DAILY [facility] Last Admin: 09/26/18 10:24 Dose: Not Given Pneumococcal Polyvalent Vaccine (Pneumovax 23 Vaccine) 0.5 ml SC .ONCE ONE Stop: 09/29/18 10:01 Vancomycin HCl (Vancocin (Oral Or Rectal Use)) 125 mg PO QID [facility]; Protocol Results - Vital Signs Recent Vital Signs: Last Vital Signs Temp 98.1 F 09/26/18 16:59 Pulse 97 H 09/26/18 16:59 Resp 33 H 09/26/18 16:59 BP 134/58 L 09/26/18 16:59 Pulse Ox 98 09/26/18 12:20 - Labs Result Diagrams: 09/26/18 06:16 09/26/18 06:16 Labs: Laboratory Results - last 24 hr 09/26/18 09/26/18 09/26/18 06:16 06:16 06:16 WBC 70.8 H* D RBC 2.09 L Hgb 5.9 L* D Hct 18.4 L MCV 87.8 D MCH 28.0 MCHC 31.9 L RDW 15.3 H Plt Count 12 L* D MPV 10.7 Neut % (Auto) 1.1 L Lymph % (Auto) 4.9 L Gates % (Auto) 90.5 H Eos % (Auto) 3.5 Baso % (Auto) 0.0 Neut # (Auto) 0.8 L Lymph # (Auto) 3.5 Gates # (Auto) 64.1 H Eos # (Auto) 2.5 H Baso # (Auto) 0.0 Neutrophils % (Manual) 1 L Lymphocytes % (Manual) 5 L Reactive Lymphs % 3 H Monocytes % (Manual) 82 H Eosinophils % (Manual) 4 Blast Cells % 5 H Smudge Cells Present Platelet Estimate Markedly decreased L Hypochromasia (manual) Moderate Poikilocytosis (manual Slight Anisocytosis (manual) Slight Microcytosis (manual) Slight Target Cells Moderate Stomatocytes Slight Smear Path Review PT INR APTT Puncture Site pCO2 pO2 HCO3 ABG pH ABG Total CO2 ABG O2 Saturation ABG Base Excess Higinio Test ABG Potassium A-a O2 Difference Respiratory Index Glucose Lactate FiO2 Sodium 138 Potassium 4.3 Chloride 101 Carbon Dioxide 27 Anion Gap 14 BUN 53 H Creatinine 3.9 H Est GFR ( Amer) 14 Est GFR (Non-Af Amer) 11 POC Glucose (mg/dL) Random Glucose 223 H D Calcium 7.1 L Phosphorus 6.1 H Magnesium 0.7 L* D Total Bilirubin 0.4 AST 26 ALT 16 Alkaline Phosphatase 65 Troponin I 0.0580 NT-Pro-B Natriuret Pep 6450 H Total Protein 6.2 L Albumin 3.4 L Globulin 2.9 Albumin/Globulin Ratio 1.2 Arterial Blood Potassium Urine Color Urine Clarity Urine pH Ur Specific [place] Urine Protein Urine Glucose (UA) Urine Ketones Urine Blood Urine Nitrate Urine Bilirubin Urine Urobilinogen Ur Leukocyte Esterase Urine WBC (Auto) Urine RBC (Auto) Amorphous Sediment Urine Bacteria Stool Occult Blood Influenza Typ A,B (EIA) Negative for flu a/b Blood Type Antibody Screen 09/26/18 09/26/18 09/26/18 06:16 06:16 06:56 WBC RBC Hgb Hct MCV MCH MCHC RDW Plt Count MPV Neut % (Auto) Lymph % (Auto) Gates % (Auto) Eos % (Auto) Baso % (Auto) Neut # (Auto) Lymph # (Auto) Gates # (Auto) Eos # (Auto) Baso # (Auto) Neutrophils % (Manual) Lymphocytes % (Manual) Reactive Lymphs % Monocytes % (Manual) Eosinophils % (Manual) Blast Cells % Smudge Cells Platelet Estimate Hypochromasia (manual) Poikilocytosis (manual Anisocytosis (manual) Microcytosis (manual) Target Cells Stomatocytes Smear Path Review PT 12.1 INR 1.1 APTT 24 Puncture Site Rb pCO2 55 H pO2 50 L HCO3 24.8 ABG pH 7.31 L ABG Total CO2 29.4 H ABG O2 Saturation 90.7 L ABG Base Excess 0.4 Higinio Test Yes ABG Potassium 4.3 A-a O2 Difference 81.0 Respiratory Index 1.6 Glucose 227 H Lactate 1.8 FiO2 28.0 Sodium 141.0 Potassium Chloride 107.0 Carbon Dioxide Anion Gap BUN Creatinine Est GFR ( Amer) Est GFR (Non-Af Amer) POC Glucose (mg/dL) Random Glucose Calcium Phosphorus Magnesium Total Bilirubin AST ALT Alkaline Phosphatase Troponin I NT-Pro-B Natriuret Pep Total Protein Albumin Globulin Albumin/Globulin Ratio Arterial Blood Potassium 4.3 Urine Color Urine Clarity Urine pH Ur Specific [place] Urine Protein Urine Glucose (UA) Urine Ketones Urine Blood Urine Nitrate Urine Bilirubin Urine Urobilinogen Ur Leukocyte Esterase Urine WBC (Auto) Urine RBC (Auto) Amorphous Sediment Urine Bacteria Stool Occult Blood Influenza Typ A,B (EIA) Blood Type B POSITIVE Antibody Screen Negative 09/26/18 09/26/18 09/26/18 07:42 08:32 16:17 WBC RBC Hgb Hct MCV MCH MCHC RDW Plt Count MPV Neut % (Auto) Lymph % (Auto) Gates % (Auto) Eos % (Auto) Baso % (Auto) Neut # (Auto) Lymph # (Auto) Gates # (Auto) Eos # (Auto) Baso # (Auto) Neutrophils % (Manual) Lymphocytes % (Manual) Reactive Lymphs % Monocytes % (Manual) Eosinophils % (Manual) Blast Cells % Smudge Cells Platelet Estimate Hypochromasia (manual) Poikilocytosis (manual Anisocytosis (manual) Microcytosis (manual) Target Cells Stomatocytes Smear Path Review PT INR APTT Puncture Site pCO2 pO2 HCO3 ABG pH ABG Total CO2 ABG O2 Saturation ABG Base Excess Higinio Test ABG Potassium A-a O2 Difference Respiratory Index Glucose Lactate FiO2 Sodium Potassium Chloride Carbon Dioxide Anion Gap BUN Creatinine Est GFR ( Amer) Est GFR (Non-Af Amer) POC Glucose (mg/dL) 317 H Random Glucose Calcium Phosphorus Magnesium Total Bilirubin AST ALT Alkaline Phosphatase Troponin I NT-Pro-B Natriuret Pep Total Protein Albumin Globulin Albumin/Globulin Ratio Arterial Blood Potassium Urine Color Yellow Urine Clarity Hazy Urine pH 5.0 Ur Specific [place] 1.014 Urine Protein 2+ H Urine Glucose (UA) Normal Urine Ketones Negative Urine Blood 3+ H Urine Nitrate Negative Urine Bilirubin Negative Urine Urobilinogen Normal Ur Leukocyte Esterase Neg Urine WBC (Auto) 11 H Urine RBC (Auto) 408 H Amorphous Sediment Occ H Urine Bacteria Occ H Stool Occult Blood Positive H Influenza Typ A,B (EIA) Blood Type Antibody Screen Attending/Attestation - Attestation I have personally seen and examined this patient.: Yes I have fully participated in the care of the patient.: Yes I have reviewed all pertinent clinical information: Yes Notes (Text): 09/26/18 17:14 Patient seen and examined 73-year-old female with history of lung cancer, status post chemotherapy and last treatment 1 month ago on Neupogen presented to emergency room complaining of shortness of breath and weakness. In the emergency room patient found to be anemic and thrombocytopenic. Started on IV antibiotics and garcia cultures done Transfuse packed RBCs and platelets Nebulizer treatment Nicotine patch because of long history of smoking IV steroids Oncology evaluation
[2018-09-26 08:38] LABS: EOSINOPHIL 4 % (0-4); LYMPHOCYTE 5 % (20-40); NEUTROPHIL 1 % (50-75); REACTIVE LYMPHOCYTES 3 % (0-0); TOTAL CELLS COUNTED 100
[2018-09-26 08:39] LABS: PLATELET ESTIMATE MARKEDLY DECREASED (NORMAL)
[2018-09-26 08:40] LABS: ANISOCYTOSIS SLIGHT; HYPOCHROMIC MODERATE; POIKILOCYTOSIS SLIGHT; TARGET CELLS MODERATE
[2018-09-26 08:41] LABS: SMUDGE CELLS PRESENT
[2018-09-26] MEDS: Albuterol-Ipratrop 3 mg / 0.5 (3 ml) UD IH SCH (08:43)
[2018-09-26 08:46] LABS: BLASTS 5 % (0-0); MONOCYTE 82 % (0-10)
[2018-09-26 08:47] LABS: MICROCYTOSIS SLIGHT; STOMATOCYTES SLIGHT
--- NOTE | 2018-09-26 09:39 | RAD ---
Date of service: 09/26/2018 HISTORY: r/o infiltrate bed 7 COMPARISON: Portable chest 03/09/2017. FINDINGS: LUNGS: Right MediPort unchanged in position. Prominent ovoid density suspicious for mass identified at the right base versus dense consolidation. Left chest appears clear. PLEURA: No significant pleural effusion identified, no pneumothorax apparent. CARDIOVASCULAR: Calcific atherosclerotic changes are seen related to the thoracic aorta. Normal cardiac size. No pulmonary vascular congestion. OSSEOUS STRUCTURES: No significant abnormalities. VISUALIZED UPPER ABDOMEN: Normal. OTHER FINDINGS: None. IMPRESSION: Possible mass right base laterally versus dense consolidation. Follow-up chest is advised for added characterization. Right MediPort unchanged in position. Left chest clear. No pulmonary vascular congestion.
[2018-09-26] MEDS ORDERED: Dextrose 50% SYRINGE Inj (50 ml) IV PRN (10:37)
[2018-09-26] MEDS ORDERED: Glucagon Recombinant 1 mg Inj IM PRN (10:37)
--- NOTE | 2018-09-26 12:20 | CP.PCM.CON ---
History of Present Illness - History of Present Illness History of Present Illness: GI Service Consult CC: OB positive stool/severe anemia HPI: GI consult requested on this 73 yo woman with Lung Cancer, undergoing fredi motherapy, brought to ER by her family for weakness and witnessed BRBPR some time between last night and this AM. Found to have Hgb 5, platelets 12 and WBC 70K, and was admitted to ICU. Pt lethargic, history obtained from daughter. + abdominal pain x 2 days. Further detail not obtainable. 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 Review of Systems - Review of Systems Systems not reviewed;Unavailable: Altered Mental Status - Constitutional Constitutional: As Per HPI, Chills, Fever - Cardiovascular Cardiovascular: absent: Chest Pain, Dyspnea - Respiratory Respiratory: absent: Cough, Dyspnea - Gastrointestinal Gastrointestinal: Abdominal Pain, Hematochezia. absent: Constipation Past Patient History - Infectious Disease Hx of Infectious Diseases: None - Past Medical History & Family History Past Medical History?: Yes - Past Social History Smoking Status: Former Smoker Alcohol: Occasional - CARDIAC Hx Hypertension: Yes - PULMONARY Hx Asthma: Yes Hx Chronic Obstructive Pulmonary Disease (COPD): Yes Hx Emphysema: Yes - NEUROLOGICAL Hx Neurological Disorder: No - HEENT Hx HEENT Problems: No - RENAL Hx Chronic Kidney Disease: No - ENDOCRINE/METABOLIC Hx Endocrine Disorders: Yes Hx Diabetes Mellitus Type 2: Yes - HEMATOLOGICAL/ONCOLOGICAL Hx Cancer: Yes (RIGHT LUNG LOWER LOBE) Hx Chemotherapy: Yes Other/Comment: CURRENT CHEMO PATIENT - INTEGUMENTARY Hx Dermatological Problems: No - MUSCULOSKELETAL/RHEUMATOLOGICAL Hx Arthritis: Yes Hx Falls: No - GASTROINTESTINAL Hx Gastrointestinal Disorders: No - GENITOURINARY/GYNECOLOGICAL Hx Genitourinary Disorders: No - PSYCHIATRIC Hx Substance Use: No - SURGICAL HISTORY Hx Surgeries: Yes Hx Tubal Ligation: Yes Other/Comment: HEMMROIDECOTMY - ANESTHESIA Hx Anesthesia: Yes Hx Anesthesia Reactions: No Meds Allergies/Adverse Reactions: Allergies Allergy/AdvReac Type Severity Reaction Status Date / Time Penicillins Allergy Verified 09/26/18 05:44 - Medications Medications: Current Medications Acetaminophen (Tylenol 325mg Tab) 650 mg PO Q6 PRN PRN Reason: Fever >100.4 F Albuterol/Ipratropium (Duoneb 3 Mg/0.5 Mg (3 Ml) Ud) 3 ml INH RQ6 [facility] Dextrose (Dextrose 50% Inj) 0 ml IV STAT PRN; Protocol PRN Reason: Hypoglycemia Protocol Dextrose (Glutose 15) 0 gm PO ONCE PRN; Protocol PRN Reason: Hypoglycemia Protocol Glucagon (Glucagen Diagnostic Kit) 0 mg IM STAT PRN; Protocol PRN Reason: Hypoglycemia Protocol Dextrose (Dextrose 5% In Water 1000 Ml) 1,000 mls @ 0 mls/hr IV .Q0M PRN; Protocol PRN Reason: Hypoglycemia Protocol Aztreonam 1 gm/ Sodium (Chloride) 100 mls @ 200 mls/hr IVPB Q12H [facility]; Protocol Insulin Human Regular (Novolin R) 0 unit SC ACHS [facility]; Protocol Pantoprazole Sodium (Protonix Inj) 40 mg IVP DAILY [facility] Last Admin: 09/26/18 10:24 Dose: Not Given Pneumococcal Polyvalent Vaccine (Pneumovax 23 Vaccine) 0.5 ml SC .ONCE ONE Stop: 09/29/18 10:01 Physical Exam - Constitutional Appears: Chronically Ill - Head Exam Head Exam: NORMOCEPHALIC - Eye Exam Eye Exam: absent: Scleral icterus - Respiratory Exam Respiratory Exam: NORMAL BREATHING PATTERN - Cardiovascular Exam Cardiovascular Exam: REGULAR RHYTHM - GI/Abdominal Exam GI & Abdominal Exam: Soft, Tenderness. absent: Distended, Mass, Rebound, Rigid - Rectal Exam Rectal Exam: Deferred - Extremities Exam Extremities exam: Positive for: normal inspection - Neurological Exam Neurological exam: Altered - Psychiatric Exam Psychiatric exam: Flat Affect Results - Vital Signs Recent Vital Signs: Last Vital Signs Temp 99.0 F 09/26/18 11:35 Pulse 97 H 09/26/18 11:35 Resp 26 H 09/26/18 11:35 BP 100/40 L 09/26/18 11:35 Pulse Ox 95 09/26/18 08:11 - Labs Result Diagrams: 09/26/18 06:16 09/26/18 06:16 Labs: Laboratory Results - last 24 hr 09/26/18 09/26/18 09/26/18 06:16 06:16 06:16 WBC 70.8 H* D RBC 2.09 L Hgb 5.9 L* D Hct 18.4 L MCV 87.8 D MCH 28.0 MCHC 31.9 L RDW 15.3 H Plt Count 12 L* D MPV 10.7 Neut % (Auto) 1.1 L Lymph % (Auto) 4.9 L [place] % (Auto) 90.5 H Eos % (Auto) 3.5 Baso % (Auto) 0.0 Neut # (Auto) 0.8 L Lymph # (Auto) 3.5 [place] # (Auto) 64.1 H Eos # (Auto) 2.5 H Baso # (Auto) 0.0 Neutrophils % (Manual) 1 L Lymphocytes % (Manual) 5 L Reactive Lymphs % 3 H Monocytes % (Manual) 82 H Eosinophils % (Manual) 4 Blast Cells % 5 H Smudge Cells Present Platelet Estimate Markedly decreased L Hypochromasia (manual) Moderate Poikilocytosis (manual Slight Anisocytosis (manual) Slight Microcytosis (manual) Slight Target Cells Moderate Stomatocytes Slight Smear Path Review PT INR APTT Puncture Site pCO2 pO2 HCO3 ABG pH ABG Total CO2 ABG O2 Saturation ABG Base Excess Higinio Test ABG Potassium A-a O2 Difference Respiratory Index Glucose Lactate FiO2 Sodium 138 Potassium 4.3 Chloride 101 Carbon Dioxide 27 Anion Gap 14 BUN 53 H Creatinine 3.9 H Est GFR ( Amer) 14 Est GFR (Non-Af Amer) 11 Random Glucose 223 H D Calcium 7.1 L Phosphorus 6.1 H Magnesium 0.7 L* D Total Bilirubin 0.4 AST 26 ALT 16 Alkaline Phosphatase 65 Troponin I 0.0580 NT-Pro-B Natriuret Pep 6450 H Total Protein 6.2 L Albumin 3.4 L Globulin 2.9 Albumin/Globulin Ratio 1.2 Arterial Blood Potassium Urine Color Urine Clarity Urine pH Ur Specific [place] Urine Protein Urine Glucose (UA) Urine Ketones Urine Blood Urine Nitrate Urine Bilirubin Urine Urobilinogen Ur Leukocyte Esterase Urine WBC (Auto) Urine RBC (Auto) Amorphous Sediment Urine Bacteria Stool Occult Blood Influenza Typ A,B (EIA) Negative for flu a/b Blood Type Antibody Screen 09/26/18 09/26/18 09/26/18 06:16 06:16 06:56 WBC RBC Hgb Hct MCV MCH MCHC RDW Plt Count MPV Neut % (Auto) Lymph % (Auto) [place] % (Auto) Eos % (Auto) Baso % (Auto) Neut # (Auto) Lymph # (Auto) [place] # (Auto) Eos # (Auto) Baso # (Auto) Neutrophils % (Manual) Lymphocytes % (Manual) Reactive Lymphs % Monocytes % (Manual) Eosinophils % (Manual) Blast Cells % Smudge Cells Platelet Estimate Hypochromasia (manual) Poikilocytosis (manual Anisocytosis (manual) Microcytosis (manual) Target Cells Stomatocytes Smear Path Review PT 12.1 INR 1.1 APTT 24 Puncture Site Rb pCO2 55 H pO2 50 L HCO3 24.8 ABG pH 7.31 L ABG Total CO2 29.4 H ABG O2 Saturation 90.7 L ABG Base Excess 0.4 Higinio Test Yes ABG Potassium 4.3 A-a O2 Difference 81.0 Respiratory Index 1.6 Glucose 227 H Lactate 1.8 FiO2 28.0 Sodium 141.0 Potassium Chloride 107.0 Carbon Dioxide Anion Gap BUN Creatinine Est GFR ( Amer) Est GFR (Non-Af Amer) Random Glucose Calcium Phosphorus Magnesium Total Bilirubin AST ALT Alkaline Phosphatase Troponin I NT-Pro-B Natriuret Pep Total Protein Albumin Globulin Albumin/Globulin Ratio Arterial Blood Potassium 4.3 Urine Color Urine Clarity Urine pH Ur Specific [place] Urine Protein Urine Glucose (UA) Urine Ketones Urine Blood Urine Nitrate Urine Bilirubin Urine Urobilinogen Ur Leukocyte Esterase Urine WBC (Auto) Urine RBC (Auto) Amorphous Sediment Urine Bacteria Stool Occult Blood Influenza Typ A,B (EIA) Blood Type B POSITIVE Antibody Screen Negative 09/26/18 09/26/18 07:42 08:32 WBC RBC Hgb Hct MCV MCH MCHC RDW Plt Count MPV Neut % (Auto) Lymph % (Auto) [place] % (Auto) Eos % (Auto) Baso % (Auto) Neut # (Auto) Lymph # (Auto) [place] # (Auto) Eos # (Auto) Baso # (Auto) Neutrophils % (Manual) Lymphocytes % (Manual) Reactive Lymphs % Monocytes % (Manual) Eosinophils % (Manual) Blast Cells % Smudge Cells Platelet Estimate Hypochromasia (manual) Poikilocytosis (manual Anisocytosis (manual) Microcytosis (manual) Target Cells Stomatocytes Smear Path Review PT INR APTT Puncture Site pCO2 pO2 HCO3 ABG pH ABG Total CO2 ABG O2 Saturation ABG Base Excess Higinio Test ABG Potassium A-a O2 Difference Respiratory Index Glucose Lactate FiO2 Sodium Potassium Chloride Carbon Dioxide Anion Gap BUN Creatinine Est GFR ( Amer) Est GFR (Non-Af Amer) Random Glucose Calcium Phosphorus Magnesium Total Bilirubin AST ALT Alkaline Phosphatase Troponin I NT-Pro-B Natriuret Pep Total Protein Albumin Globulin Albumin/Globulin Ratio Arterial Blood Potassium Urine Color Yellow Urine Clarity Hazy Urine pH 5.0 Ur Specific [place] 1.014 Urine Protein 2+ H Urine Glucose (UA) Normal Urine Ketones Negative Urine Blood 3+ H Urine Nitrate Negative Urine Bilirubin Negative Urine Urobilinogen Normal Ur Leukocyte Esterase Neg Urine WBC (Auto) 11 H Urine RBC (Auto) 408 H Amorphous Sediment Occ H Urine Bacteria Occ H Stool Occult Blood Positive H Influenza Typ A,B (EIA) Blood Type Antibody Screen Assessment & Plan (1) Anemia Assessment and Plan: acute on chronic anemia due to chronic disease + superimposed rectal bleed Source of bleed unclear, suspect due to severe coagulopathy, CDiff or other intestinal infection Rec: Stool CDiff toxin. Empiric PO Vancomycin. Plain film abdomen and CT abdomen if stable to go to CT. Hematology evaluation/consultation Status: Acute (2) Lung cancer Assessment and Plan: managed with chemotherapiy by Oncologist. rec Heme/Onc consult Status: Acute (3) Thrombocytopenia Assessment and Plan: Perhaps due to sepsis (also severe leukocytosis) or bone marrow suppression? Status: Acute
[2018-09-26] MEDS: (Novolin R) Insulin Human Regular 100 units/ml vial SC SCH ×3 (13:16→21:51)
--- NOTE | 2018-09-26 13:39 | CP.PCM.CON ---
History of Present Illness - History of Present Illness History of Present Illness: 73 yo woman with Lung Cancer, previously underwent chemotherapy, brought to ER by her family for weakness and syncope -family witnessed BRBPR some time between last night and this AM. Found to have Hgb 5, platelets 12 and WBC 70K, and was admitted to ICU. Pt lethargic, history obtained from family. Had abdominal pain x 2 days. Further detail not obtainable. 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 No h/o CKD PMH- HTN, DM 2, COPD, lung CA PSH- none FH- no CKD Social- former smoker, no ETOH or illicits Review of Systems - Constitutional Constitutional: Fatigue, Lethargy, Weakness - EENT Eyes: absent: As Per HPI, Blind Spots, Blurred Vision, Change in Vision, Decreased Night Vision, Diplopia, Discharge, Dry Eye, Exophthalmos, Floaters, Irritation, Itchy Eyes, Loss of Peripheral Vision, Pain, Photophobia, Requires Corrective Lenses, Sees Flashes, Spots in Vision, Tunnel Vision, Other Visual Disturbances, Loss of Vision, Other Ears: absent: As Per HPI, Decreased Hearing, Ear Discharge, Ear Pain, Tinnitus, Abnormal Hearing, Disequilibrium, Dizziness, Other Nose/Mouth/Throat: absent: As Per HPI, Epistaxis, Nasal Congestion, Nasal Discharge, Nasal Obstruction, Nasal Trauma, Nose Pain, Post Nasal Drip, Sinus Pain, Sinus Pressure, Bleeding Gums, Change in Voice, Dental Pain, Dry Mouth, Dysphagia, Halitosis, Hoarsness, Lip Swelling, Mouth Lesions, Mouth Pain, Odynophagia, Sore Throat, Throat Swelling, Tongue Swelling, Facial Pain, Neck Pain, Neck Mass, Other - Cardiovascular Cardiovascular: absent: As Per HPI, Acrocyanosis, Chest Pain, Chest Pain at Rest, Chest Pain with Activity, Claudication, Diaphoresis, Dyspnea, Dyspnea on Exertion, Edema, Irregular Heart Rhythm, Pain Radiating to Arm/Neck/Jaw, Leg Edema, Leg Ulcers, Lightheadedness, Orthopnea, Palpitations, Paroxysmal Nocturnal Dyspnea, Pedal Edema, Radiating Pain, Rapid Heart Rate, Slow Heart Rate, Syncope, Other - Respiratory Respiratory: Cough, Dyspnea on Exertion - Gastrointestinal Gastrointestinal: As Per HPI - Genitourinary Genitourinary: Change in Urinary Stream - Musculoskeletal Musculoskeletal: Muscle Weakness, Myalgias - Neurological Neurological: As Per HPI Past Patient History - Infectious Disease Hx of Infectious Diseases: None - Past Medical History & Family History Past Medical History?: Yes Past Family History: Reviewed and not pertinent - Past Social History Smoking Status: Former Smoker Chewing Tobacco Use: No Cigar Use: No Alcohol: Occasional Drugs: Denies Home Situation {Lives}: With Family - CARDIAC Hx Hypertension: Yes - PULMONARY Hx Asthma: Yes Hx Chronic Obstructive Pulmonary Disease (COPD): Yes Hx Emphysema: Yes - NEUROLOGICAL Hx Neurological Disorder: No - HEENT Hx HEENT Problems: No - RENAL Hx Chronic Kidney Disease: No - ENDOCRINE/METABOLIC Hx Endocrine Disorders: Yes Hx Diabetes Mellitus Type 2: Yes - HEMATOLOGICAL/ONCOLOGICAL Hx Cancer: Yes (RIGHT LUNG LOWER LOBE) Hx Chemotherapy: Yes Other/Comment: CURRENT CHEMO PATIENT - INTEGUMENTARY Hx Dermatological Problems: No - MUSCULOSKELETAL/RHEUMATOLOGICAL Hx Arthritis: Yes Hx Falls: No - GASTROINTESTINAL Hx Gastrointestinal Disorders: No - GENITOURINARY/GYNECOLOGICAL Hx Genitourinary Disorders: No - PSYCHIATRIC Hx Substance Use: No - SURGICAL HISTORY Hx Surgeries: Yes Hx Tubal Ligation: Yes Other/Comment: HEMMROIDECOTMY - ANESTHESIA Hx Anesthesia: Yes Hx Anesthesia Reactions: No Meds Allergies/Adverse Reactions: Allergies Allergy/AdvReac Type Severity Reaction Status Date / Time Penicillins Allergy Verified 09/26/18 05:44 - Medications Medications: Current Medications Acetaminophen (Tylenol 325mg Tab) 650 mg PO Q6 PRN PRN Reason: Fever >100.4 F Albuterol/Ipratropium (Duoneb 3 Mg/0.5 Mg (3 Ml) Ud) 3 ml INH RQ6 [facility] Dextrose (Dextrose 50% Inj) 0 ml IV STAT PRN; Protocol PRN Reason: Hypoglycemia Protocol Dextrose (Glutose 15) 0 gm PO ONCE PRN; Protocol PRN Reason: Hypoglycemia Protocol Glucagon (Glucagen Diagnostic Kit) 0 mg IM STAT PRN; Protocol PRN Reason: Hypoglycemia Protocol Dextrose (Dextrose 5% In Water 1000 Ml) 1,000 mls @ 0 mls/hr IV .Q0M PRN; Protocol PRN Reason: Hypoglycemia Protocol Aztreonam 1 gm/ Sodium (Chloride) 100 mls @ 200 mls/hr IVPB Q12H [facility]; Protocol Insulin Human Regular (Novolin R) 0 unit SC ACHS [facility]; Protocol Last Admin: 09/26/18 13:16 Dose: Not Given Pantoprazole Sodium (Protonix Inj) 40 mg IVP DAILY [facility] Last Admin: 09/26/18 10:24 Dose: Not Given Pneumococcal Polyvalent Vaccine (Pneumovax 23 Vaccine) 0.5 ml SC .ONCE ONE Stop: 09/29/18 10:01 Vancomycin HCl (Vancocin (Oral Or Rectal Use)) 125 mg PO QID [facility]; Protocol Physical Exam - Constitutional Appears: No Acute Distress, Older Than Stated Age, Chronically Ill - Head Exam Head Exam: ATRAUMATIC, NORMAL INSPECTION - Eye Exam Eye Exam: EOMI, Normal appearance - Respiratory Exam Respiratory Exam: Clear to Auscultation Bilateral, NORMAL BREATHING PATTERN - Cardiovascular Exam Cardiovascular Exam: REGULAR RHYTHM, +S1 - GI/Abdominal Exam GI & Abdominal Exam: Soft. absent: Tenderness - Extremities Exam Extremities exam: Positive for: normal inspection. Negative for: tenderness - Neurological Exam Neurological exam: CN II-XII Intact, Oriented x3 - Skin Skin Exam: Dry, Warm Results - Vital Signs Recent Vital Signs: Last Vital Signs Temp 99.1 F 09/26/18 13:28 Pulse 97 H 09/26/18 13:28 Resp 14 09/26/18 13:28 BP 105/35 L 09/26/18 13:28 Pulse Ox 98 09/26/18 12:20 - Labs Result Diagrams: 09/26/18 06:16 09/26/18 06:16 Labs: Laboratory Results - last 24 hr 09/26/18 09/26/18 09/26/18 06:16 06:16 06:16 WBC 70.8 H* D RBC 2.09 L Hgb 5.9 L* D Hct 18.4 L MCV 87.8 D MCH 28.0 MCHC 31.9 L RDW 15.3 H Plt Count 12 L* D MPV 10.7 Neut % (Auto) 1.1 L Lymph % (Auto) 4.9 L [place] % (Auto) 90.5 H Eos % (Auto) 3.5 Baso % (Auto) 0.0 Neut # (Auto) 0.8 L Lymph # (Auto) 3.5 [place] # (Auto) 64.1 H Eos # (Auto) 2.5 H Baso # (Auto) 0.0 Neutrophils % (Manual) 1 L Lymphocytes % (Manual) 5 L Reactive Lymphs % 3 H Monocytes % (Manual) 82 H Eosinophils % (Manual) 4 Blast Cells % 5 H Smudge Cells Present Platelet Estimate Markedly decreased L Hypochromasia (manual) Moderate Poikilocytosis (manual Slight Anisocytosis (manual) Slight Microcytosis (manual) Slight Target Cells Moderate Stomatocytes Slight Smear Path Review PT INR APTT Puncture Site pCO2 pO2 HCO3 ABG pH ABG Total CO2 ABG O2 Saturation ABG Base Excess Higinio Test ABG Potassium A-a O2 Difference Respiratory Index Glucose Lactate FiO2 Sodium 138 Potassium 4.3 Chloride 101 Carbon Dioxide 27 Anion Gap 14 BUN 53 H Creatinine 3.9 H Est GFR ( Amer) 14 Est GFR (Non-Af Amer) 11 Random Glucose 223 H D Calcium 7.1 L Phosphorus 6.1 H Magnesium 0.7 L* D Total Bilirubin 0.4 AST 26 ALT 16 Alkaline Phosphatase 65 Troponin I 0.0580 NT-Pro-B Natriuret Pep 6450 H Total Protein 6.2 L Albumin 3.4 L Globulin 2.9 Albumin/Globulin Ratio 1.2 Arterial Blood Potassium Urine Color Urine Clarity Urine pH Ur Specific [place] Urine Protein Urine Glucose (UA) Urine Ketones Urine Blood Urine Nitrate Urine Bilirubin Urine Urobilinogen Ur Leukocyte Esterase Urine WBC (Auto) Urine RBC (Auto) Amorphous Sediment Urine Bacteria Stool Occult Blood Influenza Typ A,B (EIA) Negative for flu a/b Blood Type Antibody Screen 09/26/18 09/26/18 09/26/18 06:16 06:16 06:56 WBC RBC Hgb Hct MCV MCH MCHC RDW Plt Count MPV Neut % (Auto) Lymph % (Auto) [place] % (Auto) Eos % (Auto) Baso % (Auto) Neut # (Auto) Lymph # (Auto) [place] # (Auto) Eos # (Auto) Baso # (Auto) Neutrophils % (Manual) Lymphocytes % (Manual) Reactive Lymphs % Monocytes % (Manual) Eosinophils % (Manual) Blast Cells % Smudge Cells Platelet Estimate Hypochromasia (manual) Poikilocytosis (manual Anisocytosis (manual) Microcytosis (manual) Target Cells Stomatocytes Smear Path Review PT 12.1 INR 1.1 APTT 24 Puncture Site Rb pCO2 55 H pO2 50 L HCO3 24.8 ABG pH 7.31 L ABG Total CO2 29.4 H ABG O2 Saturation 90.7 L ABG Base Excess 0.4 Higinio Test Yes ABG Potassium 4.3 A-a O2 Difference 81.0 Respiratory Index 1.6 Glucose 227 H Lactate 1.8 FiO2 28.0 Sodium 141.0 Potassium Chloride 107.0 Carbon Dioxide Anion Gap BUN Creatinine Est GFR ( Amer) Est GFR (Non-Af Amer) Random Glucose Calcium Phosphorus Magnesium Total Bilirubin AST ALT Alkaline Phosphatase Troponin I NT-Pro-B Natriuret Pep Total Protein Albumin Globulin Albumin/Globulin Ratio Arterial Blood Potassium 4.3 Urine Color Urine Clarity Urine pH Ur Specific [place] Urine Protein Urine Glucose (UA) Urine Ketones Urine Blood Urine Nitrate Urine Bilirubin Urine Urobilinogen Ur Leukocyte Esterase Urine WBC (Auto) Urine RBC (Auto) Amorphous Sediment Urine Bacteria Stool Occult Blood Influenza Typ A,B (EIA) Blood Type B POSITIVE Antibody Screen Negative 09/26/18 09/26/18 07:42 08:32 WBC RBC Hgb Hct MCV MCH MCHC RDW Plt Count MPV Neut % (Auto) Lymph % (Auto) [place] % (Auto) Eos % (Auto) Baso % (Auto) Neut # (Auto) Lymph # (Auto) [place] # (Auto) Eos # (Auto) Baso # (Auto) Neutrophils % (Manual) Lymphocytes % (Manual) Reactive Lymphs % Monocytes % (Manual) Eosinophils % (Manual) Blast Cells % Smudge Cells Platelet Estimate Hypochromasia (manual) Poikilocytosis (manual Anisocytosis (manual) Microcytosis (manual) Target Cells Stomatocytes Smear Path Review PT INR APTT Puncture Site pCO2 pO2 HCO3 ABG pH ABG Total CO2 ABG O2 Saturation ABG Base Excess Higinio Test ABG Potassium A-a O2 Difference Respiratory Index Glucose Lactate FiO2 Sodium Potassium Chloride Carbon Dioxide Anion Gap BUN Creatinine Est GFR ( Amer) Est GFR (Non-Af Amer) Random Glucose Calcium Phosphorus Magnesium Total Bilirubin AST ALT Alkaline Phosphatase Troponin I NT-Pro-B Natriuret Pep Total Protein Albumin Globulin Albumin/Globulin Ratio Arterial Blood Potassium Urine Color Yellow Urine Clarity Hazy Urine pH 5.0 Ur Specific [place] 1.014 Urine Protein 2+ H Urine Glucose (UA) Normal Urine Ketones Negative Urine Blood 3+ H Urine Nitrate Negative Urine Bilirubin Negative Urine Urobilinogen Normal Ur Leukocyte Esterase Neg Urine WBC (Auto) 11 H Urine RBC (Auto) 408 H Amorphous Sediment Occ H Urine Bacteria Occ H Stool Occult Blood Positive H Influenza Typ A,B (EIA) Blood Type Antibody Screen Assessment & Plan (1) Lung cancer Status: Acute (2) Leukocytosis (leucocytosis) Status: Acute (3) BRENDA (acute kidney injury) Status: Acute (4) Hypertension Status: Chronic (5) GI bleeding Status: Acute - Assessment and Plan (Free Text) Assessment: BRENDA possibly from blood loss- GI bleeding- hypotensive episode r/o CTX induced BRENDA- likely has not had CTX recently though GI bleeding with intravascular volume depletion cannot rule out CKD at this point Plan: IV fluids check urine lytes serial chemistries avoid nephrotoxins including IV contrast at this point monitor UO; need for [employer]
[2018-09-26] MEDS ORDERED: Sodium Chloride 0.9% 1,000 ML IV SCH (14:00)
[2018-09-26] MEDS: VANCOMYCIN 125 MG/5 ML PO SCH ×3 (14:05→22:00)
--- NOTE | 2018-09-26 14:57 | CT ---
Date of service: 09/26/2018 PROCEDURE: CT Abdomen and Pelvis without intravenous contrast HISTORY: rectal bleed R/O Colitis COMPARISON: Chest CT without contrast 03/20/2017. No prior CT of the abdomen available for comparison. TECHNIQUE: Helical CT of the abdomen and pelvis was performed without oral or intravenous contrast as per referring physician request. Coronal and sagittal reformats were generated.. Contrast dose: None Radiation dose: Total exam DLP = 739.22 mGy-cm. This CT exam was performed using one or more of the following dose reduction techniques: Automated exposure control, adjustment of the mA and/or kV according to patient size, and/or use of iterative reconstruction technique. FINDINGS: LOWER THORAX: Scattered pulmonary masses are identified the majority which are quite small. Dominant mass is seen in the right lower lobe suggestive of a cancer measuring 5.0 x 5.5 cm. Small hiatal hernia also suggested. LIVER: Unenhanced liver appears upper limits normal size without focal mass appreciable. GALLBLADDER AND BILE DUCTS: Unremarkable. PANCREAS: Enlarging the pancreatic head and Neck is difficult to exclude in this exam the oral contrast due to proximity stomach is duodenum which are similar in density. Body and tail the pancreas appear grossly nonfocal. SPLEEN: Unremarkable. ADRENALS: Bilateral adrenal hyperplasia is suggested. KIDNEYS AND URETERS: No obstructive uropathy bilaterally. Intermediate density lesion measures 42 Hounsfield units related to the midpole left kidney posteriorly measuring approximately 6.0 X 4.0 cm. This may represent a mass or complex cyst. There is an 8 mm ovoid calculus in the left renal pelvis which is nonobstructive apparently. No radiodense urolithiasis right kidney. VASCULATURE: Unremarkable. No aortic aneurysm. No aortic atherosclerotic calcification or mural plaque present. BOWEL: Evaluation of the gastrointestinal tract is limited due to the lack of oral contrast administration. Rectal mass is difficult to exclude at the mid to distal midline posterior rectum. No bowel obstruction evident. Moderate fecal loading throughout the majority colon. No gross colitis pattern appreciated though collapse of left hemicolon limits evaluation of the leslie. Unopacified small bowel appears unremarkable the stomach is collapsed. APPENDIX: Not identified. PERITONEUM: Hazy density of mesentery and retroperitoneal fat is seen in concert with similar pattern in the extra abdominal fat suspicious for anasarca. No ascites or free intra peritoneal gas collection identified. LYMPH NODES: Unremarkable. No enlarged lymph nodes. BLADDER: Unremarkable. REPRODUCTIVE: Possible uterine fibroids identified. BONES: Grade 1 spondylolisthesis L4-5 due to facet joint degenerative change rather than spondylolysis, which is not identified. OTHER FINDINGS: None. IMPRESSION: 1. Lack of contrast agents clearly limits evaluation of the gastrointestinal tract in particular. Solid organs also suboptimally imaged. Midline mid to inferior rectal mass not excluded. Clinically correlate further. Bowel is otherwise unremarkable appearing grossly. 2. Complex cyst or solid mass midpole left kidney 6.0 cm greatest dimension. Follow-up ultrasonography recommended. 3. Anasarca. 4. Possible primary neoplasm right lower lobe with metastatic nodules bilaterally, incidentally encountered.
--- NOTE | 2018-09-26 16:08 | RAD ---
Date of service: 09/26/2018 PROCEDURE: Radiographs of the chest and abdomen (obstructive series) HISTORY: rectal bleed R/O toxic megacolon COMPARISON: 09/26/2018. TECHNIQUE: AP radiograph of the chest, with upright and supine radiographs of the abdomen. FINDINGS: CHEST: Lungs: The lungs are well inflated. There is a large peripheral mass versus consolidation in the right lower lobe. Cardiovascular: Normal size heart. No pulmonary vascular congestion. No aortic atherosclerotic calcification present Pleura: No pleural fluid. No pneumothorax. Other findings: None. ABDOMEN AND PELVIS: Bowel: There are gas-filled normal caliber bowel loops in the right lower quadrant. No evidence of mechanical obstruction. Free air: None. Bones: Unremarkable. Other findings: None. IMPRESSION: Nonspecific nonobstructive bowel gas pattern. Large peripheral mass versus consolidation in the right lower lobe.
--- NOTE | 2018-09-26 18:24 | CP.PCM.CON ---
History of Present Illness - History of Present Illness History of Present Illness: 73 year old female with PMHx of Lung Cancer on chemotherapy last dose 1 week ago , Asthma, HTN, DM, and COPD, who presented to the ED early this morning for weakness, confusion, and shortness of breath. Patients daughter states pt re ceives Neupogen therapy every week, last dose was Monday. Patients daughter states patient has not been eating much lately and has been feeling weak. She denies diarrhea Recently treated with Z pack for URI symptoms and cough Patient complains of shortness of breath and feeling hot. Patient denies chest pain, abdominal pain, nausea, and vomiting. ID consulted for leukocytosis and possible pneumonia Medical HX: Lung Cancer on Chemotherapy, Asthma, HTN, COPD, DM Allergies: PCN Surgical HX: Right chest port cath Social Hx: Current smoker. Review of Systems - Review of Systems All systems: reviewed and no additional remarkable complaints except - Constitutional Constitutional: As Per HPI, Malaise, Weight Loss - EENT Eyes: absent: As Per HPI, Blind Spots, Blurred Vision, Change in Vision, Decreased Night Vision, Diplopia, Discharge, Dry Eye, Exophthalmos, Floaters, Irritation, Itchy Eyes, Loss of Peripheral Vision, Pain, Photophobia, Requires Corrective Lenses, Sees Flashes, Spots in Vision, Tunnel Vision, Other Visual Disturbances, Loss of Vision, Other Ears: absent: As Per HPI, Decreased Hearing, Ear Discharge, Ear Pain, Tinnitus, Abnormal Hearing, Disequilibrium, Dizziness, Other Nose/Mouth/Throat: absent: As Per HPI, Epistaxis, Nasal Congestion, Nasal Discharge, Nasal Obstruction, Nasal Trauma, Nose Pain, Post Nasal Drip, Sinus Pain, Sinus Pressure, Bleeding Gums, Change in Voice, Dental Pain, Dry Mouth, Dysphagia, Halitosis, Hoarsness, Lip Swelling, Mouth Lesions, Mouth Pain, Odynophagia, Sore Throat, Throat Swelling, Tongue Swelling, Facial Pain, Neck Pain, Neck Mass, Other - Breasts Breasts: absent: As Per HPI, Change in Shape, Mass, Pain, Nipple Discharge, Nipple Inversion, Skin Changes, Swelling, Other - Cardiovascular Cardiovascular: As Per HPI - Respiratory Respiratory: As Per HPI, Cough, Dyspnea. absent: Hemoptysis - Gastrointestinal Gastrointestinal: absent: As Per HPI, Abdominal Pain, Belching, Bloating, Change in Bowel Habits, Change in Stool Character, Coffee Ground Emesis, Constipation, Cramping, Diarrhea, Dyspepsia, Dysphagia, Early Satiety, Excessive Flatus, Fecal Incontinence, Heartburn, Hematemesis, Hematochezia, Loose Stools, Melena, Nausea, Odynophagia, Temesmus, Vomiting, Other - Genitourinary Genitourinary: absent: As Per HPI, Change in Urinary Stream, Difficulty Urinating, Dysuria, Flank Pain, Hematuria, Pyuria, Nocturia, Urinary Inc ontinence, Urinary Frequency, Urinary Hesitance, Urinary Urgency, Voiding Freq/Small Amts, Freq UTI, Hx Renal/Bladder Calculi, Hx /Renal Surgery, Bladder Distension, Other - Reproductive: Female Reproductive:Female: absent: As Per HPI, Amenorrhea, Amenorrhea/ Control, Currently Menstual, Cycle <21 Days, Cycle >35 Days, Cycle Variable, Menses 1-7 Days, Menses >/= 8 Days, Menses Variable, Cycle > 4 Weeks Between, No Menses for 6 Months, Heavy Menses, Light Menses, Normal Menses, Spotting Between Cycles, S/P Hysterectomy, Menopausal, Post Menopausal, Premenarche, Abnormal Vaginal Bleeding, Dysmenorrhea, Dyspareunia, Genital Lesions, Genital Pruritis, Pelvic Pain, Prolapse Symptoms, Sexual Dysfunction, Vaginal Discharge, Vaginal Dryness, Vaginal Odor, Vaginal Pruritis, Other - Menstruation Menstruation: absent: As Per HPI, Amenorrhea, Amenorrhea/ Control, Currently Menstual, Cycle <21 Days, Cycle >35 Days, Cycle Variable, Menses 1-7 Days, Menses >/= 8 Days, Menses Variable, Cycle > 4 Weeks Between, No Menses for 6 Months, Heavy Menses, Light Menses, Normal Menses, Spotting Between Cycles, S/P Hysterectomy, Menopausal, Post Menopausal, Premenarche, Abnormal Vaginal Bleeding, Dysmenorrhea, Other - Musculoskeletal Musculoskeletal: absent: As Per HPI, Abnormal Gait, Arthralgias, Atrophy, Back Pain, Deformity, Joint Swelling, Limited Range of Motion, Loss of Height, Muscle Cramps, Muscle Weakness, Myalgias, Neck Pain, Numbness, Radiating Pain into Limb, Stiffness, Tingling, Other - Integumentary Integumentary: absent: As Per HPI, Acne, Alopecia, Bleeding Lesions, Change in Hair, Change in Nails, Change in Pigmentation, Changing Lesions, Dry Skin, Erythema, Furuncle, Hirsutism, Lesions, New Lesions, Non-Healing Lesions, Photosensitivity, Pruritus, Rash, Skin Pain, Skin Ulcer, Sores, Striae, Swelling, Unusual Bruising, Wounds, Jaundice, Other - Neurological Neurological: absent: As Per HPI, Abnormal Gait, Abnormal Hearing, Abnormal Movements, Abnormal Speech, Behavioral Changes, Burning Sensations, Confusion, Convulsions, Disequilibrium, Dizziness, Numbness, Focal Weakness, Frequent Falls, Headaches, Lack of Coordination, Loss of Vision, Memory Loss, Paresthesias, Radicular Pain, Restless Legs, Sensory Deficit, Syncope, Tingling, Tremor, Vertigo, Weakness, Other Visual Disturbances, Other - Psychiatric Psychiatric: absent: As Per HPI, Abnormal Sleep Pattern, Anhedonia, Anxiety, Auditory Hallucinations, Behavioral Changes, Change in Appetite, Change in Libido, Confusion, Depression, Difficulty Concentrating, Hallucinations, Homicidal Ideation, Hopelessness, Irritability, Memory Loss, Mood Swings, Panic Attacks, Paranoia, Suicidal Ideation, Visual Hallucinations, Tactile Hallucinations, Other - Endocrine Endocrine: absent: As Per HPI, Change in Body Appearance, Change in Libido, Cold Intolorance, Deepening of Voice, Excessive Sweating, Fatigue, Flushing, Heat Intolorance, Increase in Ring/Shoe/Hat Size, Palpitations, Polydipsia, Polyphagia, Polyuria, Other - Hematologic/Lymphatic Hematologic: absent: As Per HPI, Easy Bleeding, Easy Bruising, Lymphadenopathy, Other Past Patient History - Infectious Disease Hx of Infectious Diseases: None - Past Medical History & Family History Past Medical History?: Yes - Past Social History Smoking Status: Light Smoker < 10 Cigarettes Daily - CARDIAC Hx Hypertension: Yes - PULMONARY Hx Asthma: Yes Hx Chronic Obstructive Pulmonary Disease (COPD): Yes Hx Emphysema: Yes - NEUROLOGICAL Hx Neurological Disorder: No - HEENT Hx HEENT Problems: No - RENAL Hx Chronic Kidney Disease: No - ENDOCRINE/METABOLIC Hx Endocrine Disorders: Yes Hx Diabetes Mellitus Type 2: Yes - HEMATOLOGICAL/ONCOLOGICAL Hx Cancer: Yes (RIGHT LUNG LOWER LOBE) Hx Chemotherapy: Yes Other/Comment: CURRENT CHEMO PATIENT - INTEGUMENTARY Hx Dermatological Problems: No - MUSCULOSKELETAL/RHEUMATOLOGICAL Hx Arthritis: Yes - GASTROINTESTINAL Hx Gastrointestinal Disorders: No - GENITOURINARY/GYNECOLOGICAL Hx Genitourinary Disorders: No - PSYCHIATRIC Hx Substance Use: No - SURGICAL HISTORY Hx Surgeries: Yes Hx Tubal Ligation: Yes Other/Comment: HEMMROIDECOTMY - ANESTHESIA Hx Anesthesia: Yes Hx Anesthesia Reactions: No Meds Allergies/Adverse Reactions: Allergies Allergy/AdvReac Type Severity Reaction Status Date / Time Penicillins Allergy Verified 09/26/18 05:44 - Medications Medications: Current Medications Acetaminophen (Tylenol 325mg Tab) 650 mg PO Q6 PRN PRN Reason: Fever >100.4 F Albuterol/Ipratropium (Duoneb 3 Mg/0.5 Mg (3 Ml) Ud) 3 ml INH RQ6 [place] Calcium Acetate (Phoslo) 667 mg PO TID [facility] Last Admin: 09/26/18 17:24 Dose: 667 mg Dextrose (Dextrose 50% Inj) 0 ml IV STAT PRN; Protocol PRN Reason: Hypoglycemia Protocol Dextrose (Glutose 15) 0 gm PO ONCE PRN; Protocol PRN Reason: Hypoglycemia Protocol Glucagon (Glucagen Diagnostic Kit) 0 mg IM STAT PRN; Protocol PRN Reason: Hypoglycemia Protocol Dextrose (Dextrose 5% In Water 1000 Ml) 1,000 mls @ 0 mls/hr IV .Q0M PRN; Protocol PRN Reason: Hypoglycemia Protocol Aztreonam 1 gm/ Sodium (Chloride) 100 mls @ 200 mls/hr IVPB Q12H [facility]; Protocol Sodium Chloride (Sodium Chloride 0.9%) 1,000 mls @ 75 mls/hr IV .[id number] [facility] Last Admin: 09/26/18 17:24 Dose: Not Given Insulin Human Regular (Novolin R) 0 unit SC ACHS [facility]; Protocol Last Admin: 09/26/18 17:23 Dose: 6 u Pantoprazole Sodium (Protonix Inj) 40 mg IVP DAILY [facility] Last Admin: 09/26/18 10:24 Dose: Not Given Pneumococcal Polyvalent Vaccine (Pneumovax 23 Vaccine) 0.5 ml SC .ONCE ONE Stop: 09/29/18 10:01 Vancomycin HCl (Vancocin (Oral Or Rectal Use)) 125 mg PO QID [facility]; Protocol Last Admin: 09/26/18 14:05 Dose: Not Given Physical Exam - Constitutional Appears: Toxic, Cachectic, Chronically Ill - Head Exam Head Exam: ATRAUMATIC, NORMAL INSPECTION, NORMOCEPHALIC - Eye Exam Eye Exam: PERRL. absent: Scleral icterus Pupil Exam: NORMAL ACCOMODATION - ENT Exam ENT Exam: Mucous Membranes Dry, Normal External Ear Exam, Normal Oropharynx - Neck Exam Neck exam: Negative for: Lymphadenopathy, Thyromegaly - Respiratory Exam Respiratory Exam: Decreased Breath Sounds, Prolonged Expiratory Phase, Rhonchi - Cardiovascular Exam Cardiovascular Exam: REGULAR RHYTHM, +S1, +S2 - GI/Abdominal Exam GI & Abdominal Exam: Diminished Bowel Sounds, Distended, Soft. absent: Guarding, Rebound, Rigid, Tenderness - Rectal Exam Rectal Exam: Deferred - Exam Exam: NORMAL INSPECTION - Extremities Exam Extremities exam: Positive for: pedal edema. Negative for: calf tenderness, normal inspection, tenderness, pedal pulses present - Back Exam Back exam: absent: CVA tenderness (L), CVA tenderness (R), paraspinal tenderness - Neurological Exam Neurological exam: Alert, CN II-XII Intact, Oriented x3, Reflexes Normal - Psychiatric Exam Psychiatric exam: Depressed - Skin Skin Exam: Dry Results - Vital Signs Recent Vital Signs: Last Vital Signs Temp 98.1 F 09/26/18 17:29 Pulse 100 H 09/26/18 17:30 Resp 20 09/26/18 17:29 BP 120/37 L 09/26/18 17:29 Pulse Ox 100 09/26/18 17:30 - Labs Result Diagrams: 09/26/18 06:16 09/26/18 06:16 Labs: Laboratory Results - last 24 hr 09/26/18 09/26/18 09/26/18 06:16 06:16 06:16 WBC 70.8 H* D RBC 2.09 L Hgb 5.9 L* D Hct 18.4 L MCV 87.8 D MCH 28.0 MCHC 31.9 L RDW 15.3 H Plt Count 12 L* D MPV 10.7 Neut % (Auto) 1.1 L Lymph % (Auto) 4.9 L Fisher % (Auto) 90.5 H Eos % (Auto) 3.5 Baso % (Auto) 0.0 Neut # (Auto) 0.8 L Lymph # (Auto) 3.5 Fisher # (Auto) 64.1 H Eos # (Auto) 2.5 H Baso # (Auto) 0.0 Neutrophils % (Manual) 1 L Lymphocytes % (Manual) 5 L Reactive Lymphs % 3 H Monocytes % (Manual) 82 H Eosinophils % (Manual) 4 Blast Cells % 5 H Smudge Cells Present Platelet Estimate Markedly decreased L Hypochromasia (manual) Moderate Poikilocytosis (manual Slight Anisocytosis (manual) Slight Microcytosis (manual) Slight Target Cells Moderate Stomatocytes Slight Smear Path Review PT INR APTT Puncture Site pCO2 pO2 HCO3 ABG pH ABG Total CO2 ABG O2 Saturation ABG Base Excess Higinio Test ABG Potassium A-a O2 Difference Respiratory Index Glucose Lactate FiO2 Sodium 138 Potassium 4.3 Chloride 101 Carbon Dioxide 27 Anion Gap 14 BUN 53 H Creatinine 3.9 H Est GFR ( Amer) 14 Est GFR (Non-Af Amer) 11 POC Glucose (mg/dL) Random Glucose 223 H D Calcium 7.1 L Phosphorus 6.1 H Magnesium 0.7 L* D Total Bilirubin 0.4 AST 26 ALT 16 Alkaline Phosphatase 65 Troponin I 0.0580 NT-Pro-B Natriuret Pep 6450 H Total Protein 6.2 L Albumin 3.4 L Globulin 2.9 Albumin/Globulin Ratio 1.2 Arterial Blood Potassium Urine Color Urine Clarity Urine pH Ur Specific [place] Urine Protein Urine Glucose (UA) Urine Ketones Urine Blood Urine Nitrate Urine Bilirubin Urine Urobilinogen Ur Leukocyte Esterase Urine WBC (Auto) Urine RBC (Auto) Amorphous Sediment Urine Bacteria Stool Occult Blood Influenza Typ A,B (EIA) Negative for flu a/b Blood Type Antibody Screen 09/26/18 09/26/18 09/26/18 06:16 06:16 06:56 WBC RBC Hgb Hct MCV MCH MCHC RDW Plt Count MPV Neut % (Auto) Lymph % (Auto) Fisher % (Auto) Eos % (Auto) Baso % (Auto) Neut # (Auto) Lymph # (Auto) Fisher # (Auto) Eos # (Auto) Baso # (Auto) Neutrophils % (Manual) Lymphocytes % (Manual) Reactive Lymphs % Monocytes % (Manual) Eosinophils % (Manual) Blast Cells % Smudge Cells Platelet Estimate Hypochromasia (manual) Poikilocytosis (manual Anisocytosis (manual) Microcytosis (manual) Target Cells Stomatocytes Smear Path Review PT 12.1 INR 1.1 APTT 24 Puncture Site Rb pCO2 55 H pO2 50 L HCO3 24.8 ABG pH 7.31 L ABG Total CO2 29.4 H ABG O2 Saturation 90.7 L ABG Base Excess 0.4 Higinio Test Yes ABG Potassium 4.3 A-a O2 Difference 81.0 Respiratory Index 1.6 Glucose 227 H Lactate 1.8 FiO2 28.0 Sodium 141.0 Potassium Chloride 107.0 Carbon Dioxide Anion Gap BUN Creatinine Est GFR ( Amer) Est GFR (Non-Af Amer) POC Glucose (mg/dL) Random Glucose Calcium Phosphorus Magnesium Total Bilirubin AST ALT Alkaline Phosphatase Troponin I NT-Pro-B Natriuret Pep Total Protein Albumin Globulin Albumin/Globulin Ratio Arterial Blood Potassium 4.3 Urine Color Urine Clarity Urine pH Ur Specific [place] Urine Protein Urine Glucose (UA) Urine Ketones Urine Blood Urine Nitrate Urine Bilirubin Urine Urobilinogen Ur Leukocyte Esterase Urine WBC (Auto) Urine RBC (Auto) Amorphous Sediment Urine Bacteria Stool Occult Blood Influenza Typ A,B (EIA) Blood Type B POSITIVE Antibody Screen Negative 09/26/18 09/26/18 09/26/18 07:42 08:32 13:03 WBC RBC Hgb Hct MCV MCH MCHC RDW Plt Count MPV Neut % (Auto) Lymph % (Auto) Fisher % (Auto) Eos % (Auto) Baso % (Auto) Neut # (Auto) Lymph # (Auto) Fisher # (Auto) Eos # (Auto) Baso # (Auto) Neutrophils % (Manual) Lymphocytes % (Manual) Reactive Lymphs % Monocytes % (Manual) Eosinophils % (Manual) Blast Cells % Smudge Cells Platelet Estimate Hypochromasia (manual) Poikilocytosis (manual Anisocytosis (manual) Microcytosis (manual) Target Cells Stomatocytes Smear Path Review PT INR APTT Puncture Site pCO2 pO2 HCO3 ABG pH ABG Total CO2 ABG O2 Saturation ABG Base Excess Higinio Test ABG Potassium A-a O2 Difference Respiratory Index Glucose Lactate FiO2 Sodium Potassium Chloride Carbon Dioxide Anion Gap BUN Creatinine Est GFR ( Amer) Est GFR (Non-Af Amer) POC Glucose (mg/dL) 236 H Random Glucose Calcium Phosphorus Magnesium Total Bilirubin AST ALT Alkaline Phosphatase Troponin I NT-Pro-B Natriuret Pep Total Protein Albumin Globulin Albumin/Globulin Ratio Arterial Blood Potassium Urine Color Yellow Urine Clarity Hazy Urine pH 5.0 Ur Specific [place] 1.014 Urine Protein 2+ H Urine Glucose (UA) Normal Urine Ketones Negative Urine Blood 3+ H Urine Nitrate Negative Urine Bilirubin Negative Urine Urobilinogen Normal Ur Leukocyte Esterase Neg Urine WBC (Auto) 11 H Urine RBC (Auto) 408 H Amorphous Sediment Occ H Urine Bacteria Occ H Stool Occult Blood Positive H Influenza Typ A,B (EIA) Blood Type Antibody Screen 09/26/18 16:17 WBC RBC Hgb Hct MCV MCH MCHC RDW Plt Count MPV Neut % (Auto) Lymph % (Auto) Fisher % (Auto) Eos % (Auto) Baso % (Auto) Neut # (Auto) Lymph # (Auto) Fisher # (Auto) Eos # (Auto) Baso # (Auto) Neutrophils % (Manual) Lymphocytes % (Manual) Reactive Lymphs % Monocytes % (Manual) Eosinophils % (Manual) Blast Cells % Smudge Cells Platelet Estimate Hypochromasia (manual) Poikilocytosis (manual Anisocytosis (manual) Microcytosis (manual) Target Cells Stomatocytes Smear Path Review PT INR APTT Puncture Site pCO2 pO2 HCO3 ABG pH ABG Total CO2 ABG O2 Saturation ABG Base Excess Higinio Test ABG Potassium A-a O2 Difference Respiratory Index Glucose Lactate FiO2 Sodium Potassium Chloride Carbon Dioxide Anion Gap BUN Creatinine Est GFR ( Amer) Est GFR (Non-Af Amer) POC Glucose (mg/dL) 317 H Random Glucose Calcium Phosphorus Magnesium Total Bilirubin AST ALT Alkaline Phosphatase Troponin I NT-Pro-B Natriuret Pep Total Protein Albumin Globulin Albumin/Globulin Ratio Arterial Blood Potassium Urine Color Urine Clarity Urine pH Ur Specific [place] Urine Protein Urine Glucose (UA) Urine Ketones Urine Blood Urine Nitrate Urine Bilirubin Urine Urobilinogen Ur Leukocyte Esterase Urine WBC (Auto) Urine RBC (Auto) Amorphous Sediment Urine Bacteria Stool Occult Blood Influenza Typ A,B (EIA) Blood Type Antibody Screen Assessment & Plan (1) Anemia Status: Acute (2) Hypomagnesemia Status: Acute (3) Leukocytosis (leucocytosis) Status: Acute (4) Lung cancer Status: Acute (5) Pneumonia Status: Acute (6) Renal failure Status: Acute (7) Thrombocytopenia Status: Acute (8) BRENDA (acute kidney injury) Status: Acute - Assessment and Plan (Free Text) Assessment: 73 yo female is admitted to ICU with severe sepsis and multiorgan system dysfunction Has leukemoid reaction possibly due to stress, and /or infection Also on Neupogen Being treated for possible pneumonia - recently on Zithromax Line sepsis also a consideration GI on board for rectal bleed in setting of thrombocytopenia / DIC ? Empiric IV rx will continue Continue Vanco/ Flagyl/ Azactam plus PO Vanco for C Diff pending cultures Prognosis poor from outset
--- NOTE | 2018-09-26 18:46 | US ---
Date of service: 09/26/2018 PROCEDURE: Ultrasound of the Kidneys HISTORY: tammi COMPARISON: None available. TECHNIQUE: Sonogram of the kidneys. FINDINGS: RIGHT KIDNEY: Measures: 10.2 cm. Diffusely increased cortical echogenicity No mass, calculus or hydronephrosis. LEFT KIDNEY: Measures: 11.4 cm. Diffusely increased cortical echogenicity. Midpole soft tissue mass, 6.5 x 4.2 x 5.7 cm. This corresponds to a soft tissue density mass identified on CT examination of the same date. 5 mm nonobstructing mid left renal calculus. No hydronephrosis. OTHER FINDINGS: None. IMPRESSION: 6.5 cm soft tissue mass mid left kidney suspicious for neoplasm. Nonobstructing 5 mm mid left renal calculus. Diffusely increased cortical echogenicity consistent with diffuse medical renal disease.
[2018-09-26] MEDS: Albuterol-Ipratrop 3 mg / 0.5 (3 ml) UD INH SCH (19:57)
[2018-09-26] MEDS: metroNIDAZOLE IV 500 mg/100 ml 500 MG/100 ML BAG IVPB SCH (20:20)
[2018-09-26] MEDS: Aztreonam 1 GM in Sodium Chloride 0.9% 100 ML IVPB SCH (20:21)
[2018-09-26 21:02] LABS: BASO # 0.1 K/uL (0.0-0.2); BASO % 0.1 % (0.0-2.0); EOS # 0.9 K/uL (0.0-0.7); EOS % 1.8 % (0.0-4.0); LYMPH # 2.9 K/uL (1.0-4.3); MEAN CELL VOLUME 86.8 fL (81.0-99.0); MEAN CORPUSCULAR HEMOGLOBIN 28.3 pg (27.0-31.0); MEAN CORPUSCULAR HGB CONC 32.7 g/dL (33.0-37.0); MEAN PLATELET VOLUME 8.4 fL (7.2-11.7); MONO # 44.3 K/uL (0.0-0.8); NEUT # 0.5 K/uL (1.8-7.0); NEUT % 1.1 % (50.0-75.0); NRBC % 0.1 % (0.0-2.0); RED CELL DISTRIBUTION WIDTH 14.6 % (11.5-14.5)
[2018-09-26 21:07] LABS: HEMOGLOBIN 8.2 g/dL (11.0-16.0); WHITE BLOOD COUNT 48.7 K/uL (4.8-10.8)
[2018-09-26 21:08] LABS: PLATELET COUNT 53 K/uL (130-400)
[2018-09-26 21:18] LABS: ALB/GLOB RATIO 1.2 (1.0-2.1); ALBUMIN 3.5 g/dL (3.5-5.0); CALCIUM 7.1 mg/dl (8.6-10.4)
[2018-09-26 21:36] LABS: BLASTS 3 % (0-0); EOSINOPHIL 1 % (0-4); LYMPHOCYTE 5 % (20-40); REACTIVE LYMPHOCYTES 1 % (0-0); TOTAL CELLS COUNTED 100
[2018-09-26 21:37] LABS: MONOCYTE 89 % (0-10); NEUTROPHIL 1 % (50-75)
[2018-09-26 21:39] LABS: PLATELET ESTIMATE DECREASED (NORMAL)
--- NOTE | 2018-09-26 23:10 | CP.PCM.CON ---
History of Present Illness - History of Present Illness History of Present Illness: 73 year old female with a history of stage IV small cell lung cancer on chemotherapy with Dr. Nails, presenting with AMS, fatigue, and diarrhea. The patient received chemotherapy 3 weeks ago. Her daughter notes she began having diarrhea, with progressive fatigue and confusion prior to coming to the hospital. She reports she received growth factor support last week. Past medical history: DM, HTN, stage IV small cell lung cancer Surgical history: Portacath Family history: Denies hematologic and oncologic problems Social history: Former tobacco abuse Allergies: Penicillins Review of systems: All remaining review of systems including HEENT, cardiovascular, respiratory, gastrointestinal, genitourinary, musculoskeletal, dermatologic, neurologic, and psychiatric are negative unless mentioned in the HPI. Past Patient History - Infectious Disease Hx of Infectious Diseases: None - Past Medical History & Family History Past Medical History?: Yes - Past Social History Smoking Status: Light Smoker < 10 Cigarettes Daily - CARDIAC Hx Hypertension: Yes - PULMONARY Hx Asthma: Yes Hx Chronic Obstructive Pulmonary Disease (COPD): Yes Hx Emphysema: Yes - NEUROLOGICAL Hx Neurological Disorder: No - HEENT Hx HEENT Problems: No - RENAL Hx Chronic Kidney Disease: No - ENDOCRINE/METABOLIC Hx Endocrine Disorders: Yes Hx Diabetes Mellitus Type 2: Yes - HEMATOLOGICAL/ONCOLOGICAL Hx Cancer: Yes (RIGHT LUNG LOWER LOBE) Hx Chemotherapy: Yes Other/Comment: CURRENT CHEMO PATIENT - INTEGUMENTARY Hx Dermatological Problems: No - MUSCULOSKELETAL/RHEUMATOLOGICAL Hx Arthritis: Yes - GASTROINTESTINAL Hx Gastrointestinal Disorders: No - GENITOURINARY/GYNECOLOGICAL Hx Genitourinary Disorders: No - PSYCHIATRIC Hx Substance Use: No - SURGICAL HISTORY Hx Surgeries: Yes Hx Tubal Ligation: Yes Other/Comment: HEMMROIDECOTMY - ANESTHESIA Hx Anesthesia: Yes Hx Anesthesia Reactions: No Meds Allergies/Adverse Reactions: Allergies Allergy/AdvReac Type Severity Reaction Status Date / Time Penicillins Allergy Verified 09/26/18 05:44 - Medications Medications: Current Medications Acetaminophen (Tylenol 325mg Tab) 650 mg PO Q6 PRN PRN Reason: Fever >100.4 F Albuterol/Ipratropium (Duoneb 3 Mg/0.5 Mg (3 Ml) Ud) 3 ml INH RQ6 [facility] Last Admin: 09/26/18 19:57 Dose: 3 ml Calcium Acetate (Phoslo) 667 mg PO TID [facility] Last Admin: 09/26/18 17:24 Dose: 667 mg Dextrose (Dextrose 50% Inj) 0 ml IV STAT PRN; Protocol PRN Reason: Hypoglycemia Protocol Dextrose (Glutose 15) 0 gm PO ONCE PRN; Protocol PRN Reason: Hypoglycemia Protocol Glucagon (Glucagen Diagnostic Kit) 0 mg IM STAT PRN; Protocol PRN Reason: Hypoglycemia Protocol Dextrose (Dextrose 5% In Water 1000 Ml) 1,000 mls @ 0 mls/hr IV .Q0M PRN; Protocol PRN Reason: Hypoglycemia Protocol Aztreonam 1 gm/ Sodium (Chloride) 100 mls @ 200 mls/hr IVPB Q12H [facility]; Protocol Last Admin: 09/26/18 20:21 Dose: 200 mls/hr Metronidazole (Flagyl) 500 mg in 100 mls @ 100 mls/hr IVPB Q8H [facility]; Protocol Last Admin: 09/26/18 20:20 Dose: 100 mls/hr Insulin Human Regular (Novolin R) 0 unit SC ACHS [facility]; Protocol Last Admin: 09/26/18 21:51 Dose: 3 u Pantoprazole Sodium (Protonix Inj) 40 mg IVP DAILY [facility] Last Admin: 09/26/18 10:24 Dose: Not Given Pneumococcal Polyvalent Vaccine (Pneumovax 23 Vaccine) 0.5 ml SC .ONCE ONE Stop: 09/29/18 10:01 Vancomycin HCl (Vancocin (Oral Or Rectal Use)) 125 mg PO QID [facility]; Protocol Last Admin: 09/26/18 18:48 Dose: 125 mg Physical Exam - Head Exam Head Exam: ATRAUMATIC - Eye Exam Eye Exam: Normal appearance - ENT Exam ENT Exam: Mucous Membranes Dry - Respiratory Exam Respiratory Exam: NORMAL BREATHING PATTERN - Cardiovascular Exam Cardiovascular Exam: +S1, +S2 - GI/Abdominal Exam GI & Abdominal Exam: Normal Bowel Sounds - Neurological Exam Neurological exam: Altered - Psychiatric Exam Psychiatric exam: Flat Affect - Skin Skin Exam: Warm Results - Vital Signs Recent Vital Signs: Last Vital Signs Temp 98.6 F 09/26/18 20:19 Pulse 92 H 09/26/18 21:53 Resp 20 09/26/18 20:19 BP 130/42 L 09/26/18 21:53 Pulse Ox 95 09/26/18 21:53 - Labs Result Diagrams: 09/26/18 20:58 09/26/18 20:58 Labs: Laboratory Results - last 24 hr 09/26/18 09/26/18 09/26/18 06:16 06:16 06:16 WBC 70.8 H* D RBC 2.09 L Hgb 5.9 L* D Hct 18.4 L MCV 87.8 D MCH 28.0 MCHC 31.9 L RDW 15.3 H Plt Count 12 L* D MPV 10.7 Neut % (Auto) 1.1 L Lymph % (Auto) 4.9 L Cooke % (Auto) 90.5 H Eos % (Auto) 3.5 Baso % (Auto) 0.0 Neut # (Auto) 0.8 L Lymph # (Auto) 3.5 Cooke # (Auto) 64.1 H Eos # (Auto) 2.5 H Baso # (Auto) 0.0 Neutrophils % (Manual) 1 L Lymphocytes % (Manual) 5 L Reactive Lymphs % 3 H Monocytes % (Manual) 82 H Eosinophils % (Manual) 4 Blast Cells % 5 H Smudge Cells Present Platelet Estimate Markedly decreased L Hypochromasia (manual) Moderate Poikilocytosis (manual Slight Anisocytosis (manual) Slight Microcytosis (manual) Slight Target Cells Moderate Stomatocytes Slight Smear Path Review PT INR APTT Puncture Site pCO2 pO2 HCO3 ABG pH ABG Total CO2 ABG O2 Saturation ABG Base Excess Higinio Test ABG Potassium A-a O2 Difference Respiratory Index Glucose Lactate FiO2 Sodium 138 Potassium 4.3 Chloride 101 Carbon Dioxide 27 Anion Gap 14 BUN 53 H Creatinine 3.9 H Est GFR ( Amer) 14 Est GFR (Non-Af Amer) 11 POC Glucose (mg/dL) Random Glucose 223 H D Calcium 7.1 L Phosphorus 6.1 H Magnesium 0.7 L* D Total Bilirubin 0.4 AST 26 ALT 16 Alkaline Phosphatase 65 Troponin I 0.0580 NT-Pro-B Natriuret Pep 6450 H Total Protein 6.2 L Albumin 3.4 L Globulin 2.9 Albumin/Globulin Ratio 1.2 Arterial Blood Potassium Urine Color Urine Clarity Urine pH Ur Specific Snowflake Urine Protein Urine Glucose (UA) Urine Ketones Urine Blood Urine Nitrate Urine Bilirubin Urine Urobilinogen Ur Leukocyte Esterase Urine WBC (Auto) Urine RBC (Auto) Amorphous Sediment Urine Bacteria Stool Occult Blood Influenza Typ A,B (EIA) Negative for flu a/b Blood Type Antibody Screen 09/26/18 09/26/18 09/26/18 06:16 06:16 06:56 WBC RBC Hgb Hct MCV MCH MCHC RDW Plt Count MPV Neut % (Auto) Lymph % (Auto) Cooke % (Auto) Eos % (Auto) Baso % (Auto) Neut # (Auto) Lymph # (Auto) Cooke # (Auto) Eos # (Auto) Baso # (Auto) Neutrophils % (Manual) Lymphocytes % (Manual) Reactive Lymphs % Monocytes % (Manual) Eosinophils % (Manual) Blast Cells % Smudge Cells Platelet Estimate Hypochromasia (manual) Poikilocytosis (manual Anisocytosis (manual) Microcytosis (manual) Target Cells Stomatocytes Smear Path Review PT 12.1 INR 1.1 APTT 24 Puncture Site Rb pCO2 55 H pO2 50 L HCO3 24.8 ABG pH 7.31 L ABG Total CO2 29.4 H ABG O2 Saturation 90.7 L ABG Base Excess 0.4 Higinio Test Yes ABG Potassium 4.3 A-a O2 Difference 81.0 Respiratory Index 1.6 Glucose 227 H Lactate 1.8 FiO2 28.0 Sodium 141.0 Potassium Chloride 107.0 Carbon Dioxide Anion Gap BUN Creatinine Est GFR ( Amer) Est GFR (Non-Af Amer) POC Glucose (mg/dL) Random Glucose Calcium Phosphorus Magnesium Total Bilirubin AST ALT Alkaline Phosphatase Troponin I NT-Pro-B Natriuret Pep Total Protein Albumin Globulin Albumin/Globulin Ratio Arterial Blood Potassium 4.3 Urine Color Urine Clarity Urine pH Ur Specific [place]flake Urine Protein Urine Glucose (UA) Urine Ketones Urine Blood Urine Nitrate Urine Bilirubin Urine Urobilinogen Ur Leukocyte Esterase Urine WBC (Auto) Urine RBC (Auto) Amorphous Sediment Urine Bacteria Stool Occult Blood Influenza Typ A,B (EIA) Blood Type B POSITIVE Antibody Screen Negative 09/26/18 09/26/18 09/26/18 07:42 08:32 13:03 WBC RBC Hgb Hct MCV MCH MCHC RDW Plt Count MPV Neut % (Auto) Lymph % (Auto) Cooke % (Auto) Eos % (Auto) Baso % (Auto) Neut # (Auto) Lymph # (Auto) Cooke # (Auto) Eos # (Auto) Baso # (Auto) Neutrophils % (Manual) Lymphocytes % (Manual) Reactive Lymphs % Monocytes % (Manual) Eosinophils % (Manual) Blast Cells % Smudge Cells Platelet Estimate Hypochromasia (manual) Poikilocytosis (manual Anisocytosis (manual) Microcytosis (manual) Target Cells Stomatocytes Smear Path Review PT INR APTT Puncture Site pCO2 pO2 HCO3 ABG pH ABG Total CO2 ABG O2 Saturation ABG Base Excess Higinio Test ABG Potassium A-a O2 Difference Respiratory Index Glucose Lactate FiO2 Sodium Potassium Chloride Carbon Dioxide Anion Gap BUN Creatinine Est GFR ( Amer) Est GFR (Non-Af Amer) POC Glucose (mg/dL) 236 H Random Glucose Calcium Phosphorus Magnesium Total Bilirubin AST ALT Alkaline Phosphatase Troponin I NT-Pro-B Natriuret Pep Total Protein Albumin Globulin Albumin/Globulin Ratio Arterial Blood Potassium Urine Color Yellow Urine Clarity Hazy Urine pH 5.0 Ur Specific Snowflake 1.014 Urine Protein 2+ H Urine Glucose (UA) Normal Urine Ketones Negative Urine Blood 3+ H Urine Nitrate Negative Urine Bilirubin Negative Urine Urobilinogen Normal Ur Leukocyte Esterase Neg Urine WBC (Auto) 11 H Urine RBC (Auto) 408 H Amorphous Sediment Occ H Urine Bacteria Occ H Stool Occult Blood Positive H Influenza Typ A,B (EIA) Blood Type Antibody Screen 09/26/18 09/26/18 09/26/18 16:17 20:14 20:58 WBC 48.7 H* RBC 2.90 L Hgb 8.2 L D Hct 25.2 L MCV 86.8 MCH 28.3 MCHC 32.7 L RDW 14.6 H Plt Count 53 L D MPV 8.4 Neut % (Auto) 1.1 L Lymph % (Auto) 6.0 L Cooke % (Auto) 91.0 H Eos % (Auto) 1.8 Baso % (Auto) 0.1 Neut # (Auto) 0.5 L Lymph # (Auto) 2.9 Cooke # (Auto) 44.3 H Eos # (Auto) 0.9 H Baso # (Auto) 0.1 Neutrophils % (Manual) 1 L Lymphocytes % (Manual) 5 L Reactive Lymphs % 1 H Monocytes % (Manual) 89 H Eosinophils % (Manual) 1 Blast Cells % 3 H Smudge Cells Platelet Estimate Decreased L Hypochromasia (manual) Poikilocytosis (manual Anisocytosis (manual) Microcytosis (manual) Target Cells Stomatocytes Smear Path Review PT INR APTT Puncture Site pCO2 pO2 HCO3 ABG pH ABG Total CO2 ABG O2 Saturation ABG Base Excess Higinio Test ABG Potassium A-a O2 Difference Respiratory Index Glucose Lactate FiO2 Sodium Potassium Chloride Carbon Dioxide Anion Gap BUN Creatinine Est GFR ( Amer) Est GFR (Non-Af Amer) POC Glucose (mg/dL) 317 H 244 H Random Glucose Calcium Phosphorus Magnesium Total Bilirubin AST ALT Alkaline Phosphatase Troponin I NT-Pro-B Natriuret Pep Total Protein Albumin Globulin Albumin/Globulin Ratio Arterial Blood Potassium Urine Color Urine Clarity Urine pH Ur Specific [place] Urine Protein Urine Glucose (UA) Urine Ketones Urine Blood Urine Nitrate Urine Bilirubin Urine Urobilinogen Ur Leukocyte Esterase Urine WBC (Auto) Urine RBC (Auto) Amorphous Sediment Urine Bacteria Stool Occult Blood Influenza Typ A,B (EIA) Blood Type Antibody Screen 09/26/18 20:58 WBC RBC Hgb Hct MCV MCH MCHC RDW Plt Count MPV Neut % (Auto) Lymph % (Auto) Cooke % (Auto) Eos % (Auto) Baso % (Auto) Neut # (Auto) Lymph # (Auto) Cooke # (Auto) Eos # (Auto) Baso # (Auto) Neutrophils % (Manual) Lymphocytes % (Manual) Reactive Lymphs % Monocytes % (Manual) Eosinophils % (Manual) Blast Cells % Smudge Cells Platelet Estimate Hypochromasia (manual) Poikilocytosis (manual Anisocytosis (manual) Microcytosis (manual) Target Cells Stomatocytes Smear Path Review PT INR APTT Puncture Site pCO2 pO2 HCO3 ABG pH ABG Total CO2 ABG O2 Saturation ABG Base Excess Higinio Test ABG Potassium A-a O2 Difference Respiratory Index Glucose Lactate FiO2 Sodium 138 Potassium 4.8 Chloride 101 Carbon Dioxide 27 Anion Gap 14 BUN 55 H Creatinine 4.4 H Est GFR ( Amer) 12 Est GFR (Non-Af Amer) 10 POC Glucose (mg/dL) Random Glucose 223 H Calcium 7.1 L Phosphorus Magnesium Total Bilirubin 0.4 AST 32 ALT 15 Alkaline Phosphatase 73 Troponin I NT-Pro-B Natriuret Pep Total Protein 6.4 Albumin 3.5 Globulin 2.9 Albumin/Globulin Ratio 1.2 Arterial Blood Potassium Urine Color Urine Clarity Urine pH Ur Specific [place] Urine Protein Urine Glucose (UA) Urine Ketones Urine Blood Urine Nitrate Urine Bilirubin Urine Urobilinogen Ur Leukocyte Esterase Urine WBC (Auto) Urine RBC (Auto) Amorphous Sediment Urine Bacteria Stool Occult Blood Influenza Typ A,B (EIA) Blood Type Antibody Screen Assessment & Plan (1) Anemia Assessment and Plan: retic count, b12, folate, ferritin transfusion support PRN Status: Acute (2) Thrombocytopenia Assessment and Plan: rule out DIC - check fibrinogen likely infection related ? chemotherapy transfuse if plt < 20,000 Status: Acute (3) Leucocytosis Assessment and Plan: recent growth factor support on antibiotics Status: Acute (4) Small cell lung cancer Assessment and Plan: outpatient f/u with primary oncologist Thank you for this interesting consult. Status: Chronic
[2018-09-27] MEDS ORDERED: Aztreonam 1 GM in Sodium Chloride 0.9% 100 ML IVPB SCH
[2018-09-27] MEDS: Albuterol-Ipratrop 3 mg / 0.5 (3 ml) UD INH SCH ×4 (02:06→19:37)
[2018-09-27] MEDS: metroNIDAZOLE IV 500 mg/100 ml 500 MG/100 ML BAG IVPB SCH ×3 (03:00→18:33)
[2018-09-27 06:08] LABS: BASO # 0.2 K/uL (0.0-0.2); BASO % 0.3 % (0.0-2.0); EOS % 1.5 % (0.0-4.0); HEMOGLOBIN 8.2 g/dL (11.0-16.0); LYMPH # 3.8 K/uL (1.0-4.3); LYMPH % 5.3 % (20.0-40.0); MEAN CELL VOLUME 87.4 fL (81.0-99.0); MEAN CORPUSCULAR HGB CONC 33.1 g/dL (33.0-37.0); MEAN PLATELET VOLUME 8.4 fL (7.2-11.7); MONO % 90.6 % (0.0-10.0); NEUT # 1.6 K/uL (1.8-7.0); NEUT % 2.3 % (50.0-75.0); NRBC % 0.2 % (0.0-2.0); PLATELET COUNT 55 K/uL (130-400); RBC 2.82 Mil/uL (3.80-5.20); RED CELL DISTRIBUTION WIDTH 15.3 % (11.5-14.5)
[2018-09-27 06:11] LABS: WHITE BLOOD COUNT 70.6 K/uL (4.8-10.8)
[2018-09-27 06:16] LABS: ALB/GLOB RATIO 1.1 (1.0-2.1); ALBUMIN 3.3 g/dL (3.5-5.0)
[2018-09-27 07:22] LABS: FOLATE 10.2 ng/mL
[2018-09-27] MEDS: (Novolin R) Insulin Human Regular 100 units/ml vial SC SCH ×4 (08:07→21:20)
[2018-09-27] MEDS: Aztreonam 1 GM in Sodium Chloride 0.9% 100 ML IVPB SCH ×2 (08:08→21:15)
[2018-09-27 08:48] LABS: ANISOCYTOSIS SLIGHT; EOSINOPHIL 2 % (0-4); LYMPHOCYTE 16 % (20-40); MONOCYTE 79 % (0-10); NEUTROPHIL 3 % (50-75); PLATELET ESTIMATE DECREASED (NORMAL); TOTAL CELLS COUNTED 100
[2018-09-27 08:49] LABS: HYPOCHROMIC SLIGHT
--- NOTE | 2018-09-27 09:00 | CP.PCM.PN ---
Subjective - Date & Time of Evaluation Date of Evaluation: 09/27/18 Time of Evaluation: 08:45 - Subjective Subjective: Patient was sleepy this morning and slow to respond and slow to answer questions when I came and saw her Per discussion with staff she was much more awake 2hrs prior. She yesterday recived PRBCs, Platelets, and IV abx The creatine remains elevated and reportedly only urinated twice minimally Did not have recorded fever, WBC remains negative, cultures negative at this moment As mentioned previously, this is a 73 yr olf female with a history of lung cancer, COPD, Asthma who was found by family members on 09/26 confused and short of breath. Reportedly recent chemotherapy, decreased appetite. She was found to be having fevers, elevated WBC, pancytopenic as well as elevated creatine. She might may have received outpatient WBC growth factors prior. Objective - Vital Signs/Intake and Output Vital Signs (last 24 hours): Temp Pulse Resp BP Pulse Ox 97.7 F 94 H 28 H 140/49 L 97 09/27/18 04:00 09/27/18 06:10 09/27/18 06:10 09/27/18 06:10 09/27/18 06:10 Intake and Output: 09/27/18 09/27/18 06:59 18:59 Intake Total 1575 Output Total 600 Balance 975 - Medications Medications: Current Medications Acetaminophen (Tylenol 325mg Tab) 650 mg PO Q6 PRN PRN Reason: Fever >100.4 F Albuterol/Ipratropium (Duoneb 3 Mg/0.5 Mg (3 Ml) Ud) 3 ml INH RQ6 [facility] Last Admin: 09/27/18 02:06 Dose: 3 ml Calcium Acetate (Phoslo) 667 mg PO TID [facility] Last Admin: 09/26/18 17:24 Dose: 667 mg Dextrose (Dextrose 50% Inj) 0 ml IV STAT PRN; Protocol PRN Reason: Hypoglycemia Protocol Dextrose (Glutose 15) 0 gm PO ONCE PRN; Protocol PRN Reason: Hypoglycemia Protocol Glucagon (Glucagen Diagnostic Kit) 0 mg IM STAT PRN; Protocol PRN Reason: Hypoglycemia Protocol Dextrose (Dextrose 5% In Water 1000 Ml) 1,000 mls @ 0 mls/hr IV .Q0M PRN; Protocol PRN Reason: Hypoglycemia Protocol Aztreonam 1 gm/ Sodium (Chloride) 100 mls @ 200 mls/hr IVPB Q12H [facility]; Protocol Last Admin: 09/27/18 08:08 Dose: 200 mls/hr Metronidazole (Flagyl) 500 mg in 100 mls @ 100 mls/hr IVPB Q8H [facility]; Protocol Last Admin: 09/27/18 03:00 Dose: 100 mls/hr Insulin Human Regular (Novolin R) 0 unit SC ACHS [facility]; Protocol Last Admin: 09/27/18 08:07 Dose: 10 u Pantoprazole Sodium (Protonix Inj) 40 mg IVP DAILY [facility] Last Admin: 09/26/18 10:24 Dose: Not Given Pneumococcal Polyvalent Vaccine (Pneumovax 23 Vaccine) 0.5 ml SC .ONCE ONE Stop: 09/29/18 10:01 Vancomycin HCl (Vancocin (Oral Or Rectal Use)) 125 mg PO QID [facility]; Protocol Last Admin: 09/26/18 22:00 Dose: 125 mg - Labs Labs: 09/27/18 05:49 09/27/18 05:47 PT 12.1 SECONDS (9.7-12.2) 09/26/18 06:16 INR 1.1 09/26/18 06:16 APTT 24 SECONDS (21-34) 09/26/18 06:16 - Constitutional Appears: Chronically Ill - Head Exam Head Exam: NORMAL INSPECTION, NORMOCEPHALIC - ENT Exam ENT Exam: Mucous Membranes Moist - Respiratory Exam Respiratory Exam: Decreased Breath Sounds, NORMAL BREATHING PATTERN - Cardiovascular Exam Cardiovascular Exam: REGULAR RHYTHM - GI/Abdominal Exam GI & Abdominal Exam: Soft. absent: Distended, Firm, Guarding, Rigid, Tenderness - Neurological Exam Neurological Exam: Alert, Altered, Awake - Skin Skin Exam: Normal Color, Warm Attending/Attestation - Attestation I have personally seen and examined this patient.: Yes I have fully participated in the care of the patient.: Yes I have reviewed all pertinent clinical information, including history, physical exam and plan: Yes Notes (Text): As mentioned previously, this is a 73 yr olf female with a history of lung cancer, COPD, Asthma who was found by family members on 09/26 confused, fatigued, and short of breath. Reportedly recent chemotherapy, decreased appetite. She was found to be having fevers, elevated WBC, pancytopenic as well as elevated creatine. She might may have received outpatient WBC growth factors prior. 1 Sepsis - Leukocytosis 09/27: Currently IV abx Aztreonman and IV flagyl. Also PO vancomycin At this moment cultures are negative She intially had very high fevers when she came and now temperatures stable Also patient probably had administration of growth factors outpatient 2 Pancytopenia and likley acute on chronic anemia 09/27: Improved, she has had PRBCs given She was also given platelets as well. She had + stool occult as well, GI is following. Pending C diff study as well. 3 BRENDA 09/27: Creatine remains elevated 4.6 She had renal ultrasound yesterday Follow urine outputs On PhosLo TID Nephrology is following 4 Lung CA 09/27: Patient still smokes despite history of Lung CA and COPD/Asthma Pending palliative care consult to discuss code status The CXRAYs shows a RLL mass 5 DM: Continue on SSI
--- NOTE | 2018-09-27 09:32 | CP.PCM.PN ---
Subjective - Date & Time of Evaluation Date of Evaluation: 09/27/18 Time of Evaluation: 09:00 - Subjective Subjective: f/u anemia, RB No RB, melena, abd pain, fever, chills, SZ, CP BLEVINS Objective - Vital Signs/Intake and Output Vital Signs (last 24 hours): Temp Pulse Resp BP Pulse Ox 97.7 F 94 H 28 H 140/49 L 97 09/27/18 04:00 09/27/18 06:10 09/27/18 06:10 09/27/18 06:10 09/27/18 06:10 Intake and Output: 09/27/18 09/27/18 06:59 18:59 Intake Total 1575 Output Total 600 Balance 975 - Medications Medications: Current Medications Acetaminophen (Tylenol 325mg Tab) 650 mg PO Q6 PRN PRN Reason: Fever >100.4 F Albuterol/Ipratropium (Duoneb 3 Mg/0.5 Mg (3 Ml) Ud) 3 ml INH RQ6 [facility] Last Admin: 09/27/18 02:06 Dose: 3 ml Calcium Acetate (Phoslo) 667 mg PO TID [facility] Last Admin: 09/26/18 17:24 Dose: 667 mg Dextrose (Dextrose 50% Inj) 0 ml IV STAT PRN; Protocol PRN Reason: Hypoglycemia Protocol Dextrose (Glutose 15) 0 gm PO ONCE PRN; Protocol PRN Reason: Hypoglycemia Protocol Glucagon (Glucagen Diagnostic Kit) 0 mg IM STAT PRN; Protocol PRN Reason: Hypoglycemia Protocol Dextrose (Dextrose 5% In Water 1000 Ml) 1,000 mls @ 0 mls/hr IV .Q0M PRN; Protocol PRN Reason: Hypoglycemia Protocol Aztreonam 1 gm/ Sodium (Chloride) 100 mls @ 200 mls/hr IVPB Q12H [facility]; Protocol Last Admin: 09/27/18 08:08 Dose: 200 mls/hr Metronidazole (Flagyl) 500 mg in 100 mls @ 100 mls/hr IVPB Q8H [facility]; Protocol Last Admin: 09/27/18 03:00 Dose: 100 mls/hr Insulin Human Regular (Novolin R) 0 unit SC ACHS [facility]; Protocol Last Admin: 09/27/18 08:07 Dose: 10 u Pantoprazole Sodium (Protonix Inj) 40 mg IVP DAILY [facility] Last Admin: 09/26/18 10:24 Dose: Not Given Pneumococcal Polyvalent Vaccine (Pneumovax 23 Vaccine) 0.5 ml SC .ONCE ONE Stop: 09/29/18 10:01 Vancomycin HCl (Vancocin (Oral Or Rectal Use)) 125 mg PO QID [facility]; Protocol Last Admin: 09/26/18 22:00 Dose: 125 mg - Labs Labs: 09/27/18 05:49 09/27/18 05:47 PT 12.1 SECONDS (9.7-12.2) 09/26/18 06:16 INR 1.1 09/26/18 06:16 APTT 24 SECONDS (21-34) 09/26/18 06:16 - Respiratory Exam Respiratory Exam: Rhonchi - Cardiovascular Exam Cardiovascular Exam: RRR - GI/Abdominal Exam GI & Abdominal Exam: Soft, Normal Bowel Sounds. absent: Tenderness - Neurological Exam Neurological Exam: Alert, Awake Assessment and Plan (1) Rectal bleed Assessment & Plan: Hb stable. Colonsocopy in future. CT- r/o rectal mass. Status: Acute (2) Anemia Status: Acute (3) Leukocytosis (leucocytosis) Status: Acute (4) Lung cancer Status: Acute (5) Pneumonia Status: Acute (6) Thrombocytopenia Status: Acute (7) BRENDA (acute kidney injury) Status: Acute
--- NOTE | 2018-09-27 09:42 | RAD ---
Date of service: 09/27/2018 HISTORY: r/o PNA COMPARISON: 09/26/2018 FINDINGS: LUNGS: The large right inferolateral pleural parenchymal masslike opacity is similar in appearance. Correlation is needed in terms of any prior tissue sampling here. Right Mediport in place tip superior vena cava-brachiocephalic junction.No dense left lung consolidation.. Limited evaluation/sensitivity for small concomitant pulmonary nodules PLEURA: Oval small right pleural effusion. No significant more significant appearing pleural effusions appreciated no pneumothorax seen CARDIOVASCULAR: There is presence of aortic atherosclerotic calcification on x-ray. Mild cardiomegaly-similar No significant appearing pulmonary venous congestion. OSSEOUS STRUCTURES: No significant abnormalities. VISUALIZED UPPER ABDOMEN: Normal. OTHER FINDINGS: None. IMPRESSION: Similar masslike opacity right pleural parenchymal based-malignancy suspect correlate clinically No interval pathology appreciated. Other findings as above.
--- NOTE | 2018-09-27 10:15 | CP.PCM.PN ---
Subjective - Date & Time of Evaluation Date of Evaluation: 09/27/18 Time of Evaluation: 10:12 - Subjective Subjective: s/p blood transfusions; no more overt GI bleeding increasing leukamoid reaction noted; had been on neupogen post CTX BRENDA worsening; creat now 4.6 has mild hyperkalemia [id number] this AM renal US- no hydro, has echogenic kidneys bilat, left renal mass alert; feels weak, about same Objective - Vital Signs/Intake and Output Vital Signs (last 24 hours): Temp Pulse Resp BP Pulse Ox 97.7 F 94 H 28 H 140/49 L 97 09/27/18 04:00 09/27/18 06:10 09/27/18 06:10 09/27/18 06:10 09/27/18 06:10 Intake and Output: 09/27/18 09/27/18 06:59 18:59 Intake Total 1575 Output Total 600 Balance 975 - Medications Medications: Current Medications Acetaminophen (Tylenol 325mg Tab) 650 mg PO Q6 PRN PRN Reason: Fever >100.4 F Albuterol/Ipratropium (Duoneb 3 Mg/0.5 Mg (3 Ml) Ud) 3 ml INH RQ6 [facility] Last Admin: 09/27/18 08:55 Dose: 3 ml Calcium Acetate (Phoslo) 667 mg PO TID [facility] Last Admin: 09/26/18 17:24 Dose: 667 mg Dextrose (Dextrose 50% Inj) 0 ml IV STAT PRN; Protocol PRN Reason: Hypoglycemia Protocol Dextrose (Glutose 15) 0 gm PO ONCE PRN; Protocol PRN Reason: Hypoglycemia Protocol Glucagon (Glucagen Diagnostic Kit) 0 mg IM STAT PRN; Protocol PRN Reason: Hypoglycemia Protocol Dextrose (Dextrose 5% In Water 1000 Ml) 1,000 mls @ 0 mls/hr IV .Q0M PRN; Protocol PRN Reason: Hypoglycemia Protocol Aztreonam 1 gm/ Sodium (Chloride) 100 mls @ 200 mls/hr IVPB Q12H [facility]; Protocol Last Admin: 09/27/18 08:08 Dose: 200 mls/hr Metronidazole (Flagyl) 500 mg in 100 mls @ 100 mls/hr IVPB Q8H [facility]; Protocol Last Admin: 09/27/18 03:00 Dose: 100 mls/hr Insulin Human Regular (Novolin R) 0 unit SC ACHS [facility]; Protocol Last Admin: 09/27/18 08:07 Dose: 10 u Pantoprazole Sodium (Protonix Inj) 40 mg IVP DAILY [facility] Last Admin: 09/26/18 10:24 Dose: Not Given Pneumococcal Polyvalent Vaccine (Pneumovax 23 Vaccine) 0.5 ml SC .ONCE ONE Stop: 09/29/18 10:01 Vancomycin HCl (Vancocin (Oral Or Rectal Use)) 125 mg PO QID [facility]; Protocol Last Admin: 09/26/18 22:00 Dose: 125 mg - Labs Labs: 09/27/18 05:49 09/27/18 05:47 PT 12.1 SECONDS (9.7-12.2) 09/26/18 06:16 INR 1.1 09/26/18 06:16 APTT 24 SECONDS (21-34) 09/26/18 06:16 - Constitutional Appears: No Acute Distress, Cachectic, Chronically Ill - Head Exam Head Exam: ATRAUMATIC, NORMAL INSPECTION - Eye Exam Eye Exam: EOMI, Normal appearance - Neck Exam Neck Exam: Normal Inspection. absent: Tenderness - Respiratory Exam Respiratory Exam: Wheezes, Respiratory Distress - Cardiovascular Exam Cardiovascular Exam: REGULAR RHYTHM, +S1 - GI/Abdominal Exam GI & Abdominal Exam: Soft. absent: Tenderness - Extremities Exam Extremities Exam: Pedal Edema. absent: Tenderness - Neurological Exam Neurological Exam: Awake, CN II-XII Intact - Skin Skin Exam: Dry, Warm Assessment and Plan (1) Lung cancer Status: Acute (2) Leukocytosis (leucocytosis) Status: Acute (3) BRENDA (acute kidney injury) Status: Acute (4) Hypertension Status: Chronic - Assessment and Plan (Free Text) Plan: treat hyperkalemia trial IV fluids NS increase phos-binders avoid nephrotoxins discussed [employer]ATOR- patient does not want this at this point; will monitor
[2018-09-27] MEDS ORDERED: Sod Polystyrene Sulf 15 gm/60 ml Susp PO ONE (11:00)
[2018-09-27] MEDS: Magnesium Sulfate 1 gm in D5W 1 GM/100 ML BAG IVPB SCH ×2 (11:03→12:48)
[2018-09-27] MEDS: VANCOMYCIN 125 MG/5 ML PO SCH (11:04)
[2018-09-27] MEDS: Sodium Chloride 0.9% 1,000 ML IV SCH ×2 (11:05→23:55)
--- NOTE | 2018-09-27 12:32 | CARD ---
APPROVED REPORT Date of service: 09/26/2018 EKG Measurement Heart [id number] <Conclusion> Sinus tachycardia Nonspecific T wave abnormality Abnormal ECG
--- NOTE | 2018-09-27 12:41 | CP.PCM.CON ---
History of Present Illness - History of Present Illness History of Present Illness: Palliative consult requested by Doctor Tres for goals of care discussion Patient is a 73 yo female admitted from home with lethargy, poor appetite, sleeping longer than usual and with SOB causing her to grasp for air. Patient had no fever. In ED patient found with Hb 5.5, WBC 70.8, Platelets 12, Mg 0.7 and BNP 6450. Stool was positive for occult blood. patient was given Lasix, gently hydrated and PRBCs and Platelets transfused. patient transferred to ICU for closer monitoring. All day yesterday patient was sleeping most of the day, while this morning her condition has improved and she is verbal. Patient was started on IV antibiotics and WBC dropped to 48.7 , than jessie to 70.6 again today. Hb 8.2 and Platelets 55. 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 HD is suggested. Palliative care was asked to assist with gaols of care discussion. PMH: lung CA, on Chemo Tx with Doctor Kizzy Owen, diagnosed 2017, COPD, HTN Soc. Hx: single, lives alone, daughter lives next door. Fam. Hx: no Hx of CA Review of Systems - Constitutional Constitutional: Fatigue - EENT Eyes: absent: As Per HPI, Blind Spots, Blurred Vision, Change in Vision, Decreased Night Vision, Diplopia, Discharge, Dry Eye, Exophthalmos, Floaters, Irritation, Itchy Eyes, Loss of Peripheral Vision, Pain, Photophobia, Requires Corrective Lenses, Sees Flashes, Spots in Vision, Tunnel Vision, Other Visual Disturbances, Loss of Vision, Other Ears: absent: As Per HPI, Decreased Hearing, Ear Discharge, Ear Pain, Tinnitus, Abnormal Hearing, Disequilibrium, Dizziness, Other Nose/Mouth/Throat: absent: As Per HPI, Epistaxis, Nasal Congestion, Nasal Discharge, Nasal Obstruction, Nasal Trauma, Nose Pain, Post Nasal Drip, Sinus Pain, Sinus Pressure, Bleeding Gums, Change in Voice, Dental Pain, Dry Mouth, Dysphagia, Halitosis, Hoarsness, Lip Swelling, Mouth Lesions, Mouth Pain, Odynophagia, Sore Throat, Throat Swelling, Tongue Swelling, Facial Pain, Neck Pain, Neck Mass, Other - Breasts Breasts: absent: As Per HPI, Change in Shape, Mass, Pain, Nipple Discharge, Nipple Inversion, Skin Changes, Swelling, Other - Cardiovascular Cardiovascular: Dyspnea, Dyspnea on Exertion, Pedal Edema, Rapid Heart Rate - Respiratory Respiratory: Cough, Dyspnea, Dyspnea on Exertion - Gastrointestinal Gastrointestinal: Abdominal Pain - Genitourinary Genitourinary: Change in Urinary Stream - Reproductive: Female Reproductive:Female: Post Menopausal - Menstruation Menstruation: Post Menopausal - Musculoskeletal Musculoskeletal: Arthralgias - Integumentary Integumentary: absent: As Per HPI, Acne, Alopecia, Bleeding Lesions, Change in Hair, Change in Nails, Change in Pigmentation, Changing Lesions, Dry Skin, Erythema, Furuncle, Hirsutism, Lesions, New Lesions, Non-Healing Lesions, Photosensitivity, Pruritus, Rash, Skin Pain, Skin Ulcer, Sores, Striae, Swelling, Unusual Bruising, Wounds, Jaundice, Other - Neurological Neurological: absent: As Per HPI, Abnormal Gait, Abnormal Hearing, Abnormal Movements, Abnormal Speech, Behavioral Changes, Burning Sensations, Confusion, Convulsions, Disequilibrium, Dizziness, Numbness, Focal Weakness, Frequent Falls, Headaches, Lack of Coordination, Loss of Vision, Memory Loss, Paresthesias, Radicular Pain, Restless Legs, Sensory Deficit, Syncope, Tingling, Tremor, Vertigo, Weakness, Other Visual Disturbances, Other - Psychiatric Psychiatric: absent: As Per HPI, Abnormal Sleep Pattern, Anhedonia, Anxiety, Auditory Hallucinations, Behavioral Changes, Change in Appetite, Change in Libido, Confusion, Depression, Difficulty Concentrating, Hallucinations, Homicidal Ideation, Hopelessness, Irritability, Memory Loss, Mood Swings, Panic Attacks, Paranoia, Suicidal Ideation, Visual Hallucinations, Tactile Hallucinations, Other - Endocrine Endocrine: absent: As Per HPI, Change in Body Appearance, Change in Libido, Cold Intolorance, Deepening of Voice, Excessive Sweating, Fatigue, Flushing, Heat Intolorance, Increase in Ring/Shoe/Hat Size, Palpitations, Polydipsia, Polyphagia, Polyuria, Other - Hematologic/Lymphatic Hematologic: Easy Bleeding Past Patient History - Infectious Disease Hx of Infectious Diseases: None - Past Medical History & Family History Past Medical History?: Yes - Past Social History Smoking Status: Light Smoker < 10 Cigarettes Daily - CARDIAC Hx Hypertension: Yes - PULMONARY Hx Asthma: Yes Hx Chronic Obstructive Pulmonary Disease (COPD): Yes Hx Emphysema: Yes - NEUROLOGICAL Hx Neurological Disorder: No - HEENT Hx HEENT Problems: No - RENAL Hx Chronic Kidney Disease: No - ENDOCRINE/METABOLIC Hx Endocrine Disorders: Yes Hx Diabetes Mellitus Type 2: Yes - HEMATOLOGICAL/ONCOLOGICAL Hx Cancer: Yes (RIGHT LUNG LOWER LOBE) Hx Chemotherapy: Yes Other/Comment: CURRENT CHEMO PATIENT - INTEGUMENTARY Hx Dermatological Problems: No - MUSCULOSKELETAL/RHEUMATOLOGICAL Hx Arthritis: Yes - GASTROINTESTINAL Hx Gastrointestinal Disorders: No - GENITOURINARY/GYNECOLOGICAL Hx Genitourinary Disorders: No - PSYCHIATRIC Hx Substance Use: No - SURGICAL HISTORY Hx Surgeries: Yes Hx Tubal Ligation: Yes Other/Comment: HEMMROIDECOTMY - ANESTHESIA Hx Anesthesia: Yes Hx Anesthesia Reactions: No Meds Allergies/Adverse Reactions: Allergies Allergy/AdvReac Type Severity Reaction Status Date / Time Penicillins Allergy Verified 09/26/18 05:44 - Medications Medications: Current Medications Acetaminophen (Tylenol 325mg Tab) 650 mg PO Q6 PRN PRN Reason: Fever >100.4 F Albuterol/Ipratropium (Duoneb 3 Mg/0.5 Mg (3 Ml) Ud) 3 ml INH RQ6 [facility] Last Admin: 09/27/18 08:55 Dose: 3 ml Calcium Acetate (Phoslo) 1,334 mg PO TID [facility] Dextrose (Dextrose 50% Inj) 0 ml IV STAT PRN; Protocol PRN Reason: Hypoglycemia Protocol Dextrose (Glutose 15) 0 gm PO ONCE PRN; Protocol PRN Reason: Hypoglycemia Protocol Glucagon (Glucagen Diagnostic Kit) 0 mg IM STAT PRN; Protocol PRN Reason: Hypoglycemia Protocol Dextrose (Dextrose 5% In Water 1000 Ml) 1,000 mls @ 0 mls/hr IV .Q0M PRN; Protocol PRN Reason: Hypoglycemia Protocol Aztreonam 1 gm/ Sodium (Chloride) 100 mls @ 200 mls/hr IVPB Q12H [facility]; Protocol Last Admin: 09/27/18 08:08 Dose: 200 mls/hr Metronidazole (Flagyl) 500 mg in 100 mls @ 100 mls/hr IVPB Q8H [facility]; Protocol Last Admin: 09/27/18 11:04 Dose: 100 mls/hr Sodium Chloride (Sodium Chloride 0.9%) 1,000 mls @ 75 mls/hr IV .[id number] [facility] Last Admin: 09/27/18 11:05 Dose: 75 mls/hr Insulin Human Regular (Novolin R) 0 unit SC ACHS [facility]; Protocol Last Admin: 09/27/18 08:07 Dose: 10 u Pantoprazole Sodium (Protonix Inj) 40 mg IVP DAILY [facility] Last Admin: 09/27/18 11:04 Dose: 40 mg Pneumococcal Polyvalent Vaccine (Pneumovax 23 Vaccine) 0.5 ml SC .ONCE ONE Stop: 09/29/18 10:01 Vancomycin HCl (Vancocin (Oral Or Rectal Use)) 125 mg PO QID [facility]; Protocol Last Admin: 09/27/18 11:04 Dose: 125 mg Physical Exam - Constitutional Appears: Chronically Ill - Head Exam Head Exam: ATRAUMATIC, NORMAL INSPECTION, NORMOCEPHALIC - Eye Exam Eye Exam: EOMI, Normal appearance, PERRL Pupil Exam: NORMAL ACCOMODATION, PERRL - ENT Exam ENT Exam: Mucous Membranes Moist, Normal Exam - Neck Exam Neck exam: Positive for: Normal Inspection - Respiratory Exam Respiratory Exam: Decreased Breath Sounds, Rhonchi, Wheezes - Cardiovascular Exam Cardiovascular Exam: Irregular Rhythm - GI/Abdominal Exam GI & Abdominal Exam: Hypoactive Bowel Sounds - Rectal Exam Rectal Exam: Deferred - Extremities Exam Extremities exam: Positive for: pedal edema - Back Exam Back exam: NORMAL INSPECTION - Neurological Exam Neurological exam: Alert, Oriented x3 - Psychiatric Exam Psychiatric exam: Normal Affect, Normal Mood - Skin Skin Exam: Dry, Pallor Results - Vital Signs Recent Vital Signs: Last Vital Signs Temp 97.7 F 09/27/18 04:00 Pulse 97 H 09/27/18 11:09 Resp 22 09/27/18 11:09 BP 141/57 L 09/27/18 11:09 Pulse Ox 96 09/27/18 11:09 - Labs Result Diagrams: 09/27/18 05:49 09/27/18 05:47 Labs: Laboratory Results - last 24 hr 09/26/18 09/26/18 09/26/18 06:16 13:03 16:17 WBC RBC Hgb Hct MCV MCH MCHC RDW Plt Count MPV Neut % (Auto) Lymph % (Auto) Wise % (Auto) Eos % (Auto) Baso % (Auto) Neut # (Auto) Lymph # (Auto) Wise # (Auto) Eos # (Auto) Baso # (Auto) Neutrophils % (Manual) Lymphocytes % (Manual) Reactive Lymphs % Monocytes % (Manual) Eosinophils % (Manual) Blast Cells % Platelet Estimate Hypochromasia (manual) Anisocytosis (manual) Retic Count Fibrinogen Sodium Potassium Chloride Carbon Dioxide Anion Gap BUN Creatinine Est GFR ( Amer) Est GFR (Non-Af Amer) POC Glucose (mg/dL) 236 H 317 H Random Glucose Calcium Phosphorus Magnesium Ferritin Total Bilirubin AST ALT Alkaline Phosphatase Total Protein Albumin Globulin Albumin/Globulin Ratio Vitamin B12 Folate Random Vancomycin Blood Type B POSITIVE Antibody Screen Negative 09/26/18 09/26/18 09/26/18 20:14 20:58 20:58 WBC 48.7 H* RBC 2.90 L Hgb 8.2 L D Hct 25.2 L MCV 86.8 MCH 28.3 MCHC 32.7 L RDW 14.6 H Plt Count 53 L D MPV 8.4 Neut % (Auto) 1.1 L Lymph % (Auto) 6.0 L Wise % (Auto) 91.0 H Eos % (Auto) 1.8 Baso % (Auto) 0.1 Neut # (Auto) 0.5 L Lymph # (Auto) 2.9 Wise # (Auto) 44.3 H Eos # (Auto) 0.9 H Baso # (Auto) 0.1 Neutrophils % (Manual) 1 L Lymphocytes % (Manual) 5 L Reactive Lymphs % 1 H Monocytes % (Manual) 89 H Eosinophils % (Manual) 1 Blast Cells % 3 H Platelet Estimate Decreased L Hypochromasia (manual) Anisocytosis (manual) Retic Count Fibrinogen Sodium 138 Potassium 4.8 Chloride 101 Carbon Dioxide 27 Anion Gap 14 BUN 55 H Creatinine 4.4 H Est GFR ( Amer) 12 Est GFR (Non-Af Amer) 10 POC Glucose (mg/dL) 244 H Random Glucose 223 H Calcium 7.1 L Phosphorus Magnesium Ferritin Total Bilirubin 0.4 AST 32 ALT 15 Alkaline Phosphatase 73 Total Protein 6.4 Albumin 3.5 Globulin 2.9 Albumin/Globulin Ratio 1.2 Vitamin B12 Folate Random Vancomycin Blood Type Antibody Screen 09/27/18 09/27/18 09/27/18 05:47 05:47 05:49 WBC 70.6 H* RBC 2.82 L Hgb 8.2 L Hct 24.7 L MCV 87.4 MCH 29.0 MCHC 33.1 RDW 15.3 H Plt Count 55 L MPV 8.4 Neut % (Auto) 2.3 L Lymph % (Auto) 5.3 L Wise % (Auto) 90.6 H Eos % (Auto) 1.5 Baso % (Auto) 0.3 Neut # (Auto) 1.6 L Lymph # (Auto) 3.8 Wise # (Auto) 64.0 H Eos # (Auto) 1.0 H Baso # (Auto) 0.2 Neutrophils % (Manual) 3 L Lymphocytes % (Manual) 16 L Reactive Lymphs % Monocytes % (Manual) 79 H Eosinophils % (Manual) 2 Blast Cells % Platelet Estimate Decreased L Hypochromasia (manual) Slight Anisocytosis (manual) Slight Retic Count Fibrinogen Sodium 138 Potassium 5.6 H Chloride 101 Carbon Dioxide 26 Anion Gap 16 BUN 62 H Creatinine 4.6 H Est GFR ( Amer) 11 Est GFR (Non-Af Amer) 9 POC Glucose (mg/dL) Random Glucose 259 H Calcium 7.0 L Phosphorus 6.6 H Magnesium 1.4 L Ferritin 3650.0 Total Bilirubin 0.4 AST 58 H D ALT 33 Alkaline Phosphatase 79 Total Protein 6.1 L Albumin 3.3 L Globulin 2.9 Albumin/Globulin Ratio 1.1 Vitamin B12 304 Folate 10.2 Random Vancomycin 7.3 Blood Type Antibody Screen 09/27/18 09/27/18 09/27/18 05:49 05:49 07:21 WBC RBC Hgb Hct MCV MCH MCHC RDW Plt Count MPV Neut % (Auto) Lymph % (Auto) Wise % (Auto) Eos % (Auto) Baso % (Auto) Neut # (Auto) Lymph # (Auto) Wise # (Auto) Eos # (Auto) Baso # (Auto) Neutrophils % (Manual) Lymphocytes % (Manual) Reactive Lymphs % Monocytes % (Manual) Eosinophils % (Manual) Blast Cells % Platelet Estimate Hypochromasia (manual) Anisocytosis (manual) Retic Count 0.3 L Fibrinogen 329 Sodium Potassium Chloride Carbon Dioxide Anion Gap BUN Creatinine Est GFR ( Amer) Est GFR (Non-Af Amer) POC Glucose (mg/dL) 423 H* Random Glucose Calcium Phosphorus Magnesium Ferritin Total Bilirubin AST ALT Alkaline Phosphatase Total Protein Albumin Globulin Albumin/Globulin Ratio Vitamin B12 Folate Random Vancomycin Blood Type Antibody Screen Assessment & Plan - Assessment and Plan (Free Text) Assessment: Palliative consult There was no Advance directive prior to consult, PPS 40% I reviewed all Medical records and diagnostic studies, examined and interviewed patient in the bed Patient is alert, oriented X 3, verbal and with affect that is appropriate. patient looks much better than yesterday, is not lethargic and admits to be feeling much better. Her breathing pattern is normal with diminished breath sounds and a lot of ronchi on auscultation. Patient reports continuing to smokes a few cigarets a day. Abdomen is soft, tolerates diet , but does report some nausea especially after Chemo Tx. Patient had been on Chemo Tx since 2017 with pause of 7 months and last chemo last week. Patient gets constipated occasionally, on Laxatives at home. Denied pain this time. When pain occurs , it is abdominal, felt like cramps. Patient takes Percocet PO at home for pain. Patient urinates small amounts. Kidney functions are poor. HD suggested. Goals of care discussed with patient in presence of her daughter at bed side and Doctor Alana. I reviewed patient's clinical presentation and elicited her understanding and expectations of care. Patient is aware of cancer diagnosis and is determined to fight it for as long as possible. However, patient admits feeling tired from all these interventions, especially after Chemo Tx. Patient is proudly stating that she is very independent and enjoys her freedom. her daughter who lives next door helps her when needed. We discussed HD option. Patient at first was against HD but after explaining severity of her kidney condition and possible consequences including she agreed to " try temporally HD". Patient was concerned with transportations to and from HD place. We agreed to include SS to assist her with it. Code status discussed. Patient understands that her diagnosis is terminal and if all measures currently provided fail to prolong her life and she was about to , she wishes to be let go. Patient does not want to be intubated, or to be provided CPR or PEG tube. POLST introduced. Patient signed DNR. Copy on chart. Shared with Nursing and Medical staff. Impression * Lung cancer * Anemia 2nd to primary diagnosis * Fluid retention affecting respiratory status due o poor kidney functions * Patient wishes to continue with Chemo Tx * Pain cancer related * Opioid induced constipation * Patient agreed with HD * Patient does not wish home health aid, her daughter helps * Social issues related to lack of transportation to and from HD * Patient chose NR/DNI Suggestions * Monitor HH and transfuse when needed * Vascular access for HD * Bowel regimen; would consider Senna tablets Q evening * SS to discuss assistance with transportation to HD, when discharged * Agree with DNR/DNI * Palliative care will remain available as needed to promote support. Advance care planing 60 min
[2018-09-27] MEDS: Albumin Human 5% (12.5 gm/250 ml) IV SCH ×2 (13:47→23:55)
--- NOTE | 2018-09-27 15:32 | CP.CCUPN ---
<Ivan Malcolm - Last Filed: 09/27/18 18:22> CCU Objective - Vital Signs / Intake & Output Vital Signs (Last 4 hours): Vital Signs Temp Pulse Resp BP Pulse Ox 09/27/18 16:00 98.7 F 09/27/18 15:10 89 21 131/56 L 97 09/27/18 15:00 91 H 19 97 Intake and Output (Last 8hrs): Intake & Output 09/27/18 09/27/18 09/27/18 06:59 14:59 22:59 Intake Total 810 1025 100 Output Total 600 100 Balance 210 1025 0 Weight 150 lb Intake: Intake, IV Amount 110 625 Left Forearm 10 625 Right Port-A-Cath 100 Oral 700 400 100 Output: Urine 600 100 Urine, Voided 600 100 - Medications Active Medications: Active Medications Generic Name Dose Route Start Last Admin Trade Name Freq PRN Reason Stop Dose Admin Acetaminophen 650 mg 09/26/18 10:35 Tylenol 325mg Tab PO Q6 PRN Fever >100.4 F Albumin Human 12.5 gm 09/27/18 13:30 09/27/18 13:47 Albumin Human 5% (12.5 Gm/250 Ml) IV 09/27/18 23:31 12.5 gm Q10H CHAYITO Administration Albuterol/Ipratropium 3 ml 09/26/18 14:00 09/27/18 14:07 Duoneb 3 Mg/0.5 Mg (3 Ml) Ud INH 3 ml RQ6 CHAYITO Administration Calcium Acetate 1,334 mg 09/27/18 14:00 09/27/18 13:47 Phoslo PO 1,334 mg TID CHAYITO Administration Dextrose 0 ml 09/26/18 10:37 Dextrose 50% Inj IV STAT PRN Hypoglycemia Protocol Protocol Dextrose 0 gm 09/26/18 10:37 Glutose 15 PO ONCE PRN Hypoglycemia Protocol Protocol Glucagon 0 mg 09/26/18 10:37 Glucagen Diagnostic Kit IM STAT PRN Hypoglycemia Protocol Protocol Dextrose 1,000 mls @ 0 mls/hr 09/26/18 10:37 Dextrose 5% In Water 1000 Ml IV .Q0M PRN Hypoglycemia Protocol Protocol Per Protocol Aztreonam 1 gm/ Sodium 100 mls @ 200 mls/hr 09/26/18 21:00 09/27/18 08:08 Chloride IVPB 200 mls/hr Q12H CHAYITO Administration Protocol Metronidazole 500 mg in 100 mls @ 100 mls/hr 09/26/18 19:00 09/27/18 11:04 Flagyl IVPB 100 mls/hr Q8H CHAYITO Administration Protocol Sodium Chloride 1,000 mls @ 75 mls/hr 09/27/18 10:30 09/27/18 11:05 Sodium Chloride 0.9% IV 75 mls/hr .[id number] CHAYITO Administration Insulin Human Regular 0 unit 09/26/18 11:30 09/27/18 13:47 Novolin R SC 8 u ACHS CHAYITO Administration Protocol Pantoprazole Sodium 40 mg 09/26/18 10:00 09/27/18 11:04 Protonix Inj IVP 40 mg DAILY CHAYITO Administration Pneumococcal Polyvalent Vaccine 0.5 ml 09/29/18 10:00 Pneumovax 23 Vaccine SC 09/29/18 10:01 .ONCE ONE - Patient Studies Lab Studies: Microbiology Studies 09/26/18 07:42 Urine Culture - Final Urine,Catheterized No Growth (<1,000 CFU/ML) 09/26/18 07:03 Blood Culture - Preliminary Blood-Venous NO GROWTH AFTER 24 HOURS 09/26/18 07:03 Blood Culture - Preliminary Blood-Venous NO GROWTH AFTER 24 HOURS Lab Studies 09/27/18 09/27/18 09/27/18 Range/Units 16:53 11:13 07:21 WBC (4.8-10.8) K/uL RBC (3.80-5.20) Mil/uL Hgb (11.0-16.0) g/dL Hct (34.0-47.0) % MCV (81.0-99.0) fL MCH (27.0-31.0) pg MCHC (33.0-37.0) g/dL RDW (11.5-14.5) % Plt Count (130-400) K/uL MPV (7.2-11.7) fL Neut % (Auto) (50.0-75.0) % Lymph % (Auto) (20.0-40.0) % Hopkins % (Auto) (0.0-10.0) % Eos % (Auto) (0.0-4.0) % Baso % (Auto) (0.0-2.0) % Neut # (Auto) (1.8-7.0) K/uL Lymph # (Auto) (1.0-4.3) K/uL Hopkins # (Auto) (0.0-0.8) K/uL Eos # (Auto) (0.0-0.7) K/uL Baso # (Auto) (0.0-0.2) K/uL Neutrophils % (Manual) (50-75) % Lymphocytes % (Manual) (20-40) % Reactive Lymphs % (0-0) % Monocytes % (Manual) (0-10) % Eosinophils % (Manual) (0-4) % Blast Cells % (0-0) % Platelet Estimate (NORMAL) Hypochromasia (manual) Anisocytosis (manual) Retic Count (0.5-1.5) % Fibrinogen (200-400) mg/dL Sodium (132-148) mmol/L Potassium (3.6-5.2) mmol/L Chloride (98-107) mmol/L Carbon Dioxide (22-30) mmol/L Anion Gap (10-20) BUN (7-17) mg/dL Creatinine (0.7-1.2) mg/dL Est GFR ( Amer) Est GFR (Non-Af Amer) POC Glucose (mg/dL) 298 H 397 H 423 H* (65-110) mg/dL Random Glucose (65-105) mg/dL Calcium (8.6-10.4) mg/dl Phosphorus (2.5-4.5) mg/dL Magnesium (1.6-2.3) mg/dL Ferritin ng/mL Total Bilirubin (0.2-1.3) mg/dL AST (14-36) U/L ALT (9-52) U/L Alkaline Phosphatase (38-126) U/L Total Protein (6.3-8.3) g/dL Albumin (3.5-5.0) g/dL Globulin (2.2-3.9) gm/dL Albumin/Globulin Ratio (1.0-2.1) Vitamin B12 (239-931) pg/mL Folate ng/mL Random Vancomycin ug/mL 09/27/18 09/27/18 09/27/18 Range/Units 05:49 05:49 05:49 WBC 70.6 H* (4.8-10.8) K/uL RBC 2.82 L (3.80-5.20) Mil/uL Hgb 8.2 L (11.0-16.0) g/dL Hct 24.7 L (34.0-47.0) % MCV 87.4 (81.0-99.0) fL MCH 29.0 (27.0-31.0) pg MCHC 33.1 (33.0-37.0) g/dL RDW 15.3 H (11.5-14.5) % Plt Count 55 L (130-400) K/uL MPV 8.4 (7.2-11.7) fL Neut % (Auto) 2.3 L (50.0-75.0) % Lymph % (Auto) 5.3 L (20.0-40.0) % Hopkins % (Auto) 90.6 H (0.0-10.0) % Eos % (Auto) 1.5 (0.0-4.0) % Baso % (Auto) 0.3 (0.0-2.0) % Neut # (Auto) 1.6 L (1.8-7.0) K/uL Lymph # (Auto) 3.8 (1.0-4.3) K/uL Hopkins # (Auto) 64.0 H (0.0-0.8) K/uL Eos # (Auto) 1.0 H (0.0-0.7) K/uL Baso # (Auto) 0.2 (0.0-0.2) K/uL Neutrophils % (Manual) 3 L (50-75) % Lymphocytes % (Manual) 16 L (20-40) % Reactive Lymphs % (0-0) % Monocytes % (Manual) 79 H (0-10) % Eosinophils % (Manual) 2 (0-4) % Blast Cells % (0-0) % Platelet Estimate Decreased L (NORMAL) Hypochromasia (manual) Slight Anisocytosis (manual) Slight Retic Count 0.3 L (0.5-1.5) % Fibrinogen 329 (200-400) mg/dL Sodium (132-148) mmol/L Potassium (3.6-5.2) mmol/L Chloride (98-107) mmol/L Carbon Dioxide (22-30) mmol/L Anion Gap (10-20) BUN (7-17) mg/dL Creatinine (0.7-1.2) mg/dL Est GFR ( Amer) Est GFR (Non-Af Amer) POC Glucose (mg/dL) (65-110) mg/dL Random Glucose (65-105) mg/dL Calcium (8.6-10.4) mg/dl Phosphorus (2.5-4.5) mg/dL Magnesium (1.6-2.3) mg/dL Ferritin ng/mL Total Bilirubin (0.2-1.3) mg/dL AST (14-36) U/L ALT (9-52) U/L Alkaline Phosphatase (38-126) U/L Total Protein (6.3-8.3) g/dL Albumin (3.5-5.0) g/dL Globulin (2.2-3.9) gm/dL Albumin/Globulin Ratio (1.0-2.1) Vitamin B12 (239-931) pg/mL Folate ng/mL Random Vancomycin ug/mL 09/27/18 09/27/18 09/26/18 Range/Units 05:47 05:47 20:58 WBC (4.8-10.8) K/uL RBC (3.80-5.20) Mil/uL Hgb (11.0-16.0) g/dL Hct (34.0-47.0) % MCV (81.0-99.0) fL MCH (27.0-31.0) pg MCHC (33.0-37.0) g/dL RDW (11.5-14.5) % Plt Count (130-400) K/uL MPV (7.2-11.7) fL Neut % (Auto) (50.0-75.0) % Lymph % (Auto) (20.0-40.0) % Hopkins % (Auto) (0.0-10.0) % Eos % (Auto) (0.0-4.0) % Baso % (Auto) (0.0-2.0) % Neut # (Auto) (1.8-7.0) K/uL Lymph # (Auto) (1.0-4.3) K/uL Hopkins # (Auto) (0.0-0.8) K/uL Eos # (Auto) (0.0-0.7) K/uL Baso # (Auto) (0.0-0.2) K/uL Neutrophils % (Manual) (50-75) % Lymphocytes % (Manual) (20-40) % Reactive Lymphs % (0-0) % Monocytes % (Manual) (0-10) % Eosinophils % (Manual) (0-4) % Blast Cells % (0-0) % Platelet Estimate (NORMAL) Hypochromasia (manual) Anisocytosis (manual) Retic Count (0.5-1.5) % Fibrinogen (200-400) mg/dL Sodium 138 138 (132-148) mmol/L Potassium 5.6 H 4.8 (3.6-5.2) mmol/L Chloride 101 101 (98-107) mmol/L Carbon Dioxide 26 27 (22-30) mmol/L Anion Gap 16 14 (10-20) BUN 62 H 55 H (7-17) mg/dL Creatinine 4.6 H 4.4 H (0.7-1.2) mg/dL Est GFR ( Amer) 11 12 Est GFR (Non-Af Amer) 9 10 POC Glucose (mg/dL) (65-110) mg/dL Random Glucose 259 H 223 H (65-105) mg/dL Calcium 7.0 L 7.1 L (8.6-10.4) mg/dl Phosphorus 6.6 H (2.5-4.5) mg/dL Magnesium 1.4 L (1.6-2.3) mg/dL Ferritin 3650.0 ng/mL Total Bilirubin 0.4 0.4 (0.2-1.3) mg/dL AST 58 H D 32 (14-36) U/L ALT 33 15 (9-52) U/L Alkaline Phosphatase 79 73 (38-126) U/L Total Protein 6.1 L 6.4 (6.3-8.3) g/dL Albumin 3.3 L 3.5 (3.5-5.0) g/dL Globulin 2.9 2.9 (2.2-3.9) gm/dL Albumin/Globulin Ratio 1.1 1.2 (1.0-2.1) Vitamin B12 304 (239-931) pg/mL Folate 10.2 ng/mL Random Vancomycin 7.3 ug/mL 09/26/18 09/26/18 Range/Units 20:58 20:14 WBC 48.7 H* (4.8-10.8) K/uL RBC 2.90 L (3.80-5.20) Mil/uL Hgb 8.2 L D (11.0-16.0) g/dL Hct 25.2 L (34.0-47.0) % MCV 86.8 (81.0-99.0) fL MCH 28.3 (27.0-31.0) pg MCHC 32.7 L (33.0-37.0) g/dL RDW 14.6 H (11.5-14.5) % Plt Count 53 L D (130-400) K/uL MPV 8.4 (7.2-11.7) fL Neut % (Auto) 1.1 L (50.0-75.0) % Lymph % (Auto) 6.0 L (20.0-40.0) % Hopkins % (Auto) 91.0 H (0.0-10.0) % Eos % (Auto) 1.8 (0.0-4.0) % Baso % (Auto) 0.1 (0.0-2.0) % Neut # (Auto) 0.5 L (1.8-7.0) K/uL Lymph # (Auto) 2.9 (1.0-4.3) K/uL Hopkins # (Auto) 44.3 H (0.0-0.8) K/uL Eos # (Auto) 0.9 H (0.0-0.7) K/uL Baso # (Auto) 0.1 (0.0-0.2) K/uL Neutrophils % (Manual) 1 L (50-75) % Lymphocytes % (Manual) 5 L (20-40) % Reactive Lymphs % 1 H (0-0) % Monocytes % (Manual) 89 H (0-10) % Eosinophils % (Manual) 1 (0-4) % Blast Cells % 3 H (0-0) % Platelet Estimate Decreased L (NORMAL) Hypochromasia (manual) Anisocytosis (manual) Retic Count (0.5-1.5) % Fibrinogen (200-400) mg/dL Sodium (132-148) mmol/L Potassium (3.6-5.2) mmol/L Chloride (98-107) mmol/L Carbon Dioxide (22-30) mmol/L Anion Gap (10-20) BUN (7-17) mg/dL Creatinine (0.7-1.2) mg/dL Est GFR ( Amer) Est GFR (Non-Af Amer) POC Glucose (mg/dL) 244 H (65-110) mg/dL Random Glucose (65-105) mg/dL Calcium (8.6-10.4) mg/dl Phosphorus (2.5-4.5) mg/dL Magnesium (1.6-2.3) mg/dL Ferritin ng/mL Total Bilirubin (0.2-1.3) mg/dL AST (14-36) U/L ALT (9-52) U/L Alkaline Phosphatase (38-126) U/L Total Protein (6.3-8.3) g/dL Albumin (3.5-5.0) g/dL Globulin (2.2-3.9) gm/dL Albumin/Globulin Ratio (1.0-2.1) Vitamin B12 (239-931) pg/mL Folate ng/mL Random Vancomycin ug/mL Laboratory Results - last 24 hr 09/26/18 09/26/18 09/26/18 20:14 20:58 20:58 WBC 48.7 H* RBC 2.90 L Hgb 8.2 L D Hct 25.2 L MCV 86.8 MCH 28.3 MCHC 32.7 L RDW 14.6 H Plt Count 53 L D MPV 8.4 Neut % (Auto) 1.1 L Lymph % (Auto) 6.0 L Hopkins % (Auto) 91.0 H Eos % (Auto) 1.8 Baso % (Auto) 0.1 Neut # (Auto) 0.5 L Lymph # (Auto) 2.9 Hopkins # (Auto) 44.3 H Eos # (Auto) 0.9 H Baso # (Auto) 0.1 Neutrophils % (Manual) 1 L Lymphocytes % (Manual) 5 L Reactive Lymphs % 1 H Monocytes % (Manual) 89 H Eosinophils % (Manual) 1 Blast Cells % 3 H Platelet Estimate Decreased L Hypochromasia (manual) Anisocytosis (manual) Retic Count Fibrinogen Sodium 138 Potassium 4.8 Chloride 101 Carbon Dioxide 27 Anion Gap 14 BUN 55 H Creatinine 4.4 H Est GFR ( Amer) 12 Est GFR (Non-Af Amer) 10 POC Glucose (mg/dL) 244 H Random Glucose 223 H Calcium 7.1 L Phosphorus Magnesium Ferritin Total Bilirubin 0.4 AST 32 ALT 15 Alkaline Phosphatase 73 Total Protein 6.4 Albumin 3.5 Globulin 2.9 Albumin/Globulin Ratio 1.2 Vitamin B12 Folate Random Vancomycin 09/27/18 09/27/18 09/27/18 05:47 05:47 05:49 WBC 70.6 H* RBC 2.82 L Hgb 8.2 L Hct 24.7 L MCV 87.4 MCH 29.0 MCHC 33.1 RDW 15.3 H Plt Count 55 L MPV 8.4 Neut % (Auto) 2.3 L Lymph % (Auto) 5.3 L Hopkins % (Auto) 90.6 H Eos % (Auto) 1.5 Baso % (Auto) 0.3 Neut # (Auto) 1.6 L Lymph # (Auto) 3.8 Hopkins # (Auto) 64.0 H Eos # (Auto) 1.0 H Baso # (Auto) 0.2 Neutrophils % (Manual) 3 L Lymphocytes % (Manual) 16 L Reactive Lymphs % Monocytes % (Manual) 79 H Eosinophils % (Manual) 2 Blast Cells % Platelet Estimate Decreased L Hypochromasia (manual) Slight Anisocytosis (manual) Slight Retic Count Fibrinogen Sodium 138 Potassium 5.6 H Chloride 101 Carbon Dioxide 26 Anion Gap 16 BUN 62 H Creatinine 4.6 H Est GFR ( Amer) 11 Est GFR (Non-Af Amer) 9 POC Glucose (mg/dL) Random Glucose 259 H Calcium 7.0 L Phosphorus 6.6 H Magnesium 1.4 L Ferritin 3650.0 Total Bilirubin 0.4 AST 58 H D ALT 33 Alkaline Phosphatase 79 Total Protein 6.1 L Albumin 3.3 L Globulin 2.9 Albumin/Globulin Ratio 1.1 Vitamin B12 304 Folate 10.2 Random Vancomycin 7.3 09/27/18 09/27/18 09/27/18 05:49 05:49 07:21 WBC RBC Hgb Hct MCV MCH MCHC RDW Plt Count MPV Neut % (Auto) Lymph % (Auto) Hopkins % (Auto) Eos % (Auto) Baso % (Auto) Neut # (Auto) Lymph # (Auto) Hopkins # (Auto) Eos # (Auto) Baso # (Auto) Neutrophils % (Manual) Lymphocytes % (Manual) Reactive Lymphs % Monocytes % (Manual) Eosinophils % (Manual) Blast Cells % Platelet Estimate Hypochromasia (manual) Anisocytosis (manual) Retic Count 0.3 L Fibrinogen 329 Sodium Potassium Chloride Carbon Dioxide Anion Gap BUN Creatinine Est GFR ( Amer) Est GFR (Non-Af Amer) POC Glucose (mg/dL) 423 H* Random Glucose Calcium Phosphorus Magnesium Ferritin Total Bilirubin AST ALT Alkaline Phosphatase Total Protein Albumin Globulin Albumin/Globulin Ratio Vitamin B12 Folate Random Vancomycin 09/27/18 09/27/18 11:13 16:53 WBC RBC Hgb Hct MCV MCH MCHC RDW Plt Count MPV Neut % (Auto) Lymph % (Auto) Hopkins % (Auto) Eos % (Auto) Baso % (Auto) Neut # (Auto) Lymph # (Auto) Hopkins # (Auto) Eos # (Auto) Baso # (Auto) Neutrophils % (Manual) Lymphocytes % (Manual) Reactive Lymphs % Monocytes % (Manual) Eosinophils % (Manual) Blast Cells % Platelet Estimate Hypochromasia (manual) Anisocytosis (manual) Retic Count Fibrinogen Sodium Potassium Chloride Carbon Dioxide Anion Gap BUN Creatinine Est GFR ( Amer) Est GFR (Non-Af Amer) POC Glucose (mg/dL) 397 H 298 H Random Glucose Calcium Phosphorus Magnesium Ferritin Total Bilirubin AST ALT Alkaline Phosphatase Total Protein Albumin Globulin Albumin/Globulin Ratio Vitamin B12 Folate Random Vancomycin Radiology Impressions: Radiology Impressions Renal Ultrasound 09/26/18 13:51 IMPRESSION: 6.5 cm soft tissue mass mid left kidney suspicious for neoplasm. Nonobstructing 5 mm mid left renal calculus. Diffusely increased cortical echogenicity consistent with diffuse medical renal disease. Chest X-Ray 09/27/18 08:20 IMPRESSION: Similar masslike opacity right pleural parenchymal based-malignancy suspect correlate clinically No interval pathology appreciated. Other findings as above. Critical Care Progress Note - Nutrition Nutrition: Nutrition Category Date Time Status Heart Healthy Diet [DIET] Diets 09/26/18 Lunch Active Attending/Attestation - Attestation I have personally seen and examined this patient.: Yes I have fully participated in the care of the patient.: Yes I have reviewed all pertinent clinical information: Yes Notes (Text): 09/27/18 18:23 I have seen and examined the patient. Medical records, lab studies, and imaging were reviewed by me and a management plan was formulated on multidisciplinary rounds with resident Dr. Joshua. I agree with their documented assessment and plan. Patient is currently clinically stable. In acute renal failure with hyperkalemia, given kayexalate and hydration, monitoring for urine output and drop in potassium. Patient may need dialysis, but not currently. Her overall prognosis is poor given lung cancer. Leukemoid reaction to Neupogen. Monitoring for septic sources, but none defined yet. Stopped PO Vanco, no diarrhea, not in septic shock. Continue empiric aztreonam and flagyl. Critical Care Time 35 minutes. Multi-disciplinary rounds were performed with house staff, nursing, speech therapy, respiratory therapy, pharmacy and nutrition with integrated input from the primary team/attending and other consulting services. The documented time is cumulative and includes review of patient data/exams/labs/chart review and examination of the patient on rounds and throughout the day; time is exclusive of any procedures or teaching time. <Michael Joshua - Last Filed: 09/27/18 19:25> CCU Subjective - Physician Review Subjective (Free Text): PGY-[address] ICU progress note for Dr Kat Malcolm Patient was seen and examined at bedside today. Patient states she is feeling much better today. Patient says the shortness of breath comes and goes. Patient states the duonebs are helping. Patient denies chest pain, abdominal pain, nausea, and vomiting. Family at bedside. Critical Care Time Spent (in minutes): 40 CCU Objective - Vital Signs / Intake & Output Intake and Output (Last 8hrs): Intake & Output 09/27/18 09/27/18 09/27/18 06:59 14:59 22:59 Intake Total 810 575 Output Total 600 Balance 210 575 Intake: Intake, IV Amount 110 375 Left Forearm 10 375 Right Port-A-Cath 100 Oral 700 200 Output: Urine 600 Urine, Voided 600 - Physical Exam Head: Positive for: Atraumatic, Normocephalic Pupils: Positive for: PERRL Extroacular Muscles: Positive for: EOMI Conjunctiva: Positive for: Normal Mouth: Positive for: Moist Mucous Membranes Neck: Positive for: Normal Range of Motion Respiratory/Chest: Positive for: Decreased Breath Sounds. Negative for: Respiratory Distress, Accessory Muscle Use Cardiovascular: Positive for: Regular Rate and Rhythm, Normal S1, S2 Abdomen: Positive for: Distention. Negative for: Tenderness Upper Extremity: Positive for: Normal Inspection, Edema (LE edema b/l) Neurological: Positive for: GCS=15, CN II-XII Intact, Speech Normal Skin: Positive for: Warm, Normal Color Psychiatric: Positive for: Alert, Oriented x 3, Normal Insight, Normal Concentration - Medications Active Medications: Active Medications Generic Name Dose Route Start Last Admin Trade Name Freq PRN Reason Stop Dose Admin Acetaminophen 650 mg 09/26/18 10:35 Tylenol 325mg Tab PO Q6 PRN Fever >100.4 F Albumin Human 12.5 gm 09/27/18 13:30 09/27/18 13:47 Albumin Human 5% (12.5 Gm/250 Ml) IV 09/27/18 23:31 12.5 gm Q10H CHAYITO Administration Albuterol/Ipratropium 3 ml 09/26/18 14:00 09/27/18 14:07 Duoneb 3 Mg/0.5 Mg (3 Ml) Ud INH 3 ml RQ6 CHAYITO Administration Calcium Acetate 1,334 mg 09/27/18 14:00 09/27/18 13:47 Phoslo PO 1,334 mg TID CHAYITO Administration Dextrose 0 ml 09/26/18 10:37 Dextrose 50% Inj IV STAT PRN Hypoglycemia Protocol Protocol Dextrose 0 gm 09/26/18 10:37 Glutose 15 PO ONCE PRN Hypoglycemia Protocol Protocol Glucagon 0 mg 09/26/18 10:37 Glucagen Diagnostic Kit IM STAT PRN Hypoglycemia Protocol Protocol Dextrose 1,000 mls @ 0 mls/hr 09/26/18 10:37 Dextrose 5% In Water 1000 Ml IV .Q0M PRN Hypoglycemia Protocol Protocol Per Protocol Aztreonam 1 gm/ Sodium 100 mls @ 200 mls/hr 09/26/18 21:00 09/27/18 08:08 Chloride IVPB 200 mls/hr Q12H CHAYITO Administration Protocol Metronidazole 500 mg in 100 mls @ 100 mls/hr 09/26/18 19:00 09/27/18 11:04 Flagyl IVPB 100 mls/hr Q8H CHAYITO Administration Protocol Sodium Chloride 1,000 mls @ 75 mls/hr 09/27/18 10:30 09/27/18 11:05 Sodium Chloride 0.9% IV 75 mls/hr .[id number] CHAYITO Administration Insulin Human Regular 0 unit 09/26/18 11:30 09/27/18 13:47 Novolin R SC 8 u ACHS CHAYITO Administration Protocol Pantoprazole Sodium 40 mg 09/26/18 10:00 09/27/18 11:04 Protonix Inj IVP 40 mg DAILY CH[facility]ITO Administration Pneumococcal Polyvalent Vaccine 0.5 ml 09/29/18 10:00 Pneumovax 23 Vaccine SC 09/29/18 10:01 .ONCE ONE - Patient Studies Lab Studies: Microbiology Studies 09/26/18 07:42 Urine Culture - Final Urine,Catheterized No Growth (<1,000 CFU/ML) 09/26/18 07:03 Blood Culture - Preliminary Blood-Venous NO GROWTH AFTER 24 HOURS 09/26/18 07:03 Blood Culture - Preliminary Blood-Venous NO GROWTH AFTER 24 HOURS Lab Studies 09/27/18 09/27/18 09/27/18 Range/Units 07:21 05:49 05:49 WBC (4.8-10.8) K/uL RBC (3.80-5.20) Mil/uL Hgb (11.0-16.0) g/dL Hct (34.0-47.0) % MCV (81.0-99.0) fL MCH (27.0-31.0) pg MCHC (33.0-37.0) g/dL RDW (11.5-14.5) % Plt Count (130-400) K/uL MPV (7.2-11.7) fL Neut % (Auto) (50.0-75.0) % Lymph % (Auto) (20.0-40.0) % Hopkins % (Auto) (0.0-10.0) % Eos % (Auto) (0.0-4.0) % Baso % (Auto) (0.0-2.0) % Neut # (Auto) (1.8-7.0) K/uL Lymph # (Auto) (1.0-4.3) K/uL Hopkins # (Auto) (0.0-0.8) K/uL Eos # (Auto) (0.0-0.7) K/uL Baso # (Auto) (0.0-0.2) K/uL Neutrophils % (Manual) (50-75) % Lymphocytes % (Manual) (20-40) % Reactive Lymphs % (0-0) % Monocytes % (Manual) (0-10) % Eosinophils % (Manual) (0-4) % Blast Cells % (0-0) % Platelet Estimate (NORMAL) Hypochromasia (manual) Anisocytosis (manual) Retic Count 0.3 L (0.5-1.5) % Fibrinogen 329 (200-400) mg/dL Sodium (132-148) mmol/L Potassium (3.6-5.2) mmol/L Chloride (98-107) mmol/L Carbon Dioxide (22-30) mmol/L Anion Gap (10-20) BUN (7-17) mg/dL Creatinine (0.7-1.2) mg/dL Est GFR ( Amer) Est GFR (Non-Af Amer) POC Glucose (mg/dL) 423 H* (65-110) mg/dL Random Glucose (65-105) mg/dL Calcium (8.6-10.4) mg/dl Phosphorus (2.5-4.5) mg/dL Magnesium (1.6-2.3) mg/dL Ferritin ng/mL Total Bilirubin (0.2-1.3) mg/dL AST (14-36) U/L ALT (9-52) U/L Alkaline Phosphatase (38-126) U/L Total Protein (6.3-8.3) g/dL Albumin (3.5-5.0) g/dL Globulin (2.2-3.9) gm/dL Albumin/Globulin Ratio (1.0-2.1) Vitamin B12 (239-931) pg/mL Folate ng/mL Random Vancomycin ug/mL Blood Type Antibody Screen 09/27/18 09/27/18 09/27/18 Range/Units 05:49 05:47 05:47 WBC 70.6 H* (4.8-10.8) K/uL RBC 2.82 L (3.80-5.20) Mil/uL Hgb 8.2 L (11.0-16.0) g/dL Hct 24.7 L (34.0-47.0) % MCV 87.4 (81.0-99.0) fL MCH 29.0 (27.0-31.0) pg MCHC 33.1 (33.0-37.0) g/dL RDW 15.3 H (11.5-14.5) % Plt Count 55 L (130-400) K/uL MPV 8.4 (7.2-11.7) fL Neut % (Auto) 2.3 L (50.0-75.0) % Lymph % (Auto) 5.3 L (20.0-40.0) % Hopkins % (Auto) 90.6 H (0.0-10.0) % Eos % (Auto) 1.5 (0.0-4.0) % Baso % (Auto) 0.3 (0.0-2.0) % Neut # (Auto) 1.6 L (1.8-7.0) K/uL Lymph # (Auto) 3.8 (1.0-4.3) K/uL Hopkins # (Auto) 64.0 H (0.0-0.8) K/uL Eos # (Auto) 1.0 H (0.0-0.7) K/uL Baso # (Auto) 0.2 (0.0-0.2) K/uL Neutrophils % (Manual) 3 L (50-75) % Lymphocytes % (Manual) 16 L (20-40) % Reactive Lymphs % (0-0) % Monocytes % (Manual) 79 H (0-10) % Eosinophils % (Manual) 2 (0-4) % Blast Cells % (0-0) % Platelet Estimate Decreased L (NORMAL) Hypochromasia (manual) Slight Anisocytosis (manual) Slight Retic Count (0.5-1.5) % Fibrinogen (200-400) mg/dL Sodium 138 (132-148) mmol/L Potassium 5.6 H (3.6-5.2) mmol/L Chloride 101 (98-107) mmol/L Carbon Dioxide 26 (22-30) mmol/L Anion Gap 16 (10-20) BUN 62 H (7-17) mg/dL Creatinine 4.6 H (0.7-1.2) mg/dL Est GFR ( Amer) 11 Est GFR (Non-Af Amer) 9 POC Glucose (mg/dL) (65-110) mg/dL Random Glucose 259 H (65-105) mg/dL Calcium 7.0 L (8.6-10.4) mg/dl Phosphorus 6.6 H (2.5-4.5) mg/dL Magnesium 1.4 L (1.6-2.3) mg/dL Ferritin 3650.0 ng/mL Total Bilirubin 0.4 (0.2-1.3) mg/dL AST 58 H D (14-36) U/L ALT 33 (9-52) U/L Alkaline Phosphatase 79 (38-126) U/L Total Protein 6.1 L (6.3-8.3) g/dL Albumin 3.3 L (3.5-5.0) g/dL Globulin 2.9 (2.2-3.9) gm/dL Albumin/Globulin Ratio 1.1 (1.0-2.1) Vitamin B12 304 (239-931) pg/mL Folate 10.2 ng/mL Random Vancomycin 7.3 ug/mL Blood Type Antibody Screen 09/26/18 09/26/18 09/26/18 Range/Units 20:58 20:58 20:14 WBC 48.7 H* (4.8-10.8) K/uL RBC 2.90 L (3.80-5.20) Mil/uL Hgb 8.2 L D (11.0-16.0) g/dL Hct 25.2 L (34.0-47.0) % MCV 86.8 (81.0-99.0) fL MCH 28.3 (27.0-31.0) pg MCHC 32.7 L (33.0-37.0) g/dL RDW 14.6 H (11.5-14.5) % Plt Count 53 L D (130-400) K/uL MPV 8.4 (7.2-11.7) fL Neut % (Auto) 1.1 L (50.0-75.0) % Lymph % (Auto) 6.0 L (20.0-40.0) % Hopkins % (Auto) 91.0 H (0.0-10.0) % Eos % (Auto) 1.8 (0.0-4.0) % Baso % (Auto) 0.1 (0.0-2.0) % Neut # (Auto) 0.5 L (1.8-7.0) K/uL Lymph # (Auto) 2.9 (1.0-4.3) K/uL Hopkins # (Auto) 44.3 H (0.0-0.8) K/uL Eos # (Auto) 0.9 H (0.0-0.7) K/uL Baso # (Auto) 0.1 (0.0-0.2) K/uL Neutrophils % (Manual) 1 L (50-75) % Lymphocytes % (Manual) 5 L (20-40) % Reactive Lymphs % 1 H (0-0) % Monocytes % (Manual) 89 H (0-10) % Eosinophils % (Manual) 1 (0-4) % Blast Cells % 3 H (0-0) % Platelet Estimate Decreased L (NORMAL) Hypochromasia (manual) Anisocytosis (manual) Retic Count (0.5-1.5) % Fibrinogen (200-400) mg/dL Sodium 138 (132-148) mmol/L Potassium 4.8 (3.6-5.2) mmol/L Chloride 101 (98-107) mmol/L Carbon Dioxide 27 (22-30) mmol/L Anion Gap 14 (10-20) BUN 55 H (7-17) mg/dL Creatinine 4.4 H (0.7-1.2) mg/dL Est GFR ( Amer) 12 Est GFR (Non-Af Amer) 10 POC Glucose (mg/dL) 244 H (65-110) mg/dL Random Glucose 223 H (65-105) mg/dL Calcium 7.1 L (8.6-10.4) mg/dl Phosphorus (2.5-4.5) mg/dL Magnesium (1.6-2.3) mg/dL Ferritin ng/mL Total Bilirubin 0.4 (0.2-1.3) mg/dL AST 32 (14-36) U/L ALT 15 (9-52) U/L Alkaline Phosphatase 73 (38-126) U/L Total Protein 6.4 (6.3-8.3) g/dL Albumin 3.5 (3.5-5.0) g/dL Globulin 2.9 (2.2-3.9) gm/dL Albumin/Globulin Ratio 1.2 (1.0-2.1) Vitamin B12 (239-931) pg/mL Folate ng/mL Random Vancomycin ug/mL Blood Type Antibody Screen 09/26/18 09/26/18 09/26/18 Range/Units 16:17 13:03 06:16 WBC (4.8-10.8) K/uL RBC (3.80-5.20) Mil/uL Hgb (11.0-16.0) g/dL Hct (34.0-47.0) % MCV (81.0-99.0) fL MCH (27.0-31.0) pg MCHC (33.0-37.0) g/dL RDW (11.5-14.5) % Plt Count (130-400) K/uL MPV (7.2-11.7) fL Neut % (Auto) (50.0-75.0) % Lymph % (Auto) (20.0-40.0) % Hopkins % (Auto) (0.0-10.0) % Eos % (Auto) (0.0-4.0) % Baso % (Auto) (0.0-2.0) % Neut # (Auto) (1.8-7.0) K/uL Lymph # (Auto) (1.0-4.3) K/uL Hopkins # (Auto) (0.0-0.8) K/uL Eos # (Auto) (0.0-0.7) K/uL Baso # (Auto) (0.0-0.2) K/uL Neutrophils % (Manual) (50-75) % Lymphocytes % (Manual) (20-40) % Reactive Lymphs % (0-0) % Monocytes % (Manual) (0-10) % Eosinophils % (Manual) (0-4) % Blast Cells % (0-0) % Platelet Estimate (NORMAL) Hypochromasia (manual) Anisocytosis (manual) Retic Count (0.5-1.5) % Fibrinogen (200-400) mg/dL Sodium (132-148) mmol/L Potassium (3.6-5.2) mmol/L Chloride (98-107) mmol/L Carbon Dioxide (22-30) mmol/L Anion Gap (10-20) BUN (7-17) mg/dL Creatinine (0.7-1.2) mg/dL Est GFR ( Amer) Est GFR (Non-Af Amer) POC Glucose (mg/dL) 317 H 236 H (65-110) mg/dL Random Glucose (65-105) mg/dL Calcium (8.6-10.4) mg/dl Phosphorus (2.5-4.5) mg/dL Magnesium (1.6-2.3) mg/dL Ferritin ng/mL Total Bilirubin (0.2-1.3) mg/dL AST (14-36) U/L ALT (9-52) U/L Alkaline Phosphatase (38-126) U/L Total Protein (6.3-8.3) g/dL Albumin (3.5-5.0) g/dL Globulin (2.2-3.9) gm/dL Albumin/Globulin Ratio (1.0-2.1) Vitamin B12 (239-931) pg/mL Folate ng/mL Random Vancomycin ug/mL Blood Type B POSITIVE Antibody Screen Negative Laboratory Results - last 24 hr 09/26/18 09/26/18 09/26/18 06:16 13:03 16:17 WBC RBC Hgb Hct MCV MCH MCHC RDW Plt Count MPV Neut % (Auto) Lymph % (Auto) [place] % (Auto) Eos % (Auto) Baso % (Auto) Neut # (Auto) Lymph # (Auto) [place] # (Auto) Eos # (Auto) Baso # (Auto) Neutrophils % (Manual) Lymphocytes % (Manual) Reactive Lymphs % Monocytes % (Manual) Eosinophils % (Manual) Blast Cells % Platelet Estimate Hypochromasia (manual) Anisocytosis (manual) Retic Count Fibrinogen Sodium Potassium Chloride Carbon Dioxide Anion Gap BUN Creatinine Est GFR ( Amer) Est GFR (Non-Af Amer) POC Glucose (mg/dL) 236 H 317 H Random Glucose Calcium Phosphorus Magnesium Ferritin Total Bilirubin AST ALT Alkaline Phosphatase Total Protein Albumin Globulin Albumin/Globulin Ratio Vitamin B12 Folate Random Vancomycin Blood Type B POSITIVE Antibody Screen Negative 09/26/18 09/26/18 09/26/18 20:14 20:58 20:58 WBC 48.7 H* RBC 2.90 L Hgb 8.2 L D Hct 25.2 L MCV 86.8 MCH 28.3 MCHC 32.7 L RDW 14.6 H Plt Count 53 L D MPV 8.4 Neut % (Auto) 1.1 L Lymph % (Auto) 6.0 L [place] % (Auto) 91.0 H Eos % (Auto) 1.8 Baso % (Auto) 0.1 Neut # (Auto) 0.5 L Lymph # (Auto) 2.9 [place] # (Auto) 44.3 H Eos # (Auto) 0.9 H Baso # (Auto) 0.1 Neutrophils % (Manual) 1 L Lymphocytes % (Manual) 5 L Reactive Lymphs % 1 H Monocytes % (Manual) 89 H Eosinophils % (Manual) 1 Blast Cells % 3 H Platelet Estimate Decreased L Hypochromasia (manual) Anisocytosis (manual) Retic Count Fibrinogen Sodium 138 Potassium 4.8 Chloride 101 Carbon Dioxide 27 Anion Gap 14 BUN 55 H Creatinine 4.4 H Est GFR ( Amer) 12 Est GFR (Non-Af Amer) 10 POC Glucose (mg/dL) 244 H Random Glucose 223 H Calcium 7.1 L Phosphorus Magnesium Ferritin Total Bilirubin 0.4 AST 32 ALT 15 Alkaline Phosphatase 73 Total Protein 6.4 Albumin 3.5 Globulin 2.9 Albumin/Globulin Ratio 1.2 Vitamin B12 Folate Random Vancomycin Blood Type Antibody Screen 09/27/18 09/27/18 09/27/18 05:47 05:47 05:49 WBC 70.6 H* RBC 2.82 L Hgb 8.2 L Hct 24.7 L MCV 87.4 MCH 29.0 MCHC 33.1 RDW 15.3 H Plt Count 55 L MPV 8.4 Neut % (Auto) 2.3 L Lymph % (Auto) 5.3 L [place] % (Auto) 90.6 H Eos % (Auto) 1.5 Baso % (Auto) 0.3 Neut # (Auto) 1.6 L Lymph # (Auto) 3.8 [place] # (Auto) 64.0 H Eos # (Auto) 1.0 H Baso # (Auto) 0.2 Neutrophils % (Manual) 3 L Lymphocytes % (Manual) 16 L Reactive Lymphs % Monocytes % (Manual) 79 H Eosinophils % (Manual) 2 Blast Cells % Platelet Estimate Decreased L Hypochromasia (manual) Slight Anisocytosis (manual) Slight Retic Count Fibrinogen Sodium 138 Potassium 5.6 H Chloride 101 Carbon Dioxide 26 Anion Gap 16 BUN 62 H Creatinine 4.6 H Est GFR ( Amer) 11 Est GFR (Non-Af Amer) 9 POC Glucose (mg/dL) Random Glucose 259 H Calcium 7.0 L Phosphorus 6.6 H Magnesium 1.4 L Ferritin 3650.0 Total Bilirubin 0.4 AST 58 H D ALT 33 Alkaline Phosphatase 79 Total Protein 6.1 L Albumin 3.3 L Globulin 2.9 Albumin/Globulin Ratio 1.1 Vitamin B12 304 Folate 10.2 Random Vancomycin 7.3 Blood Type Antibody Screen 09/27/18 09/27/18 09/27/18 05:49 05:49 07:21 WBC RBC Hgb Hct MCV MCH MCHC RDW Plt Count MPV Neut % (Auto) Lymph % (Auto) [place] % (Auto) Eos % (Auto) Baso % (Auto) Neut # (Auto) Lymph # (Auto) [place] # (Auto) Eos # (Auto) Baso # (Auto) Neutrophils % (Manual) Lymphocytes % (Manual) Reactive Lymphs % Monocytes % (Manual) Eosinophils % (Manual) Blast Cells % Platelet Estimate Hypochromasia (manual) Anisocytosis (manual) Retic Count 0.3 L Fibrinogen 329 Sodium Potassium Chloride Carbon Dioxide Anion Gap BUN Creatinine Est GFR ( Amer) Est GFR (Non-Af Amer) POC Glucose (mg/dL) 423 H* Random Glucose Calcium Phosphorus Magnesium Ferritin Total Bilirubin AST ALT Alkaline Phosphatase Total Protein Albumin Globulin Albumin/Globulin Ratio Vitamin B12 Folate Random Vancomycin Blood Type Antibody Screen Radiology Impressions: Radiology Impressions Abdomen Obstructive Series X-ray 09/26/18 12:30 IMPRESSION: Nonspecific nonobstructive bowel gas pattern. Large peripheral mass versus consolidation in the right lower lobe. Renal Ultrasound 09/26/18 13:51 IMPRESSION: 6.5 cm soft tissue mass mid left kidney suspicious for neoplasm. Nonobstructing 5 mm mid left renal calculus. Diffusely increased cortical echogenicity consistent with diffuse medical renal disease. Chest X-Ray 09/27/18 08:20 IMPRESSION: Similar masslike opacity right pleural parenchymal based-malignancy suspect correlate clinically No interval pathology appreciated. Other findings as above. Fingerstick Blood Sugar Results: 244 Critical Care Progress Note - Nutrition Nutrition: Nutrition Category Date Time Status Heart Healthy Diet [DIET] Diets 09/26/18 Lunch Active Assessment/Plan - Assessment and Plan (Free Text) Plan: Patient is a 73 year old female with PMHx of Lung Cancer on chemotherapy, Asthma, HTN, DM, and COPD, who presented to the ED for weakness, confusion, and SOB, was found to have acute anemia, severe leukocytosis, and thrombocytopenia and was subsequently admitted to ICU. Anemia and thrombocytopenia have improved today; patient continues to have severe leukocytosis. Hyperkalemia and hypomagnesia noted, replaced electrolytes this am Neuro - AAOx3 - no current issues Cardiac - EKG 09/26: sinus tachycardia - monitor vitals Pulm - Dyspnea, improved - hx of COPD - Duoneb Q6H PRN - f/u Pulm recs GI - Heart Healthy Diet with consistent carbohydrate - Protonix - fecal occult positive - per GI (Dr Graf/Shahana), elective colonoscopy later, Hb is stable Renal - Hypomagnesia improving, 1.4 today - Magnesium Sulfate 1gm administered - BUN/Cr elevated 62/4.6 - as per Nephro, IV fluid trials with NS today, will consider dialysis tomorrow if BUN/Cr does not improve - Potassium 5.6, Kayexalate administered - repeat CMP - monitor I&O - albumin level low - given albumin 5% 12.5 gm IV Q10H x 2 doses - f/u Nephro recs Endo - Hx of DMstart ISS - Accucheck Q2 Heme/Onc - Anemia improved, H/H 8.2/24.7 today - Thrombocytopenia improving (plt count 55) - Leukocytosis - Hx of Lung Cancer - f/u Heme/Onc recs ID - Leukocytosis (70.4) today - most likely reaction to Neupogen - Afebrile - f/u Blood cx/urine cx/stool cx for sources of infection - f/u c.diff toxin - continue Aztreonam, Flagyl - d/c vancomycin - f/u ID recs PPx - Tylenol PRN for Fever - DVT ppx- SCDs, c/i for anticoagulation due to thrombocytopenia - GI ppx- protonix daily - Patient now DNR/DNI Plan discussed with Dr. Gold Joshua, PGY-1 - Date & Time Date: 09/27/18 Time: 10:00
--- NOTE | 2018-09-27 18:18 | CP.PCM.PN ---
Subjective - Date & Time of Evaluation Date of Evaluation: 09/27/18 Time of Evaluation: 07:00 - Subjective Subjective: awake and alert sitting on side of bed eating dinner denies chest pain or abd pain has no diarrhea Objective - Vital Signs/Intake and Output Vital Signs (last 24 hours): Temp Pulse Resp BP Pulse Ox 98.7 F 89 21 131/56 L 97 09/27/18 16:00 09/27/18 15:10 09/27/18 15:10 09/27/18 15:10 09/27/18 15:10 Intake and Output: 09/27/18 09/27/18 06:59 18:59 Intake Total 1575 1025 Output Total 600 0 Balance 975 1025 - Medications Medications: Current Medications Acetaminophen (Tylenol 325mg Tab) 650 mg PO Q6 PRN PRN Reason: Fever >100.4 F Albumin Human (Albumin Human 5% (12.5 Gm/250 Ml)) 12.5 gm IV Q10H [facility] Stop: 09/27/18 23:31 Last Admin: 09/27/18 13:47 Dose: 12.5 gm Albuterol/Ipratropium (Duoneb 3 Mg/0.5 Mg (3 Ml) Ud) 3 ml INH RQ6 [facility] Last Admin: 09/27/18 14:07 Dose: 3 ml Calcium Acetate (Phoslo) 1,334 mg PO TID [facility] Last Admin: 09/27/18 13:47 Dose: 1,334 mg Dextrose (Dextrose 50% Inj) 0 ml IV STAT PRN; Protocol PRN Reason: Hypoglycemia Protocol Dextrose (Glutose 15) 0 gm PO ONCE PRN; Protocol PRN Reason: Hypoglycemia Protocol Glucagon (Glucagen Diagnostic Kit) 0 mg IM STAT PRN; Protocol PRN Reason: Hypoglycemia Protocol Dextrose (Dextrose 5% In Water 1000 Ml) 1,000 mls @ 0 mls/hr IV .Q0M PRN; Protocol PRN Reason: Hypoglycemia Protocol Aztreonam 1 gm/ Sodium (Chloride) 100 mls @ 200 mls/hr IVPB Q12H [facility]; Protocol Last Admin: 09/27/18 08:08 Dose: 200 mls/hr Metronidazole (Flagyl) 500 mg in 100 mls @ 100 mls/hr IVPB Q8H [facility]; Protocol Last Admin: 09/27/18 11:04 Dose: 100 mls/hr Sodium Chloride (Sodium Chloride 0.9%) 1,000 mls @ 75 mls/hr IV .[id number] [facility] Last Admin: 09/27/18 11:05 Dose: 75 mls/hr Insulin Human Regular (Novolin R) 0 unit SC ACHS [facility]; Protocol Last Admin: 09/27/18 13:47 Dose: 8 u Pantoprazole Sodium (Protonix Inj) 40 mg IVP DAILY [facility] Last Admin: 09/27/18 11:04 Dose: 40 mg Pneumococcal Polyvalent Vaccine (Pneumovax 23 Vaccine) 0.5 ml SC .ONCE ONE Stop: 09/29/18 10:01 - Labs Labs: 09/27/18 05:49 09/27/18 05:47 PT 12.1 SECONDS (9.7-12.2) 09/26/18 06:16 INR 1.1 09/26/18 06:16 APTT 24 SECONDS (21-34) 09/26/18 06:16 - Constitutional Appears: Non-toxic, Cachectic, Chronically Ill - Head Exam Head Exam: NORMOCEPHALIC - Eye Exam Eye Exam: absent: Scleral icterus - ENT Exam ENT Exam: Mucous Membranes Dry - Neck Exam Neck Exam: absent: Lymphadenopathy - Respiratory Exam Respiratory Exam: Decreased Breath Sounds, Prolonged Expiratory Phase, Rhonchi - Cardiovascular Exam Cardiovascular Exam: REGULAR RHYTHM, +S1, +S2 - GI/Abdominal Exam GI & Abdominal Exam: Distended, Soft. absent: Tenderness - Rectal Exam Rectal Exam: Deferred - Extremities Exam Extremities Exam: Pedal Edema - Back Exam Back Exam: absent: CVA tenderness (L), CVA tenderness (R) - Neurological Exam Neurological Exam: Alert, Awake, CN II-XII Intact, Oriented x3 - Psychiatric Exam Psychiatric exam: Normal Mood - Skin Skin Exam: Dry Assessment and Plan (1) Anemia Status: Acute (2) Hypomagnesemia Status: Acute (3) Leukocytosis (leucocytosis) Status: Acute (4) Lung cancer Status: Acute (5) Pneumonia Status: Acute (6) Renal failure Status: Acute (7) Thrombocytopenia Status: Acute (8) BRENDA (acute kidney injury) Status: Acute - Assessment and Plan (Free Text) Assessment: await final cultures leukemoid reaction Dr Wong on board
--- NOTE | 2018-09-27 18:18 | CP.PCM.CON ---
History of Present Illness - History of Present Illness History of Present Illness: Patient is a 73 year old female with PMH of lung cancer on chemotherapy and COPD, who presented with weakness, confusion and shortness of breath. Patient seen and examined at bedside, afebrile and resting comfortably in no acute distress. Patient complained of wheezing and an intermittent cough, as well as constipation. Patient denied SOB, chest pain, dyspnea, fever, chills, nausea, vomiting, diarrhea. ROS: as per HPI PMH: lung cancer, COPD, DM, HTN Surgical Hx: portacath Social Hx: current tobacco use Med: per EMR Allergies: penicillin Physical Exam Gen: alert and awake and oriented x3, no acute distress Cardio: RRR, no murmur Pulm: decreased breath sounds, wheezing, no accessory muscle use GI: soft, nontender A&P 1. COPD -Chest x-ray 09/27/18: similar mass-like opacity right pleural parenchymal based malignancy; no interval pathology -Chest x-ray 09/26/18: possible mass right base vs consolidation; left chest clear; no pulm vascular congestion -ABG 09/26/18: pH 7.31, pCO2 55, pO2 50 -Recommend repeat ABG -Continue to monitor labs, WBC 09/27/18: 70.6 -Blood culture no growth to date -Recommend sputum culture -Continue duoneb 3ml q6 -Continue aztreonam, flagyl, vancomycin 2. 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) -Heme/onc consulted -Palliative care consulted -Outpatient f/u with primary oncologist Past Patient History - Infectious Disease Hx of Infectious Diseases: None - Past Medical History & Family History Past Medical History?: Yes - Past Social History Smoking Status: Light Smoker < 10 Cigarettes Daily - CARDIAC Hx Hypertension: Yes - PULMONARY Hx Asthma: Yes Hx Chronic Obstructive Pulmonary Disease (COPD): Yes Hx Emphysema: Yes - NEUROLOGICAL Hx Neurological Disorder: No - HEENT Hx HEENT Problems: No - RENAL Hx Chronic Kidney Disease: No - ENDOCRINE/METABOLIC Hx Endocrine Disorders: Yes Hx Diabetes Mellitus Type 2: Yes - HEMATOLOGICAL/ONCOLOGICAL Hx Cancer: Yes (RIGHT LUNG LOWER LOBE) Hx Chemotherapy: Yes Other/Comment: CURRENT CHEMO PATIENT - INTEGUMENTARY Hx Dermatological Problems: No - MUSCULOSKELETAL/RHEUMATOLOGICAL Hx Arthritis: Yes - GASTROINTESTINAL Hx Gastrointestinal Disorders: No - GENITOURINARY/GYNECOLOGICAL Hx Genitourinary Disorders: No - PSYCHIATRIC Hx Substance Use: No - SURGICAL HISTORY Hx Surgeries: Yes Hx Tubal Ligation: Yes Other/Comment: HEMMROIDECOTMY - ANESTHESIA Hx Anesthesia: Yes Hx Anesthesia Reactions: No Meds Allergies/Adverse Reactions: Allergies Allergy/AdvReac Type Severity Reaction Status Date / Time Penicillins Allergy Verified 09/26/18 05:44 - Medications Medications: Current Medications Acetaminophen (Tylenol 325mg Tab) 650 mg PO Q6 PRN PRN Reason: Fever >100.4 F Albumin Human (Albumin Human 5% (12.5 Gm/250 Ml)) 12.5 gm IV Q10H [facility] Stop: 09/27/18 23:31 Last Admin: 09/27/18 13:47 Dose: 12.5 gm Albuterol/Ipratropium (Duoneb 3 Mg/0.5 Mg (3 Ml) Ud) 3 ml INH RQ6 [facility] Last Admin: 09/27/18 14:07 Dose: 3 ml Calcium Acetate (Phoslo) 1,334 mg PO TID [facility] Last Admin: 09/27/18 13:47 Dose: 1,334 mg Dextrose (Dextrose 50% Inj) 0 ml IV STAT PRN; Protocol PRN Reason: Hypoglycemia Protocol Dextrose (Glutose 15) 0 gm PO ONCE PRN; Protocol PRN Reason: Hypoglycemia Protocol Glucagon (Glucagen Diagnostic Kit) 0 mg IM STAT PRN; Protocol PRN Reason: Hypoglycemia Protocol Dextrose (Dextrose 5% In Water 1000 Ml) 1,000 mls @ 0 mls/hr IV .Q0M PRN; Protocol PRN Reason: Hypoglycemia Protocol Aztreonam 1 gm/ Sodium (Chloride) 100 mls @ 200 mls/hr IVPB Q12H [facility]; Protocol Last Admin: 09/27/18 08:08 Dose: 200 mls/hr Metronidazole (Flagyl) 500 mg in 100 mls @ 100 mls/hr IVPB Q8H [facility]; Protocol Last Admin: 09/27/18 11:04 Dose: 100 mls/hr Sodium Chloride (Sodium Chloride 0.9%) 1,000 mls @ 75 mls/hr IV .[id number] [facility] Last Admin: 09/27/18 11:05 Dose: 75 mls/hr Insulin Human Regular (Novolin R) 0 unit SC ACHS [facility]; Protocol Last Admin: 09/27/18 13:47 Dose: 8 u Pantoprazole Sodium (Protonix Inj) 40 mg IVP DAILY [facility] Last Admin: 09/27/18 11:04 Dose: 40 mg Pneumococcal Polyvalent Vaccine (Pneumovax 23 Vaccine) 0.5 ml SC .ONCE ONE Stop: 09/29/18 10:01 Results - Vital Signs Recent Vital Signs: Last Vital Signs Temp 98.7 F 09/27/18 16:00 Pulse 89 09/27/18 15:10 Resp 21 09/27/18 15:10 BP 131/56 L 09/27/18 15:10 Pulse Ox 97 09/27/18 15:10 - Labs Result Diagrams: 09/27/18 05:49 09/27/18 05:47 Labs: Laboratory Results - last 24 hr 09/26/18 09/26/18 09/26/18 13:03 20:14 20:58 WBC 48.7 H* RBC 2.90 L Hgb 8.2 L D Hct 25.2 L MCV 86.8 MCH 28.3 MCHC 32.7 L RDW 14.6 H Plt Count 53 L D MPV 8.4 Neut % (Auto) 1.1 L Lymph % (Auto) 6.0 L [place] % (Auto) 91.0 H Eos % (Auto) 1.8 Baso % (Auto) 0.1 Neut # (Auto) 0.5 L Lymph # (Auto) 2.9 [place] # (Auto) 44.3 H Eos # (Auto) 0.9 H Baso # (Auto) 0.1 Neutrophils % (Manual) 1 L Lymphocytes % (Manual) 5 L Reactive Lymphs % 1 H Monocytes % (Manual) 89 H Eosinophils % (Manual) 1 Blast Cells % 3 H Platelet Estimate Decreased L Hypochromasia (manual) Anisocytosis (manual) Retic Count Fibrinogen Sodium Potassium Chloride Carbon Dioxide Anion Gap BUN Creatinine Est GFR ( Amer) Est GFR (Non-Af Amer) POC Glucose (mg/dL) 236 H 244 H Random Glucose Calcium Phosphorus Magnesium Ferritin Total Bilirubin AST ALT Alkaline Phosphatase Total Protein Albumin Globulin Albumin/Globulin Ratio Vitamin B12 Folate Random Vancomycin 09/26/18 09/27/18 09/27/18 20:58 05:47 05:47 WBC RBC Hgb Hct MCV MCH MCHC RDW Plt Count MPV Neut % (Auto) Lymph % (Auto) [place] % (Auto) Eos % (Auto) Baso % (Auto) Neut # (Auto) Lymph # (Auto) [place] # (Auto) Eos # (Auto) Baso # (Auto) Neutrophils % (Manual) Lymphocytes % (Manual) Reactive Lymphs % Monocytes % (Manual) Eosinophils % (Manual) Blast Cells % Platelet Estimate Hypochromasia (manual) Anisocytosis (manual) Retic Count Fibrinogen Sodium 138 138 Potassium 4.8 5.6 H Chloride 101 101 Carbon Dioxide 27 26 Anion Gap 14 16 BUN 55 H 62 H Creatinine 4.4 H 4.6 H Est GFR ( Amer) 12 11 Est GFR (Non-Af Amer) 10 9 POC Glucose (mg/dL) Random Glucose 223 H 259 H Calcium 7.1 L 7.0 L Phosphorus 6.6 H Magnesium 1.4 L Ferritin 3650.0 Total Bilirubin 0.4 0.4 AST 32 58 H D ALT 15 33 Alkaline Phosphatase 73 79 Total Protein 6.4 6.1 L Albumin 3.5 3.3 L Globulin 2.9 2.9 Albumin/Globulin Ratio 1.2 1.1 Vitamin B12 304 Folate 10.2 Random Vancomycin 7.3 09/27/18 09/27/18 09/27/18 05:49 05:49 05:49 WBC 70.6 H* RBC 2.82 L Hgb 8.2 L Hct 24.7 L MCV 87.4 MCH 29.0 MCHC 33.1 RDW 15.3 H Plt Count 55 L MPV 8.4 Neut % (Auto) 2.3 L Lymph % (Auto) 5.3 L [place] % (Auto) 90.6 H Eos % (Auto) 1.5 Baso % (Auto) 0.3 Neut # (Auto) 1.6 L Lymph # (Auto) 3.8 [place] # (Auto) 64.0 H Eos # (Auto) 1.0 H Baso # (Auto) 0.2 Neutrophils % (Manual) 3 L Lymphocytes % (Manual) 16 L Reactive Lymphs % Monocytes % (Manual) 79 H Eosinophils % (Manual) 2 Blast Cells % Platelet Estimate Decreased L Hypochromasia (manual) Slight Anisocytosis (manual) Slight Retic Count 0.3 L Fibrinogen 329 Sodium Potassium Chloride Carbon Dioxide Anion Gap BUN Creatinine Est GFR ( Amer) Est GFR (Non-Af Amer) POC Glucose (mg/dL) Random Glucose Calcium Phosphorus Magnesium Ferritin Total Bilirubin AST ALT Alkaline Phosphatase Total Protein Albumin Globulin Albumin/Globulin Ratio Vitamin B12 Folate Random Vancomycin 09/27/18 09/27/18 09/27/18 07:21 11:13 16:53 WBC RBC Hgb Hct MCV MCH MCHC RDW Plt Count MPV Neut % (Auto) Lymph % (Auto) [place] % (Auto) Eos % (Auto) Baso % (Auto) Neut # (Auto) Lymph # (Auto) [place] # (Auto) Eos # (Auto) Baso # (Auto) Neutrophils % (Manual) Lymphocytes % (Manual) Reactive Lymphs % Monocytes % (Manual) Eosinophils % (Manual) Blast Cells % Platelet Estimate Hypochromasia (manual) Anisocytosis (manual) Retic Count Fibrinogen Sodium Potassium Chloride Carbon Dioxide Anion Gap BUN Creatinine Est GFR ( Amer) Est GFR (Non-Af Amer) POC Glucose (mg/dL) 423 H* 397 H 298 H Random Glucose Calcium Phosphorus Magnesium Ferritin Total Bilirubin AST ALT Alkaline Phosphatase Total Protein Albumin Globulin Albumin/Globulin Ratio Vitamin B12 Folate Random Vancomycin
[2018-09-27 22:38] LABS: CALCIUM 7.5 mg/dl (8.6-10.4)
--- NOTE | 2018-09-27 23:10 | CP.PCM.PN ---
Subjective - Date & Time of Evaluation Date of Evaluation: 09/27/18 Time of Evaluation: 19:00 - Subjective Subjective: Appears better. Objective - Vital Signs/Intake and Output Vital Signs (last 24 hours): Temp Pulse Resp BP Pulse Ox 98.7 F 91 H 18 130/41 L 98 09/27/18 16:00 09/27/18 18:10 09/27/18 18:10 09/27/18 18:10 09/27/18 18:10 Intake and Output: 09/27/18 09/28/18 18:59 06:59 Intake Total 1125 Output Total 100 Balance 1025 - Medications Medications: Current Medications Acetaminophen (Tylenol 325mg Tab) 650 mg PO Q6 PRN PRN Reason: Fever >100.4 F Albumin Human (Albumin Human 5% (12.5 Gm/250 Ml)) 12.5 gm IV Q10H [facility] Stop: 09/27/18 23:31 Last Admin: 09/27/18 13:47 Dose: 12.5 gm Albuterol/Ipratropium (Duoneb 3 Mg/0.5 Mg (3 Ml) Ud) 3 ml INH RQ6 [facility] Last Admin: 09/27/18 19:37 Dose: 3 ml Calcium Acetate (Phoslo) 1,334 mg PO TID [facility] Last Admin: 09/27/18 18:35 Dose: 1,334 mg Dextrose (Dextrose 50% Inj) 0 ml IV STAT PRN; Protocol PRN Reason: Hypoglycemia Protocol Dextrose (Glutose 15) 0 gm PO ONCE PRN; Protocol PRN Reason: Hypoglycemia Protocol Glucagon (Glucagen Diagnostic Kit) 0 mg IM STAT PRN; Protocol PRN Reason: Hypoglycemia Protocol Dextrose (Dextrose 5% In Water 1000 Ml) 1,000 mls @ 0 mls/hr IV .Q0M PRN; Protocol PRN Reason: Hypoglycemia Protocol Aztreonam 1 gm/ Sodium (Chloride) 100 mls @ 200 mls/hr IVPB Q12H [facility]; Protocol Last Admin: 09/27/18 21:15 Dose: 200 mls/hr Metronidazole (Flagyl) 500 mg in 100 mls @ 100 mls/hr IVPB Q8H [facility]; Protocol Last Admin: 09/27/18 18:33 Dose: 100 mls/hr Sodium Chloride (Sodium Chloride 0.9%) 1,000 mls @ 75 mls/hr IV [id number] [facility] Last Admin: 09/27/18 11:05 Dose: 75 mls/hr Insulin Human Regular (Novolin R) 0 unit SC ACHS [facility]; Protocol Last Admin: 09/27/18 21:20 Dose: Not Given Pantoprazole Sodium (Protonix Inj) 40 mg IVP DAILY [facility] Last Admin: 09/27/18 11:04 Dose: 40 mg Pneumococcal Polyvalent Vaccine (Pneumovax 23 Vaccine) 0.5 ml SC .ONCE ONE Stop: 09/29/18 10:01 - Labs Labs: 09/27/18 05:49 09/27/18 22:24 PT 12.1 SECONDS (9.7-12.2) 09/26/18 06:16 INR 1.1 09/26/18 06:16 APTT 24 SECONDS (21-34) 09/26/18 06:16 - Head Exam Head Exam: ATRAUMATIC - Eye Exam Eye Exam: Normal appearance - ENT Exam ENT Exam: Mucous Membranes Dry - Respiratory Exam Respiratory Exam: NORMAL BREATHING PATTERN - Cardiovascular Exam Cardiovascular Exam: +S1, +S2 - GI/Abdominal Exam GI & Abdominal Exam: Normal Bowel Sounds Assessment and Plan (1) Leucocytosis Assessment & Plan: recent growth factor if remains elevated, would recommend flow cytometery on antibiotics Status: Acute (2) Anemia Assessment & Plan: anemia of chronic disease Status: Acute (3) Thrombocytopenia Assessment & Plan: ? recent chemotherapy ? infection no DIC Status: Acute (4) Small cell lung cancer Assessment & Plan: stage IV DNR/DNI outpatient treatment with primary oncologist Status: Chronic
[2018-09-28] MEDS: Albuterol-Ipratrop 3 mg / 0.5 (3 ml) UD INH SCH ×5 (00:12→19:22)
[2018-09-28] MEDS ORDERED: HYDROmorphone 0.5 mg/0.5 ml ISec IVP STA (00:42)
[2018-09-28 01:24] LABS: ABG ALLEN TEST POS; ARTERIAL BLOOD GAS HCO3 21.5 mmol/L (21-28); ARTERIAL BLOOD GAS PCO2 106 mm/Hg (35-45); ARTERIAL BLOOD GAS PH 7.05 (7.35-7.45); ARTERIAL BLOOD GAS PO2 70 mm/Hg (80-100); ARTERIAL BLOOD GAS TCO2 32.6 mmol/L (22-28)
[2018-09-28 03:09] LABS: ABG ALLEN TEST POS; ARTERIAL BLOOD GAS HCO3 22.5 mmol/L (21-28); ARTERIAL BLOOD GAS PCO2 99 mm/Hg (35-45); ARTERIAL BLOOD GAS PH 7.06 (7.35-7.45); ARTERIAL BLOOD GAS PO2 52 mm/Hg (80-100)
[2018-09-28] MEDS: metroNIDAZOLE IV 500 mg/100 ml 500 MG/100 ML BAG IVPB SCH ×3 (04:58→18:04)
[2018-09-28 06:20] LABS: BASO # 0.1 K/uL (0.0-0.2); BASO % 0.1 % (0.0-2.0); EOS # 1.9 K/uL (0.0-0.7); EOS % 2.9 % (0.0-4.0); HEMOGLOBIN 7.9 g/dL (11.0-16.0); LYMPH # 0.8 K/uL (1.0-4.3); LYMPH % 1.2 % (20.0-40.0); MEAN CELL VOLUME 88.1 fL (81.0-99.0); MEAN CORPUSCULAR HEMOGLOBIN 28.6 pg (27.0-31.0); MEAN CORPUSCULAR HGB CONC 32.5 g/dL (33.0-37.0); MEAN PLATELET VOLUME 8.2 fL (7.2-11.7); MONO # 63.4 K/uL (0.0-0.8); MONO % 94.1 % (0.0-10.0); NEUT # 1.1 K/uL (1.8-7.0); NEUT % 1.7 % (50.0-75.0); NRBC % 0.3 % (0.0-2.0); PLATELET COUNT 35 K/uL (130-400); RBC 2.75 Mil/uL (3.80-5.20); RED CELL DISTRIBUTION WIDTH 15.4 % (11.5-14.5)
[2018-09-28 06:34] LABS: ALB/GLOB RATIO 1.4 (1.0-2.1); ALBUMIN 3.5 g/dL (3.5-5.0); CALCIUM 7.8 mg/dl (8.6-10.4)
[2018-09-28 06:54] LABS: WHITE BLOOD COUNT 67.4 K/uL (4.8-10.8)
[2018-09-28] MEDS: (Novolin R) Insulin Human Regular 100 units/ml vial SC SCH ×4 (08:20→18:06)
[2018-09-28 08:28] LABS: BLASTS 2 % (0-0); EOSINOPHIL 6 % (0-4); LYMPHOCYTE 5 % (20-40); MONOCYTE 78 % (0-10); NEUTROPHIL 9 % (50-75); TOTAL CELLS COUNTED 100
[2018-09-28 08:30] LABS: ANISOCYTOSIS SLIGHT; BURR CELLS SLIGHT; HYPOCHROMIC SLIGHT; PLATELET ESTIMATE DECREASED (NORMAL); POIKILOCYTOSIS SLIGHT
[2018-09-28 08:31] LABS: SMUDGE CELLS PRESENT; TARGET CELLS SLIGHT
--- NOTE | 2018-09-28 09:45 | CP.PCM.PN ---
Subjective - Date & Time of Evaluation Date of Evaluation: 09/28/18 Time of Evaluation: 09:30 - Subjective Subjective: This morning the patient was on Bipap. She was awake, however not able to follow commands Her condition is worsening. Many family members at bedside and I spoke with them at length and explained to them that she may soon. The patient's CODE status was changed to DNR and DNI yesterday. As mentioned previously, this is a 73 yr olf female with a history of lung cancer, COPD, Asthma who was found by family members on 09/26 confused and short of breath. Reportedly recent chemotherapy, decreased appetite. She was found to be having fevers, elevated WBC, pancytopenic as well as elevated creatine. Objective - Vital Signs/Intake and Output Vital Signs (last 24 hours): Temp Pulse Resp BP Pulse Ox 97 F L 82 20 145/64 94 L 09/28/18 04:00 09/28/18 09:05 09/28/18 05:10 09/28/18 05:10 09/28/18 05:10 Intake and Output: 09/28/18 09/28/18 06:59 18:59 Intake Total 1050 Output Total 100 Balance 950 - Medications Medications: Current Medications Acetaminophen (Tylenol 325mg Tab) 650 mg PO Q6 PRN PRN Reason: Fever >100.4 F Albuterol/Ipratropium (Duoneb 3 Mg/0.5 Mg (3 Ml) Ud) 3 ml INH RQ6 [facility] Last Admin: 09/28/18 02:46 Dose: Not Given Calcium Acetate (Phoslo) 1,334 mg PO TID [facility] Last Admin: 09/27/18 18:35 Dose: 1,334 mg Dextrose (Dextrose 50% Inj) 0 ml IV STAT PRN; Protocol PRN Reason: Hypoglycemia Protocol Dextrose (Glutose 15) 0 gm PO ONCE PRN; Protocol PRN Reason: Hypoglycemia Protocol Glucagon (Glucagen Diagnostic Kit) 0 mg IM STAT PRN; Protocol PRN Reason: Hypoglycemia Protocol Dextrose (Dextrose 5% In Water 1000 Ml) 1,000 mls @ 0 mls/hr IV .Q0M PRN; Protocol PRN Reason: Hypoglycemia Protocol Aztreonam 1 gm/ Sodium (Chloride) 100 mls @ 200 mls/hr IVPB Q12H [facility]; Protocol Last Admin: 09/27/18 21:15 Dose: 200 mls/hr Metronidazole (Flagyl) 500 mg in 100 mls @ 100 mls/hr IVPB Q8H [facility]; Protocol Last Admin: 09/28/18 04:58 Dose: 100 mls/hr Sodium Bicarbonate 150 meq/ (Dextrose) 1,150 mls @ 42 mls/hr IV .Q24H [facility] Insulin Human Regular (Novolin R) 0 unit SC ACHS [facility]; Protocol Last Admin: 09/28/18 08:20 Dose: 6 u Pantoprazole Sodium (Protonix Inj) 40 mg IVP DAILY [facility] Last Admin: 09/27/18 11:04 Dose: 40 mg Pneumococcal Polyvalent Vaccine (Pneumovax 23 Vaccine) 0.5 ml SC .ONCE ONE Stop: 09/29/18 10:01 - Labs Labs: 09/28/18 06:08 09/28/18 06:00 PT 12.1 SECONDS (9.7-12.2) 09/26/18 06:16 INR 1.1 09/26/18 06:16 APTT 24 SECONDS (21-34) 09/26/18 06:16 - Constitutional Appears: Toxic, Confused, Cachectic, Chronically Ill - ENT Exam ENT Exam: Mucous Membranes Moist - Respiratory Exam Respiratory Exam: Decreased Breath Sounds - Cardiovascular Exam Cardiovascular Exam: REGULAR RHYTHM - GI/Abdominal Exam GI & Abdominal Exam: Soft, Normal Bowel Sounds - Neurological Exam Neurological Exam: Altered, Awake - Skin Skin Exam: Normal Color, Warm Assessment and Plan - Assessment and Plan (Free Text) Assessment: As mentioned previously, this is a 73 yr olf female with a history of lung cancer, COPD, Asthma who was found by family members on 09/26 confused, fatigued, and short of breath. Reportedly recent chemotherapy, decreased appetite. She was found to be having fevers, elevated WBC, pancytopenic as well as elevated crea lashaun. She might may have received outpatient WBC growth factors prior. She is now DNR and DNI. Prognosis is unfortunately very poor and discussed with several family member 1 Sepsis - Leukocytosis 09/28: Remains on the Aztreonam and Flagyl. Urine and blood cultures negative 48hrs now. No fevers 09/27: Currently IV abx Aztreonman and IV flagyl. Also PO vancomycin At this moment cultures are negative She intially had very high fevers when she came and now temperatures stable Also patient probably had administration of growth factors outpatient 2 Pancytopenia and junieley acute on chronic anemia 09/28: The Hgb decreased to 7.9, platelet count decreased 09/27: Improved, she has had PRBCs given She was also given platelets as well. She had + stool occult as well, GI is following. Pending C diff study as well. 3 BRENDA, metabolic acidosis 09/28: Creatine increased to 5.2, currently on Bipap, the patient was stated on bicarb ggt 09/27: Creatine remains elevated 4.6 She had renal ultrasound yesterday Follow urine outputs On PhosLo TID Nephrology is following 4 Lung CA 09/28: 09/27: Patient still smokes despite history of Lung CA and COPD/Asthma Pending palliative care consult to discuss code status The CXRAYs shows a RLL mass 5 DM: Continue on SSI
[2018-09-28] MEDS: Aztreonam 1 GM in Sodium Chloride 0.9% 100 ML IVPB SCH ×2 (10:57→21:56)
[2018-09-28] MEDS: HYDROmorphone 0.5 mg/0.5 ml ISec IVP PRN (10:58)
[2018-09-28] MEDS: Sodium Bicarbonate 8.4% 150 MEQ in Dextrose 5% In Water 1,000 ML IV SCH (11:04)
--- NOTE | 2018-09-28 12:26 | CP.PCM.PN ---
Subjective - Date & Time of Evaluation Date of Evaluation: 09/28/18 Time of Evaluation: 12:23 - Subjective Subjective: Events noted DNR/DNI very dyspneic on bipap UO-800ml discussed with family, they do not want dialysis Objective - Vital Signs/Intake and Output Vital Signs (last 24 hours): Temp Pulse Resp BP Pulse Ox 97 F L 82 20 145/64 94 L 09/28/18 04:00 09/28/18 09:05 09/28/18 05:10 09/28/18 05:10 09/28/18 05:10 Intake and Output: 09/28/18 09/28/18 06:59 18:59 Intake Total 1050 Output Total 100 Balance 950 - Medications Medications: Current Medications Acetaminophen (Tylenol 325mg Tab) 650 mg PO Q6 PRN PRN Reason: Fever >100.4 F Albuterol/Ipratropium (Duoneb 3 Mg/0.5 Mg (3 Ml) Ud) 3 ml INH RQ6 [facility] Last Admin: 09/28/18 02:46 Dose: Not Given Calcium Acetate (Phoslo) 1,334 mg PO TID [facility] Last Admin: 09/28/18 11:02 Dose: Not Given Dextrose (Dextrose 50% Inj) 0 ml IV STAT PRN; Protocol PRN Reason: Hypoglycemia Protocol Dextrose (Glutose 15) 0 gm PO ONCE PRN; Protocol PRN Reason: Hypoglycemia Protocol Fentanyl (Duragesic) 1 patch TD Q72H [facility] Last Admin: 09/28/18 11:00 Dose: 1 patch Glucagon (Glucagen Diagnostic Kit) 0 mg IM STAT PRN; Protocol PRN Reason: Hypoglycemia Protocol Hydromorphone HCl (Dilaudid) 0.5 mg IVP Q4H PRN PRN Reason: Pain, moderate (4-7) Last Admin: 09/28/18 10:58 Dose: 0.5 mg Dextrose (Dextrose 5% In Water 1000 Ml) 1,000 mls @ 0 mls/hr IV .Q0M PRN; Protocol PRN Reason: Hypoglycemia Protocol Aztreonam 1 gm/ Sodium (Chloride) 100 mls @ 200 mls/hr IVPB Q12H [facility]; Protocol Last Admin: 09/28/18 10:57 Dose: 200 mls/hr Metronidazole (Flagyl) 500 mg in 100 mls @ 100 mls/hr IVPB Q8H [facility]; Protocol Last Admin: 09/28/18 10:58 Dose: 100 mls/hr Sodium Bicarbonate 150 meq/ (Dextrose) 1,150 mls @ 42 mls/hr IV .Q24H [facility] Last Admin: 09/28/18 11:04 Dose: 42 mls/hr Insulin Human Regular (Novolin R) 0 unit SC ACHS [facility]; Protocol Last Admin: 09/28/18 08:20 Dose: 6 u Pantoprazole Sodium (Protonix Inj) 40 mg IVP DAILY [facility] Last Admin: 09/28/18 11:00 Dose: 40 mg Pneumococcal Polyvalent Vaccine (Pneumovax 23 Vaccine) 0.5 ml SC .ONCE ONE Stop: 09/29/18 10:01 - Labs Labs: 09/28/18 06:08 09/28/18 06:00 PT 12.1 SECONDS (9.7-12.2) 09/26/18 06:16 INR 1.1 09/26/18 06:16 APTT 24 SECONDS (21-34) 09/26/18 06:16 - Constitutional Appears: In Acute Distress, Cachectic, Chronically Ill - Head Exam Head Exam: ATRAUMATIC, NORMAL INSPECTION - Neck Exam Neck Exam: Normal Inspection. absent: Tenderness - Respiratory Exam Respiratory Exam: Rhonchi, Respiratory Distress - Cardiovascular Exam Cardiovascular Exam: REGULAR RHYTHM, +S1 - GI/Abdominal Exam GI & Abdominal Exam: Soft. absent: Tenderness - Extremities Exam Extremities Exam: Normal Inspection. absent: Tenderness - Neurological Exam Neurological Exam: Altered - Skin Skin Exam: Dry, Warm Assessment and Plan (1) Lung cancer Status: Acute (2) Leukocytosis (leucocytosis) Status: Acute (3) BRENDA (acute kidney injury) Status: Acute (4) Hypertension Status: Chronic - Assessment and Plan (Free Text) Plan: supportive care only agree with bicarb drip
--- NOTE | 2018-09-28 13:13 | CP.PCM.PN ---
Subjective - Date & Time of Evaluation Date of Evaluation: 09/28/18 Time of Evaluation: 10:00 - Subjective Subjective: Patient seen and examined Placed on BiPAP last night for respiratory distress Patient DNR/DNI Patient is awake and responsive and complaining of constipation Objective - Vital Signs/Intake and Output Vital Signs (last 24 hours): Temp Pulse Resp BP Pulse Ox 97 F L 82 20 145/64 94 L 09/28/18 04:00 09/28/18 09:05 09/28/18 05:10 09/28/18 05:10 09/28/18 05:10 Intake and Output: 09/28/18 09/28/18 06:59 18:59 Intake Total 1050 Output Total 100 Balance 950 - Medications Medications: Current Medications Acetaminophen (Tylenol 325mg Tab) 650 mg PO Q6 PRN PRN Reason: Fever >100.4 F Albuterol/Ipratropium (Duoneb 3 Mg/0.5 Mg (3 Ml) Ud) 3 ml INH RQ6 [facility] Last Admin: 09/28/18 02:46 Dose: Not Given Calcium Acetate (Phoslo) 1,334 mg PO TID [facility] Last Admin: 09/28/18 11:02 Dose: Not Given Dextrose (Dextrose 50% Inj) 0 ml IV STAT PRN; Protocol PRN Reason: Hypoglycemia Protocol Dextrose (Glutose 15) 0 gm PO ONCE PRN; Protocol PRN Reason: Hypoglycemia Protocol Fentanyl (Duragesic) 1 patch TD Q72H [facility] Last Admin: 09/28/18 11:00 Dose: 1 patch Glucagon (Glucagen Diagnostic Kit) 0 mg IM STAT PRN; Protocol PRN Reason: Hypoglycemia Protocol Hydromorphone HCl (Dilaudid) 0.5 mg IVP Q4H PRN PRN Reason: Pain, moderate (4-7) Last Admin: 09/28/18 10:58 Dose: 0.5 mg Dextrose (Dextrose 5% In Water 1000 Ml) 1,000 mls @ 0 mls/hr IV .Q0M PRN; Protocol PRN Reason: Hypoglycemia Protocol Aztreonam 1 gm/ Sodium (Chloride) 100 mls @ 200 mls/hr IVPB Q12H [facility]; Protocol Last Admin: 09/28/18 10:57 Dose: 200 mls/hr Metronidazole (Flagyl) 500 mg in 100 mls @ 100 mls/hr IVPB Q8H [facility]; Protocol Last Admin: 09/28/18 10:58 Dose: 100 mls/hr Sodium Bicarbonate 150 meq/ (Dextrose) 1,150 mls @ 42 mls/hr IV .Q24H [facility] Last Admin: 09/28/18 11:04 Dose: 42 mls/hr Insulin Human Regular (Novolin R) 0 unit SC ACHS [facility]; Protocol Last Admin: 09/28/18 08:20 Dose: 6 u Pantoprazole Sodium (Protonix Inj) 40 mg IVP DAILY [facility] Last Admin: 09/28/18 11:00 Dose: 40 mg Pneumococcal Polyvalent Vaccine (Pneumovax 23 Vaccine) 0.5 ml SC .ONCE ONE Stop: 09/29/18 10:01 - Labs Labs: 09/28/18 06:08 09/28/18 06:00 PT 12.1 SECONDS (9.7-12.2) 09/26/18 06:16 INR 1.1 09/26/18 06:16 APTT 24 SECONDS (21-34) 09/26/18 06:16 - Head Exam Head Exam: ATRAUMATIC, NORMOCEPHALIC - ENT Exam ENT Exam: Mucous Membranes Moist - Neck Exam Neck Exam: Normal Inspection - Respiratory Exam Respiratory Exam: Decreased Breath Sounds - Cardiovascular Exam Cardiovascular Exam: REGULAR RHYTHM - GI/Abdominal Exam GI & Abdominal Exam: Soft Assessment and Plan (1) Respiratory failure with hypercapnia Assessment & Plan: Continue BiPAP No intubation/CPR Nebulizer treatment Steroids On bicarb drip Status: Acute (2) COPD exacerbation Status: Acute
--- NOTE | 2018-09-28 13:19 | CP.CCUPN ---
<Michael Joshua - Last Filed: 09/28/18 18:43> CCU Subjective - Physician Review Subjective (Free Text): PGY-1 ICU progress note for DR Arroyo service Patient was seen and examined at bedside today. Patient is resting comfortably on bipap currently. Patient is more lethargic today. She complains of abdominal pain. Patient has not had a bowel movement since arriving at the hospital. A long discussion ensued with attending and the family regarding goals of care; patients family wishes to make the patient comfortable. Critical Care Time Spent (in minutes): 45 CCU Objective - Vital Signs / Intake & Output Intake and Output (Last 8hrs): Intake & Output 09/27/18 09/28/18 09/28/18 22:59 06:59 14:59 Intake Total 425 725 Output Total 200 0 Balance 225 725 Weight 150 lb Intake: Intake, IV Amount 325 725 Left Forearm 325 725 Oral 100 Output: Urine 200 0 Urine, Voided 200 0 Stool 0 Other: # Bowel Movements 1 - Physical Exam Head: Positive for: Atraumatic, Normocephalic Pupils: Positive for: PERRL Extroacular Muscles: Positive for: EOMI Conjunctiva: Positive for: Normal Mouth: Positive for: Moist Mucous Membranes Neck: Positive for: Normal Range of Motion Respiratory/Chest: Positive for: Decreased Breath Sounds. Negative for: Respiratory Distress, Accessory Muscle Use Cardiovascular: Positive for: Regular Rate and Rhythm, Normal S1, S2 Abdomen: Positive for: Distention. Negative for: Tenderness Upper Extremity: Positive for: Normal Inspection, Edema (LE edema b/l) Neurological: Positive for: CN II-XII Intact Skin: Positive for: Warm, Normal Color Psychiatric: Positive for: Alert, Other (confused ) - Medications Active Medications: Active Medications Generic Name Dose Route Start Last Admin Trade Name Freq PRN Reason Stop Dose Admin Acetaminophen 650 mg 09/26/18 10:35 Tylenol 325mg Tab PO Q6 PRN Fever >100.4 F Albuterol/Ipratropium 3 ml 09/26/18 14:00 09/28/18 02:46 Duoneb 3 Mg/0.5 Mg (3 Ml) Ud INH Not Given RQ6 CHAYITO Calcium Acetate 1,334 mg 09/27/18 14:00 09/28/18 11:02 Phoslo PO Not Given TID CHAYITO Dextrose 0 ml 09/26/18 10:37 Dextrose 50% Inj IV STAT PRN Hypoglycemia Protocol Protocol Dextrose 0 gm 09/26/18 10:37 Glutose 15 PO ONCE PRN Hypoglycemia Protocol Protocol Fentanyl 1 patch 09/28/18 10:00 09/28/18 11:00 Duragesic TD 1 patch Q72H CHAYITO Administration Glucagon 0 mg 09/26/18 10:37 Glucagen Diagnostic Kit IM STAT PRN Hypoglycemia Protocol Protocol Hydromorphone HCl 0.5 mg 09/28/18 09:53 09/28/18 10:58 Dilaudid IVP 0.5 mg Q4H PRN Administration Pain, moderate (4-7) Dextrose 1,000 mls @ 0 mls/hr 09/26/18 10:37 Dextrose 5% In Water 1000 Ml IV .Q0M PRN Hypoglycemia Protocol Protocol Per Protocol Aztreonam 1 gm/ Sodium 100 mls @ 200 mls/hr 09/26/18 21:00 09/28/18 10:57 Chloride IVPB 200 mls/hr Q12H CHAYITO Administration Protocol Metronidazole 500 mg in 100 mls @ 100 mls/hr 09/26/18 19:00 09/28/18 10:58 Flagyl IVPB 100 mls/hr Q8H CHAYITO Administration Protocol Sodium Bicarbonate 150 meq/ 1,150 mls @ 42 mls/hr 09/28/18 10:00 09/28/18 11:04 Dextrose IV 42 mls/hr .Q24H CHAYITO Administration Insulin Human Regular 0 unit 09/26/18 11:30 09/28/18 08:20 Novolin R SC 6 u ACHS CHAYITO Administration Protocol Methylprednisolone 40 mg 09/28/18 14:00 Solu-Medrol IVP Q8 CHAYITO Pantoprazole Sodium 40 mg 09/26/18 10:00 09/28/18 11:00 Protonix Inj IVP 40 mg DAILY CHAYITO Administration Pneumococcal Polyvalent Vaccine 0.5 ml 09/29/18 10:00 Pneumovax 23 Vaccine SC 09/29/18 10:01 .ONCE ONE - Patient Studies Lab Studies: Microbiology Studies 09/26/18 07:04 MRSA Culture (Admit) - Final Naris MRSA NOT DETECTED 09/26/18 07:03 Blood Culture - Preliminary Blood-Venous NO GROWTH AFTER 48 HOURS 02/06/19 07:03 Blood Culture - Preliminary Blood-Venous NO GROWTH AFTER 48 HOURS 09/26/18 07:42 Urine Culture - Final Urine,Catheterized No Growth (<1,000 CFU/ML) Lab Studies 09/28/18 09/28/18 09/28/18 Range/Units 11:09 07:31 06:08 WBC 67.4 H* (4.8-10.8) K/uL RBC 2.75 L (3.80-5.20) Mil/uL Hgb 7.9 L (11.0-16.0) g/dL Hct 24.3 L (34.0-47.0) % MCV 88.1 (81.0-99.0) fL MCH 28.6 (27.0-31.0) pg MCHC 32.5 L (33.0-37.0) g/dL RDW 15.4 H (11.5-14.5) % Plt Count 35 L D (130-400) K/uL MPV 8.2 (7.2-11.7) fL Neut % (Auto) 1.7 L (50.0-75.0) % Lymph % (Auto) 1.2 L (20.0-40.0) % [place] % (Auto) 94.1 H (0.0-10.0) % Eos % (Auto) 2.9 (0.0-4.0) % Baso % (Auto) 0.1 (0.0-2.0) % Neut # (Auto) 1.1 L (1.8-7.0) K/uL Lymph # (Auto) 0.8 L (1.0-4.3) K/uL [place] # (Auto) 63.4 H (0.0-0.8) K/uL Eos # (Auto) 1.9 H (0.0-0.7) K/uL Baso # (Auto) 0.1 (0.0-0.2) K/uL Neutrophils % (Manual) 9 L (50-75) % Lymphocytes % (Manual) 5 L (20-40) % Monocytes % (Manual) 78 H (0-10) % Eosinophils % (Manual) 6 H (0-4) % Blast Cells % 2 H (0-0) % Smudge Cells Present Platelet Estimate Decreased L (NORMAL) Hypochromasia (manual) Slight Poikilocytosis (manual Slight Anisocytosis (manual) Slight Target Cells Slight [place] Cells Slight Puncture Site pCO2 (35-45) mm/Hg pO2 (80-100) mm/Hg HCO3 (21-28) mmol/L ABG pH (7.35-7.45) ABG Total CO2 (22-28) mmol/L ABG O2 Saturation (95-98) % ABG Base Excess (-2.0-3.0) mmol/L ABG Hemoglobin (11.7-17.4) g/dL ABG Carboxyhemoglobin (0.5-1.5) % POC ABG HHb (Measured) (0.0-5.0) % ABG Methemoglobin (0.0-3.0) % Higinio Test ABG Potassium (3.6-5.2) mmol/L A-a O2 Difference mm/Hg Respiratory Index Hgb O2 Saturation (95.0-98.0) % Glucose (65-105) mg/dl Lactate (0.7-2.1) mmol/L Liter Flow Vent Mode FiO2 % Inspiratory BiPAP Expiratory BiPAP Crit Value Called To Crit Value Called By Crit Value Read Back Blood Gas Notified Time Sodium (132-148) mmol/L Potassium (3.6-5.2) mmol/L Chloride (98-107) mmol/L Carbon Dioxide (22-30) mmol/L Anion Gap (10-20) BUN (7-17) mg/dL Creatinine (0.7-1.2) mg/dL Est GFR ( Amer) Est GFR (Non-Af Amer) POC Glucose (mg/dL) 321 H 331 H (65-110) mg/dL Random Glucose (65-105) mg/dL Calcium (8.6-10.4) mg/dl Phosphorus (2.5-4.5) mg/dL Magnesium (1.6-2.3) mg/dL Total Bilirubin (0.2-1.3) mg/dL AST (14-36) U/L ALT (9-52) U/L Alkaline Phosphatase (38-126) U/L Total Protein (6.3-8.3) g/dL Albumin (3.5-5.0) g/dL Globulin (2.2-3.9) gm/dL Albumin/Globulin Ratio (1.0-2.1) Arterial Blood Potassium (3.6-5.2) mmol/L Stool Occult Blood (NEGATIVE) 09/28/18 09/28/18 09/28/18 Range/Units 06:00 05:03 03:05 WBC (4.8-10.8) K/uL RBC (3.80-5.20) Mil/uL Hgb (11.0-16.0) g/dL Hct (34.0-47.0) % MCV (81.0-99.0) fL MCH (27.0-31.0) pg MCHC (33.0-37.0) g/dL RDW (11.5-14.5) % Plt Count (130-400) K/uL MPV (7.2-11.7) fL Neut % (Auto) (50.0-75.0) % Lymph % (Auto) (20.0-40.0) % [place] % (Auto) (0.0-10.0) % Eos % (Auto) (0.0-4.0) % Baso % (Auto) (0.0-2.0) % Neut # (Auto) (1.8-7.0) K/uL Lymph # (Auto) (1.0-4.3) K/uL [place] # (Auto) (0.0-0.8) K/uL Eos # (Auto) (0.0-0.7) K/uL Baso # (Auto) (0.0-0.2) K/uL Neutrophils % (Manual) (50-75) % Lymphocytes % (Manual) (20-40) % Monocytes % (Manual) (0-10) % Eosinophils % (Manual) (0-4) % Blast Cells % (0-0) % Smudge Cells Platelet Estimate (NORMAL) Hypochromasia (manual) Poikilocytosis (manual Anisocytosis (manual) Target Cells Ruiz Cells Puncture Site Rr pCO2 99 H* (35-45) mm/Hg pO2 52 L (80-100) mm/Hg HCO3 22.5 (21-28) mmol/L ABG pH 7.06 L* (7.35-7.45) ABG Total CO2 31.0 H (22-28) mmol/L ABG O2 Saturation 89.0 L (95-98) % ABG Base Excess -2.9 L (-2.0-3.0) mmol/L ABG Hemoglobin 8.0 L (11.7-17.4) g/dL ABG Carboxyhemoglobin 2.9 H (0.5-1.5) % POC ABG HHb (Measured) 10.6 H (0.0-5.0) % ABG Methemoglobin 0.6 (0.0-3.0) % Higinio Test Pos ABG Potassium (3.6-5.2) mmol/L A-a O2 Difference 74.0 mm/Hg Respiratory Index 1.4 Hgb O2 Saturation 85.9 L (95.0-98.0) % Glucose (65-105) mg/dl Lactate (0.7-2.1) mmol/L Liter Flow Vent Mode Bipap FiO2 35.0 % Inspiratory BiPAP 18 Expiratory BiPAP 6 Crit Value Called To Oscar rn Crit Value Called By Anusha line driver Crit Value Read Back Y Blood Gas Notified Time 309 Sodium 136 (132-148) mmol/L Potassium 5.6 H (3.6-5.2) mmol/L Chloride 99 (98-107) mmol/L Carbon Dioxide 26 (22-30) mmol/L Anion Gap 16 (10-20) BUN 77 H (7-17) mg/dL Creatinine 5.2 H (0.7-1.2) mg/dL Est GFR ( Amer) 10 Est GFR (Non-Af Amer) 8 POC Glucose (mg/dL) (65-110) mg/dL Random Glucose 293 H D (65-105) mg/dL Calcium 7.8 L (8.6-10.4) mg/dl Phosphorus 8.4 H (2.5-4.5) mg/dL Magnesium 1.6 (1.6-2.3) mg/dL Total Bilirubin 0.5 (0.2-1.3) mg/dL AST 74 H D (14-36) U/L ALT 41 (9-52) U/L Alkaline Phosphatase 111 (38-126) U/L Total Protein 6.2 L (6.3-8.3) g/dL Albumin 3.5 (3.5-5.0) g/dL Globulin 2.6 (2.2-3.9) gm/dL Albumin/Globulin Ratio 1.4 (1.0-2.1) Arterial Blood Potassium (3.6-5.2) mmol/L Stool Occult Blood Positive H (NEGATIVE) 09/28/18 09/27/18 09/27/18 Range/Units 01:20 22:24 20:50 WBC (4.8-10.8) K/uL RBC (3.80-5.20) Mil/uL Hgb (11.0-16.0) g/dL Hct (34.0-47.0) % MCV (81.0-99.0) fL MCH (27.0-31.0) pg MCHC (33.0-37.0) g/dL RDW (11.5-14.5) % Plt Count (130-400) K/uL MPV (7.2-11.7) fL Neut % (Auto) (50.0-75.0) % Lymph % (Auto) (20.0-40.0) % [place] % (Auto) (0.0-10.0) % Eos % (Auto) (0.0-4.0) % Baso % (Auto) (0.0-2.0) % Neut # (Auto) (1.8-7.0) K/uL Lymph # (Auto) (1.0-4.3) K/uL [place] # (Auto) (0.0-0.8) K/uL Eos # (Auto) (0.0-0.7) K/uL Baso # (Auto) (0.0-0.2) K/uL Neutrophils % (Manual) (50-75) % Lymphocytes % (Manual) (20-40) % Monocytes % (Manual) (0-10) % Eosinophils % (Manual) (0-4) % Blast Cells % (0-0) % Smudge Cells Platelet Estimate (NORMAL) Hypochromasia (manual) Poikilocytosis (manual Anisocytosis (manual) Target Cells [place] Cells Puncture Site Rr pCO2 106 H* (35-45) mm/Hg pO2 70 L (80-100) mm/Hg HCO3 21.5 (21-28) mmol/L ABG pH 7.05 L* (7.35-7.45) ABG Total CO2 32.6 H (22-28) mmol/L ABG O2 Saturation 95.0 (95-98) % ABG Base Excess -4.0 L (-2.0-3.0) mmol/L ABG Hemoglobin (11.7-17.4) g/dL ABG Carboxyhemoglobin (0.5-1.5) % POC ABG HHb (Measured) (0.0-5.0) % ABG Methemoglobin (0.0-3.0) % Higinio Test Pos ABG Potassium 5.1 (3.6-5.2) mmol/L A-a O2 Difference mm/Hg Respiratory Index Hgb O2 Saturation (95.0-98.0) % Glucose 184 H (65-105) mg/dl Lactate 0.6 L (0.7-2.1) mmol/L Liter Flow 3.0 Vent Mode FiO2 % Inspiratory BiPAP Expiratory BiPAP Crit Value Called To Lang cueva rn Crit Value Called By Anusha line driver Crit Value Read Back Y Blood Gas Notified Time 124 Sodium 140.0 137 (132-148) mmol/L Potassium 5.1 (3.6-5.2) mmol/L Chloride 105.0 99 (98-107) mmol/L Carbon Dioxide 29 (22-30) mmol/L Anion Gap 15 (10-20) BUN 71 H (7-17) mg/dL Creatinine 5.2 H (0.7-1.2) mg/dL Est GFR ( Amer) 10 Est GFR (Non-Af Amer) 8 POC Glucose (mg/dL) 210 H (65-110) mg/dL Random Glucose 146 H D (65-105) mg/dL Calcium 7.5 L (8.6-10.4) mg/dl Phosphorus 7.6 H (2.5-4.5) mg/dL Magnesium 1.5 L (1.6-2.3) mg/dL Total Bilirubin (0.2-1.3) mg/dL AST (14-36) U/L ALT (9-52) U/L Alkaline Phosphatase (38-126) U/L Total Protein (6.3-8.3) g/dL Albumin (3.5-5.0) g/dL Globulin (2.2-3.9) gm/dL Albumin/Globulin Ratio (1.0-2.1) Arterial Blood Potassium 5.1 (3.6-5.2) mmol/L Stool Occult Blood (NEGATIVE) 09/27/18 09/27/18 Range/Units 16:53 11:13 WBC (4.8-10.8) K/uL RBC (3.80-5.20) Mil/uL Hgb (11.0-16.0) g/dL Hct (34.0-47.0) % MCV (81.0-99.0) fL MCH (27.0-31.0) pg MCHC (33.0-37.0) g/dL RDW (11.5-14.5) % Plt Count (130-400) K/uL MPV (7.2-11.7) fL Neut % (Auto) (50.0-75.0) % Lymph % (Auto) (20.0-40.0) % [place] % (Auto) (0.0-10.0) % Eos % (Auto) (0.0-4.0) % Baso % (Auto) (0.0-2.0) % Neut # (Auto) (1.8-7.0) K/uL Lymph # (Auto) (1.0-4.3) K/uL [place] # (Auto) (0.0-0.8) K/uL Eos # (Auto) (0.0-0.7) K/uL Baso # (Auto) (0.0-0.2) K/uL Neutrophils % (Manual) (50-75) % Lymphocytes % (Manual) (20-40) % Monocytes % (Manual) (0-10) % Eosinophils % (Manual) (0-4) % Blast Cells % (0-0) % Smudge Cells Platelet Estimate (NORMAL) Hypochromasia (manual) Poikilocytosis (manual Anisocytosis (manual) Target Cells Ruiz Cells Puncture Site pCO2 (35-45) mm/Hg pO2 (80-100) mm/Hg HCO3 (21-28) mmol/L ABG pH (7.35-7.45) ABG Total CO2 (22-28) mmol/L ABG O2 Saturation (95-98) % ABG Base Excess (-2.0-3.0) mmol/L ABG Hemoglobin (11.7-17.4) g/dL ABG Carboxyhemoglobin (0.5-1.5) % POC ABG HHb (Measured) (0.0-5.0) % ABG Methemoglobin (0.0-3.0) % Higinio Test ABG Potassium (3.6-5.2) mmol/L A-a O2 Difference mm/Hg Respiratory Index Hgb O2 Saturation (95.0-98.0) % Glucose (65-105) mg/dl Lactate (0.7-2.1) mmol/L Liter Flow Vent Mode FiO2 % Inspiratory BiPAP Expiratory BiPAP Crit Value Called To Crit Value Called By Crit Value Read Back Blood Gas Notified Time Sodium (132-148) mmol/L Potassium (3.6-5.2) mmol/L Chloride (98-107) mmol/L Carbon Dioxide (22-30) mmol/L Anion Gap (10-20) BUN (7-17) mg/dL Creatinine (0.7-1.2) mg/dL Est GFR ( Amer) Est GFR (Non-Af Amer) POC Glucose (mg/dL) 298 H 397 H (65-110) mg/dL Random Glucose (65-105) mg/dL Calcium (8.6-10.4) mg/dl Phosphorus (2.5-4.5) mg/dL Magnesium (1.6-2.3) mg/dL Total Bilirubin (0.2-1.3) mg/dL AST (14-36) U/L ALT (9-52) U/L Alkaline Phosphatase (38-126) U/L Total Protein (6.3-8.3) g/dL Albumin (3.5-5.0) g/dL Globulin (2.2-3.9) gm/dL Albumin/Globulin Ratio (1.0-2.1) Arterial Blood Potassium (3.6-5.2) mmol/L Stool Occult Blood (NEGATIVE) Laboratory Results - last 24 hr 09/27/18 09/27/18 09/27/18 11:13 16:53 20:50 WBC RBC Hgb Hct MCV MCH MCHC RDW Plt Count MPV Neut % (Auto) Lymph % (Auto) [place] % (Auto) Eos % (Auto) Baso % (Auto) Neut # (Auto) Lymph # (Auto) [place] # (Auto) Eos # (Auto) Baso # (Auto) Neutrophils % (Manual) Lymphocytes % (Manual) Monocytes % (Manual) Eosinophils % (Manual) Blast Cells % Smudge Cells Platelet Estimate Hypochromasia (manual) Poikilocytosis (manual Anisocytosis (manual) Target Cells [place] Cells Puncture Site pCO2 pO2 HCO3 ABG pH ABG Total CO2 ABG O2 Saturation ABG Base Excess ABG Hemoglobin ABG Carboxyhemoglobin POC ABG HHb (Measured) ABG Methemoglobin Higinio Test ABG Potassium A-a O2 Difference Respiratory Index Hgb O2 Saturation Glucose Lactate Liter Flow Vent Mode FiO2 Inspiratory BiPAP Expiratory BiPAP Crit Value Called To Crit Value Called By Crit Value Read Back Blood Gas Notified Time Sodium Potassium Chloride Carbon Dioxide Anion Gap BUN Creatinine Est GFR ( Amer) Est GFR (Non-Af Amer) POC Glucose (mg/dL) 397 H 298 H 210 H Random Glucose Calcium Phosphorus Magnesium Total Bilirubin AST ALT Alkaline Phosphatase Total Protein Albumin Globulin Albumin/Globulin Ratio Arterial Blood Potassium Stool Occult Blood 09/27/18 09/28/18 09/28/18 22:24 01:20 03:05 WBC RBC Hgb Hct MCV MCH MCHC RDW Plt Count MPV Neut % (Auto) Lymph % (Auto) [place] % (Auto) Eos % (Auto) Baso % (Auto) Neut # (Auto) Lymph # (Auto) [place] # (Auto) Eos # (Auto) Baso # (Auto) Neutrophils % (Manual) Lymphocytes % (Manual) Monocytes % (Manual) Eosinophils % (Manual) Blast Cells % Smudge Cells Platelet Estimate Hypochromasia (manual) Poikilocytosis (manual Anisocytosis (manual) Target Cells [place] Cells Puncture Site Rr Rr pCO2 106 H* 99 H* pO2 70 L 52 L HCO3 21.5 22.5 ABG pH 7.05 L* 7.06 L* ABG Total CO2 32.6 H 31.0 H ABG O2 Saturation 95.0 89.0 L ABG Base Excess -4.0 L -2.9 L ABG Hemoglobin 8.0 L ABG Carboxyhemoglobin 2.9 H POC ABG HHb (Measured) 10.6 H ABG Methemoglobin 0.6 Higinio Test Pos Pos ABG Potassium 5.1 A-a O2 Difference 74.0 Respiratory Index 1.4 Hgb O2 Saturation 85.9 L Glucose 184 H Lactate 0.6 L Liter Flow 3.0 Vent Mode Bipap FiO2 35.0 Inspiratory BiPAP 18 Expiratory BiPAP 6 Crit Value Called To Lang Moore rn Crit Value Called By Anusha line driver Anusha line driver Crit Value Read Back Y Y Blood Gas Notified Time 124 309 Sodium 137 140.0 Potassium 5.1 Chloride 99 105.0 Carbon Dioxide 29 Anion Gap 15 BUN 71 H Creatinine 5.2 H Est GFR ( Amer) 10 Est GFR (Non-Af Amer) 8 POC Glucose (mg/dL) Random Glucose 146 H D Calcium 7.5 L Phosphorus 7.6 H Magnesium 1.5 L Total Bilirubin AST ALT Alkaline Phosphatase Total Protein Albumin Globulin Albumin/Globulin Ratio Arterial Blood Potassium 5.1 Stool Occult Blood 09/28/18 09/28/18 09/28/18 05:03 06:00 06:08 WBC 67.4 H* RBC 2.75 L Hgb 7.9 L Hct 24.3 L MCV 88.1 MCH 28.6 MCHC 32.5 L RDW 15.4 H Plt Count 35 L D MPV 8.2 Neut % (Auto) 1.7 L Lymph % (Auto) 1.2 L [place] % (Auto) 94.1 H Eos % (Auto) 2.9 Baso % (Auto) 0.1 Neut # (Auto) 1.1 L Lymph # (Auto) 0.8 L [place] # (Auto) 63.4 H Eos # (Auto) 1.9 H Baso # (Auto) 0.1 Neutrophils % (Manual) 9 L Lymphocytes % (Manual) 5 L Monocytes % (Manual) 78 H Eosinophils % (Manual) 6 H Blast Cells % 2 H Smudge Cells Present Platelet Estimate Decreased L Hypochromasia (manual) Slight Poikilocytosis (manual Slight Anisocytosis (manual) Slight Target Cells Slight [place] Cells Slight Puncture Site pCO2 pO2 HCO3 ABG pH ABG Total CO2 ABG O2 Saturation ABG Base Excess ABG Hemoglobin ABG Carboxyhemoglobin POC ABG HHb (Measured) ABG Methemoglobin Higinio Test ABG Potassium A-a O2 Difference Respiratory Index Hgb O2 Saturation Glucose Lactate Liter Flow Vent Mode FiO2 Inspiratory BiPAP Expiratory BiPAP Crit Value Called To Crit Value Called By Crit Value Read Back Blood Gas Notified Time Sodium 136 Potassium 5.6 H Chloride 99 Carbon Dioxide 26 Anion Gap 16 BUN 77 H Creatinine 5.2 H Est GFR ( Amer) 10 Est GFR (Non-Af Amer) 8 POC Glucose (mg/dL) Random Glucose 293 H D Calcium 7.8 L Phosphorus 8.4 H Magnesium 1.6 Total Bilirubin 0.5 AST 74 H D ALT 41 Alkaline Phosphatase 111 Total Protein 6.2 L Albumin 3.5 Globulin 2.6 Albumin/Globulin Ratio 1.4 Arterial Blood Potassium Stool Occult Blood Positive H 09/28/18 09/28/18 07:31 11:09 WBC RBC Hgb Hct MCV MCH MCHC RDW Plt Count MPV Neut % (Auto) Lymph % (Auto) [place] % (Auto) Eos % (Auto) Baso % (Auto) Neut # (Auto) Lymph # (Auto) [place] # (Auto) Eos # (Auto) Baso # (Auto) Neutrophils % (Manual) Lymphocytes % (Manual) Monocytes % (Manual) Eosinophils % (Manual) Blast Cells % Smudge Cells Platelet Estimate Hypochromasia (manual) Poikilocytosis (manual Anisocytosis (manual) Target Cells [place] Cells Puncture Site pCO2 pO2 HCO3 ABG pH ABG Total CO2 ABG O2 Saturation ABG Base Excess ABG Hemoglobin ABG Carboxyhemoglobin POC ABG HHb (Measured) ABG Methemoglobin Higinio Test ABG Potassium A-a O2 Difference Respiratory Index Hgb O2 Saturation Glucose Lactate Liter Flow Vent Mode FiO2 Inspiratory BiPAP Expiratory BiPAP Crit Value Called To Crit Value Called By Crit Value Read Back Blood Gas Notified Time Sodium Potassium Chloride Carbon Dioxide Anion Gap BUN Creatinine Est GFR ( Amer) Est GFR (Non-Af Amer) POC Glucose (mg/dL) 331 H 321 H Random Glucose Calcium Phosphorus Magnesium Total Bilirubin AST ALT Alkaline Phosphatase Total Protein Albumin Globulin Albumin/Globulin Ratio Arterial Blood Potassium Stool Occult Blood Fingerstick Blood Sugar Results: 331 Critical Care Progress Note - Nutrition Nutrition: Nutrition Category Date Time Status NPO Diet [DIET] Diets 09/28/18 Lunch Active Assessment/Plan - Assessment and Plan (Free Text) Plan: Patient is a 73 year old female with PMHx of Lung Cancer on chemotherapy, Asthma, HTN, DM, and COPD, who presented to the ED for weakness, confusion, and SOB, was found to have acute anemia, severe leukocytosis, and thrombocytopenia and was subsequently admitted to ICU. Anemia and thrombocytopenia have improved today; patient continues to have severe leukocytosis. Overnight, patient developed worsening tachypnea and shortness of breath; patient was initiated on Bipap. Decision was made by family to make the patient comfortable. Neuro - Awake, confused Cardiac - Tachycardia, improved - continue to monitor vitals Pulm - Dyspnea - Bipap at FiO2 of 35% - Blood gas 09/28: 7.06/ pCO2 99/ pO2 52 - Duoneb Q6H PRN - f/u Pulm recs GI - start Protonix for GI ppx - NPO due to Bipap - Constipation, fleet enema ordered Renal - Hypomagnesia improved, 1.6 today - Hyperkalemia (5.6) - start Sodium Bicarbonate drip tx hyperkalemia - BUN/Cr elevated 77/5.2 - monitor I&O - f/u Nephro recs Endo - Hx of DMcontinue ISS coverage - Accucheck Q2 Heme/Onc - Anemia, H/H 7.9/24.3 today - Thrombocytopenia (plt count 35) - Leukocytosis improving (67.4) - Hx of stage IV Small Cell Lung Cancer, receiving neupogen therapy weekly - f/u Heme/Onc recs ID - Leukocytosis (70.4) today - Afebrile - Blood cx negative after 48 hours - urine cx negative after 48 hours - continue Aztreonam, Flagyl - f/u ID recs PPx - Tylenol PRN for Fever - DVT ppx- SCDs, c/i for anticoagulation due to thrombocytopenia - GI ppx- protonix daily - Patient DNR/DNI - follow up palliative care recs regarding goals of care Plan discussed with Dr. Cruz Joshua, PGY-1 - Date & Time Date: 09/28/18 Time: 10:00 <Tesfaye Arroyo - Last Filed: 10/01/18 10:04> CCU Objective - Vital Signs / Intake & Output Vital Signs (Last 4 hours): Vital Signs Pulse 10/01/18 07:25 119 H Intake and Output (Last 8hrs): Intake & Output 09/30/18 10/01/1810/01/19 22:59 06:59 14:59 Intake Total 42 268 Output Total 0 2 Balance 42 -2 268 Weight 167 lb 12.8 oz Intake: IV 30 Intake, IV Amount 42 238 Right Port-A-Cath 42 Right Subclavian 238 Output: Urine 0 Urine, Voided 0 Stool 0 2 Other: # Bowel Movements 1 - Medications Active Medications: Active Medications Generic Name Dose Route Start Last Admin Trade Name Freq PRN Reason Stop Dose Admin Acetaminophen 650 mg 09/26/18 10:35 09/29/18 10:51 Tylenol 325mg Tab PO 650 mg Q6 PRN Administration Fever >100.4 F Albuterol/Ipratropium 3 ml 09/26/18 14:00 10/01/18 07:30 Duoneb 3 Mg/0.5 Mg (3 Ml) Ud INH 3 ml RQ6 CHAYITO Administration Calcium Acetate 1,334 mg 09/27/18 14:00 09/30/18 18:24 Phoslo PO Not Given TID CHAYITO Dextrose 0 ml 09/26/18 10:37 Dextrose 50% Inj IV STAT PRN Hypoglycemia Protocol Protocol Dextrose 0 gm 09/26/18 10:37 Glutose 15 PO ONCE PRN Hypoglycemia Protocol Protocol Glucagon 0 mg 09/26/18 10:37 Glucagen Diagnostic Kit IM STAT PRN Hypoglycemia Protocol Protocol Dextrose 1,000 mls @ 0 mls/hr 09/26/18 10:37 Dextrose 5% In Water 1000 Ml IV .Q0M PRN Hypoglycemia Protocol Protocol Per Protocol Aztreonam 1 gm/ Sodium 100 mls @ 200 mls/hr 09/26/18 21:00 10/01/18 08:20 Chloride IVPB 200 mls/hr Q12H CHAYITO Administration Protocol Metronidazole 500 mg in 100 mls @ 100 mls/hr 09/26/18 19:00 10/01/18 06:24 Flagyl IVPB 100 mls/hr Q8H CHAYITO Administration Protocol Sodium Bicarbonate 150 meq/ 1,150 mls @ 42 mls/hr 09/28/18 10:00 09/30/18 10:27 Dextrose IV 42 mls/hr .Q24H CHAYITO Administration Morphine Sulfate 250 mg/ 250 mls @ 2 mls/hr 10/01/18 02:45 10/01/18 08:21 Sodium Chloride IV 4 mg/hr .Q24H PRN 4 mls/hr Agitation Titration Protocol Insulin Human Regular 0 unit 09/29/18 05:10 10/01/18 01:54 Novolin R SC 4 units Q6 CHAYITO Administration Protocol Methylprednisolone 40 mg 09/28/18 14:00 10/01/18 06:24 Solu-Medrol IVP 40 mg Q8 CHAYITO Administration Pantoprazole Sodium 40 mg 09/26/18 10:00 09/30/18 10:26 Protonix Inj IVP 40 mg DAILY CHAYITO Administration - Patient Studies Lab Studies: Microbiology Studies 09/26/18 07:03 Blood Culture - Final Blood-Venous NO GROWTH AFTER 5 DAYS Gram Stain - Final TEST NOT PERFORMED 09/26/18 07:03 Blood Culture - Final Blood-Venous NO GROWTH AFTER 5 DAYS Gram Stain - Final TEST NOT PERFORMED Lab Studies 09/30/18 09/30/18 09/30/18 Range/Units 23:34 17:49 12:08 POC Glucose (mg/dL) 271 H 174 H 209 H (65-110) mg/dL Laboratory Results - last 24 hr 09/30/18 09/30/18 09/30/18 12:08 17:49 23:34 POC Glucose (mg/dL) 209 H 174 H 271 H Critical Care Progress Note - Nutrition Nutrition: Nutrition Category Date Time Status NPO Diet [DIET] Diets 09/28/18 Lunch Active Attending/Attestation - Attestation I have personally seen and examined this patient.: Yes I have fully participated in the care of the patient.: Yes I have reviewed all pertinent clinical information: Yes Notes (Text): Today: Friday, September 28, 2018 The Patient was seen and examined at the bedside, Medical records reviewed, and management issues were discussed and formulated with the house staff. I have reviewed all the relevant clinical, laboratory, hemodynamic, radiographic data and medications Events reviewed Pain issues, skin care, head of the bed elevation, glycemic control were addressed. Agree with above resident's assessment and treatment plans of care as transcribed in Dr. Joshua's note.
[2018-09-28] MEDS: MethylPREDNISolone 40 mg Vial IVP SCH ×2 (13:33→21:55)
--- NOTE | 2018-09-28 14:27 | CP.PCM.PN ---
Subjective - Date & Time of Evaluation Date of Evaluation: 09/28/18 Time of Evaluation: 14:24 - Subjective Subjective: Constipated. No rectal bleeding noted in hospital. Hgb stable. Leukocytosis, thrombocytopenia No abdominal pain Resp insufficiency, on BIPAP Objective - Vital Signs/Intake and Output Vital Signs (last 24 hours): Temp Pulse Resp BP Pulse Ox 97 F L 90 20 145/64 94 L 09/28/18 04:00 09/28/18 13:22 09/28/18 05:10 09/28/18 05:10 09/28/18 05:10 Intake and Output: 09/28/18 09/28/18 06:59 18:59 Intake Total 1050 Output Total 100 Balance 950 - Medications Medications: Current Medications Acetaminophen (Tylenol 325mg Tab) 650 mg PO Q6 PRN PRN Reason: Fever >100.4 F Albuterol/Ipratropium (Duoneb 3 Mg/0.5 Mg (3 Ml) Ud) 3 ml INH RQ6 [facility] Last Admin: 09/28/18 13:20 Dose: 3 ml Calcium Acetate (Phoslo) 1,334 mg PO TID [facility] Last Admin: 09/28/18 13:34 Dose: Not Given Dextrose (Dextrose 50% Inj) 0 ml IV STAT PRN; Protocol PRN Reason: Hypoglycemia Protocol Dextrose (Glutose 15) 0 gm PO ONCE PRN; Protocol PRN Reason: Hypoglycemia Protocol Fentanyl (Duragesic) 1 patch TD Q72H [facility] Last Admin: 09/28/18 11:00 Dose: 1 patch Glucagon (Glucagen Diagnostic Kit) 0 mg IM STAT PRN; Protocol PRN Reason: Hypoglycemia Protocol Hydromorphone HCl (Dilaudid) 0.5 mg IVP Q4H PRN PRN Reason: Pain, moderate (4-7) Last Admin: 09/28/18 10:58 Dose: 0.5 mg Dextrose (Dextrose 5% In Water 1000 Ml) 1,000 mls @ 0 mls/hr IV .Q0M PRN; Protocol PRN Reason: Hypoglycemia Protocol Aztreonam 1 gm/ Sodium (Chloride) 100 mls @ 200 mls/hr IVPB Q12H [facility]; Protocol Last Admin: 09/28/18 10:57 Dose: 200 mls/hr Metronidazole (Flagyl) 500 mg in 100 mls @ 100 mls/hr IVPB Q8H [facility]; Protocol Last Admin: 09/28/18 10:58 Dose: 100 mls/hr Sodium Bicarbonate 150 meq/ (Dextrose) 1,150 mls @ 42 mls/hr IV .Q24H [facility] Last Admin: 09/28/18 11:04 Dose: 42 mls/hr Insulin Human Regular (Novolin R) 0 unit SC ACHS [facility]; Protocol Last Admin: 09/28/18 11:45 Dose: 6 u Methylprednisolone (Solu-Medrol) 40 mg IVP Q8 [facility] Last Admin: 09/28/18 13:33 Dose: 40 mg Pantoprazole Sodium (Protonix Inj) 40 mg IVP DAILY [facility] Last Admin: 09/28/18 11:00 Dose: 40 mg Pneumococcal Polyvalent Vaccine (Pneumovax 23 Vaccine) 0.5 ml SC .ONCE ONE Stop: 09/29/18 10:01 - Labs Labs: 09/28/18 06:08 09/28/18 06:00 PT 12.1 SECONDS (9.7-12.2) 09/26/18 06:16 INR 1.1 09/26/18 06:16 APTT 24 SECONDS (21-34) 09/26/18 06:16 - Constitutional Appears: Chronically Ill - Cardiovascular Exam Cardiovascular Exam: REGULAR RHYTHM - GI/Abdominal Exam GI & Abdominal Exam: Soft, Normal Bowel Sounds. absent: Tenderness, Mass Assessment and Plan (1) Anemia Assessment & Plan: Chronic disease + acute rectal bleed when profoundly thrombocytopenic. Now stable Possible rectal lesion on CT If patient can achieve medical stability would recommendation colonoscopy Status: Acute (2) Lung cancer Status: Acute (3) Thrombocytopenia Status: Acute
--- NOTE | 2018-09-28 18:17 | CP.PCM.PN ---
Subjective - Date & Time of Evaluation Date of Evaluation: 09/28/18 Time of Evaluation: 07:00 - Subjective Subjective: Placed on BiPAP last night for respiratory distress Patient DNR/DNI Objective - Vital Signs/Intake and Output Vital Signs (last 24 hours): Temp Pulse Resp BP Pulse Ox 97 F L 113 H 20 145/64 94 L 09/28/18 04:00 09/28/18 15:45 09/28/18 05:10 09/28/18 05:10 09/28/18 05:10 Intake and Output: 09/28/18 09/28/18 06:59 18:59 Intake Total 1050 Output Total 100 Balance 950 - Medications Medications: Current Medications Acetaminophen (Tylenol 325mg Tab) 650 mg PO Q6 PRN PRN Reason: Fever >100.4 F Albuterol/Ipratropium (Duoneb 3 Mg/0.5 Mg (3 Ml) Ud) 3 ml INH RQ6 [facility] Last Admin: 09/28/18 13:20 Dose: 3 ml Calcium Acetate (Phoslo) 1,334 mg PO TID [facility] Last Admin: 09/28/18 17:25 Dose: Not Given Dextrose (Dextrose 50% Inj) 0 ml IV STAT PRN; Protocol PRN Reason: Hypoglycemia Protocol Dextrose (Glutose 15) 0 gm PO ONCE PRN; Protocol PRN Reason: Hypoglycemia Protocol Fentanyl (Duragesic) 1 patch TD Q72H [facility] Last Admin: 09/28/18 11:00 Dose: 1 patch Glucagon (Glucagen Diagnostic Kit) 0 mg IM STAT PRN; Protocol PRN Reason: Hypoglycemia Protocol Hydromorphone HCl (Dilaudid) 0.5 mg IVP Q4H PRN PRN Reason: Pain, moderate (4-7) Last Admin: 09/28/18 10:58 Dose: 0.5 mg Dextrose (Dextrose 5% In Water 1000 Ml) 1,000 mls @ 0 mls/hr IV .Q0M PRN; Prot ocol PRN Reason: Hypoglycemia Protocol Aztreonam 1 gm/ Sodium (Chloride) 100 mls @ 200 mls/hr IVPB Q12H [facility]; Protocol Last Admin: 09/28/18 10:57 Dose: 200 mls/hr Metronidazole (Flagyl) 500 mg in 100 mls @ 100 mls/hr IVPB Q8H [facility]; Protocol Last Admin: 09/28/18 18:04 Dose: 100 mls/hr Sodium Bicarbonate 150 meq/ (Dextrose) 1,150 mls @ 42 mls/hr IV .Q24H [facility] Last Admin: 09/28/18 11:04 Dose: 42 mls/hr Insulin Human Regular (Novolin R) 0 unit SC Q6 [facility]; Protocol Last Admin: 09/28/18 18:06 Dose: 4 units Methylprednisolone (Solu-Medrol) 40 mg IVP Q8 [facility] Last Admin: 09/28/18 13:33 Dose: 40 mg Pantoprazole Sodium (Protonix Inj) 40 mg IVP DAILY [facility] Last Admin: 09/28/18 11:00 Dose: 40 mg Pneumococcal Polyvalent Vaccine (Pneumovax 23 Vaccine) 0.5 ml SC .ONCE ONE Stop: 09/29/18 10:01 - Labs Labs: 09/28/18 06:08 09/28/18 06:00 PT 12.1 SECONDS (9.7-12.2) 09/26/18 06:16 INR 1.1 09/26/18 06:16 APTT 24 SECONDS (21-34) 09/26/18 06:16 - Constitutional Appears: Non-toxic, Chronically Ill - Head Exam Head Exam: ATRAUMATIC, NORMOCEPHALIC - Eye Exam Eye Exam: PERRL. absent: Scleral icterus - ENT Exam ENT Exam: Mucous Membranes Dry - Neck Exam Neck Exam: absent: Lymphadenopathy - Respiratory Exam Respiratory Exam: Decreased Breath Sounds, Prolonged Expiratory Phase, Rhonchi - Cardiovascular Exam Cardiovascular Exam: REGULAR RHYTHM, +S1, +S2 - GI/Abdominal Exam GI & Abdominal Exam: Distended, Soft. absent: Tenderness - Rectal Exam Rectal Exam: Deferred - Exam Exam: NORMAL INSPECTION - Extremities Exam Extremities Exam: Pedal Edema - Back Exam Back Exam: absent: CVA tenderness (L), CVA tenderness (R) - Neurological Exam Neurological Exam: Alert, Awake, CN II-XII Intact, Oriented x3 - Psychiatric Exam Psychiatric exam: Depressed - Skin Skin Exam: Dry Assessment and Plan (1) Anemia Status: Acute (2) Hypomagnesemia Status: Acute (3) Leukocytosis (leucocytosis) Status: Acute (4) Lung cancer Status: Acute (5) Pneumonia Status: Acute (6) Renal failure Status: Acute (7) Thrombocytopenia Status: Acute (8) BRENDA (acute kidney injury) Status: Acute - Assessment and Plan (Free Text) Assessment: Placed on BiPAP last night for respiratory distress Patient DNR/DNI Plan: cultures all neg cxr findings noted poor prognosis
[2018-09-29] MEDS: HYDROmorphone 0.5 mg/0.5 ml ISec IVP PRN (00:13)
[2018-09-29] MEDS: Albuterol-Ipratrop 3 mg / 0.5 (3 ml) UD INH SCH ×4 (01:19→19:51)
[2018-09-29] MEDS: metroNIDAZOLE IV 500 mg/100 ml 500 MG/100 ML BAG IVPB SCH ×3 (02:34→18:59)
[2018-09-29] MEDS: MethylPREDNISolone 40 mg Vial IVP SCH ×3 (05:01→21:02)
[2018-09-29] MEDS: (Novolin R) Insulin Human Regular 100 units/ml vial SC SCH ×4 (05:17→18:58)
[2018-09-29 05:46] LABS: BASO % 0.1 % (0.0-2.0); EOS # 1.3 K/uL (0.0-0.7); EOS % 3.7 % (0.0-4.0); HEMOGLOBIN 7.1 g/dL (11.0-16.0); LYMPH # 2.1 K/uL (1.0-4.3); LYMPH % 6.2 % (20.0-40.0); MEAN CELL VOLUME 89.4 fL (81.0-99.0); MEAN CORPUSCULAR HEMOGLOBIN 28.8 pg (27.0-31.0); MEAN CORPUSCULAR HGB CONC 32.2 g/dL (33.0-37.0); MEAN PLATELET VOLUME 7.2 fL (7.2-11.7); MONO # 30.6 K/uL (0.0-0.8); MONO % 88.5 % (0.0-10.0); NEUT # 0.5 K/uL (1.8-7.0); NEUT % 1.5 % (50.0-75.0); NRBC % 0.5 % (0.0-2.0); RBC 2.48 Mil/uL (3.80-5.20); RED CELL DISTRIBUTION WIDTH 15.9 % (11.5-14.5); WHITE BLOOD COUNT 34.6 K/uL (4.8-10.8)
[2018-09-29 06:04] LABS: ALB/GLOB RATIO 1.3 (1.0-2.1); ALBUMIN 3.2 g/dL (3.5-5.0); CALCIUM 7.2 mg/dl (8.6-10.4)
[2018-09-29 06:07] LABS: PLATELET COUNT 25 K/uL (130-400)
[2018-09-29 08:26] LABS: BANDS 1 % (0-2); BLASTS 4 % (0-0); EOSINOPHIL 3 % (0-4); LYMPHOCYTE 7 % (20-40); MONOCYTE 73 % (0-10); NEUTROPHIL 11 % (50-75); PLATELET ESTIMATE MARKEDLY DECREASED (NORMAL); PROMYELOCYTE 1 % (0-0); TOTAL CELLS COUNTED 100
[2018-09-29 08:27] LABS: ANISOCYTOSIS MODERATE; HYPOCHROMIC MODERATE; POIKILOCYTOSIS SLIGHT; POLYCHROMIC SLIGHT; SCHISTOCYTES SLIGHT
[2018-09-29 08:28] LABS: OVALOCYTES SLIGHT
[2018-09-29 08:29] LABS: MICROCYTOSIS SLIGHT
[2018-09-29] MEDS ORDERED: Pneumococcal 23-Valent Vaccine SC ONE (10:00)
--- NOTE | 2018-09-29 10:29 | CP.CCUPN ---
CCU Subjective - Physician Review Events Since Last Encounter (Free Text): 09/29/18 10:29 Patient is a 73-year-old female with a history of lung cancer with the chemotherapy. She also has a history of diabetes hypertension COPD and asthma. Number admitted to the intensive care unit with the worsening renal insufficien cy. Now patient is also severely acidotic, metabolic encephalopathy but, worsening renal failure noted. Patient is not responding well. She is on BiPAP at this time. Bicarb drip is running. Family today agreeing for hemodialysis. But the platelet count is low On examination: Patient is drowsy, responding to deep stimuli. On BiPAP. Chest good air entry Irregular heart sounds Abdominal tenderness negative Pedal edema noted Labs reviewed Elevated potassium Elevated creatinine level Chest x-ray nonspecific. Having bowel movements Assessment and recommendation: 73-year-old female admitted with the metabolic encephalopathy. Acute renal failure. Thrombocytopenia. Status post chemotherapy. Sepsis. Worsening mental status, associated with worsening metabolic status, and severe acidosis changes, hyperkalemia. We will get the platelets. We will get the hemodialysis catheter. After that possible dialysis. Patient's overall prognosis very poor DVT and GI prophylaxis CCU Objective - Vital Signs / Intake & Output Vital Signs (Last 4 hours): Vital Signs Temp Pulse 09/29/18 08:00 98.4 F 09/29/18 07:44 100 H Intake and Output (Last 8hrs): Intake & Output 09/28/18 09/29/18 09/29/18 22:59 06:59 14:59 Intake Total 536 436 42 Output Total 0 150 Balance 536 286 42 Weight 162 lb 12.8 oz Intake: Intake, IV Amount 536 436 42 Right Port-A-Cath 336 336 42 Rt portacath y site 200 100 Output: Urine 0 150 Urine, Voided 0 150 Other: # Bowel Movements 1 1 - Physical Exam Head: Positive for: Atraumatic, Normocephalic Pupils: Positive for: PERRL Extroacular Muscles: Positive for: EOMI Conjunctiva: Positive for: Normal Mouth: Positive for: Moist Mucous Membranes Neck: Positive for: Normal Range of Motion Respiratory/Chest: Positive for: Decreased Breath Sounds. Negative for: Respiratory Distress, Accessory Muscle Use Cardiovascular: Positive for: Regular Rate and Rhythm, Normal S1, S2 Abdomen: Positive for: Distention. Negative for: Tenderness Upper Extremity: Positive for: Normal Inspection, Edema (LE edema b/l) Neurological: Positive for: CN II-XII Intact Skin: Positive for: Warm, Normal Color Psychiatric: Positive for: Alert, Other (confused ) - Medications Active Medications: Active Medications Generic Name Dose Route Start Last Admin Trade Name Freq PRN Reason Stop Dose Admin Acetaminophen 650 mg 09/26/18 10:35 Tylenol 325mg Tab PO Q6 PRN Fever >100.4 F Albuterol/Ipratropium 3 ml 09/26/18 14:00 09/29/18 01:19 Duoneb 3 Mg/0.5 Mg (3 Ml) Ud INH 3 ml RQ6 [facility] Administration Calcium Acetate 1,334 mg 09/27/18 14:00 09/28/18 17:25 Phoslo PO Not Given TID [facility] Dextrose 0 ml 09/26/18 10:37 Dextrose 50% Inj IV STAT PRN Hypoglycemia Protocol Protocol Dextrose 0 gm 09/26/18 10:37 Glutose 15 PO ONCE PRN Hypoglycemia Protocol Protocol Glucagon 0 mg 09/26/18 10:37 Glucagen Diagnostic Kit IM STAT PRN Hypoglycemia Protocol Protocol Dextrose 1,000 mls @ 0 mls/hr 09/26/18 10:37 Dextrose 5% In Water 1000 Ml IV .Q0M PRN Hypoglycemia Protocol Protocol Per Protocol Aztreonam 1 gm/ Sodium 100 mls @ 200 mls/hr 09/26/18 21:00 09/28/18 21:56 Chloride IVPB 200 mls/hr Q12H [facility] Administration Protocol Metronidazole 500 mg in 100 mls @ 100 mls/hr 09/26/18 19:00 09/29/18 02:34 Flagyl IVPB 100 mls/hr Q8H [facility] Administration Protocol Sodium Bicarbonate 150 meq/ 1,150 mls @ 42 mls/hr 09/28/18 10:00 09/28/18 11:04 Dextrose IV 42 mls/hr .Q24H [facility] Administration Calcium Gluconate 4.65 meq/ 110 mls @ 100 mls/hr 09/29/18 10:07 Sodium Chloride IV 09/29/18 11:12 ONCE ONE Insulin Human Regular 0 unit 09/29/18 05:10 09/29/18 05:17 Novolin R SC 6 units Q6 [facility] Administration Protocol Methylprednisolone 40 mg 09/28/18 14:00 09/29/18 05:01 Solu-Medrol IVP 40 mg Q8 [facility] Administration Pantoprazole Sodium 40 mg 09/26/18 10:00 09/28/18 11:00 Protonix Inj IVP 40 mg DAILY [facility] Administration Sodium Polystyrene Sulfonate 15 gm 09/29/18 10:25 Kayexalate RC 09/29/18 10:26 ONCE ONE - Patient Studies Lab Studies: Microbiology Studies 09/26/18 07:03 Blood Culture - Preliminary Blood-Venous NO GROWTH AFTER 3 DAYS 09/26/18 07:03 Blood Culture - Preliminary Blood-Venous NO GROWTH AFTER 3 DAYS 09/26/18 07:04 MRSA Culture (Admit) - Final Naris MRSA NOT DETECTED Lab Studies 09/29/18 09/29/18 09/29/18 Range/Units 05:43 05:43 05:02 WBC 34.6 H (4.8-10.8) K/uL RBC 2.48 L (3.80-5.20) Mil/uL Hgb 7.1 L (11.0-16.0) g/dL Hct 22.2 L (34.0-47.0) % MCV 89.4 (81.0-99.0) fL MCH 28.8 (27.0-31.0) pg MCHC 32.2 L (33.0-37.0) g/dL RDW 15.9 H (11.5-14.5) % Plt Count 25 L* D (130-400) K/uL MPV 7.2 (7.2-11.7) fL Neut % (Auto) 1.5 L (50.0-75.0) % Lymph % (Auto) 6.2 L (20.0-40.0) % [place] % (Auto) 88.5 H (0.0-10.0) % Eos % (Auto) 3.7 (0.0-4.0) % Baso % (Auto) 0.1 (0.0-2.0) % Neut # (Auto) 0.5 L (1.8-7.0) K/uL Lymph # (Auto) 2.1 (1.0-4.3) K/uL [place] # (Auto) 30.6 H (0.0-0.8) K/uL Eos # (Auto) 1.3 H (0.0-0.7) K/uL Baso # (Auto) 0.0 (0.0-0.2) K/uL Neutrophils % (Manual) 11 L (50-75) % Band Neutrophils % 1 (0-2) % Lymphocytes % (Manual) 7 L (20-40) % Monocytes % (Manual) 73 H (0-10) % Eosinophils % (Manual) 3 (0-4) % Promyelocytes % 1 H (0-0) % Blast Cells % 4 H (0-0) % Platelet Estimate Markedly decreased L (NORMAL) Polychromasia Slight Hypochromasia (manual) Moderate Poikilocytosis (manual Slight Anisocytosis (manual) Moderate Microcytosis (manual) Slight Ovalocytes Slight Schistocytes Slight Sodium 139 (132-148) mmol/L Potassium 6.1 H (3.6-5.2) mmol/L Chloride 98 (98-107) mmol/L Carbon Dioxide 31 H (22-30) mmol/L Anion Gap 16 (10-20) BUN 93 H (7-17) mg/dL Creatinine 5.5 H (0.7-1.2) mg/dL Est GFR ( Amer) 9 Est GFR (Non-Af Amer) 8 POC Glucose (mg/dL) 323 H (65-110) mg/dL Random Glucose 459 H* D (65-105) mg/dL Calcium 7.2 L (8.6-10.4) mg/dl Total Bilirubin 0.3 (0.2-1.3) mg/dL AST 61 H (14-36) U/L ALT 60 H D (9-52) U/L Alkaline Phosphatase 89 (38-126) U/L Total Protein 5.5 L (6.3-8.3) g/dL Albumin 3.2 L (3.5-5.0) g/dL Globulin 2.4 (2.2-3.9) gm/dL Albumin/Globulin Ratio 1.3 (1.0-2.1) C. difficile Ag & Toxin (NEGATIVE) 09/29/18 09/28/18 09/28/18 Range/Units 00:07 17:36 11:09 WBC (4.8-10.8) K/uL RBC (3.80-5.20) Mil/uL Hgb (11.0-16.0) g/dL Hct (34.0-47.0) % MCV (81.0-99.0) fL MCH (27.0-31.0) pg MCHC (33.0-37.0) g/dL RDW (11.5-14.5) % Plt Count (130-400) K/uL MPV (7.2-11.7) fL Neut % (Auto) (50.0-75.0) % Lymph % (Auto) (20.0-40.0) % [place] % (Auto) (0.0-10.0) % Eos % (Auto) (0.0-4.0) % Baso % (Auto) (0.0-2.0) % Neut # (Auto) (1.8-7.0) K/uL Lymph # (Auto) (1.0-4.3) K/uL [place] # (Auto) (0.0-0.8) K/uL Eos # (Auto) (0.0-0.7) K/uL Baso # (Auto) (0.0-0.2) K/uL Neutrophils % (Manual) (50-75) % Band Neutrophils % (0-2) % Lymphocytes % (Manual) (20-40) % Monocytes % (Manual) (0-10) % Eosinophils % (Manual) (0-4) % Promyelocytes % (0-0) % Blast Cells % (0-0) % Platelet Estimate (NORMAL) Polychromasia Hypochromasia (manual) Poikilocytosis (manual Anisocytosis (manual) Microcytosis (manual) Ovalocytes Schistocytes Sodium (132-148) mmol/L Potassium (3.6-5.2) mmol/L Chloride (98-107) mmol/L Carbon Dioxide (22-30) mmol/L Anion Gap (10-20) BUN (7-17) mg/dL Creatinine (0.7-1.2) mg/dL Est GFR ( Amer) Est GFR (Non-Af Amer) POC Glucose (mg/dL) 286 H 269 H 321 H (65-110) mg/dL Random Glucose (65-105) mg/dL Calcium (8.6-10.4) mg/dl Total Bilirubin (0.2-1.3) mg/dL AST (14-36) U/L ALT (9-52) U/L Alkaline Phosphatase (38-126) U/L Total Protein (6.3-8.3) g/dL Albumin (3.5-5.0) g/dL Globulin (2.2-3.9) gm/dL Albumin/Globulin Ratio (1.0-2.1) C. difficile Ag & Toxin (NEGATIVE) 09/26/18 Range/Units Unknown WBC (4.8-10.8) K/uL RBC (3.80-5.20) Mil/uL Hgb (11.0-16.0) g/dL Hct (34.0-47.0) % MCV (81.0-99.0) fL MCH (27.0-31.0) pg MCHC (33.0-37.0) g/dL RDW (11.5-14.5) % Plt Count (130-400) K/uL MPV (7.2-11.7) fL Neut % (Auto) (50.0-75.0) % Lymph % (Auto) (20.0-40.0) % [place] % (Auto) (0.0-10.0) % Eos % (Auto) (0.0-4.0) % Baso % (Auto) (0.0-2.0) % Neut # (Auto) (1.8-7.0) K/uL Lymph # (Auto) (1.0-4.3) K/uL [place] # (Auto) (0.0-0.8) K/uL Eos # (Auto) (0.0-0.7) K/uL Baso # (Auto) (0.0-0.2) K/uL Neutrophils % (Manual) (50-75) % Band Neutrophils % (0-2) % Lymphocytes % (Manual) (20-40) % Monocytes % (Manual) (0-10) % Eosinophils % (Manual) (0-4) % Promyelocytes % (0-0) % Blast Cells % (0-0) % Platelet Estimate (NORMAL) Polychromasia Hypochromasia (manual) Poikilocytosis (manual Anisocytosis (manual) Microcytosis (manual) Ovalocytes Schistocytes Sodium (132-148) mmol/L Potassium (3.6-5.2) mmol/L Chloride (98-107) mmol/L Carbon Dioxide (22-30) mmol/L Anion Gap (10-20) BUN (7-17) mg/dL Creatinine (0.7-1.2) mg/dL Est GFR ( Amer) Est GFR (Non-Af Amer) POC Glucose (mg/dL) (65-110) mg/dL Random Glucose (65-105) mg/dL Calcium (8.6-10.4) mg/dl Total Bilirubin (0.2-1.3) mg/dL AST (14-36) U/L ALT (9-52) U/L Alkaline Phosphatase (38-126) U/L Total Protein (6.3-8.3) g/dL Albumin (3.5-5.0) g/dL Globulin (2.2-3.9) gm/dL Albumin/Globulin Ratio (1.0-2.1) C. difficile Ag & Toxin Negative (NEGATIVE) Laboratory Results - last 24 hr 09/26/18 09/28/18 09/28/18 Unknown 11:09 17:36 WBC RBC Hgb Hct MCV MCH MCHC RDW Plt Count MPV Neut % (Auto) Lymph % (Auto) [place] % (Auto) Eos % (Auto) Baso % (Auto) Neut # (Auto) Lymph # (Auto) [place] # (Auto) Eos # (Auto) Baso # (Auto) Neutrophils % (Manual) Band Neutrophils % Lymphocytes % (Manual) Monocytes % (Manual) Eosinophils % (Manual) Promyelocytes % Blast Cells % Platelet Estimate Polychromasia Hypochromasia (manual) Poikilocytosis (manual Anisocytosis (manual) Microcytosis (manual) Ovalocytes Schistocytes Sodium Potassium Chloride Carbon Dioxide Anion Gap BUN Creatinine Est GFR ( Amer) Est GFR (Non-Af Amer) POC Glucose (mg/dL) 321 H 269 H Random Glucose Calcium Total Bilirubin AST ALT Alkaline Phosphatase Total Protein Albumin Globulin Albumin/Globulin Ratio C. difficile Ag & Toxin Negative 09/29/18 09/29/18 09/29/18 00:07 05:02 05:43 WBC 34.6 H RBC 2.48 L Hgb 7.1 L Hct 22.2 L MCV 89.4 MCH 28.8 MCHC 32.2 L RDW 15.9 H Plt Count 25 L* D MPV 7.2 Neut % (Auto) 1.5 L Lymph % (Auto) 6.2 L [place] % (Auto) 88.5 H Eos % (Auto) 3.7 Baso % (Auto) 0.1 Neut # (Auto) 0.5 L Lymph # (Auto) 2.1 [place] # (Auto) 30.6 H Eos # (Auto) 1.3 H Baso # (Auto) 0.0 Neutrophils % (Manual) 11 L Band Neutrophils % 1 Lymphocytes % (Manual) 7 L Monocytes % (Manual) 73 H Eosinophils % (Manual) 3 Promyelocytes % 1 H Blast Cells % 4 H Platelet Estimate Markedly decreased L Polychromasia Slight Hypochromasia (manual) Moderate Poikilocytosis (manual Slight Anisocytosis (manual) Moderate Microcytosis (manual) Slight Ovalocytes Slight Schistocytes Slight Sodium Potassium Chloride Carbon Dioxide Anion Gap BUN Creatinine Est GFR ( Amer) Est GFR (Non-Af Amer) POC Glucose (mg/dL) 286 H 323 H Random Glucose Calcium Total Bilirubin AST ALT Alkaline Phosphatase Total Protein Albumin Globulin Albumin/Globulin Ratio C. difficile Ag & Toxin 09/29/18 05:43 WBC RBC Hgb Hct MCV MCH MCHC RDW Plt Count MPV Neut % (Auto) Lymph % (Auto) [place] % (Auto) Eos % (Auto) Baso % (Auto) Neut # (Auto) Lymph # (Auto) [place] # (Auto) Eos # (Auto) Baso # (Auto) Neutrophils % (Manual) Band Neutrophils % Lymphocytes % (Manual) Monocytes % (Manual) Eosinophils % (Manual) Promyelocytes % Blast Cells % Platelet Estimate Polychromasia Hypochromasia (manual) Poikilocytosis (manual Anisocytosis (manual) Microcytosis (manual) Ovalocytes Schistocytes Sodium 139 Potassium 6.1 H Chloride 98 Carbon Dioxide 31 H Anion Gap 16 BUN 93 H Creatinine 5.5 H Est GFR ( Amer) 9 Est GFR (Non-Af Amer) 8 POC Glucose (mg/dL) Random Glucose 459 H* D Calcium 7.2 L Total Bilirubin 0.3 AST 61 H ALT 60 H D Alkaline Phosphatase 89 Total Protein 5.5 L Albumin 3.2 L Globulin 2.4 Albumin/Globulin Ratio 1.3 C. difficile Ag & Toxin Fingerstick Blood Sugar Results: 286 Critical Care Progress Note - Nutrition Nutrition: Nutrition Category Date Time Status NPO Diet [DIET] Diets 09/28/18 Lunch Active
--- NOTE | 2018-09-29 10:30 | RAD ---
Date of service: 09/29/2018 HISTORY: ESRD, potential HD COMPARISON: Portable chest 09/27/2017. FINDINGS: LUNGS: Right MediPort unchanged in position. Masslike density at the right base is seen laterally once again and is not significantly changed in appearance taking differences in positioning into account. Remaining lung corrigan are clear. PLEURA: No significant pleural effusion identified, no pneumothorax apparent. CARDIOVASCULAR: No aortic atherosclerotic calcification present. Normal cardiac size. No pulmonary vascular congestion. OSSEOUS STRUCTURES: No significant abnormalities. VISUALIZED UPPER ABDOMEN: Normal. OTHER FINDINGS: None. IMPRESSION: Lateral right basilar mass like density again evident. No acute interval change with the left lung appearing clear. No pulmonary vascular congestion.
--- NOTE | 2018-09-29 10:50 | CP.PCM.PN ---
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 Now to get dialysis. Objective - Vital Signs/Intake and Output Vital Signs (last 24 hours): Temp Pulse Resp BP Pulse Ox 98.4 F 100 H 15 115/31 L 97 09/29/18 08:00 09/29/18 07:44 09/29/18 06:00 09/29/18 05:55 09/29/18 06:00 Intake and Output: 09/29/18 09/29/18 06:59 18:59 Intake Total 804 42 Output Total 150 Balance 654 42 - Medications Medications: Current Medications Acetaminophen (Tylenol 325mg Tab) 650 mg PO Q6 PRN PRN Reason: Fever >100.4 F Albuterol/Ipratropium (Duoneb 3 Mg/0.5 Mg (3 Ml) Ud) 3 ml INH RQ6 [facility] Last Admin: 09/29/18 01:19 Dose: 3 ml Calcium Acetate (Phoslo) 1,334 mg PO TID [facility] Last Admin: 09/28/18 17:25 Dose: Not Given Dextrose (Dextrose 50% Inj) 0 ml IV STAT PRN; Protocol PRN Reason: Hypoglycemia Protocol Dextrose (Glutose 15) 0 gm PO ONCE PRN; Protocol PRN Reason: Hypoglycemia Protocol Glucagon (Glucagen Diagnostic Kit) 0 mg IM STAT PRN; Protocol PRN Reason: Hypoglycemia Protocol Dextrose (Dextrose 5% In Water 1000 Ml) 1,000 mls @ 0 mls/hr IV .Q0M PRN; Protocol PRN Reason: Hypoglycemia Protocol Aztreonam 1 gm/ Sodium (Chloride) 100 mls @ 200 mls/hr IVPB Q12H [facility]; Protocol Last Admin: 09/28/18 21:56 Dose: 200 mls/hr Metronidazole (Flagyl) 500 mg in 100 mls @ 100 mls/hr IVPB Q8H [facility]; Protocol Last Admin: 09/29/18 02:34 Dose: 100 mls/hr Sodium Bicarbonate 150 meq/ (Dextrose) 1,150 mls @ 42 mls/hr IV .Q24H [facility] Last Admin: 09/28/18 11:04 Dose: 42 mls/hr Calcium Gluconate 4.65 meq/ (Sodium Chloride) 110 mls @ 100 mls/hr IV ONCE ONE Stop: 09/29/18 11:12 Insulin Human Regular (Novolin R) 0 unit SC Q6 [facility]; Protocol Last Admin: 09/29/18 05:17 Dose: 6 units Methylprednisolone (Solu-Medrol) 40 mg IVP Q8 [facility] Last Admin: 09/29/18 05:01 Dose: 40 mg Pantoprazole Sodium (Protonix Inj) 40 mg IVP DAILY [facility] Last Admin: 09/28/18 11:00 Dose: 40 mg - Labs Labs: 09/29/18 05:43 09/29/18 05:43 PT 12.1 SECONDS (9.7-12.2) 09/26/18 06:16 INR 1.1 09/26/18 06:16 APTT 24 SECONDS (21-34) 09/26/18 06:16 - Constitutional Appears: No Acute Distress - Respiratory Exam Respiratory Exam: Decreased Breath Sounds - Cardiovascular Exam Cardiovascular Exam: REGULAR RHYTHM - GI/Abdominal Exam GI & Abdominal Exam: Soft, Normal Bowel Sounds. absent: Tenderness, Mass, Rebound Assessment and Plan (1) Iron deficiency anemia Status: Acute (2) Rectal bleed Assessment & Plan: No further bleeding since admission. Supportive care. Too acutely ill for colonoscopy which may be done at a later date if stable. Status: Acute
[2018-09-29] MEDS: Sodium Bicarbonate 8.4% 150 MEQ in Dextrose 5% In Water 1,000 ML IV SCH (10:51)
[2018-09-29] MEDS: Aztreonam 1 GM in Sodium Chloride 0.9% 100 ML IVPB SCH ×2 (10:52→21:00)
--- NOTE | 2018-09-29 11:07 | CP.PCM.PN ---
Subjective - Date & Time of Evaluation Date of Evaluation: 09/29/18 Time of Evaluation: 08:30 - Subjective Subjective: Patient seen and examined Obtunded on BiPAP Received Dilaudid last night Worsening renal failure Objective - Vital Signs/Intake and Output Vital Signs (last 24 hours): Temp Pulse Resp BP Pulse Ox 98.4 F 100 H 15 120/77 97 09/29/18 08:00 09/29/18 07:44 09/29/18 06:00 09/29/18 10:52 09/29/18 06:00 Intake and Output: 09/29/18 09/29/18 06:59 18:59 Intake Total 804 42 Output Total 150 Balance 654 42 - Medications Medications: Current Medications Acetaminophen (Tylenol 325mg Tab) 650 mg PO Q6 PRN PRN Reason: Fever >100.4 F Last Admin: 09/29/18 10:51 Dose: 650 mg Albuterol/Ipratropium (Duoneb 3 Mg/0.5 Mg (3 Ml) Ud) 3 ml INH RQ6 [facility] Last Admin: 09/29/18 01:19 Dose: 3 ml Calcium Acetate (Phoslo) 1,334 mg PO TID [facility] Last Admin: 09/29/18 10:53 Dose: Not Given Dextrose (Dextrose 50% Inj) 0 ml IV STAT PRN; Protocol PRN Reason: Hypoglycemia Protocol Dextrose (Glutose 15) 0 gm PO ONCE PRN; Protocol PRN Reason: Hypoglycemia Protocol Glucagon (Glucagen Diagnostic Kit) 0 mg IM STAT PRN; Protocol PRN Reason: Hypoglycemia Protocol Dextrose (Dextrose 5% In Water 1000 Ml) 1,000 mls @ 0 mls/hr IV .Q0M PRN; Protocol PRN Reason: Hypoglycemia Protocol Aztreonam 1 gm/ Sodium (Chloride) 100 mls @ 200 mls/hr IVPB Q12H [facility]; Protocol Last Admin: 09/29/18 10:52 Dose: 200 mls/hr Metronidazole (Flagyl) 500 mg in 100 mls @ 100 mls/hr IVPB Q8H [facility]; Protocol Last Admin: 09/29/18 10:52 Dose: 100 mls/hr Sodium Bicarbonate 150 meq/ (Dextrose) 1,150 mls @ 42 mls/hr IV .Q24H [facility] Last Admin: 09/29/18 10:51 Dose: 42 mls/hr Calcium Gluconate 4.65 meq/ (Sodium Chloride) 110 mls @ 100 mls/hr IV ONCE ONE Stop: 09/29/18 11:12 Last Admin: 09/29/18 10:53 Dose: 100 mls/hr Insulin Human Regular (Novolin R) 0 unit SC Q6 [facility]; Protocol Last Admin: 09/29/18 05:17 Dose: 6 units Methylprednisolone (Solu-Medrol) 40 mg IVP Q8 [facility] Last Admin: 09/29/18 05:01 Dose: 40 mg Pantoprazole Sodium (Protonix Inj) 40 mg IVP DAILY [facility] Last Admin: 09/29/18 10:52 Dose: 40 mg - Labs Labs: 09/29/18 05:43 09/29/18 05:43 PT 12.1 SECONDS (9.7-12.2) 09/26/18 06:16 INR 1.1 09/26/18 06:16 APTT 24 SECONDS (21-34) 09/26/18 06:16 - Head Exam Head Exam: ATRAUMATIC, NORMOCEPHALIC - ENT Exam ENT Exam: Mucous Membranes Moist - Neck Exam Neck Exam: Normal Inspection - Respiratory Exam Respiratory Exam: Decreased Breath Sounds - Cardiovascular Exam Cardiovascular Exam: REGULAR RHYTHM - GI/Abdominal Exam GI & Abdominal Exam: Soft, Normal Bowel Sounds Assessment and Plan (1) Respiratory failure with hypercapnia Assessment & Plan: Hypercapnic respiratory failure secondary to COPD Continue BiPAP Follow-up ABG Nebulizer treatment and steroids Patient and family agreed for hemodialysis Transfuse during dialysis Status: Acute (2) COPD exacerbation Status: Acute
[2018-09-29 11:13] LABS: ARTERIAL BLOOD GAS HCO3 20.9 mmol/L (21-28); ARTERIAL BLOOD GAS O2 SAT 96.2 % (95-98); ARTERIAL BLOOD GAS PCO2 106 mm/Hg (35-45); ARTERIAL BLOOD GAS PH 7.03 (7.35-7.45); ARTERIAL BLOOD GAS PO2 80 mm/Hg (80-100); ARTERIAL BLOOD GAS TCO2 31.3 mmol/L (22-28)
--- NOTE | 2018-09-29 11:32 | CP.PCM.PN ---
Subjective - Date & Time of Evaluation Date of Evaluation: 09/29/18 Time of Evaluation: 10:30 - Subjective Subjective: Notes reviewed Patient lethargic in icu Unable to provide history Remains on bicarb infusion No family present Discussed with ICU attending Family does not want intubation, Co > 100 discussed Previous discussion with family - no dialysis Family reconsidering plan - to discuss with intensive care team this am ROS unobtainable due to mental status Objective - Vital Signs/Intake and Output Vital Signs (last 24 hours): Temp Pulse Resp BP Pulse Ox 98.4 F 100 H 15 120/77 97 09/29/18 08:00 09/29/18 07:44 09/29/18 06:00 09/29/18 10:52 09/29/18 06:00 Intake and Output: 09/29/18 09/29/18 06:59 18:59 Intake Total 804 42 Output Total 150 Balance 654 42 - Medications Medications: Current Medications Acetaminophen (Tylenol 325mg Tab) 650 mg PO Q6 PRN PRN Reason: Fever >100.4 F Last Admin: 09/29/18 10:51 Dose: 650 mg Albuterol/Ipratropium (Duoneb 3 Mg/0.5 Mg (3 Ml) Ud) 3 ml INH RQ6 [facility] Last Admin: 09/29/18 01:19 Dose: 3 ml Calcium Acetate (Phoslo) 1,334 mg PO TID [facility] Last Admin: 09/29/18 10:53 Dose: Not Given Dextrose (Dextrose 50% Inj) 0 ml IV STAT PRN; Protocol PRN Reason: Hypoglycemia Protocol Dextrose (Glutose 15) 0 gm PO ONCE PRN; Protocol PRN Reason: Hypoglycemia Protocol Glucagon (Glucagen Diagnostic Kit) 0 mg IM STAT PRN; Protocol PRN Reason: Hypoglycemia Protocol Dextrose (Dextrose 5% In Water 1000 Ml) 1,000 mls @ 0 mls/hr IV .Q0M PRN; Protocol PRN Reason: Hypoglycemia Protocol Aztreonam 1 gm/ Sodium (Chloride) 100 mls @ 200 mls/hr IVPB Q12H [facility]; Protocol Last Admin: 09/29/18 10:52 Dose: 200 mls/hr Metronidazole (Flagyl) 500 mg in 100 mls @ 100 mls/hr IVPB Q8H [facility]; Protocol Last Admin: 09/29/18 10:52 Dose: 100 mls/hr Sodium Bicarbonate 150 meq/ (Dextrose) 1,150 mls @ 42 mls/hr IV .Q24H [facility] Last Admin: 09/29/18 10:51 Dose: 42 mls/hr Insulin Human Regular (Novolin R) 0 unit SC Q6 [facility]; Protocol Last Admin: 09/29/18 05:17 Dose: 6 units Methylprednisolone (Solu-Medrol) 40 mg IVP Q8 [facility] Last Admin: 09/29/18 05:01 Dose: 40 mg Pantoprazole Sodium (Protonix Inj) 40 mg IVP DAILY [facility] Last Admin: 09/29/18 10:52 Dose: 40 mg - Labs Labs: 09/29/18 05:43 09/29/18 05:43 PT 12.1 SECONDS (9.7-12.2) 09/26/18 06:16 INR 1.1 09/26/18 06:16 APTT 24 SECONDS (21-34) 09/26/18 06:16 - Constitutional Appears: Toxic, Confused - Head Exam Head Exam: ATRAUMATIC, NORMAL INSPECTION - Eye Exam Eye Exam: Normal appearance. absent: Conjunctival injection - ENT Exam ENT Exam: Mucous Membranes Moist, Normal Oropharynx - Respiratory Exam Respiratory Exam: Rales, Rhonchi - Cardiovascular Exam Cardiovascular Exam: +S1, +S2. absent: Rubs - GI/Abdominal Exam GI & Abdominal Exam: Soft, Normal Bowel Sounds - Extremities Exam Extremities Exam: Pedal Edema. absent: Joint Swelling - Neurological Exam Neurological Exam: absent: Alert, Awake, Oriented x3 - Skin Skin Exam: Dry, Intact Assessment and Plan (1) Hyperkalemia Status: Acute (2) Renal failure Status: Acute (3) Respiratory failure with hypercapnia Status: Acute (4) Diabetes Status: Chronic (5) Hypertension Status: Chronic (6) Small cell lung cancer Status: Chronic - Assessment and Plan (Free Text) Assessment: Multiorgan failure with encephalopathy, renal failure, respiratory failure Not a good candidate for dialysis given multiple medical problems and DNR/DNI status Not likely to survive without intubation as discussed with icu team Suggest increasing insulin for hyperkalemia and hyperglycemia IVF as ordered, consider holding bicarb Await further discussion with family regarding plan of care
--- NOTE | 2018-09-29 11:42 | CP.PCM.PN ---
Subjective - Date & Time of Evaluation Date of Evaluation: 09/29/18 Time of Evaluation: 11:00 - Subjective Subjective: Patient remains on Bipap She was able to open her eyes and look at me when I called her name however lethargic. Not following commands. I was told that family changed their minds and would like to try HD. I placed in orders for platelet 1 unit as it has been decreasing There is already a consult for the placement and nephrology is aware K was higher at 6.1, order for Kayexalte x 1 and also Calcium Gluconate for now Held the Dialudid an Fentayl for the time being as the family wants to see if she will wake up more and they want to try to see if HD helps even though the prognosis is poor As mentioned previously, this is a 73 yr olf female with a history of lung cancer, COPD, Asthma who was found by family members on 09/26 confused and short of breath. Reportedly recent chemotherapy, decreased appetite. She was found to be having fevers, elevated WBC, pancytopenic as well as elevated creatine. Prognosis is very poor, family is aware of this. Objective - Vital Signs/Intake and Output Vital Signs (last 24 hours): Temp Pulse Resp BP Pulse Ox 98.4 F 100 H 15 120/77 97 09/29/18 08:00 09/29/18 07:44 09/29/18 06:00 09/29/18 10:52 09/29/18 06:00 Intake and Output: 09/29/18 09/29/18 06:59 18:59 Intake Total 804 42 Output Total 150 Balance 654 42 - Medications Medications: Current Medications Acetaminophen (Tylenol 325mg Tab) 650 mg PO Q6 PRN PRN Reason: Fever >100.4 F Last Admin: 09/29/18 10:51 Dose: 650 mg Albuterol/Ipratropium (Duoneb 3 Mg/0.5 Mg (3 Ml) Ud) 3 ml INH RQ6 [facility] Last Admin: 09/29/18 01:19 Dose: 3 ml Calcium Acetate (Phoslo) 1,334 mg PO TID [facility] Last Admin: 09/29/18 10:53 Dose: Not Given Dextrose (Dextrose 50% Inj) 0 ml IV STAT PRN; Protocol PRN Reason: Hypoglycemia Protocol Dextrose (Glutose 15) 0 gm PO ONCE PRN; Protocol PRN Reason: Hypoglycemia Protocol Glucagon (Glucagen Diagnostic Kit) 0 mg IM STAT PRN; Protocol PRN Reason: Hypoglycemia Protocol Dextrose (Dextrose 5% In Water 1000 Ml) 1,000 mls @ 0 mls/hr IV .Q0M PRN; Protocol PRN Reason: Hypoglycemia Protocol Aztreonam 1 gm/ Sodium (Chloride) 100 mls @ 200 mls/hr IVPB Q12H [facility]; Protocol Last Admin: 09/29/18 10:52 Dose: 200 mls/hr Metronidazole (Flagyl) 500 mg in 100 mls @ 100 mls/hr IVPB Q8H [facility]; Protocol Last Admin: 09/29/18 10:52 Dose: 100 mls/hr Sodium Bicarbonate 150 meq/ (Dextrose) 1,150 mls @ 42 mls/hr IV .Q24H [facility] Last Admin: 09/29/18 10:51 Dose: 42 mls/hr Insulin Human Regular (Novolin R) 0 unit SC Q6 [facility]; Protocol Last Admin: 09/29/18 05:17 Dose: 6 units Methylprednisolone (Solu-Medrol) 40 mg IVP Q8 [facility] Last Admin: 09/29/18 05:01 Dose: 40 mg Pantoprazole Sodium (Protonix Inj) 40 mg IVP DAILY [facility] Last Admin: 09/29/18 10:52 Dose: 40 mg - Labs Labs: 09/29/18 05:43 09/29/18 05:43 PT 12.1 SECONDS (9.7-12.2) 09/26/18 06:16 INR 1.1 09/26/18 06:16 APTT 24 SECONDS (21-34) 09/26/18 06:16 - Constitutional Appears: Cachectic, Chronically Ill - ENT Exam ENT Exam: Mucous Membranes Moist - Respiratory Exam Respiratory Exam: Decreased Breath Sounds, Rales - Neurological Exam Neurological Exam: Altered, Awake Neuro motor strength exam: Left Upper Extremity: 3, Right Upper Extremity: 3 - Psychiatric Exam Psychiatric exam: Normal Affect, Normal Mood - Skin Skin Exam: Normal Color, Warm Assessment and Plan - Assessment and Plan (Free Text) Assessment: As mentioned previously, this is a 73 yr olf female with a history of lung cancer, COPD, Asthma who was found by family members on 09/26 confused, fatigued, and short of breath. Reportedly recent chemotherapy, decreased appetite. She was found to be having fevers, elevated WBC, pancytopenic as well as elevated creatine. She might may have received outpatient WBC growth factors prior. She is now DNR and DNI. Prognosis is unfortunately very poor and discussed with several family member 1 BRENDA - metabolic acidosis and respiratory failure 09/29: Family changed mind and would like to try HD. Calcium gluconate and also Kayexelate x1 Platelets ordered x1 and also because of her leathergy held the IV dila udid and fentanyl. 09/28: Creatine increased to 5.2, currently on Bipap, the patient was stated on bicarb ggt 09/27: Creatine remains elevated 4.6 She had renal ultrasound yesterday Follow urine outputs On PhosLo TID Nephrology is following 2 Sepsis - Leukocytosis 09/28: Remains on the Aztreonam and Flagyl. Urine and blood cultures negative 48hrs now. No fevers 09/27: Currently IV abx Aztreonman and IV flagyl. Also PO vancomycin At this moment cultures are negative She intially had very high fevers when she came and now temperatures stable Also patient probably had administration of growth factors outpatient 2 Pancytopenia and likley acute on chronic anemia 09/29: Transfuse one unit of platelets again 09/28: The Hgb decreased to 7.9, platelet count decreased 09/27: Improved, she has had PRBCs given She was also given platelets as well. She had + stool occult as well, GI is following. Pending C diff study as well. 4 Lung CA 09/28: 09/27: Patient still smokes despite history of Lung CA and COPD/Asthma Pending palliative care consult to discuss code status The CXRAYs shows a RLL mass 5 DM: Continue on SSI
[2018-09-29] MEDS ORDERED: Sodium Bicarbonate (8.4%) 50 mEq Vial IVP ONE (12:26)
[2018-09-29] MEDS ORDERED: Sodium Bicarbonate (8.4%) 50 Meq Syringe ONE (14:47)
[2018-09-30] MEDS: Albuterol-Ipratrop 3 mg / 0.5 (3 ml) UD INH SCH ×4 (01:39→20:08)
[2018-09-30] MEDS: metroNIDAZOLE IV 500 mg/100 ml 500 MG/100 ML BAG IVPB SCH ×3 (03:00→18:23)
[2018-09-30] MEDS: MethylPREDNISolone 40 mg Vial IVP SCH ×3 (05:18→22:00)
[2018-09-30] MEDS: (Novolin R) Insulin Human Regular 100 units/ml vial SC SCH ×4 (06:13→18:26)
[2018-09-30 06:36] LABS: EOS # 0.8 K/uL (0.0-0.7); EOS % 2.7 % (0.0-4.0); LYMPH # 1.2 K/uL (1.0-4.3); LYMPH % 4.4 % (20.0-40.0); MEAN CELL VOLUME 88.3 fL (81.0-99.0); MEAN CORPUSCULAR HEMOGLOBIN 29.1 pg (27.0-31.0); MEAN PLATELET VOLUME 8.2 fL (7.2-11.7); MONO # 25.1 K/uL (0.0-0.8); MONO % 89.3 % (0.0-10.0); NEUT % 3.6 % (50.0-75.0); NRBC % 0.5 % (0.0-2.0); RED CELL DISTRIBUTION WIDTH 15.8 % (11.5-14.5); WHITE BLOOD COUNT 28.2 K/uL (4.8-10.8)
[2018-09-30 06:43] LABS: PLATELET COUNT 23 K/uL (130-400)
[2018-09-30 06:52] LABS: ALB/GLOB RATIO 1.2 (1.0-2.1); ALBUMIN 3.1 g/dL (3.5-5.0); CALCIUM 7.3 mg/dl (8.6-10.4)
--- NOTE | 2018-09-30 08:33 | CP.PCM.PN ---
Subjective - Date & Time of Evaluation Date of Evaluation: 09/30/18 Time of Evaluation: 08:15 - Subjective Subjective: Patient was lethargic, slow to respond to her name Currenlty on Bipap Family member present at bedside and we discussed again. Yesterday they had been considering HD, however I was informed that they then changed their minds again and no longer want HD as of this morning 09/30/2018 Had long discussion with family member at bedside. They understand prognosis is not good. They asked about the oxygen and bicarb ggt if these were off how long would she live and I explained she would probably soon. We discussed hospice and comfortcare. Family explained they will talk together As mentioned previously, this is a 73 yr olf female with a history of lung cancer, COPD, Asthma who was found by family members on 09/26 confused and short of breath. Reportedly recent chemotherapy, decreased appetite. She was found to be having fevers, elevated WBC, pancytopenic as well as elevated creatine. Prognosis is very poor, family is aware of this. Objective - Vital Signs/Intake and Output Vital Signs (last 24 hours): Temp Pulse Resp BP Pulse Ox 97.5 F L 84 18 130/50 L 97 09/30/18 04:00 09/30/18 08:23 09/30/18 06:55 09/30/18 06:55 09/30/18 06:55 Intake and Output: 09/30/18 09/30/18 06:59 18:59 Intake Total 704 Output Total 0 Balance 704 - Medications Medications: Current Medications Acetaminophen (Tylenol 325mg Tab) 650 mg PO Q6 PRN PRN Reason: Fever >100.4 F Last Admin: 09/29/18 10:51 Dose: 650 mg Albuterol/Ipratropium (Duoneb 3 Mg/0.5 Mg (3 Ml) Ud) 3 ml INH RQ6 [facility] Last Admin: 09/30/18 07:40 Dose: 3 ml Calcium Acetate (Phoslo) 1,334 mg PO TID [facility] Last Admin: 09/29/18 18:59 Dose: Not Given Dextrose (Dextrose 50% Inj) 0 ml IV STAT PRN; Protocol PRN Reason: Hypoglycemia Protocol Dextrose (Glutose 15) 0 gm PO ONCE PRN; Protocol PRN Reason: Hypoglycemia Protocol Glucagon (Glucagen Diagnostic Kit) 0 mg IM STAT PRN; Protocol PRN Reason: Hypoglycemia Protocol Dextrose (Dextrose 5% In Water 1000 Ml) 1,000 mls @ 0 mls/hr IV .Q0M PRN; Protocol PRN Reason: Hypoglycemia Protocol Aztreonam 1 gm/ Sodium (Chloride) 100 mls @ 200 mls/hr IVPB Q12H [facility]; Protocol Last Admin: 09/29/18 21:00 Dose: 200 mls/hr Metronidazole (Flagyl) 500 mg in 100 mls @ 100 mls/hr IVPB Q8H [facility]; Protocol Last Admin: 09/30/18 03:00 Dose: 100 mls/hr Sodium Bicarbonate 150 meq/ (Dextrose) 1,150 mls @ 42 mls/hr IV .Q24H [facility] Last Admin: 09/29/18 10:51 Dose: 42 mls/hr Insulin Human Regular (Novolin R) 0 unit SC Q6 [facility]; Protocol Last Admin: 09/30/18 06:13 Dose: 3 units Methylprednisolone (Solu-Medrol) 40 mg IVP Q8 [facility] Last Admin: 09/30/18 05:18 Dose: 40 mg Morphine Sulfate (Morphine) 2 mg IVP Q3 PRN PRN Reason: Agitation Last Admin: 09/30/18 04:30 Dose: 2 mg Pantoprazole Sodium (Protonix Inj) 40 mg IVP DAILY [facility] Last Admin: 09/29/18 10:52 Dose: 40 mg - Labs Labs: 09/30/18 06:25 09/30/18 06:25 PT 12.1 SECONDS (9.7-12.2) 09/26/18 06:16 INR 1.1 09/26/18 06:16 APTT 24 SECONDS (21-34) 09/26/18 06:16 - Constitutional Appears: Chronically Ill - ENT Exam ENT Exam: Mucous Membranes Moist - Respiratory Exam Respiratory Exam: Decreased Breath Sounds, NORMAL BREATHING PATTERN - Cardiovascular Exam Cardiovascular Exam: REGULAR RHYTHM - GI/Abdominal Exam GI & Abdominal Exam: Soft. absent: Distended, Firm, Guarding, Rigid, Tenderness - Neurological Exam Neurological Exam: Alert, Altered, Awake - Skin Skin Exam: Normal Color, Warm Assessment and Plan - Assessment and Plan (Free Text) Assessment: As mentioned previously, this is a 73 yr olf female with a history of lung cancer, COPD, Asthma who was found by family members on 09/26 confused, fatigued, and short of breath. Reportedly recent chemotherapy, decreased appetite. She was found to be having fevers, elevated WBC, pancytopenic as well as elevated creatine. She might may have received outpatient WBC growth factors prior. She is now DNR and DNI. Prognosis is unfortunately very poor and discussed with several family member 1 BRENDA - metabolic acidosis and respiratory failure 09/30: As of this morning they do not want HD. They understand prognosis is not good. Family is cosndiering hospice/comfort care As of now on bicarb ggt and also. Additional calcium gluconate, and also IV insulin for the elevated K. There was no urine output 09/29: Family changed mind and would like to try HD. Calcium gluconate and also Kayexelate x1 Platelets ordered x1 and also because of her leathergy held the IV dilaudid and fentanyl. 09/28: Creatine increased to 5.2, currently on Bipap, the patient was stated on bicarb ggt 09/27: Creatine remains elevated 4.6 She had renal ultrasound yesterday Follow urine outputs On PhosLo TID Nephrology is following 2 Sepsis - Leukocytosis 09/28: Remains on the Aztreonam and Flagyl. Urine and blood cultures negative 48hrs now. No fevers 09/27: Currently IV abx Aztreonman and IV flagyl. Also PO vancomycin At this moment cultures are negative She intially had very high fevers when she came and now temperatures stable Also patient probably had administration of growth factors outpatient 2 Pancytopenia and likley acute on chronic anemia 09/30: Despite blood and platelet transfusions they are decreasing 09/29: Transfuse one unit of platelets again 09/28: The Hgb decreased to 7.9, platelet count decreased 09/27: Improved, she has had PRBCs given She was also given platelets as well. She had + stool occult as well, GI is following. Pending C diff study as well. 4 Lung CA 09/30: Family is considering hospice care 09/28: 09/27: Patient still smokes despite history of Lung CA and COPD/Asthma Pending palliative care consult to discuss code status The CXRAYs shows a RLL mass 5 DM: Continue on SSI
[2018-09-30] MEDS ORDERED: (Novolin R) Insulin Human Regular 100 units/ml vial IVP ONE (08:41)
[2018-09-30 08:55] LABS: BLASTS 7 % (0-0); EOSINOPHIL 1 % (0-4); LYMPHOCYTE 4 % (20-40); MONOCYTE 84 % (0-10); NEUTROPHIL 3 % (50-75); PLATELET ESTIMATE MARKEDLY DECREASED (NORMAL); PROMYELOCYTE 1 % (0-0); TOTAL CELLS COUNTED 100
[2018-09-30 08:56] LABS: HYPOCHROMIC SLIGHT; POIKILOCYTOSIS SLIGHT; POLYCHROMIC SLIGHT; SCHISTOCYTES SLIGHT
[2018-09-30 08:59] LABS: ANISOCYTOSIS MODERATE
[2018-09-30] MEDS: Aztreonam 1 GM in Sodium Chloride 0.9% 100 ML IVPB SCH ×2 (10:25→21:55)
[2018-09-30] MEDS: Sodium Bicarbonate 8.4% 150 MEQ in Dextrose 5% In Water 1,000 ML IV SCH (10:27)
--- NOTE | 2018-09-30 12:13 | CP.PCM.PN ---
Subjective - Date & Time of Evaluation Date of Evaluation: 09/30/18 Time of Evaluation: 12:09 - Subjective Subjective: Pulmonary follow up, Covering Dr [place] The Patient was seen and examined at the bedside, Medical records reviewed, and management issues were discussed and formulated with the house staff. Events reviewed Patient is resting comfortably on BIPAP Patient is more lethargic today. DNR/DNI Very Poor prognosis Objective - Vital Signs/Intake and Output Vital Signs (last 24 hours): Temp Pulse Resp BP Pulse Ox 97.5 F L 84 18 130/50 L 97 09/30/18 04:00 09/30/18 08:23 09/30/18 06:55 09/30/18 06:55 09/30/18 06:55 Intake and Output: 09/30/18 09/30/18 06:59 18:59 Intake Total 704 Output Total 0 Balance 704 - Medications Medications: Current Medications Acetaminophen (Tylenol 325mg Tab) 650 mg PO Q6 PRN PRN Reason: Fever >100.4 F Last Admin: 09/29/18 10:51 Dose: 650 mg Albuterol/Ipratropium (Duoneb 3 Mg/0.5 Mg (3 Ml) Ud) 3 ml INH RQ6 [facility] Last Admin: 09/30/18 07:40 Dose: 3 ml Calcium Acetate (Phoslo) 1,334 mg PO TID [facility] Last Admin: 09/30/18 10:26 Dose: Not Given Dextrose (Dextrose 50% Inj) 0 ml IV STAT PRN; Protocol PRN Reason: Hypoglycemia Protocol Dextrose (Glutose 15) 0 gm PO ONCE PRN; Protocol PRN Reason: Hypoglycemia Protocol Glucagon (Glucagen Diagnostic Kit) 0 mg IM STAT PRN; Protocol PRN Reason: Hypoglycemia Protocol Dextrose (Dextrose 5% In Water 1000 Ml) 1,000 mls @ 0 mls/hr IV .Q0M PRN; Protocol PRN Reason: Hypoglycemia Protocol Aztreonam 1 gm/ Sodium (Chloride) 100 mls @ 200 mls/hr IVPB Q12H [facility]; Protocol Last Admin: 09/30/18 10:25 Dose: 200 mls/hr Metronidazole (Flagyl) 500 mg in 100 mls @ 100 mls/hr IVPB Q8H [facility]; Protocol Last Admin: 09/30/18 10:26 Dose: 100 mls/hr Sodium Bicarbonate 150 meq/ (Dextrose) 1,150 mls @ 42 mls/hr IV .Q24H [facility] Last Admin: 09/30/18 10:27 Dose: 42 mls/hr Insulin Human Regular (Novolin R) 0 unit SC Q6 [facility]; Protocol Last Admin: 09/30/18 06:13 Dose: 3 units Methylprednisolone (Solu-Medrol) 40 mg IVP Q8 [facility] Last Admin: 09/30/18 05:18 Dose: 40 mg Morphine Sulfate (Morphine) 2 mg IVP Q3 PRN PRN Reason: Agitation Last Admin: 09/30/18 04:30 Dose: 2 mg Pantoprazole Sodium (Protonix Inj) 40 mg IVP DAILY [facility] Last Admin: 09/30/18 10:26 Dose: 40 mg - Labs Labs: 09/30/18 06:25 09/30/18 06:25 PT 12.1 SECONDS (9.7-12.2) 09/26/18 06:16 INR 1.1 09/26/18 06:16 APTT 24 SECONDS (21-34) 09/26/18 06:16
--- NOTE | 2018-09-30 12:43 | CP.PCM.PN ---
Subjective - Date & Time of Evaluation Date of Evaluation: 09/30/18 Time of Evaluation: 12:41 - Subjective Subjective: COVERING DR MEIER/STIVEN No bleeding. Family again changed mind about dialysis. No new c/o Objective - Vital Signs/Intake and Output Vital Signs (last 24 hours): Temp Pulse Resp BP Pulse Ox 97.5 F L 84 18 130/50 L 97 09/30/18 04:00 09/30/18 08:23 09/30/18 06:55 09/30/18 06:55 09/30/18 06:55 Intake and Output: 09/30/18 09/30/18 06:59 18:59 Intake Total 704 Output Total 0 Balance 704 - Medications Medications: Current Medications Acetaminophen (Tylenol 325mg Tab) 650 mg PO Q6 PRN PRN Reason: Fever >100.4 F Last Admin: 09/29/18 10:51 Dose: 650 mg Albuterol/Ipratropium (Duoneb 3 Mg/0.5 Mg (3 Ml) Ud) 3 ml INH RQ6 [facility] Last Admin: 09/30/18 07:40 Dose: 3 ml Calcium Acetate (Phoslo) 1,334 mg PO TID [facility] Last Admin: 09/30/18 10:26 Dose: Not Given Dextrose (Dextrose 50% Inj) 0 ml IV STAT PRN; Protocol PRN Reason: Hypoglycemia Protocol Dextrose (Glutose 15) 0 gm PO ONCE PRN; Protocol PRN Reason: Hypoglycemia Protocol Glucagon (Glucagen Diagnostic Kit) 0 mg IM STAT PRN; Protocol PRN Reason: Hypoglycemia Protocol Dextrose (Dextrose 5% In Water 1000 Ml) 1,000 mls @ 0 mls/hr IV .Q0M PRN; Protocol PRN Reason: Hypoglycemia Protocol Aztreonam 1 gm/ Sodium (Chloride) 100 mls @ 200 mls/hr IVPB Q12H [facility]; Protocol Last Admin: 09/30/18 10:25 Dose: 200 mls/hr Metronidazole (Flagyl) 500 mg in 100 mls @ 100 mls/hr IVPB Q8H [facility]; Protocol Last Admin: 09/30/18 10:26 Dose: 100 mls/hr Sodium Bicarbonate 150 meq/ (Dextrose) 1,150 mls @ 42 mls/hr IV .Q24H [facility] Last Admin: 09/30/18 10:27 Dose: 42 mls/hr Insulin Human Regular (Novolin R) 0 unit SC Q6 [facility]; Protocol Last Admin: 09/30/18 06:13 Dose: 3 units Methylprednisolone (Solu-Medrol) 40 mg IVP Q8 [facility] Last Admin: 09/30/18 05:18 Dose: 40 mg Morphine Sulfate (Morphine) 2 mg IVP Q3 PRN PRN Reason: Agitation Last Admin: 09/30/18 04:30 Dose: 2 mg Pantoprazole Sodium (Protonix Inj) 40 mg IVP DAILY [facility] Last Admin: 09/30/18 10:26 Dose: 40 mg - Labs Labs: 09/30/18 06:25 09/30/18 06:25 PT 12.1 SECONDS (9.7-12.2) 09/26/18 06:16 INR 1.1 09/26/18 06:16 APTT 24 SECONDS (21-34) 09/26/18 06:16 - Constitutional Appears: No Acute Distress - Head Exam Additional comments: CPAP mask in place - Respiratory Exam Respiratory Exam: Decreased Breath Sounds - Cardiovascular Exam Cardiovascular Exam: REGULAR RHYTHM - GI/Abdominal Exam GI & Abdominal Exam: Soft, Hypoactive Bowel Sounds. absent: Tenderness Assessment and Plan (1) Iron deficiency anemia Assessment & Plan: Hgb remains stable around 7 No further bleeding reported. Continue to monitor. Status: Acute (2) Rectal bleed Assessment & Plan: as above Status: Acute
--- NOTE | 2018-09-30 12:56 | CP.CCUPN ---
CCU Subjective - Physician Review Events Since Last Encounter (Free Text): 09/30/18 12:55 Patient is a 73-year-old female with a history of lung cancer with the chemotherapy. She also has a history of diabetes hypertension COPD and asthma. Number admitted to the intensive care unit with the worsening renal insufficien cy. Now patient is also severely acidotic, metabolic encephalopathy but, worsening renal failure noted. Patient is not responding well. She is on BiPAP at this time. Bicarb drip is running. I SPOKE TO FAMILY YESTERDAY ABOUT HD AFTER DISCUSSION FAMILY AGREED NOT TO DO HD PER PT WISH AND COMFORT CARE WILL BE CONTINUED On examination: Patient is drowsy, responding to deep stimuli. On BiPAP. Chest good air entry Irregular heart sounds Abdominal tenderness negative Pedal edema noted Labs reviewed Elevated potassium Elevated creatinine level Chest x-ray nonspecific. Having bowel movements Assessment and recommendation: 73-year-old female admitted with the metabolic encephalopathy. Acute renal failure. Thrombocytopenia. Status post chemotherapy. Sepsis. Worsening mental status, associated with worsening metabolic status, and severe acidosis changes, hyperkalemia. WILL CONTINUE BIPAP MORPINE NEEDED PT MAY GO TO FLOOR Patient's overall prognosis very poor DVT and GI prophylaxis CCU Objective - Vital Signs / Intake & Output Intake and Output (Last 8hrs): Intake & Output 09/29/18 09/30/18 09/30/18 22:59 06:59 14:59 Intake Total 536 436 Output Total 0 0 Balance 536 436 Weight 167 lb 12.8 oz Intake: Intake, IV Amount 536 436 Left Forearm 100 Right Port-A-Cath 336 336 Rt portacath y site 100 100 Output: Urine 0 0 Urine, Voided 0 0 Other: # Bowel Movements 1 - Physical Exam Head: Positive for: Atraumatic, Normocephalic Pupils: Positive for: PERRL Extroacular Muscles: Positive for: EOMI Conjunctiva: Positive for: Normal Mouth: Positive for: Moist Mucous Membranes Neck: Positive for: Normal Range of Motion Respiratory/Chest: Positive for: Decreased Breath Sounds. Negative for: Respiratory Distress, Accessory Muscle Use Cardiovascular: Positive for: Regular Rate and Rhythm, Normal S1, S2 Abdomen: Positive for: Distention. Negative for: Tenderness Upper Extremity: Positive for: Normal Inspection, Edema (LE edema b/l) Neurological: Positive for: CN II-XII Intact Skin: Positive for: Warm, Normal Color Psychiatric: Positive for: Alert, Other (confused ) - Medications Active Medications: Active Medications Generic Name Dose Route Start Last Admin Trade Name Freq PRN Reason Stop Dose Admin Acetaminophen 650 mg 09/26/18 10:35 09/29/18 10:51 Tylenol 325mg Tab PO 650 mg Q6 PRN Administration Fever >100.4 F Albuterol/Ipratropium 3 ml 09/26/18 14:00 09/30/18 07:40 Duoneb 3 Mg/0.5 Mg (3 Ml) Ud INH 3 ml RQ6 [facility] Administration Calcium Acetate 1,334 mg 09/27/18 14:00 09/30/18 10:26 Phoslo PO Not Given TID [facility] Dextrose 0 ml 09/26/18 10:37 Dextrose 50% Inj IV STAT PRN Hypoglycemia Protocol Protocol Dextrose 0 gm 09/26/18 10:37 Glutose 15 PO ONCE PRN Hypoglycemia Protocol Protocol Glucagon 0 mg 09/26/18 10:37 Glucagen Diagnostic Kit IM STAT PRN Hypoglycemia Protocol Protocol Dextrose 1,000 mls @ 0 mls/hr 09/26/18 10:37 Dextrose 5% In Water 1000 Ml IV .Q0M PRN Hypoglycemia Protocol Protocol Per Protocol Aztreonam 1 gm/ Sodium 100 mls @ 200 mls/hr 09/26/18 21:00 09/30/18 10:25 Chloride IVPB 200 mls/hr Q12H [facility] Administration Protocol Metronidazole 500 mg in 100 mls @ 100 mls/hr 09/26/18 19:00 09/30/18 10:26 Flagyl IVPB 100 mls/hr Q8H [facility] Administration Protocol Sodium Bicarbonate 150 meq/ 1,150 mls @ 42 mls/hr 09/28/18 10:00 09/30/18 10:27 Dextrose IV 42 mls/hr .Q24H [facility] Administration Insulin Human Regular 0 unit 09/29/18 05:10 09/30/18 06:13 Novolin R SC 3 units Q6 [facility] Administration Protocol Methylprednisolone 40 mg 09/28/18 14:00 09/30/18 05:18 Solu-Medrol IVP 40 mg Q8 [facility] Administration Morphine Sulfate 2 mg 09/29/18 16:38 09/30/18 04:30 Morphine IVP 2 mg Q3 PRN Administration Agitation Pantoprazole Sodium 40 mg 09/26/18 10:00 09/30/18 10:26 Protonix Inj IVP 40 mg DAILY [facility] Administration - Patient Studies Lab Studies: Microbiology Studies 09/26/18 07:03 Blood Culture - Preliminary Blood-Venous NO GROWTH AFTER 4 DAYS 09/26/18 07:03 Blood Culture - Preliminary Blood-Venous NO GROWTH AFTER 4 DAYS Lab Studies 09/30/18 09/30/18 09/30/18 Range/Units 12:08 06:25 06:25 WBC 28.2 H (4.8-10.8) K/uL RBC 2.40 L (3.80-5.20) Mil/uL Hgb 7.0 L (11.0-16.0) g/dL Hct 21.2 L (34.0-47.0) % MCV 88.3 (81.0-99.0) fL MCH 29.1 (27.0-31.0) pg MCHC 33.0 (33.0-37.0) g/dL RDW 15.8 H (11.5-14.5) % Plt Count 23 L* (130-400) K/uL MPV 8.2 (7.2-11.7) fL Neut % (Auto) 3.6 L (50.0-75.0) % Lymph % (Auto) 4.4 L (20.0-40.0) % Mcduffie % (Auto) 89.3 H (0.0-10.0) % Eos % (Auto) 2.7 (0.0-4.0) % Baso % (Auto) 0.0 (0.0-2.0) % Neut # (Auto) 1.0 L (1.8-7.0) K/uL Lymph # (Auto) 1.2 (1.0-4.3) K/uL Mcduffie # (Auto) 25.1 H (0.0-0.8) K/uL Eos # (Auto) 0.8 H (0.0-0.7) K/uL Baso # (Auto) 0.0 (0.0-0.2) K/uL Neutrophils % (Manual) 3 L (50-75) % Lymphocytes % (Manual) 4 L (20-40) % Monocytes % (Manual) 84 H (0-10) % Eosinophils % (Manual) 1 (0-4) % Promyelocytes % 1 H (0-0) % Blast Cells % 7 H (0-0) % Platelet Estimate Markedly decreased L (NORMAL) Polychromasia Slight Hypochromasia (manual) Slight Poikilocytosis (manual Slight Anisocytosis (manual) Moderate Schistocytes Slight Sodium 141 (132-148) mmol/L Potassium 6.1 H (3.6-5.2) mmol/L Chloride 101 (98-107) mmol/L Carbon Dioxide 32 H (22-30) mmol/L Anion Gap 14 (10-20) BUN 106 H* (7-17) mg/dL Creatinine 6.6 H (0.7-1.2) mg/dL Est GFR ( Amer) 7 Est GFR (Non-Af Amer) 6 POC Glucose (mg/dL) 209 H (65-110) mg/dL Random Glucose 236 H D (65-105) mg/dL Calcium 7.3 L (8.6-10.4) mg/dl Total Bilirubin 0.7 (0.2-1.3) mg/dL AST 48 H D (14-36) U/L ALT 58 H (9-52) U/L Alkaline Phosphatase 85 (38-126) U/L Total Protein 5.6 L (6.3-8.3) g/dL Albumin 3.1 L (3.5-5.0) g/dL Globulin 2.5 (2.2-3.9) gm/dL Albumin/Globulin Ratio 1.2 (1.0-2.1) 09/30/18 09/29/18 09/29/18 Range/Units 05:36 23:38 17:55 WBC (4.8-10.8) K/uL RBC (3.80-5.20) Mil/uL Hgb (11.0-16.0) g/dL Hct (34.0-47.0) % MCV (81.0-99.0) fL MCH (27.0-31.0) pg MCHC (33.0-37.0) g/dL RDW (11.5-14.5) % Plt Count (130-400) K/uL MPV (7.2-11.7) fL Neut % (Auto) (50.0-75.0) % Lymph % (Auto) (20.0-40.0) % Mcduffie % (Auto) (0.0-10.0) % Eos % (Auto) (0.0-4.0) % Baso % (Auto) (0.0-2.0) % Neut # (Auto) (1.8-7.0) K/uL Lymph # (Auto) (1.0-4.3) K/uL Mcduffie # (Auto) (0.0-0.8) K/uL Eos # (Auto) (0.0-0.7) K/uL Baso # (Auto) (0.0-0.2) K/uL Neutrophils % (Manual) (50-75) % Lymphocytes % (Manual) (20-40) % Monocytes % (Manual) (0-10) % Eosinophils % (Manual) (0-4) % Promyelocytes % (0-0) % Blast Cells % (0-0) % Platelet Estimate (NORMAL) Polychromasia Hypochromasia (manual) Poikilocytosis (manual Anisocytosis (manual) Schistocytes Sodium (132-148) mmol/L Potassium (3.6-5.2) mmol/L Chloride (98-107) mmol/L Carbon Dioxide (22-30) mmol/L Anion Gap (10-20) BUN (7-17) mg/dL Creatinine (0.7-1.2) mg/dL Est GFR ( Amer) Est GFR (Non-Af Amer) POC Glucose (mg/dL) 247 H 199 H 262 H (65-110) mg/dL Random Glucose (65-105) mg/dL Calcium (8.6-10.4) mg/dl Total Bilirubin (0.2-1.3) mg/dL AST (14-36) U/L ALT (9-52) U/L Alkaline Phosphatase (38-126) U/L Total Protein (6.3-8.3) g/dL Albumin (3.5-5.0) g/dL Globulin (2.2-3.9) gm/dL Albumin/Globulin Ratio (1.0-2.1) Laboratory Results - last 24 hr 09/29/18 09/29/18 09/30/18 17:55 23:38 05:36 WBC RBC Hgb Hct MCV MCH MCHC RDW Plt Count MPV Neut % (Auto) Lymph % (Auto) Mcduffie % (Auto) Eos % (Auto) Baso % (Auto) Neut # (Auto) Lymph # (Auto) Mcduffie # (Auto) Eos # (Auto) Baso # (Auto) Neutrophils % (Manual) Lymphocytes % (Manual) Monocytes % (Manual) Eosinophils % (Manual) Promyelocytes % Blast Cells % Platelet Estimate Polychromasia Hypochromasia (manual) Poikilocytosis (manual Anisocytosis (manual) Schistocytes Sodium Potassium Chloride Carbon Dioxide Anion Gap BUN Creatinine Est GFR ( Amer) Est GFR (Non-Af Amer) POC Glucose (mg/dL) 262 H 199 H 247 H Random Glucose Calcium Total Bilirubin AST ALT Alkaline Phosphatase Total Protein Albumin Globulin Albumin/Globulin Ratio 09/30/18 09/30/18 09/30/18 06:25 06:25 12:08 WBC 28.2 H RBC 2.40 L Hgb 7.0 L Hct 21.2 L MCV 88.3 MCH 29.1 MCHC 33.0 RDW 15.8 H Plt Count 23 L* MPV 8.2 Neut % (Auto) 3.6 L Lymph % (Auto) 4.4 L Mcduffie % (Auto) 89.3 H Eos % (Auto) 2.7 Baso % (Auto) 0.0 Neut # (Auto) 1.0 L Lymph # (Auto) 1.2 Mcduffie # (Auto) 25.1 H Eos # (Auto) 0.8 H Baso # (Auto) 0.0 Neutrophils % (Manual) 3 L Lymphocytes % (Manual) 4 L Monocytes % (Manual) 84 H Eosinophils % (Manual) 1 Promyelocytes % 1 H Blast Cells % 7 H Platelet Estimate Markedly decreased L Polychromasia Slight Hypochromasia (manual) Slight Poikilocytosis (manual Slight Anisocytosis (manual) Moderate Schistocytes Slight Sodium 141 Potassium 6.1 H Chloride 101 Carbon Dioxide 32 H Anion Gap 14 BUN 106 H* Creatinine 6.6 H Est GFR ( Amer) 7 Est GFR (Non-Af Amer) 6 POC Glucose (mg/dL) 209 H Random Glucose 236 H D Calcium 7.3 L Total Bilirubin 0.7 AST 48 H D ALT 58 H Alkaline Phosphatase 85 Total Protein 5.6 L Albumin 3.1 L Globulin 2.5 Albumin/Globulin Ratio 1.2 Fingerstick Blood Sugar Results: 242 Critical Care Progress Note - Nutrition Nutrition: Nutrition Category Date Time Status NPO Diet [DIET] Diets 09/28/18 Lunch Active
--- NOTE | 2018-09-30 15:04 | CP.PCM.PN ---
Subjective - Date & Time of Evaluation Date of Evaluation: 09/30/18 Time of Evaluation: 09:00 - Subjective Subjective: refusing HD iv rx in progress on BiPaP Objective - Vital Signs/Intake and Output Vital Signs (last 24 hours): Temp Pulse Resp BP Pulse Ox 97.5 F L 92 H 18 130/50 L 97 09/30/18 04:00 09/30/18 12:50 09/30/18 06:55 09/30/18 06:55 09/30/18 06:55 Intake and Output: 09/30/18 09/30/18 06:59 18:59 Intake Total 704 Output Total 0 Balance 704 - Medications Medications: Current Medications Acetaminophen (Tylenol 325mg Tab) 650 mg PO Q6 PRN PRN Reason: Fever >100.4 F Last Admin: 09/29/18 10:51 Dose: 650 mg Albuterol/Ipratropium (Duoneb 3 Mg/0.5 Mg (3 Ml) Ud) 3 ml INH RQ6 [facility] Last Admin: 09/30/18 12:50 Dose: 3 ml Calcium Acetate (Phoslo) 1,334 mg PO TID [facility] Last Admin: 09/30/18 10:26 Dose: Not Given Dextrose (Dextrose 50% Inj) 0 ml IV STAT PRN; Protocol PRN Reason: Hypoglycemia Protocol Dextrose (Glutose 15) 0 gm PO ONCE PRN; Protocol PRN Reason: Hypoglycemia Protocol Glucagon (Glucagen Diagnostic Kit) 0 mg IM STAT PRN; Protocol PRN Reason: Hypoglycemia Protocol Dextrose (Dextrose 5% In Water 1000 Ml) 1,000 mls @ 0 mls/hr IV .Q0M PRN; Pr otocol PRN Reason: Hypoglycemia Protocol Aztreonam 1 gm/ Sodium (Chloride) 100 mls @ 200 mls/hr IVPB Q12H [facility]; Protocol Last Admin: 09/30/18 10:25 Dose: 200 mls/hr Metronidazole (Flagyl) 500 mg in 100 mls @ 100 mls/hr IVPB Q8H [facility]; Protocol Last Admin: 09/30/18 10:26 Dose: 100 mls/hr Sodium Bicarbonate 150 meq/ (Dextrose) 1,150 mls @ 42 mls/hr IV .Q24H [facility] Last Admin: 09/30/18 10:27 Dose: 42 mls/hr Insulin Human Regular (Novolin R) 0 unit SC Q6 [facility]; Protocol Last Admin: 09/30/18 06:13 Dose: 3 units Methylprednisolone (Solu-Medrol) 40 mg IVP Q8 [facility] Last Admin: 09/30/18 05:18 Dose: 40 mg Morphine Sulfate (Morphine) 2 mg IVP Q3 PRN PRN Reason: Agitation Last Admin: 09/30/18 04:30 Dose: 2 mg Pantoprazole Sodium (Protonix Inj) 40 mg IVP DAILY [facility] Last Admin: 09/30/18 10:26 Dose: 40 mg - Labs Labs: 09/30/18 06:25 09/30/18 06:25 PT 12.1 SECONDS (9.7-12.2) 09/26/18 06:16 INR 1.1 09/26/18 06:16 APTT 24 SECONDS (21-34) 09/26/18 06:16 - Constitutional Appears: Confused, Cachectic, Chronically Ill - Head Exam Head Exam: NORMOCEPHALIC - Eye Exam Eye Exam: PERRL. absent: Scleral icterus - ENT Exam ENT Exam: Mucous Membranes Dry - Neck Exam Neck Exam: absent: Lymphadenopathy - Respiratory Exam Respiratory Exam: Decreased Breath Sounds - Cardiovascular Exam Cardiovascular Exam: REGULAR RHYTHM - GI/Abdominal Exam GI & Abdominal Exam: Distended, Soft - Rectal Exam Rectal Exam: Deferred - Exam Exam: NORMAL INSPECTION - Extremities Exam Extremities Exam: Pedal Edema - Back Exam Back Exam: absent: CVA tenderness (L), CVA tenderness (R) - Neurological Exam Neurological Exam: Altered - Psychiatric Exam Psychiatric exam: Depressed - Skin Skin Exam: Dry Assessment and Plan (1) Anemia Status: Acute (2) Hypomagnesemia Status: Acute (3) Leukocytosis (leucocytosis) Status: Acute (4) Lung cancer Status: Acute (5) Pneumonia Status: Acute (6) Renal failure Status: Acute (7) Thrombocytopenia Status: Acute (8) BRENDA (acute kidney injury) Status: Acute - Assessment and Plan (Free Text) Assessment: doing poorly all cultures neg needs HD- family refuses poor prognosis
--- NOTE | 2018-09-30 22:19 | CP.PCM.PN ---
Subjective - Date & Time of Evaluation Date of Evaluation: 09/28/18 Time of Evaluation: 12:00 - Subjective Subjective: Fatigued, family at bedside. Objective - Vital Signs/Intake and Output Vital Signs (last 24 hours): Temp Pulse Resp BP Pulse Ox 98.0 F 88 20 128/42 L 98 09/30/18 16:00 09/30/18 20:11 09/30/18 19:00 09/30/18 18:55 09/30/18 19:00 Intake and Output: 09/30/18 10/01/18 18:59 06:59 Intake Total 678 Output Total 0 Balance 678 - Medications Medications: Current Medications Acetaminophen (Tylenol 325mg Tab) 650 mg PO Q6 PRN PRN Reason: Fever >100.4 F Last Admin: 09/29/18 10:51 Dose: 650 mg Albuterol/Ipratropium (Duoneb 3 Mg/0.5 Mg (3 Ml) Ud) 3 ml INH RQ6 [facility] Last Admin: 09/30/18 20:08 Dose: 3 ml Calcium Acetate (Phoslo) 1,334 mg PO TID [facility] Last Admin: 09/30/18 18:24 Dose: Not Given Dextrose (Dextrose 50% Inj) 0 ml IV STAT PRN; Protocol PRN Reason: Hypoglycemia Protocol Dextrose (Glutose 15) 0 gm PO ONCE PRN; Protocol PRN Reason: Hypoglycemia Protocol Glucagon (Glucagen Diagnostic Kit) 0 mg IM STAT PRN; Protocol PRN Reason: Hypoglycemia Protocol Dextrose (Dextrose 5% In Water 1000 Ml) 1,000 mls @ 0 mls/hr IV .Q0M PRN; Protocol PRN Reason: Hypoglycemia Protocol Aztreonam 1 gm/ Sodium (Chloride) 100 mls @ 200 mls/hr IVPB Q12H [facility]; Protocol Last Admin: 09/30/18 21:55 Dose: 200 mls/hr Metronidazole (Flagyl) 500 mg in 100 mls @ 100 mls/hr IVPB Q8H [facility]; Protocol Last Admin: 09/30/18 18:23 Dose: 100 mls/hr Sodium Bicarbonate 150 meq/ (Dextrose) 1,150 mls @ 42 mls/hr IV .Q24H [facility] Last Admin: 09/30/18 10:27 Dose: 42 mls/hr Insulin Human Regular (Novolin R) 0 unit SC Q6 [facility]; Protocol Last Admin: 09/30/18 18:26 Dose: 2 units Methylprednisolone (Solu-Medrol) 40 mg IVP Q8 [facility] Last Admin: 09/30/18 22:00 Dose: 40 mg Morphine Sulfate (Morphine) 2 mg IVP Q3 PRN PRN Reason: Agitation Last Admin: 09/30/18 12:05 Dose: 2 mg Pantoprazole Sodium (Protonix Inj) 40 mg IVP DAILY [facility] Last Admin: 09/30/18 10:26 Dose: 40 mg - Labs Labs: 09/30/18 06:25 09/30/18 06:25 PT 12.1 SECONDS (9.7-12.2) 09/26/18 06:16 INR 1.1 09/26/18 06:16 APTT 24 SECONDS (21-34) 09/26/18 06:16 - Head Exam Head Exam: ATRAUMATIC - Eye Exam Eye Exam: Normal appearance - ENT Exam ENT Exam: Mucous Membranes Dry - Respiratory Exam Respiratory Exam: NORMAL BREATHING PATTERN - Cardiovascular Exam Cardiovascular Exam: +S1, +S2 - GI/Abdominal Exam GI & Abdominal Exam: Normal Bowel Sounds Assessment and Plan (1) Leucocytosis Assessment & Plan: trending lower ?growth factor related Status: Acute (2) Anemia Assessment & Plan: chronic disease recent chemotherapy transfusion support PRN Status: Acute (3) Thrombocytopenia Assessment & Plan: downtrending transfuse for plt < 20,000 Status: Acute (4) 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
--- NOTE | 2018-09-30 22:21 | CP.PCM.PN ---
Subjective - Date & Time of Evaluation Date of Evaluation: 09/29/18 Time of Evaluation: 18:00 - Subjective Subjective: On bipap family at bedside DNR/DNI Objective - Vital Signs/Intake and Output Vital Signs (last 24 hours): Temp Pulse Resp BP Pulse Ox 98.0 F 88 20 128/42 L 98 09/30/18 16:00 09/30/18 20:11 09/30/18 19:00 09/30/18 18:55 09/30/18 19:00 Intake and Output: 09/30/18 10/01/18 18:59 06:59 Intake Total 678 Output Total 0 Balance 678 - Medications Medications: Current Medications Acetaminophen (Tylenol 325mg Tab) 650 mg PO Q6 PRN PRN Reason: Fever >100.4 F Last Admin: 09/29/18 10:51 Dose: 650 mg Albuterol/Ipratropium (Duoneb 3 Mg/0.5 Mg (3 Ml) Ud) 3 ml INH RQ6 [facility] Last Admin: 09/30/18 20:08 Dose: 3 ml Calcium Acetate (Phoslo) 1,334 mg PO TID [facility] Last Admin: 09/30/18 18:24 Dose: Not Given Dextrose (Dextrose 50% Inj) 0 ml IV STAT PRN; Protocol PRN Reason: Hypoglycemia Protocol Dextrose (Glutose 15) 0 gm PO ONCE PRN; Protocol PRN Reason: Hypoglycemia Protocol Glucagon (Glucagen Diagnostic Kit) 0 mg IM STAT PRN; Protocol PRN Reason: Hypoglycemia Protocol Dextrose (Dextrose 5% In Water 1000 Ml) 1,000 mls @ 0 mls/hr IV .Q0M PRN; Protocol PRN Reason: Hypoglycemia Protocol Aztreonam 1 gm/ Sodium (Chloride) 100 mls @ 200 mls/hr IVPB Q12H [facility]; Protocol Last Admin: 09/30/18 21:55 Dose: 200 mls/hr Metronidazole (Flagyl) 500 mg in 100 mls @ 100 mls/hr IVPB Q8H [facility]; Protocol Last Admin: 09/30/18 18:23 Dose: 100 mls/hr Sodium Bicarbonate 150 meq/ (Dextrose) 1,150 mls @ 42 mls/hr IV .Q24H [facility] Last Admin: 09/30/18 10:27 Dose: 42 mls/hr Insulin Human Regular (Novolin R) 0 unit SC Q6 [facility]; Protocol Last Admin: 09/30/18 18:26 Dose: 2 units Methylprednisolone (Solu-Medrol) 40 mg IVP Q8 [facility] Last Admin: 09/30/18 22:00 Dose: 40 mg Morphine Sulfate (Morphine) 2 mg IVP Q3 PRN PRN Reason: Agitation Last Admin: 09/30/18 12:05 Dose: 2 mg Pantoprazole Sodium (Protonix Inj) 40 mg IVP DAILY [facility] Last Admin: 09/30/18 10:26 Dose: 40 mg - Labs Labs: 09/30/18 06:25 09/30/18 06:25 PT 12.1 SECONDS (9.7-12.2) 09/26/18 06:16 INR 1.1 09/26/18 06:16 APTT 24 SECONDS (21-34) 09/26/18 06:16 - Head Exam Head Exam: ATRAUMATIC - Eye Exam Eye Exam: Normal appearance - ENT Exam ENT Exam: Mucous Membranes Dry - Respiratory Exam Respiratory Exam: NORMAL BREATHING PATTERN - Cardiovascular Exam Cardiovascular Exam: +S1, +S2 - GI/Abdominal Exam GI & Abdominal Exam: Normal Bowel Sounds Assessment and Plan (1) Leucocytosis Assessment & Plan: downtrending ? growth factor related Blasts noted - ?growth factor related ? 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
[2018-10-01] MEDS: Albuterol-Ipratrop 3 mg / 0.5 (3 ml) UD INH SCH ×3 (01:08→13:59)
[2018-10-01] MEDS: (Novolin R) Insulin Human Regular 100 units/ml vial SC SCH ×2 (01:54→13:33)
[2018-10-01] MEDS: metroNIDAZOLE IV 500 mg/100 ml 500 MG/100 ML BAG IVPB SCH ×2 (06:24→10:06)
[2018-10-01] MEDS: MethylPREDNISolone 40 mg Vial IVP SCH (06:24)
[2018-10-01] MEDS: Aztreonam 1 GM in Sodium Chloride 0.9% 100 ML IVPB SCH (08:20)
--- NOTE | 2018-10-01 08:54 | CP.PCM.PN ---
Subjective - Date & Time of Evaluation Date of Evaluation: 10/01/18 Time of Evaluation: 08:54 - Subjective Subjective: PGY-1 Medicine Progress Note for Dr. Blake Patient seen and examined at bedside, lethargic, unresponsive to verbal or tactile stimuli. Currently on Bipap FiO2 50%. Patient was started on morphine ggt last night 2/2 persistent tachycardia and respiratory distress. Family at bedside was aware of acuity of condition and poor prognosis. Reiterated that palliative will speak to family about possible comfort care going forward. Family amenable to plan. Objective - Vital Signs/Intake and Output Vital Signs (last 24 hours): Temp Pulse Resp BP Pulse Ox 98 F 119 H 21 106/43 L 99 10/01/18 06:00 10/01/18 07:25 10/01/18 01:33 10/01/18 01:33 10/01/18 01:33 Intake and Output: 10/01/18 10/01/18 06:59 18:59 Intake Total 222 Output Total 2 Balance -2 222 - Medications Medications: Current Medications Acetaminophen (Tylenol 325mg Tab) 650 mg PO Q6 PRN PRN Reason: Fever >100.4 F Last Admin: 09/29/18 10:51 Dose: 650 mg Albuterol/Ipratropium (Duoneb 3 Mg/0.5 Mg (3 Ml) Ud) 3 ml INH RQ6 [facility] Last Admin: 10/01/18 07:30 Dose: 3 ml Calcium Acetate (Phoslo) 1,334 mg PO TID [facility] Last Admin: 09/30/18 18:24 Dose: Not Given Dextrose (Dextrose 50% Inj) 0 ml IV STAT PRN; Protocol PRN Reason: Hypoglycemia Protocol Dextrose (Glutose 15) 0 gm PO ONCE PRN; Protocol PRN Reason: Hypoglycemia Protocol Glucagon (Glucagen Diagnostic Kit) 0 mg IM STAT PRN; Protocol PRN Reason: Hypoglycemia Protocol Dextrose (Dextrose 5% In Water 1000 Ml) 1,000 mls @ 0 mls/hr IV .Q0M PRN; Protocol PRN Reason: Hypoglycemia Protocol Aztreonam 1 gm/ Sodium (Chloride) 100 mls @ 200 mls/hr IVPB Q12H [facility]; Protocol Last Admin: 10/01/18 08:20 Dose: 200 mls/hr Metronidazole (Flagyl) 500 mg in 100 mls @ 100 mls/hr IVPB Q8H [facility]; Protocol Last Admin: 10/01/18 06:24 Dose: 100 mls/hr Sodium Bicarbonate 150 meq/ (Dextrose) 1,150 mls @ 42 mls/hr IV .Q24H [facility] Last Admin: 09/30/18 10:27 Dose: 42 mls/hr Morphine Sulfate 250 mg/ (Sodium Chloride) 250 mls @ 2 mls/hr IV .Q24H PRN; Protocol PRN Reason: Agitation Last Titration: 10/01/18 08:21 Dose: 4 mg/hr, 4 mls/hr Insulin Human Regular (Novolin R) 0 unit SC Q6 [facility]; Protocol Last Admin: 10/01/18 01:54 Dose: 4 units Methylprednisolone (Solu-Medrol) 40 mg IVP Q8 [facility] Last Admin: 10/01/18 06:24 Dose: 40 mg Pantoprazole Sodium (Protonix Inj) 40 mg IVP DAILY [facility] Last Admin: 09/30/18 10:26 Dose: 40 mg - Labs Labs: 09/30/18 06:25 09/30/18 06:25 PT 12.1 SECONDS (9.7-12.2) 09/26/18 06:16 INR 1.1 09/26/18 06:16 APTT 24 SECONDS (21-34) 09/26/18 06:16 - Constitutional Appears: Chronically Ill - Head Exam Head Exam: ATRAUMATIC, NORMAL INSPECTION, NORMOCEPHALIC - Eye Exam Eye Exam: Normal appearance, PERRL - ENT Exam ENT Exam: Mucous Membranes Moist, Normal Exam - Neck Exam Neck Exam: Normal Inspection - Respiratory Exam Respiratory Exam: Decreased Breath Sounds. absent: Accessory Muscle Use, Respiratory Distress Additional comments: On Bipap - Cardiovascular Exam Cardiovascular Exam: REGULAR RHYTHM, +S1, +S2 - GI/Abdominal Exam GI & Abdominal Exam: Distended, Soft - Extremities Exam Extremities Exam: Normal Capillary Refill, Normal Inspection, Pedal Edema (bilaterally) - Neurological Exam Additional comments: Lethargic, not alert, unresponsive to verbal or tactile stimuli - Skin Skin Exam: Dry, Intact, Normal Color, Warm Assessment and Plan - Assessment and Plan (Free Text) Assessment: 73 yo F w/ pmhx of lung cancer (on chemotherapy), COPD, asthma, HTN, DM presenting with SOB, fatigue, confusion. Found to have fevers, leukocytosis, pancytopenic, as well as worsening renal function. Currently acidotic, metabolic encephalopathic with worsening renal function. Poor prognosis, palliative on board. DNR/DNI. Plan: Acute renal failure--metabolic acidosis and respiratory failure Metabolic encephalopathy -Pt lethargic, does not respond to verbal or tactile stimuli -Family aware of poor prognosis, refusing HD -comfort care -morphine ggt, oxygen supplementation -Palliative care on board; f/u inpatient hospice eval -DNR/DNI Sepsis -c/w aztreonam, flagyl -Bcx, urine cx negative -afebrile -had administration of growth factors outpatient Pancytopenia -downtrending despite blood and PLT transfusions -c diff study negative -positive stool occult -GI on case -prognosis poor Lung Cancer -pt is a smoker despite hx of lung cancer and COPD/asthma -CXR (09/29): Lateral R basilar mass -Palliative care on board, inpatient hospice eval pending -DNR/DNI DM -ISS -hypoglycemic protocol -accuchecks PPx, Diet, Disposition -scds -protonix -Diet: NPO -Code status: DNR/DNI -Dispo: Hospice evaluation pending. Prognosis very poor, family is aware.
--- NOTE | 2018-10-01 10:46 | CP.PCM.PN ---
Subjective - Date & Time of Evaluation Date of Evaluation: 10/01/18 Time of Evaluation: 10:43 - Subjective Subjective: Patient is unresponsive, on BiPap, FiO2 50 %. HR 119, O2 Sat 99 %. Patient started on Morphine drip last night for severe tachycardia and respiratory distress. Family at bed side this morning and aware of acuity of condition with being expected. Objective - Vital Signs/Intake and Output Vital Signs (last 24 hours): Temp Pulse Resp BP Pulse Ox 98 F 119 H 21 106/43 L 99 10/01/18 06:00 10/01/18 07:25 10/01/18 01:33 10/01/18 01:33 10/01/18 01:33 Intake and Output: 10/01/18 10/01/18 06:59 18:59 Intake Total 268 Output Total 2 Balance -2 268 - Medications Medications: Current Medications Acetaminophen (Tylenol 325mg Tab) 650 mg PO Q6 PRN PRN Reason: Fever >100.4 F Last Admin: 09/29/18 10:51 Dose: 650 mg Albuterol/Ipratropium (Duoneb 3 Mg/0.5 Mg (3 Ml) Ud) 3 ml INH RQ6 [facility] Last Admin: 10/01/18 07:30 Dose: 3 ml Calcium Acetate (Phoslo) 1,334 mg PO TID [facility] Last Admin: 10/01/18 10:06 Dose: Not Given Dextrose (Dextrose 50% Inj) 0 ml IV STAT PRN; Protocol PRN Reason: Hypoglycemia Protocol Dextrose (Glutose 15) 0 gm PO ONCE PRN; Protocol PRN Reason: Hypoglycemia Protocol Glucagon (Glucagen Diagnostic Kit) 0 mg IM STAT PRN; Protocol PRN Reason: Hypoglycemia Protocol Dextrose (Dextrose 5% In Water 1000 Ml) 1,000 mls @ 0 mls/hr IV .Q0M PRN; Protocol PRN Reason: Hypoglycemia Protocol Aztreonam 1 gm/ Sodium (Chloride) 100 mls @ 200 mls/hr IVPB Q12H [facility]; Protocol Last Admin: 10/01/18 08:20 Dose: 200 mls/hr Metronidazole (Flagyl) 500 mg in 100 mls @ 100 mls/hr IVPB Q8H [facility]; Protocol Last Admin: 10/01/18 10:06 Dose: 100 mls/hr Sodium Bicarbonate 150 meq/ (Dextrose) 1,150 mls @ 42 mls/hr IV .Q24H [facility] Last Admin: 09/30/18 10:27 Dose: 42 mls/hr Morphine Sulfate 250 mg/ (Sodium Chloride) 250 mls @ 2 mls/hr IV .Q24H PRN; Protocol PRN Reason: Agitation Last Titration: 10/01/18 08:21 Dose: 4 mg/hr, 4 mls/hr Insulin Human Regular (Novolin R) 0 unit SC Q6 [facility]; Protocol Last Admin: 10/01/18 01:54 Dose: 4 units Methylprednisolone (Solu-Medrol) 40 mg IVP Q8 [facility] Last Admin: 10/01/18 06:24 Dose: 40 mg Pantoprazole Sodium (Protonix Inj) 40 mg IVP DAILY [facility] Last Admin: 10/01/18 10:07 Dose: 40 mg - Labs Labs: 09/30/18 06:25 09/30/18 06:25 PT 12.1 SECONDS (9.7-12.2) 09/26/18 06:16 INR 1.1 09/26/18 06:16 APTT 24 SECONDS (21-34) 09/26/18 06:16 - Constitutional Appears: In Acute Distress - Head Exam Head Exam: ATRAUMATIC, NORMAL INSPECTION, NORMOCEPHALIC - Eye Exam Eye Exam: Normal appearance Pupil Exam: NORMAL ACCOMODATION, PERRL - ENT Exam ENT Exam: Mucous Membranes Dry - Neck Exam Neck Exam: Normal Inspection - Respiratory Exam Respiratory Exam: Decreased Breath Sounds, Respiratory Distress Additional comments: On Bipap - Cardiovascular Exam Cardiovascular Exam: Tachycardia - GI/Abdominal Exam GI & Abdominal Exam: Soft, Diminished Bowel Sounds - Rectal Exam Rectal Exam: Deferred - Extremities Exam Extremities Exam: Normal Capillary Refill, Normal Inspection Additional comments: poor urine output - Back Exam Back Exam: NORMAL INSPECTION - Neurological Exam Neurological Exam: Motor Sensory Deficit Neuro motor strength exam: Left Upper Extremity: 0, Right Upper Extremity: 0, Left Lower Extremity: 0, Right Lower Extremity: 0 - Psychiatric Exam Psychiatric exam: Flat Affect - Skin Skin Exam: Dry, Intact, Pallor, Warm Assessment and Plan - Assessment and Plan (Free Text) Assessment: Patient is on Morphine drip, unresponsive. HR 119. BiPap on. Family at bed side. Earlier discussed HD is not an option any more as patient and family decided against it once patient's condition worsened. I confirmed it this morning in phone discussion with patient's daughter Jazmin. In this phone discussion I made sure daughter Jazmin understands that patient is expected to and the Morphine drip was started to ease symptoms and promote comfort. Daughter understood that her mother's condition is terminal and irreversible . Family at bed side listened to this discussion as daughter was on the speaker. I offered more information about comfort care. Daughter Jazmin stated understanding and acceptance. I shared this with Doctor Hayden, Doctor Lagos and Gurpreet RN. Order for hospice evaluation placed. Impression * Acute respiratory distress 2nd to lung cancer and acute renal failure, on Morphine drip * Patient will most likely on this hospitalization * Lethargy * Tachycardia * Family understand irreversible and terminal condition of the patient * Family agrees with Comfort care only * Emotional distress among family members Suggestion * Continue Morphine drip and O2 support * Reposition for comfort every 1 - 2 hr * Promote skin integrity * Emotional Support for family * Pastoral visit for emotional and spiritual support * In house hospice care would be appropriate for this patient ( order placed) Advance care planing 35 min Palliative care will remain on board for family support.
--- NOTE | 2018-10-01 12:11 | CP.PCM.PN ---
Subjective - Date & Time of Evaluation Date of Evaluation: 10/01/18 Time of Evaluation: 12:09 - Subjective Subjective: remains very dyspneic on bipap refusing dialysis discussed with family again for supportive care only Objective - Vital Signs/Intake and Output Vital Signs (last 24 hours): Temp Pulse Resp BP Pulse Ox 98 F 77 21 106/43 L 99 10/01/18 06:00 10/01/18 11:41 10/01/18 01:33 10/01/18 01:33 10/01/18 01:33 Intake and Output: 10/01/18 10/01/18 06:59 18:59 Intake Total 416 Output Total 2 Balance -2 416 - Medications Medications: Current Medications Acetaminophen (Tylenol 325mg Tab) 650 mg PO Q6 PRN PRN Reason: Fever >100.4 F Last Admin: 09/29/18 10:51 Dose: 650 mg Albuterol/Ipratropium (Duoneb 3 Mg/0.5 Mg (3 Ml) Ud) 3 ml INH RQ6 [facility] Last Admin: 10/01/18 07:30 Dose: 3 ml Calcium Acetate (Phoslo) 1,334 mg PO TID [facility] Last Admin: 10/01/18 10:06 Dose: Not Given Dextrose (Dextrose 50% Inj) 0 ml IV STAT PRN; Protocol PRN Reason: Hypoglycemia Protocol Dextrose (Glutose 15) 0 gm PO ONCE PRN; Protocol PRN Reason: Hypoglycemia Protocol Glucagon (Glucagen Diagnostic Kit) 0 mg IM STAT PRN; Protocol PRN Reason: Hypoglycemia Protocol Dextrose (Dextrose 5% In Water 1000 Ml) 1,000 mls @ 0 mls/hr IV .Q0M PRN; Protocol PRN Reason: Hypoglycemia Protocol Aztreonam 1 gm/ Sodium (Chloride) 100 mls @ 200 mls/hr IVPB Q12H [facility]; Protocol Last Admin: 10/01/18 08:20 Dose: 200 mls/hr Metronidazole (Flagyl) 500 mg in 100 mls @ 100 mls/hr IVPB Q8H [facility]; Protocol Last Admin: 10/01/18 10:06 Dose: 100 mls/hr Sodium Bicarbonate 150 meq/ (Dextrose) 1,150 mls @ 42 mls/hr IV .Q24H [facility] Last Admin: 09/30/18 10:27 Dose: 42 mls/hr Morphine Sulfate 250 mg/ (Sodium Chloride) 250 mls @ 2 mls/hr IV .Q24H PRN; Protocol PRN Reason: Agitation Last Titration: 10/01/18 08:21 Dose: 4 mg/hr, 4 mls/hr Insulin Human Regular (Novolin R) 0 unit SC Q6 [facility]; Protocol Last Admin: 10/01/18 01:54 Dose: 4 units Methylprednisolone (Solu-Medrol) 40 mg IVP Q8 [facility] Last Admin: 10/01/18 06:24 Dose: 40 mg Pantoprazole Sodium (Protonix Inj) 40 mg IVP DAILY [facility] Last Admin: 10/01/18 10:07 Dose: 40 mg - Labs Labs: 09/30/18 06:25 09/30/18 06:25 PT 12.1 SECONDS (9.7-12.2) 09/26/18 06:16 INR 1.1 09/26/18 06:16 APTT 24 SECONDS (21-34) 09/26/18 06:16 - Constitutional Appears: In Acute Distress, Cachectic, Chronically Ill - Head Exam Head Exam: ATRAUMATIC, NORMAL INSPECTION - Eye Exam Eye Exam: EOMI, Normal appearance - Neck Exam Neck Exam: Normal Inspection. absent: Tenderness - Respiratory Exam Respiratory Exam: Rhonchi, Respiratory Distress - Cardiovascular Exam Cardiovascular Exam: Tachycardia, +S1 - GI/Abdominal Exam GI & Abdominal Exam: Soft. absent: Tenderness - Extremities Exam Extremities Exam: Normal Inspection. absent: Tenderness - Neurological Exam Neurological Exam: Altered - Skin Skin Exam: Dry, Warm Assessment and Plan (1) Lung cancer Status: Acute (2) Leukocytosis (leucocytosis) Status: Acute (3) BRENDA (acute kidney injury) Status: Acute (4) Hypertension Status: Chronic - Assessment and Plan (Free Text) Plan: supportive care as per family wishes
[2018-10-01] MEDS: Sodium Bicarbonate 8.4% 150 MEQ in Dextrose 5% In Water 1,000 ML IV SCH (13:31)
[2018-10-01 15:13] VITALS: BP 91/40; RESP 15; TEMP 97.5; O2SAT 98
[2018-10-01 16:44] VITALS: PULSE 51
--- NOTE | 2018-10-01 16:49 | CP.PCM.PRO ---
Pronouncement of Note - Clinical Findings Physical Exam: No Response Verbal/Painful Stimuli, Absent Heart & Breath Sounds, No Pupillary Light Reflex, No Corneal Reflex, Pupils Fixed & Dilated, Absence of Vital Signs - Pronouncement Time Time of Pronouncement of : 16:36 - Notifications Pronouncement Notifications: Family Notified, Atending Notified Water Filtration Technician Notified: No - Autopsy Autopsy Requested: No - [place] [id number]
--- NOTE | 2018-10-01 17:09 | CP.PCM.DIS ---
Provider - Provider Date of Admission: 09/26/18 07:29 Attending physician: Ck Blake MD Consults: 09/26/18 06:48 Critical Care Consult Stat Comment: Consulting Provider: Josue Levy Consulting Physician: Josue Levy Reason for Consult: pnemonia, renal failure 09/26/18 09:10 Gastroenterology Consult Routine Comment: Consulting Provider: Mauri Graf Consulting Physician: Mauri Graf Reason for Consult: Fecal occult positive Pulmonology Consult Routine Comment: Consulting Provider: Ancelmo Lagos Consulting Physician: Ancelmo Lagos Reason for Consult: COPD hx of 09/26/18 09:11 Hematology Oncology Consult Routine Comment: Consulting Provider: Cam Wong Consulting Physician: Cam Wong Reason for Consult: hx of lung CA, luekocytosis, thrombopenia 09/26/18 09:58 Nephrology Consult Routine Comment: Consulting Provider: Sonam Almeida Consulting Physician: Sonam Almeida Reason for Consult: BUN/Cr elevated levels 09/26/18 10:34 Infectious Disease Consult Routine Comment: Consulting Provider: Katina Walter Consulting Physician: Katina Walter Reason for Consult: leukocytosis, possible infection 09/26/18 10:38 Palliative Care Consult Routine Comment: Consulting Provider: Katheryn Soto Physician Instructions: Reason For Exam: goals of care 10/01/18 06:00 Palliative Care Consult Routine Comment: Consulting Provider: Katheryn Soto Physician Instructions: request per Dr. Freedman (hospice?) Reason For Exam: please reassess Time Spent in preparation of Discharge (in minutes): 40 Hospital Course - Lab Results Lab Results: Micro Results 09/26/18 Unknown Stool Stool Culture - Final NO SALMONELLA, SHIGELLA OR CAMPYLOBACTER ISOLATED. 09/26/18 07:03 Blood-Venous Blood Culture - Final NO GROWTH AFTER 5 DAYS 09/26/18 07:03 Blood-Venous Gram Stain - Final TEST NOT PERFORMED 09/26/18 07:03 Blood-Venous Blood Culture - Final NO GROWTH AFTER 5 DAYS 09/26/18 07:03 Blood-Venous Gram Stain - Final TEST NOT PERFORMED 09/26/18 07:04 Naris MRSA Culture (Admit) - Final MRSA NOT DETECTED 09/26/18 07:42 Urine,Catheterized Urine Culture - Final No Growth (<1,000 CFU/ML) Most Recent Lab Values WBC 28.2 K/uL (4.8-10.8) H 09/30/18 06:25 RBC 2.40 Mil/uL (3.80-5.20) L 09/30/18 06:25 Hgb 7.0 g/dL (11.0-16.0) L 09/30/18 06:25 Hct 21.2 % (34.0-47.0) L 09/30/18 06:25 MCV 88.3 fL (81.0-99.0) 09/30/18 06:25 MCH 29.1 pg (27.0-31.0) 09/30/18 06:25 MCHC 33.0 g/dL (33.0-37.0) 09/30/18 06:25 RDW 15.8 % (11.5-14.5) H 09/30/18 06:25 Plt Count 23 K/uL (130-400) L* 09/30/18 06:25 MPV 8.2 fL (7.2-11.7) 09/30/18 06:25 Neut % (Auto) 3.6 % (50.0-75.0) L 09/30/18 06:25 Lymph % (Auto) 4.4 % (20.0-40.0) L 09/30/18 06:25 Isabela % (Auto) 89.3 % (0.0-10.0) H 09/30/18 06:25 Eos % (Auto) 2.7 % (0.0-4.0) 09/30/18 06:25 Baso % (Auto) 0.0 % (0.0-2.0) 09/30/18 06:25 Neut # (Auto) 1.0 K/uL (1.8-7.0) L 09/30/18 06:25 Lymph # (Auto) 1.2 K/uL (1.0-4.3) 09/30/18 06:25 Isabela # (Auto) 25.1 K/uL (0.0-0.8) H 09/30/18 06:25 Eos # (Auto) 0.8 K/uL (0.0-0.7) H 09/30/18 06:25 Baso # (Auto) 0.0 K/uL (0.0-0.2) 09/30/18 06:25 Neutrophils % (Manual) 3 % (50-75) L 09/30/18 06:25 Band Neutrophils % 1 % (0-2) 09/29/18 05:43 Lymphocytes % (Manual) 4 % (20-40) L 09/30/18 06:25 Reactive Lymphs % 1 % (0-0) H 09/26/18 20:58 Monocytes % (Manual) 84 % (0-10) H 09/30/18 06:25 Eosinophils % (Manual) 1 % (0-4) 09/30/18 06:25 Promyelocytes % 1 % (0-0) H 09/30/18 06:25 Blast Cells % 7 % (0-0) H 09/30/18 06:25 Smudge Cells Present 09/28/18 06:08 Platelet Estimate Markedly decreased (NORMAL) L 09/30/18 06:25 Polychromasia Slight 09/30/18 06:25 Hypochromasia (manual) Slight 09/30/18 06:25 Poikilocytosis (manual Slight 09/30/18 06:25 Anisocytosis (manual) Moderate 09/30/18 06:25 Microcytosis (manual) Slight 09/29/18 05:43 Target Cells Slight 09/28/18 06:08 Ovalocytes Slight 09/29/18 05:43 Stomatocytes Slight 09/26/18 06:16 Valley Cells Slight 09/28/18 06:08 Schistocytes Slight 09/30/18 06:25 Smear Path Review 09/26/18 06:16 Retic Count 0.3 % (0.5-1.5) L 09/27/18 05:49 PT 12.1 SECONDS (9.7-12.2) 09/26/18 06:16 INR 1.1 09/26/18 06:16 APTT 24 SECONDS (21-34) 09/26/18 06:16 Fibrinogen 329 mg/dL (200-400) 09/27/18 05:49 Puncture Site Lb 09/29/18 11:06 pCO2 106 mm/Hg (35-45) H* 09/29/18 11:06 pO2 80 mm/Hg (80-100) 09/29/18 11:06 HCO3 20.9 mmol/L (21-28) L 09/29/18 11:06 ABG pH 7.03 (7.35-7.45) L* 09/29/18 11:06 ABG Total CO2 31.3 mmol/L (22-28) H 09/29/18 11:06 ABG O2 Saturation 96.2 % (95-98) 09/29/18 11:06 ABG Base Excess -5.0 mmol/L (-2.0-3.0) L 09/29/18 11:06 ABG Hemoglobin 12.0 g/dL (11.7-17.4) 09/29/18 11:06 ABG Carboxyhemoglobin 1.9 % (0.5-1.5) H 09/29/18 11:06 POC ABG HHb (Measured) 3.7 % (0.0-5.0) 09/29/18 11:06 ABG Methemoglobin 1.1 % (0.0-3.0) 09/29/18 11:06 Higinio Test Na 09/29/18 11:06 ABG Potassium 5.1 mmol/L (3.6-5.2) 09/28/18 01:20 A-a O2 Difference 144.0 mm/Hg 09/29/18 11:06 Respiratory Index 1.8 09/29/18 11:06 Hgb O2 Saturation 93.3 % (95.0-98.0) L 09/29/18 11:06 Sodium 140.0 mmol/l (132-148) 09/28/18 01:20 Chloride 105.0 mmol/L (98-107) 09/28/18 01:20 Glucose 184 mg/dl (65-105) H 09/28/18 01:20 Lactate 0.6 mmol/L (0.7-2.1) L 09/28/18 01:20 Liter Flow 3.0 09/28/18 01:20 Vent Mode Bipap 09/28/18 03:05 FiO2 50.0 % 09/29/18 11:06 Inspiratory BiPAP 18 09/29/18 11:06 Expiratory BiPAP 6 09/29/18 11:06 Crit Value Called To Dr gayle 09/29/18 11:06 Crit Value Called By Nelson vivas 09/29/18 11:06 Crit Value Read Back Y 09/29/18 11:06 Blood Gas Notified Time 1115 09/29/18 11:06 Sodium 141 mmol/L (132-148) 09/30/18 06:25 Potassium 6.1 mmol/L (3.6-5.2) H 09/30/18 06:25 Chloride 101 mmol/L (98-107) 09/30/18 06:25 Carbon Dioxide 32 mmol/L (22-30) H 09/30/18 06:25 Anion Gap 14 (10-20) 09/30/18 06:25 BUN 106 mg/dL (7-17) H* 09/30/18 06:25 Creatinine 6.6 mg/dL (0.7-1.2) H 09/30/18 06:25 Est GFR ( Amer) 7 09/30/18 06:25 Est GFR (Non-Af Amer) 6 09/30/18 06:25 POC Glucose (mg/dL) 271 mg/dL (65-110) H 09/30/18 23:34 Random Glucose 236 mg/dL (65-105) H D 09/30/18 06:25 Calcium 7.3 mg/dl (8.6-10.4) L 09/30/18 06:25 Phosphorus 8.4 mg/dL (2.5-4.5) H 09/28/18 06:00 Magnesium 1.6 mg/dL (1.6-2.3) 09/28/18 06:00 Ferritin 3650.0 ng/mL 09/27/18 05:47 Total Bilirubin 0.7 mg/dL (0.2-1.3) 09/30/18 06:25 AST 48 U/L (14-36) H D 09/30/18 06:25 ALT 58 U/L (9-52) H 09/30/18 06:25 Alkaline Phosphatase 85 U/L (38-126) 09/30/18 06:25 Troponin I 0.0580 ng/mL (0.00-0.120) 09/26/18 06:16 NT-Pro-B Natriuret Pep 6450 pg/mL (0-900) H 09/26/18 06:16 Total Protein 5.6 g/dL (6.3-8.3) L 09/30/18 06:25 Albumin 3.1 g/dL (3.5-5.0) L 09/30/18 06:25 Globulin 2.5 gm/dL (2.2-3.9) 09/30/18 06:25 Albumin/Globulin Ratio 1.2 (1.0-2.1) 09/30/18 06:25 Vitamin B12 304 pg/mL (239-931) 09/27/18 05:47 Folate 10.2 ng/mL 09/27/18 05:47 Arterial Blood Potassium 5.1 mmol/L (3.6-5.2) 09/28/18 01:20 Urine Color Yellow (YELLOW) 09/26/18 07:42 Urine Clarity Hazy (Clear) 09/26/18 07:42 Urine pH 5.0 (5.0-8.0) 09/26/18 07:42 Ur Specific Frederick 1.014 (1.003-1.030) 09/26/18 07:42 Urine Protein 2+ mg/dL (NEGATIVE) H 09/26/18 07:42 Urine Glucose (UA) Normal mg/dL (Normal) 09/26/18 07:42 Urine Ketones Negative mg/dL (NEGATIVE) 09/26/18 07:42 Urine Blood 3+ (NEGATIVE) H 09/26/18 07:42 Urine Nitrate Negative (NEGATIVE) 09/26/18 07:42 Urine Bilirubin Negative (NEGATIVE) 09/26/18 07:42 Urine Urobilinogen Normal mg/dL (0.2-1.0) 09/26/18 07:42 Ur Leukocyte Esterase Neg Parrish/uL (Negative) 09/26/18 07:42 Urine WBC (Auto) 11 /hpf (0-5) H 09/26/18 07:42 Urine RBC (Auto) 408 /hpf (0-3) H 09/26/18 07:42 Amorphous Sediment Occ /ul (<OCC) H 09/26/18 07:42 Urine Bacteria Occ (<OCC) H 09/26/18 07:42 Stool Occult Blood Positive (NEGATIVE) H 09/28/18 05:03 Random Vancomycin 7.3 ug/mL 09/27/18 05:47 C. difficile Ag & Toxin Negative (NEGATIVE) 09/26/18 Unknown Influenza Typ A,B (EIA) Negative for flu a/b (NEGATIVE) 09/26/18 06:16 Blood Type B POSITIVE 09/26/18 06:16 Antibody Screen Negative 09/26/18 06:16 - Hospital Course Hospital Course: HPI: Patient is a 73 year old female with past medical history of lung cancer on chemotherapy, asthma, hypertension, diabetes mellitus, and COPD, who presented to the ED early this morning for weakness, confusion, and shortness of breath. Per patients daughter, patients last chemotherapy tx was 1 month ago. Patients daughter states patient receives Neupogen therapy every week, last dose was Monday. Patients daughter states patient has not been eating much lately and has been feeling weak. Patient complains of shortness of breath and feeling hot. Patient denies chest pain, abdominal pain, nausea, and vomiting. During course of admission: Patient became febrile with Tmax 102 F. Patient was tachycardic and dyspneic on admission. BNP was 6450. EKG demonstrated sinus tachycardia. Arterial blood gas demonstrated pH 7.31, PCO2 55, pO2 50. Pulmonology (Dr. Lagos) was consulted. Fecal occult testing was positive, GI (Dr. Graf/Eduardo) was consulted. BUN/Cr was elevated at 53/3.9, Nephrology (Dr. Goyal) was consulted. Patient was found to be anemic with Hb 5.9, was transfused 2 units of packed red blood cells. Patient was also thrombocytopenic with platelet level of 12, was transfused one unit platelets. Leukocytosis was also noted. Heme/Onc (Dr. Wong) was consulted given history of lung cancer and low blood levels. Sepsis criteria was met and patient was started on IV antibiotics, ID was consulted (Dr. Walter). Patient was admitted to ICU for closer management upon evaluation. Patient developed worsening renal function during hospital course. Chest xray obtained demonstrated R lung mass. Patient Patient was placed on Bipap for continued respiratory distress, FiO2 50%. She remained persistently tachycardic and dyspneic. After speaking to drill runner about hemodialysis, family agreed to not pursue dialysis treatment and wished to pursue comfort care. Renal function continued to worsen and patient became severely acidotic, metabolic encephalopathic. Bicarb drip was started. Morphine drip was added for persistent tachycardia and respiratory distress. Palliative care was consulted and family agreed upon inpatient hospice evaluation. Code status was confirmed DNR/DNI. Patient on 10/01, 16:36 with pronouncement made by intensive care team. No response to verbal/painful stimuli was ellicited. Heart and breath sounds were absent. No pupillary light reflex noted, no corneal reflex. Pupils were fixed and dilated. Vital signs were absent. The following is a summary of hospital course. For full detail, please refer to EMR. - Date & Time of H&P Date of H&P: 10/01/18 Time of H&P: 16:51 Discharge Exam - Head Exam Head Exam: ATRAUMATIC, NORMAL INSPECTION, NORMOCEPHALIC - Eye Exam Eye Exam: absent: EOMI, Normal appearance, PERRL Pupil Exam: absent: NORMAL ACCOMODATION - Respiratory Exam Respiratory Exam: absent: NORMAL BREATHING PATTERN - Cardiovascular Exam Cardiovascular Exam: absent: REGULAR RHYTHM, +S1, +S2 Discharge Plan - Follow Up Plan Condition: SERIOUS Disposition: HOME/ ROUTINE
== END 2018-10-01 16:36 | DRG 871 ==
LOC: C.ER 05:27 → C.9E 07:29 → C.9I 07:49
PROVIDERS: ADMIT Internal Medicine; ATTEND Internal Medicine
PROC: 5A09457 Assistance with Respiratory Ventilation, 24-96 Consecutive Hours, Continuous Positive Airway Pressure (ICD-10-PCS; principal; 2018-09-28)
DX: A41.9 Sepsis, unspecified organism (principal); G93.41 Metabolic encephalopathy; J18.9 Pneumonia, unspecified organism; J96.92 Respiratory failure, unspecified with hypercapnia; C34.90 Malignant neoplasm of unspecified part of unspecified bronchus or lung; D61.818 Other pancytopenia; E87.2 Acidosis; J44.0 Chronic obstructive pulmonary disease with (acute) lower respiratory infection; J44.1 Chronic obstructive pulmonary disease with (acute) exacerbation; K62.5 Hemorrhage of anus and rectum; N17.9 Acute kidney failure, unspecified; D50.9 Iron deficiency anemia, unspecified; E83.42 Hypomagnesemia; E87.5 Hyperkalemia; F17.200 Nicotine dependence, unspecified, uncomplicated; I10 Essential (primary) hypertension; J43.9 Emphysema, unspecified; K59.03 Drug induced constipation; Z51.5 Encounter for palliative care; Z66 Do not resuscitate; Z91.15 Patient's noncompliance with renal dialysis; Z99.81 Dependence on supplemental oxygen